=== PATIENT | male | born 1950 | race Caucasian/White ===

== ENCOUNTER 2017-10-31 09:13 | Day surgery (SDC) | payer MEDICARE ==
[2017-10-29 16:11] VITALS: BMI 51.7
[~2017-10-31 09:13] MED LIST: LACTATED RINGERS 1,000 ML IV SCH; LIDOCAINE 1% 20 ML VIAL (10MG/ML) FOR IV START INTRADERMA PRN
[2017-10-31 09:58] VITALS: TEMP 98.6
[2017-10-31 10:08] LABS: Glucose,Whole Blood 112 mg/dL (75-99)
[2017-10-31] MEDS ORDERED: PROPOFOL 10 MG/ML 20 ML VIAL IV ONE (10:36)
[2017-10-31] MEDS ORDERED: LIDOCAINE 1% INJ 10MG/ML (20 ML MDV) ONE (10:36)
--- NOTE | 2017-10-31 11:16 | P.PCN ---
Date of Procedure: 10/31/17 Procedure(s) Performed: Procedure: Total colonoscopy. Preoperative diagnosis: Screening for neoplasia. Postoperative diagnosis: Mild diverticulosis with no evidence of acute diverticulitis, strictures, polyps or cancer. Preparation: HalfLytely prep. Sedation: Was provided by anesthesia. Brief clinical history: The patient is a 67-year-old male who is scheduled for this evaluation for screening for neoplasia. He had a prior exam around 10 years ago. No history of polyps or family history of colon cancer he is aware of. At this time, he has no abdominal complaints, bleeding or anemia. Procedure: With the patient on his left lateral decubitus position and after informed consent and adequate sedation, the perianal area was inspected and it did not show any fissures or fistulas. There were no masses felt on digital rectal examination. The Olympus CFQ 160L video colonoscope was then inserted in the rectum in the usual fashion and advanced to the cecum. The mucosa appeared healthy. No polyps or tumors were seen. There was occasional diverticular orifices seen in the sigmoid and right side with no evidence of acute diverticulitis or strictures. I retroflexed endoscope in the rectum before the endoscope was withdrawn. The patient tolerated the procedure well. Plan: The patient was reassured. He will follow up with you as planned and I recommended repeat exam in 10 years.
[2017-10-31 11:28] VITALS: BP 127/71; PULSE 57; RESP 14
[2017-10-31 11:36] LABS: Glucose,Whole Blood 104 mg/dL (75-99)
== END 2017-10-31 12:01 | disposition home or self-care (01) ==
LOC: ORWHC2ENDO 09:13
DX: Z12.11 Encounter for screening for malignant neoplasm of colon (principal); K57.30 Diverticulosis of large intestine without perforation or abscess without bleeding; I25.10 Atherosclerotic heart disease of native coronary artery without angina pectoris; K21.9 Gastro-esophageal reflux disease without esophagitis; I10 Essential (primary) hypertension; E78.5 Hyperlipidemia, unspecified; G47.33 Obstructive sleep apnea (adult) (pediatric); E11.9 Type 2 diabetes mellitus without complications; Z86.73 Personal history of transient ischemic attack (TIA), and cerebral infarction without residual deficits; E66.9 Obesity, unspecified; Z95.1 Presence of aortocoronary bypass graft; Z79.82 Long term (current) use of aspirin; Z79.84 Long term (current) use of oral hypoglycemic drugs; Z79.899 Other long term (current) drug therapy
CPT/HCPCS: J2001; J2704; G0121; 45378

== ENCOUNTER 2017-11-06 19:11 | Emergency (ER) | payer MEDICARE ==
[2017-11-06 19:17] VITALS: RESP 18
[2017-11-06] MEDS ORDERED: HYDROcodone/APAP 10-325MG 1 EACH TAB PO ONE (20:02)
--- NOTE | 2017-11-06 20:25 | ED ---
Lower Extremity Injury HPI - General Chief Complaint: Extremity Injury, Lower Stated Complaint: Leg pain/swelling Time Seen by Provider: 11/06/17 19:27 Source: patient, RN notes reviewed, old records reviewed Mode of arrival: ambulatory Limitations: no limitations - History of Present Illness Initial Comments: This patient is 67-year-old male presents emergency Department chief complaint of right leg pain and swelling sudden onset of today. 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 No history of blood clots. He reports that he has pain in the posterior knee radiating up towards his groin. Patient states he is in a daily aspirin for a blood thinner no other blood thinners. He also has chronic leg swelling in his PCP recently increased his Lasix. Denies any chest pain or shortness of breath. - Related Data Home Medications Medication Instructions Recorded Confirmed Cholecalciferol [Vitamin D3] 1,000 unit PO DAILY 12/31/14 11/06/17 Multivitamins, Thera [Multivitamin 1 tab PO DAILY 12/31/14 11/06/17 (formulary)] Tamsulosin HCl [Flomax] 0.4 mg PO DAILY 12/31/14 11/06/17 Ferrous Sulfate [Feosol] 325 mg PO DAILY 01/03/15 11/06/17 FLUoxetine HCL [PROzac] 40 mg PO DAILY 01/11/15 11/06/17 Aspirin 325 mg PO DAILY 03/29/15 11/06/17 Furosemide [Lasix] 80 mg PO DAILY 10/29/17 11/06/17 Oxybutynin Chloride [Ditropan] 10 mg PO BID 10/29/17 11/06/17 amLODIPine [Norvasc] 10 mg PO DAILY 10/29/17 11/06/17 metFORMIN HCL [Glucophage] 1,000 mg PO DAILY 10/29/17 11/06/17 Previous Rx's Medication Instructions Recorded Atorvastatin [Lipitor] 20 mg PO HS #30 tab 01/18/15 Metoprolol Tartrate [Lopressor] 25 mg PO TID #90 tab 01/18/15 Allergies Allergy/AdvReac Type Severity Reaction Status Date / Time No Known Allergies Allergy Verified 11/06/17 19:27 Review of Systems ROS Statement: Those systems with pertinent positive or pertinent negative responses have been documented in the HPI. ROS Other: All systems not noted in ROS Statement are negative. Past Medical History Past Medical History: Coronary Artery Disease (CAD), CVA/TIA, Diabetes Mellitus , GERD/Reflux, Hypertension, Sleep Apnea/CPAP/BIPAP Additional Past Medical History / Comment(s): TIA (2009), C-PAP MACHINE, BLADDER LEAKAGE. History of Any Multi-Drug Resistant Organisms: None Reported Past Surgical History: Cholecystectomy, Coronary Bypass/CABG, Hernia Repair, Joint Replacement Additional Past Surgical History / Comment(s): RIGHT CAROTID, NIKOEL TOTAL KNEES ( 2008 & 2010), CABG (2014) Past Anesthesia/Blood Transfusion Reactions: No Reported Reaction Past Psychological History: Anxiety Smoking Status: Former smoker Past Alcohol Use History: None Reported Past Drug Use History: None Reported - Past Family History Brother(s) Family Medical History: Cancer Additional Family Medical History / Comment(s): ORAL CANCER General Exam - General Exam Comments Initial Comments: Patient is a morbidly obese 67-year-old male. Limitations: no limitations General appearance: alert, in no apparent distress Head exam: Present: atraumatic Eye exam: Present: normal appearance, PERRL, EOMI. Absent: scleral icterus, conjunctival injection, periorbital swelling ENT exam: Present: normal exam, mucous membranes moist Neck exam: Present: normal inspection. Absent: tenderness, meningismus, lymphadenopathy Respiratory exam: Present: normal lung sounds bilaterally. Absent: respiratory distress, wheezes, rales, rhonchi, stridor Cardiovascular Exam: Present: regular rate, normal rhythm, normal heart sounds. Absent: systolic murmur, diastolic murmur, rubs, gallop, clicks GI/Abdominal exam: Present: soft, normal bowel sounds. Absent: distended, tenderness, guarding, rebound, rigid Extremities exam: Present: normal inspection, full ROM, normal capillary refill , other (Patient has significant edema over the right lower extremity. Proximally 4+ pitting edema. The lower leg is warm and erythematous.). Absent : tenderness, pedal edema, joint swelling, calf tenderness Right Upper Leg exam: Absent: normal inspection (erythema and swelling) Knee exam: Present: normal inspection, full ROM Lower Leg exam: Present: normal inspection, full ROM Ankle exam: Present: full ROM, erythema. Absent: normal inspection Foot/Toe exam: Present: erythema. Absent: full ROM Neurovascular tendon exam: Present: no vascular compromise Gait: observed and normal Back exam: Present: normal inspection Neurological exam: Present: alert, oriented X3, CN II-XII intact Psychiatric exam: Present: normal affect, normal mood Skin exam: Present: warm, dry, intact, normal color. Absent: rash Course Vital Signs 11/06/17 19:13 Temperature 97.7 F Pulse Rate 64 Respiratory 18 Rate Blood Pressure 154/70 O2 Sat by Pulse 99 Oximetry Medical Decision Making - Medical Decision Making Patient is a 67-year-old with history of diabetes, hyperlipidemia, hypertension , and has history of coronary artery bypass graft presents today with acute onset of right lower extremity swelling. Patient does have extensive swelling over the right lower extremity. 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 Patient has evidence of a significant DVT extending from the external iliac vein to the popliteal vein. Discussed this with Dr. Montoya. He recommends discussing with the vascular surgeon Dr. Castellanos. We got a hold of Dr. Castellanos and he wants the patient to be transferred to [facility] due to the extensive DVT and concern for possible rupture of the clots transferring him to the vena cava. Patient will be given 5000 units of heparin at this time. And started on heparin drip. Patient will be transferred to [facility] for tPA administration. - Radiology Data Radiology results: report reviewed Ultrasound is positive for right leg DVT from the external iliac vein down to the popliteal vein. The DVT appears to be acute. Disposition Clinical Impression: Right leg DVT, Diabetes, Hyperlipemia Disposition: DC/TRNS INTERMEDIATE CARE FAC Condition: Stable Referrals: Orville Weldon MD [Primary Care Provider] - 1-2 days Time of Disposition: 21:44 - Out of Hospital Transfer - Req. Specs Out of Hospital Transfer - Requested Specifics: Other Emergency Center ([facility])
--- NOTE | 2017-11-06 20:56 | US ---
EXAMINATION TYPE: US venous doppler duplex LE RT DATE OF EXAM: 11/06/2017 8:29 PM COMPARISON: NONE CLINICAL HISTORY: Pain. Right leg edema and pain SIDE PERFORMED: Right TECHNIQUE: The lower extremity deep venous system is examined utilizing real time linear array sonog rene with graded compression, doppler sonography and color-flow sonography. VESSELS IMAGED: External Iliac Vein (EIV) Common Femoral Vein Deep Femoral Vein Greater Saphenous Vein * Femoral Vein Popliteal Vein Small Saphenous Vein * Proximal Calf Veins (* superficial vessels) Right Leg: Positive for DVT Positive DVT right leg from the External iliac vein down to the Popliteal vein. IMPRESSION: There is extensive acute deep venous thrombosis from the iliac vein to the popliteal vein of the right leg.
[2017-11-06] MEDS ORDERED: HEPARIN SODIUM,PORCINE 5,000 UNIT/ML 1 ML VIAL IV PRN (21:14)
[2017-11-06] MEDS ORDERED: HEPARIN SODIUM,PORCINE 10,000 UNIT/ML 1 ML VIAL IV ONE (21:14)
[2017-11-06] MEDS ORDERED: HEPARIN SOD,PORK IN 0.45% NACL 25,000 UNIT in 0.45% NACL 1 500ML.BAG IV SCH (21:15)
[2017-11-06] MEDS ORDERED: HEPARIN SODIUM,PORCINE 5,000 UNIT/ML 1 ML VIAL IV STA (21:31)
[2017-11-06 21:40] LABS: Basophils # (A) 0.1 k/uL (0-0.2); Basophils % (A) 1 %; Eosinophils # (A) 0.2 k/uL (0-0.7); Eosinophils % (A) 2 %; HCT 42.2 % (39.0-53.0); HGB 13.3 gm/dL (13.0-17.5); Lymphocytes # (A) 1.8 k/uL (1.0-4.8); Lymphocytes % (A) 20 %; MCH 27.9 pg (25.0-35.0); MCHC 31.6 g/dL (31.0-37.0); MCV 88.2 fL (80.0-100.0); Mean Platelet Volume 8.1; Monocytes # (A) 0.6 k/uL (0-1.0); Monocytes % (A) 7 %; Neutrophils # (A) 6.3 k/uL (1.3-7.7); Neutrophils % (A) 69 %; Platelet Count 181 k/uL (150-450); RBC 4.79 m/uL (4.30-5.90); RDW 14.4 % (11.5-15.5); WBC 9.1 k/uL (3.8-10.6)
[2017-11-06 22:04] LABS: Partial Thromboplastin Time 21.8 sec (22.0-30.0)
[2017-11-06 22:30] VITALS: BP 149/69; PULSE 59; TEMP 97.6
== END 2017-11-06 22:57 ==
LOC: EC 19:11
DX: I82.421 Acute embolism and thrombosis of right iliac vein (principal); I82.431 Acute embolism and thrombosis of right popliteal vein; E11.9 Type 2 diabetes mellitus without complications; E78.5 Hyperlipidemia, unspecified; I10 Essential (primary) hypertension; I25.10 Atherosclerotic heart disease of native coronary artery without angina pectoris; G47.30 Sleep apnea, unspecified; Z99.89 Dependence on other enabling machines and devices; F41.9 Anxiety disorder, unspecified; Z86.73 Personal history of transient ischemic attack (TIA), and cerebral infarction without residual deficits; Z87.891 Personal history of nicotine dependence; Z79.82 Long term (current) use of aspirin; Z79.84 Long term (current) use of oral hypoglycemic drugs; Z79.899 Other long term (current) drug therapy; Z53.8 Procedure and treatment not carried out for other reasons
CPT/HCPCS: 36415; 85025; 85610; 85730; 93971; 99285; 96365; 96376; J1644 ×2

== ENCOUNTER 2018-11-10 17:13 | Emergency (ER) | payer MEDICARE ==
[2018-11-10 17:20] VITALS: RESP 18; TEMP 97.8
[2018-11-10] MEDS ORDERED: IPRATROPIUM-ALBUTEROL 3 ML NEB INHALATION STA (17:23)
[2018-11-10] MEDS ORDERED: SODIUM CHLORIDE 0.9% 1,000 ML IV STA (17:23)
--- NOTE | 2018-11-10 17:40 | ED ---
SOB HPI - General Chief Complaint: Shortness of Breath Stated Complaint: SOB Time Seen by Provider: 11/10/18 17:22 Source: patient, RN notes reviewed, old records reviewed Mode of arrival: ambulatory Limitations: no limitations - History of Present Illness Initial Comments: This is a 68-year-old male the ER for evaluation. Presents today for evaluation regards to severe shortness of breath. Patient is significant heart history with obesity and history of PE. Patient no longer on anticoagulation. Patient also complaining of left lower Shorty pain and edema. Symptoms 3 days of shortness of breath with exertion, which she always does Have some sort of baseline, he also suffered from edema. No fever cough or congestion. MD Complaint: shortness of breath, pain with inspiration -: days(s) Radiation: back Severity: moderate Severity scale (1-10): 6 Quality: sharp, stabbing Consistency: constant Improves With: rest Worsens With: exertion, movement Known History Of: congestive heart failure, DVT, other (PE) Context: other (history of DVT) Associated Symptoms: chest pain, pain with inspiration Treatments Prior to Arrival: none - Related Data Home Medications Medication Instructions Recorded Confirmed Cholecalciferol [Vitamin D3] 1,000 unit PO DAILY 12/31/14 11/06/17 Multivitamins, Thera [Multivitamin 1 tab PO DAILY 12/31/14 11/06/17 (formulary)] Tamsulosin HCl [Flomax] 0.4 mg PO DAILY 12/31/14 11/06/17 Ferrous Sulfate [Feosol] 325 mg PO DAILY 01/03/15 11/06/17 FLUoxetine HCL [PROzac] 40 mg PO DAILY 01/11/15 11/06/17 Aspirin 325 mg PO DAILY 03/29/15 11/06/17 Furosemide [Lasix] 80 mg PO DAILY 10/29/17 11/06/17 Oxybutynin Chloride [Ditropan] 10 mg PO BID 10/29/17 11/06/17 amLODIPine [Norvasc] 10 mg PO DAILY 10/29/17 11/06/17 metFORMIN HCL [Glucophage] 1,000 mg PO DAILY 10/29/17 11/06/17 Previous Rx's Medication Instructions Recorded Atorvastatin [Lipitor] 20 mg PO HS #30 tab 01/18/15 Metoprolol Tartrate [Lopressor] 25 mg PO TID #90 tab 01/18/15 Allergies Allergy/AdvReac Type Severity Reaction Status Date / Time No Known Allergies Allergy Verified 11/10/18 18:25 Review of Systems ROS Statement: Those systems with pertinent positive or pertinent negative responses have been documented in the HPI. ROS Other: All systems not noted in ROS Statement are negative. Past Medical History Past Medical History: Coronary Artery Disease (CAD), CVA/TIA, Diabetes Mellitus, GERD/Reflux, Hypertension, Sleep Apnea/CPAP/BIPAP Additional Past Medical History / Comment(s): TIA (2008), C-PAP MACHINE, BLADDER LEAKAGE. 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), CABG (2014) Past Anesthesia/Blood Transfusion Reactions: No Reported Reaction Past Psychological History: Anxiety Smoking Status: Former smoker Past Alcohol Use History: Occasional Past Drug Use History: None Reported - Past Family History Brother(s) Family Medical History: Cancer Additional Family Medical History / Comment(s): ORAL CANCER General Exam Limitations: no limitations General appearance: alert, in distress, obese Head exam: Present: atraumatic, normocephalic, normal inspection Eye exam: Present: normal appearance, PERRL, EOMI. Absent: scleral icterus, conjunctival injection, periorbital swelling ENT exam: Present: normal exam, mucous membranes moist Neck exam: Present: normal inspection. Absent: tenderness, meningismus, lymphadenopathy Respiratory exam: Present: normal lung sounds bilaterally, respiratory distress, accessory muscle use, decreased breath sounds, prolonged expiratory. Absent: wheezes, rales, rhonchi, stridor Cardiovascular Exam: Present: regular rate, normal rhythm, normal heart sounds. Absent: systolic murmur, diastolic murmur, rubs, gallop, clicks GI/Abdominal exam: Present: soft, normal bowel sounds. Absent: distended, tenderness, guarding, rebound, rigid Extremities exam: Present: normal inspection, full ROM, normal capillary refill. Absent: tenderness, pedal edema, joint swelling, calf tenderness Back exam: Present: normal inspection Neurological exam: Present: alert, oriented X3, CN II-XII intact Psychiatric exam: Present: normal affect, normal mood Skin exam: Present: warm, dry, intact, normal color. Absent: rash Course Vital Signs 11/10/18 11/10/18 11/10/18 17:16 18:00 18:05 Temperature 97.8 F Pulse Rate 62 60 60 Respiratory 18 Rate Blood Pressure 192/93 O2 Sat by Pulse 92 L 94 L Oximetry 11/10/18 11/10/18 11/10/18 18:17 18:20 19:40 Temperature Pulse Rate 64 59 L 62 Respiratory Rate Blood Pressure 142/81 O2 Sat by Pulse 96 96 Oximetry - Reevaluation(s) Reevaluation #1: 11/10/18 20:36 Medical record is reviewed Reevaluation #2: 11/10/18 20:36 Patient is in no acute distress Reevaluation #3: 11/10/18 20:36 Patient started on high-dose heparin - Consultations Consultation #1: Spoke with attending Dr. Bobby Fraire was acceptable for transfer Medical Decision Making - Medical Decision Making 68 male the ER for evaluation shortness of breath especially shortness of breath with exertion 3 days and left lower extremity pain and edema that he noticed worsening today. Patient is positive for PE positive for left lower extremity DVT. Patient will transfer from [facility] for further evaluation and management - Lab Data Result diagrams: 11/10/18 18:05 11/10/18 18:05 Lab Results 11/10/18 11/10/18 11/10/18 Range/Units 18:05 18:05 18:05 WBC 8.8 (3.8-10.6) k/uL RBC 5.00 (4.30-5.90) m/uL Hgb 13.9 (13.0-17.5) gm/dL Hct 44.4 (39.0-53.0) % MCV 88.9 (80.0-100.0) fL MCH 27.8 (25.0-35.0) pg MCHC 31.2 (31.0-37.0) g/dL RDW 15.0 (11.5-15.5) % Plt Count 236 (150-450) k/uL Neutrophils % 68 % Lymphocytes % 20 % Monocytes % 7 % Eosinophils % 3 % Basophils % 1 % Neutrophils # 5.9 (1.3-7.7) k/uL Lymphocytes # 1.8 (1.0-4.8) k/uL Monocytes # 0.6 (0-1.0) k/uL Eosinophils # 0.3 (0-0.7) k/uL Basophils # 0.1 (0-0.2) k/uL Hypochromasia Slight PT 10.5 (9.0-12.0) sec INR 1.0 (<1.2) APTT 22.5 (22.0-30.0) sec D-Dimer 5.81 H (<0.60) mg/L FEU Sodium 141 (137-145) mmol/L Potassium 4.2 (3.5-5.1) mmol/L Chloride 107 (98-107) mmol/L Carbon Dioxide 26 (22-30) mmol/L Anion Gap 8 mmol/L BUN 21 H (9-20) mg/dL Creatinine 0.93 (0.66-1.25) mg/dL Est GFR (CKD-EPI)AfAm >90 (>60 ml/min/1.73 sqM) Est GFR (CKD-EPI)NonAf 85 (>60 ml/min/1.73 sqM) Glucose 110 H (74-99) mg/dL Calcium 9.5 (8.4-10.2) mg/dL Magnesium 1.9 (1.6-2.3) mg/dL Total Bilirubin 0.5 (0.2-1.3) mg/dL AST 22 (17-59) U/L ALT 33 (21-72) U/L Alkaline Phosphatase 71 (38-126) U/L Troponin I (0.000-0.034) ng/mL NT-Pro-B Natriuret Pep pg/mL Total Protein 7.5 (6.3-8.2) g/dL Albumin 4.1 (3.5-5.0) g/dL 11/10/18 11/10/18 Range/Units 18:05 18:05 WBC (3.8-10.6) k/uL RBC (4.30-5.90) m/uL Hgb (13.0-17.5) gm/dL Hct (39.0-53.0) % MCV (80.0-100.0) fL MCH (25.0-35.0) pg MCHC (31.0-37.0) g/dL RDW (11.5-15.5) % Plt Count (150-450) k/uL Neutrophils % % Lymphocytes % % Monocytes % % Eosinophils % % Basophils % % Neutrophils # (1.3-7.7) k/uL Lymphocytes # (1.0-4.8) k/uL Monocytes # (0-1.0) k/uL Eosinophils # (0-0.7) k/uL Basophils # (0-0.2) k/uL Hypochromasia PT (9.0-12.0) sec INR (<1.2) APTT (22.0-30.0) sec D-Dimer (<0.60) mg/L FEU Sodium (137-145) mmol/L Potassium (3.5-5.1) mmol/L Chloride (98-107) mmol/L Carbon Dioxide (22-30) mmol/L Anion Gap mmol/L BUN (9-20) mg/dL Creatinine (0.66-1.25) mg/dL Est GFR (CKD-EPI)AfAm (>60 ml/min/1.73 sqM) Est GFR (CKD-EPI)NonAf (>60 ml/min/1.73 sqM) Glucose (74-99) mg/dL Calcium (8.4-10.2) mg/dL Magnesium (1.6-2.3) mg/dL Total Bilirubin (0.2-1.3) mg/dL AST (17-59) U/L ALT (21-72) U/L Alkaline Phosphatase (38-126) U/L Troponin I 0.013 (0.000-0.034) ng/mL NT-Pro-B Natriuret Pep 2140 pg/mL Total Protein (6.3-8.2) g/dL Albumin (3.5-5.0) g/dL - EKG Data -: EKG Interpreted by Me (EKG shows sinus rhythm rate of 65, ND 20, QRS 80, QTC 443) - Radiology Data Radiology results: report reviewed (Ultrasound left lower extremity positive for DVT, CTA positive for PE), image reviewed Critical Care Time Critical Care Time: Yes Total Critical Care Time: 31 Disposition Clinical Impression: Acute pulmonary embolism Disposition: OTHER INSTITUTION NOT DEFINED Condition: Serious Is patient prescribed a controlled substance at d/c from ED?: No Referrals: Shiraz,Orville, MD [Primary Care Provider] - 1-2 days - Out of Hospital Transfer - Req. Specs Out of Hospital Transfer - Requested Specifics: Other Emergency Center ([facility])
--- NOTE | 2018-11-10 18:03 | XR ---
EXAMINATION TYPE: XR chest 2V DATE OF EXAM: 11/10/2018 COMPARISON: 03/29/2015 HISTORY: Short of breath TECHNIQUE: Frontal and lateral views of the chest are obtained. FINDINGS: There is no heart failure nor confluent pneumonic infiltrate. There are sternal wires. The re is some coarsening of the interstitial markings. There is no pleural effusion. IMPRESSION: There is clearing of small right pleural effusion compared to old exam. Mild pulmonary f ibrosis. No overt heart failure.
[2018-11-10 18:21] LABS: Basophils # (A) 0.1 k/uL (0-0.2); Basophils % (A) 1 %; Eosinophils # (A) 0.3 k/uL (0-0.7); Eosinophils % (A) 3 %; HCT 44.4 % (39.0-53.0); HGB 13.9 gm/dL (13.0-17.5); Hypochromasia Slight; Lymphocytes # (A) 1.8 k/uL (1.0-4.8); Lymphocytes % (A) 20 %; MCH 27.8 pg (25.0-35.0); MCHC 31.2 g/dL (31.0-37.0); MCV 88.9 fL (80.0-100.0); Mean Platelet Volume 8.4; Monocytes # (A) 0.6 k/uL (0-1.0); Monocytes % (A) 7 %; Neutrophils # (A) 5.9 k/uL (1.3-7.7); Neutrophils % (A) 68 %; Platelet Count 236 k/uL (150-450); WBC 8.8 k/uL (3.8-10.6)
[2018-11-10 18:34] LABS: ALT 33 U/L (21-72); AST 22 U/L (17-59); Albumin 4.1 g/dL (3.5-5.0); Alkaline Phosphatase 71 U/L (38-126); Anion Gap 8 mmol/L; Blood Urea Nitrogen 21 mg/dL (9-20); Calcium 9.5 mg/dL (8.4-10.2); Carbon Dioxide 26 mmol/L (22-30); Chloride 107 mmol/L (98-107); Glucose 110 mg/dL (74-99); Magnesium 1.9 mg/dL (1.6-2.3); Potassium 4.2 mmol/L (3.5-5.1); Sodium 141 mmol/L (137-145); Total Bilirubin 0.5 mg/dL (0.2-1.3); Total Protein 7.5 g/dL (6.3-8.2)
[2018-11-10 18:40] LABS: Partial Thromboplastin Time 22.5 sec (22.0-30.0); Prothrombin Time 10.5 sec (9.0-12.0)
[2018-11-10 18:42] LABS: D-Dimer 5.81 mg/L FEU (<0.60)
--- NOTE | 2018-11-10 19:48 | CT ---
EXAMINATION TYPE: CT angio chest DATE OF EXAM: 11/10/2018 7:28 PM COMPARISON: Biophysical profile. History abnormal nonstress test. HISTORY: Short of breath CT DLP: mGycm Automated exposure control for dose reduction was used. CONTRAST: CTA scan of the thorax is performed , patient injected with mL of , pulmonary embolism protocol. . The contrast was Isovue 100 mL. There are 3-D post processed images. FINDINGS: There is mild reticular density in the lingula left upper lobe. There is no pulmonary consolidation. There is no pleural effusion. Thoracic aorta shows some atheromatous change. There is no aneurysm or dissection. There are multiple large filling defects in the right pulmonary artery involving the right upper lobe and right lower lobe. There is small filling defect in a segmental branch of the left lower lobe pul monary artery. There is no mediastinal adenopathy. There are no hilar masses. The bony thorax is intact. There are sternal wires. There is some atrophy of the left kidney compared to the right. IMPRESSION: THERE IS SIGNIFICANT PULMONARY EMBOLI ON THE RIGHT SIDE WITH MOST OF THE SEGMENTAL BRANCHES OF THE RI GHT PULMONARY ARTERY OCCLUDED. THERE IS A SINGLE SEGMENTAL OCCLUSION OF THE LEFT LOWER LOBE PULMONARY ARTERY. THIS EXAM WAS DISCUSSED WITH DR. HENDERSON AT 7:45 PM. THE INTERVENTRICULAR SEPTUM IS FAIRLY NORMAL. I DO NOT SEE EVIDENCE FOR RIGHT HEART STRAIN. RIGHT AUGUSTUS TRICLE NORMAL SIZE.
[2018-11-10 19:49] VITALS: PULSE 62
[2018-11-10] MEDS ORDERED: HEPARIN SODIUM,PORCINE 5,000 UNIT/ML 1 ML VIAL IV PRN (20:28)
[2018-11-10] MEDS ORDERED: HEPARIN SODIUM,PORCINE 10,000 UNIT/ML 1 ML VIAL IV ONE (20:28)
[2018-11-10] MEDS ORDERED: HEPARIN SOD,PORK IN 0.45% NACL 25,000 UNIT in 0.45% NACL 1 250ML.BAG IV SCH (20:30)
--- NOTE | 2018-11-10 20:33 | US ---
EXAMINATION TYPE: US venous doppler duplex LE LT DATE OF EXAM: 11/10/2018 8:10 PM COMPARISON: NONE CLINICAL HISTORY: Pain. Left leg pain. SIDE PERFORMED: Left TECHNIQUE: The lower extremity deep venous system is examined utilizing real time linear array sonog rene with graded compression, doppler sonography and color-flow sonography. VESSELS IMAGED: External Iliac Vein (EIV) Common Femoral Vein Deep Femoral Vein Greater Saphenous Vein * Femoral Vein Popliteal Vein Small Saphenous Vein * Proximal Calf Veins (* superficial vessels) Left Leg: Positive for DVT. Positive DVT left Popliteal Vein. Limited visualization of Femoral Vein. IMPRESSION: There is evidence of acute deep venous thrombosis in the left popliteal vein.
[2018-11-10 23:44] VITALS: BP 170/89
== END 2018-11-10 20:43 | disposition short-term general hospital (02) ==
LOC: EC 17:13
DX: I26.99 Other pulmonary embolism without acute cor pulmonale (principal); I82.432 Acute embolism and thrombosis of left popliteal vein; I25.10 Atherosclerotic heart disease of native coronary artery without angina pectoris; E11.9 Type 2 diabetes mellitus without complications; I10 Essential (primary) hypertension; G47.30 Sleep apnea, unspecified; F41.9 Anxiety disorder, unspecified; E66.9 Obesity, unspecified; Z68.43 Body mass index [BMI] 50.0-59.9, adult; Z79.82 Long term (current) use of aspirin; Z79.84 Long term (current) use of oral hypoglycemic drugs; Z79.899 Other long term (current) drug therapy; Z95.1 Presence of aortocoronary bypass graft; Z96.653 Presence of artificial knee joint, bilateral; Z87.891 Personal history of nicotine dependence; Z86.73 Personal history of transient ischemic attack (TIA), and cerebral infarction without residual deficits
CPT/HCPCS: 36415; 94640; 93005; 85379; 83880; 80053; 83735; 84484; 85025; 85610; 85730; 71046; 93971; 71275; 99291; 96365; 96366 ×2; 96361 ×3; J1644 ×2; Q9967

== ENCOUNTER → 2019-10-07 | Outpatient (CLI) | payer MEDICARE ==
[2019-10-07 18:34] LABS: Chol/HDL Ratio 4.44; LDL Cholesterol,Calculated 88.4 mg/dL (0.0-131.0); VLDL Calculation 35.6 mg/dL (5.00-40.00)
== END | disposition home or self-care (01) ==
LOC: LABWHC1 11:53
PROVIDERS: ATTEND Internal Medicine Cardiovascular Disease
DX: E78.2 Mixed hyperlipidemia (principal)
CPT/HCPCS: 36415; 80061; 84450; 84460

== ENCOUNTER → 2020-07-14 | Outpatient (CLI) | payer MEDICARE ==
--- NOTE | 2020-07-14 15:26 | XR ---
EXAMINATION TYPE: XR chest 2V DATE OF EXAM: 07/14/2020 COMPARISON: 11/12/2018 INDICATION: Bronchitis TECHNIQUE: Frontal and lateral views of the chest are obtained. FINDINGS: The heart size is normal. The pulmonary vasculature is normal. There is a posterior right lower lobe infiltrate. Some left lower lobe infiltrate is not excluded. So me flattening the diaphragms lateral projection. Correlate for COPD.. IMPRESSION: 1. Right lower lobe infiltrate. Correlate for pneumonia. Consider atypical pneumonia. 2. Some mild left lower lobe infiltrate is not excluded. 3. COPD
== END | disposition home or self-care (01) ==
LOC: RADXRMAIN 12:21
PROVIDERS: ATTEND Pediatrics
DX: R91.8 Other nonspecific abnormal finding of lung field (principal); J44.9 Chronic obstructive pulmonary disease, unspecified
CPT/HCPCS: 71046

== ENCOUNTER → 2020-09-07 | Outpatient (CLI) | payer MEDICARE ==
--- NOTE | 2020-09-07 14:00 | CT ---
EXAMINATION TYPE: CT chest wo/w con DATE OF EXAM: 09/07/2020 COMPARISON: CTA chest November 10, 2018. Two-view chest x-ray July 14, 2020 HISTORY: COPD, SOB CT DLP: 1898.6 mGycm. Automated Exposure Control for Dose Reduction was Utilized. TECHNIQUE: CT scan of the thorax is performed following without and with IV Contrast, patient inject ed with 100 mL of Isovue 300. FINDINGS: LUNGS: New small right pleural effusion. New multifocal bilateral groundglass opacities bilaterally w ith areas of developing consolidation in the lower lungs. New 2.0 x 1.6 cm lateral right basilar nodule or nodular consolidation axial image 44. New spiculated mas s or masslike consolidation left lung base 4.6 x 2.0 cm axial image 51. Small posterior medial left-s ided diaphragmatic hernia redemonstrated. Exam suboptimal due to patient's body habitus. Poor contras t bolus noted. MEDIASTINUM: There are no greater than 1 cm hilar or mediastinal lymph nodes. No pericardial effusi on is seen. Markedly enlarged central pulmonary artery redemonstrated. CT findings consistent with underlying pulmonary artery hypertension. Mild cardiomegaly. Post-CABG changes with mediastinal clips and sternal wires. OTHER: Cholecystectomy clips are noted. Asymmetric cortical thinning and diminished size to left kidn ey. Moderate calcified plaque aorta extends into branch vessels. IMPRESSION: Suboptimal study due to body habitus. New Bilateral multifocal groundglass opacities, cor relate for acute infectious process, in the current environment covid-19 infection needs to be exclud ed. Basilar areas of nodule or mass or nodule/mass like consolidation needs CT follow-up to rule out underlying neoplasm. Ordering physician made aware of report findings by research food technologist shortly after exam was dictated.
== END | disposition home or self-care (01) ==
LOC: RADCTMAIN 12:20
PROVIDERS: ATTEND Pediatrics
DX: R91.8 Other nonspecific abnormal finding of lung field (principal); J44.9 Chronic obstructive pulmonary disease, unspecified; R06.02 Shortness of breath
CPT/HCPCS: 82565; 84520; 71270; 36415; Q9967

== ENCOUNTER 2021-07-02 15:10 | Emergency (ER) | payer MEDICARE ==
[2021-07-02 15:26] VITALS: RESP 18; TEMP 98.1
--- NOTE | 2021-07-02 15:37 | ED ---
General Adult HPI - General Chief complaint: Fall Stated complaint: FALL Time Seen by Provider: 07/02/21 15:19 Source: patient, EMS Mode of arrival: EMS Limitations: no limitations - History of Present Illness Initial comments: Patient [facility] the ED by ambulance [facility]. Patient states that he just finished flushing the toilet in the bathroom when he slipped on his socks and fell down striking his head. Patient denies LOC. Patient is reportedly on Eliquis anticoagulation therapy. Patient currently denies having any pain or complaints. Patient denies fever or chills, headache, focal numbness/weakness/neuro deficit, visual changes, neck/back/extremity pain, chest pain, dyspnea, cough or cold symptoms, palpitations, dizziness, syncope, abdominal pain, nausea/vomiting/diarrhea, bloody or melanotic stool, dysuria or urinary symptoms, or any other symptoms or complaints. - Related Data Home Medications Medication Instructions Recorded Confirmed Cholecalciferol [Vitamin D3 (25 2,000 unit PO DAILY@0900 12/31/14 07/02/21 Mcg = 1000 Iu)] Multivitamins, Thera [Multivitamin 1 tab PO DAILY@0900 12/31/14 07/02/21 (formulary)] Ferrous Sulfate [Feosol] 325 mg PO HS@209901/03/15 07/02/21 FLUoxetine HCL [PROzac] 40 mg PO HS@209901/11/15 07/02/21 Furosemide [Lasix] 40 mg PO BID@0600,1400 10/29/17 07/02/21 Oxybutynin Chloride [Ditropan] 5 mg PO BID@0900,209910/29/17 07/02/21 amLODIPine [Norvasc] 10 mg PO DAILY@0900 10/29/17 07/02/21 metFORMIN HCL [Glucophage] 1,000 mg PO BID@0600,1400 10/29/17 07/02/21 Apixaban [Eliquis] 5 mg PO BID@0900,209907/02/21 07/02/21 Aspirin EC [Ecotrin Low Dose] 81 mg PO DAILY@0900 07/02/21 07/02/21 Atorvastatin [Lipitor] 20 mg PO HS@209907/02/21 07/02/21 Ciprofloxacin HCl [Cipro] 500 mg PO Q12HR@0900,2099 07/02/21 07/02/21 Metoprolol Tartrate [Lopressor] 25 mg PO BID@0900,2100 07/02/21 07/02/21 Miconazole Nitrate [Lotrimin AF 1 applic TOPICAL Q12H 07/02/21 07/02/21 Powder] hydrALAZINE HCL [Apresoline] 25 mg PO TID@0600,1400,2200 07/02/21 07/02/21 Allergies Allergy/AdvReac Type Severity Reaction Status Date / Time No Known Allergies Allergy Verified 07/02/21 15:58 Review of Systems ROS Statement: Those systems with pertinent positive or pertinent negative responses have been documented in the HPI. ROS Other: All systems not noted in ROS Statement are negative. Past Medical History Past Medical History: Coronary Artery Disease (CAD), CVA/TIA, Diabetes Mellitus, GERD/Reflux, Hypertension, Sleep Apnea/CPAP/BIPAP Additional Past Medical History / Comment(s): TIA (2008), C-PAP MACHINE, BLADDER LEAKAGE. 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), CABG (2014) Past Anesthesia/Blood Transfusion Reactions: No Reported Reaction Past Psychological History: Anxiety Smoking Status: Never smoker Past Alcohol Use History: Occasional Past Drug Use History: None Reported - Past Family History Brother(s) Family Medical History: Cancer Additional Family Medical History / Comment(s): ORAL CANCER General Exam Limitations: no limitations General appearance: alert, in no apparent distress Head exam: Present: atraumatic, normocephalic Eye exam: Present: normal appearance, PERRL, EOMI ENT exam: Present: mucous membranes moist, TM's normal bilaterally Neck exam: Present: normal inspection, full ROM, other (Trachea is in midline). Absent: tenderness Respiratory exam: Present: normal lung sounds bilaterally. Absent: respiratory distress, wheezes, rales, rhonchi, stridor, chest wall tenderness Cardiovascular Exam: Present: regular rate, irregular rhythm, normal heart sounds, other (Normal radial pulses bilaterally) GI/Abdominal exam: Present: soft, other (Obese abdomen). Absent: tenderness, guarding Extremities exam: Present: full ROM, pedal edema, other (Pelvis is stable and nontender). Absent: tenderness, calf tenderness Back exam: Present: normal inspection. Absent: tenderness Neurological exam: Present: alert, oriented X3, CN II-XII intact. Absent: motor sensory deficit Psychiatric exam: Present: normal affect, normal mood Skin exam: Present: warm, dry, intact, normal color Course Vital Signs 07/02/21 15:21 Temperature 98.1 F Pulse Rate 85 Respiratory 18 Rate Blood Pressure 130/97 O2 Sat by Pulse 93 L Oximetry - Reevaluation(s) Reevaluation #1: 07/02/21 17:12 Patient continues to deny having any pain or symptoms. Patient remains alert and breathing comfortably. Patient and are aware the patient's test results, and patient feels comfortable going back to [facility] at this time. Patient was counseled about falls and head injuries, and he was clearly explained return and follow-up instructions. Patient was instructed to follow up closely with his primary care provider. Patient feels comfortable with this plan. EKG Findings - EKG Comments: EKG Findings:: Atrial fibrillation, ventricular rate of 72 bpm, normal QRS duration, normal QT interval, no ST or T-wave abnormality, normal axis Medical Decision Making - Medical Decision Making Patient reports having a mechanical fall, stating that he slipped on his socks and fell down. Patient's labs and imaging studies are fairly unremarkable. In particular, the patient's head CT is negative for any acute traumatic finding. I do not feel that the patient has an emergent medical condition at this time. Will discharge patient back to his [facility] at this time. - Lab Data Result diagrams: 07/02/21 16:09 07/02/21 16:09 Lab Results 07/02/21 07/02/21 07/02/21 Range/Units 16:09 16:09 16:09 WBC 8.5 (3.8-10.6) k/uL RBC 3.88 L (4.30-5.90) m/uL Hgb 11.1 L (13.0-17.5) gm/dL Hct 35.8 L (39.0-53.0) % MCV 92.3 (80.0-100.0) fL MCH 28.6 (25.0-35.0) pg MCHC 31.0 (31.0-37.0) g/dL RDW 17.8 H (11.5-15.5) % Plt Count 331 (150-450) k/uL MPV 8.2 Neutrophils % 75 % Lymphocytes % 12 % Monocytes % 7 % Eosinophils % 3 % Basophils % 1 % Neutrophils # 6.4 (1.3-7.7) k/uL Lymphocytes # 1.0 (1.0-4.8) k/uL Monocytes # 0.6 (0-1.0) k/uL Eosinophils # 0.2 (0-0.7) k/uL Basophils # 0.1 (0-0.2) k/uL Hypochromasia Moderate Anisocytosis Slight PT 13.0 H (9.0-12.0) sec INR 1.3 H (<1.2) APTT 28.7 (22.0-30.0) sec Sodium 142 (137-145) mmol/L Potassium 3.7 (3.5-5.1) mmol/L Chloride 108 H (98-107) mmol/L Carbon Dioxide 24 (22-30) mmol/L Anion Gap 10 mmol/L BUN 31 H (9-20) mg/dL Creatinine 1.22 (0.66-1.25) mg/dL Est GFR (CKD-EPI)AfAm 70 (>60 ml/min/1.73 sqM) Est GFR (CKD-EPI)NonAf 60 (>60 ml/min/1.73 sqM) Glucose 152 H (74-99) mg/dL Calcium 9.4 (8.4-10.2) mg/dL Total Bilirubin 0.9 (0.2-1.3) mg/dL AST 31 (17-59) U/L ALT 29 (4-49) U/L Alkaline Phosphatase 85 (38-126) U/L Troponin I (0.000-0.034) ng/mL Total Protein 7.9 (6.3-8.2) g/dL Albumin 3.6 (3.5-5.0) g/dL 07/02/21 Range/Units 16:09 WBC (3.8-10.6) k/uL RBC (4.30-5.90) m/uL Hgb (13.0-17.5) gm/dL Hct (39.0-53.0) % MCV (80.0-100.0) fL MCH (25.0-35.0) pg MCHC (31.0-37.0) g/dL RDW (11.5-15.5) % Plt Count (150-450) k/uL MPV Neutrophils % % Lymphocytes % % Monocytes % % Eosinophils % % Basophils % % Neutrophils # (1.3-7.7) k/uL Lymphocytes # (1.0-4.8) k/uL Monocytes # (0-1.0) k/uL Eosinophils # (0-0.7) k/uL Basophils # (0-0.2) k/uL Hypochromasia Anisocytosis PT (9.0-12.0) sec INR (<1.2) APTT (22.0-30.0) sec Sodium (137-145) mmol/L Potassium (3.5-5.1) mmol/L Chloride (98-107) mmol/L Carbon Dioxide (22-30) mmol/L Anion Gap mmol/L BUN (9-20) mg/dL Creatinine (0.66-1.25) mg/dL Est GFR (CKD-EPI)AfAm (>60 ml/min/1.73 sqM) Est GFR (CKD-EPI)NonAf (>60 ml/min/1.73 sqM) Glucose (74-99) mg/dL Calcium (8.4-10.2) mg/dL Total Bilirubin (0.2-1.3) mg/dL AST (17-59) U/L ALT (4-49) U/L Alkaline Phosphatase (38-126) U/L Troponin I <0.012 (0.000-0.034) ng/mL Total Protein (6.3-8.2) g/dL Albumin (3.5-5.0) g/dL - Radiology Data Radiology results: report reviewed (chest x-ray: There is some pleural reaction lateral right lung base which is a change compared to old exam. Cardiomegaly. Heart appears increased.) Noncontrast head CT: Cerebral atrophy and mild chronic small vessel ischemia. There is some progression of atrophy compared to old exam. Disposition Clinical Impression: Fall, Head injury Disposition: HOME SELF-CARE Condition: Stable Instructions (If sedation given, give patient instructions): Fall Prevention for Older Adults (ED), Head Injury (ED) Additional Instructions: Return to the ER immediately should you develop any significant pain, a fever, feeling dizzy or faint, shortness of breath, vomiting, or new or worsening symptoms. Follow up closely with your primary care provider. Is patient prescribed a controlled substance at d/c from ED?: No Referrals: Orville Weldon MD [Primary Care Provider] - 1-2 days Time of Disposition: 17:14
[2021-07-02 16:20] LABS: Anisocytosis Slight; Basophils # (A) 0.1 k/uL (0-0.2); Basophils % (A) 1 %; Eosinophils # (A) 0.2 k/uL (0-0.7); Eosinophils % (A) 3 %; HCT 35.8 % (39.0-53.0); HGB 11.1 gm/dL (13.0-17.5); Hypochromasia Moderate; Lymphocytes % (A) 12 %; MCH 28.6 pg (25.0-35.0); MCV 92.3 fL (80.0-100.0); Mean Platelet Volume 8.2; Monocytes # (A) 0.6 k/uL (0-1.0); Monocytes % (A) 7 %; Neutrophils # (A) 6.4 k/uL (1.3-7.7); Neutrophils % (A) 75 %; Platelet Count 331 k/uL (150-450); RBC 3.88 m/uL (4.30-5.90); RDW 17.8 % (11.5-15.5); WBC 8.5 k/uL (3.8-10.6)
[2021-07-02 16:29] LABS: INR 1.3 (<1.2); Partial Thromboplastin Time 28.7 sec (22.0-30.0)
--- NOTE | 2021-07-02 16:55 | XR ---
EXAMINATION TYPE: XR chest 1V portable DATE OF EXAM: 07/02/2021 COMPARISON: 07/14/2020 HISTORY: Short of breath TECHNIQUE: FINDINGS: Heart is enlarged. There is no heart failure. There are sternal wires. Costophrenic angles show slight blunting on the right side. Lungs are clear of consolidation. IMPRESSION: There is some pleural reaction lateral right lung base which is a change compared to old exam. Cardiomegaly. Heart appears increased.
[2021-07-02 16:57] LABS: Albumin 3.6 g/dL (3.5-5.0); Calcium 9.4 mg/dL (8.4-10.2); Potassium 3.7 mmol/L (3.5-5.1); Total Bilirubin 0.9 mg/dL (0.2-1.3); Total Protein 7.9 g/dL (6.3-8.2)
--- NOTE | 2021-07-02 17:04 | CT ---
EXAMINATION TYPE: CT brain wo con DATE OF EXAM: 07/02/2021 COMPARISON: 10/17/2010 HISTORY: Fall with posterior head injury. CT DLP: 1113.4 mGycm Automated exposure control for dose reduction was used. There is cerebral cortical atrophy. There is no mass effect nor midline shift. There is no sign of in tracranial hemorrhage. There is mild hypodensity in the periventricular white matter. Calvarium is in tact. Skull base is intact. IMPRESSION: Cerebral atrophy and mild chronic small vessel ischemia. There is some progression of atrophy compare d to old exam.
[2021-07-02 18:26] VITALS: BP 135/89; PULSE 89
== END 2021-07-02 18:26 | disposition home or self-care (01) ==
LOC: EC 15:10
DX: S09.90XA Unspecified injury of head, initial encounter (principal); I11.9 Hypertensive heart disease without heart failure; E11.9 Type 2 diabetes mellitus without complications; K21.9 Gastro-esophageal reflux disease without esophagitis; I25.10 Atherosclerotic heart disease of native coronary artery without angina pectoris; F41.9 Anxiety disorder, unspecified; Z79.01 Long term (current) use of anticoagulants; Z86.73 Personal history of transient ischemic attack (TIA), and cerebral infarction without residual deficits; Z90.49 Acquired absence of other specified parts of digestive tract; Z96.653 Presence of artificial knee joint, bilateral; Z79.84 Long term (current) use of oral hypoglycemic drugs; Z79.82 Long term (current) use of aspirin; Z95.1 Presence of aortocoronary bypass graft; Z79.899 Other long term (current) drug therapy; W01.10XA Fall on same level from slipping, tripping and stumbling with subsequent striking against unspecified object, initial encounter
CPT/HCPCS: 36415; 70450; 71045; 80053; 84484; 85025; 85610; 85730; 93005; 99285

== ENCOUNTER 2024-06-01 08:13 | Inpatient (IN) | payer MEDICARE, OTHER ==
[2024-06-01] MEDS ORDERED: VANCOMYCIN IV PER PHARMACY 1 EACH MISC MISCELLANE PRN (08:30)
[2024-06-01] MEDS: PIPERACILLIN-TAZOBACTAM 3.375 GM in SODIUM CHLORIDE 0.9% 100 ML IVPB SCH (08:48)
[2024-06-01] MEDS: SODIUM CHLORIDE 0.9% 500 ML 500 ML IV STA (08:48)
[2024-06-01] MEDS: methylPREDNISolone SOD SUCCI 125 MG/2 ML VIAL IV STA (08:48)
--- NOTE | 2024-06-01 08:48 | XR ---
EXAMINATION TYPE: XR chest 1V portable DATE OF EXAM: 06/01/2024 HISTORY: Shortness of breath. COMPARISON: 07/02/2021 TECHNIQUE: Single view of the chest is submitted. FINDINGS: Demonstrated are scattered senescent parenchymal change. Increasing scattered infiltrates and pulmonary venous congestion. Interval progression suggested pichardo elke the patient is rotated on the current study. Hilar and mediastinal structures are within normal limits. Degenerative changes are seen of the dorsal spine. IMPRESSION: 1. Increasing scattered infiltrates and pulmonary venous congestion. Interval progression suggested however the patient is rotated on the current study. [facility], , 06/01/2024 8:46 AM
[2024-06-01 08:49] LABS: Anisocytosis Slight; Basophils % (A) 0 %; Eosinophils # (A) 0.1 k/uL (0-0.7); Eosinophils % (A) 1 %; HCT 42.5 % (39.0-53.0); HGB 12.3 gm/dL (13.0-17.5); Hypochromasia Marked; Lymphocytes # (A) 0.4 k/uL (1.0-4.8); Lymphocytes % (A) 3 %; MCH 27.2 pg (25.0-35.0); MCV 93.7 fL (80.0-100.0); Macrocytosis Slight; Monocytes # (A) 0.6 k/uL (0-1.0); Monocytes % (A) 4 %; Neutrophils % (A) 92 %; Platelet Count 318 k/uL (150-450); RBC 4.54 m/uL (4.30-5.90); RDW 18.8 % (11.5-15.5); WBC 14.2 k/uL (3.8-10.6)
[2024-06-01 08:59] LABS: ALT 25 U/L (4-49); AST 36 U/L (17-59); African American GFR (CKD) 39 (>60 ml/min/1.73 sqM); Alkaline Phosphatase 59 U/L (38-126); Blood Urea Nitrogen 77 mg/dL (9-20); Calcium 9.2 mg/dL (8.4-10.2); Chloride 87 mmol/L (98-107); Glucose 232 mg/dL (74-99); Magnesium 1.9 mg/dL (1.6-2.3); Non-African American GFR(CKD) 34 (>60 ml/min/1.73 sqM); Potassium 3.5 mmol/L (3.5-5.1); Sodium 140 mmol/L (137-145); Total Protein 8.3 g/dL (6.3-8.2)
[2024-06-01] MEDS ORDERED: VANCOMYCIN 1,750 MG in SODIUM CHLORIDE 0.9% 500 ML 500 ML IVPB ONE (09:00)
[2024-06-01 09:02] LABS: INR 1.1 (<1.2); Partial Thromboplastin Time 24.2 sec (22.0-30.0); Prothrombin Time 11.5 sec (10.0-12.5)
[2024-06-01 09:05] LABS: Anion Gap 14 mmol/L
[2024-06-01 09:07] LABS: NT-Pro-B-Type Natriuretic Pept 3160 pg/mL
[2024-06-01 09:08] LABS: Carbon Dioxide 39 mmol/L (22-30)
[2024-06-01] MEDS: METOPROLOL SUCCINATE (ER) 25 MG TAB.ER.24H PO STA (09:31)
[2024-06-01] MEDS: ASPIRIN 81 MG PO STA (09:31)
[2024-06-01] MEDS ORDERED: ARTIFICIAL TEARS-HYPROMELLOSE DROPS 15 ML BTL BOTH EYES PRN (10:01)
[2024-06-01 10:04] LABS: ABG Base Excess 13.3 mmol/L; ABG Oxygen Saturation 93.9 % (94-97); ABG PH 7.34 (7.35-7.45); ABG PO2 75 mmHg (83-108); ABG TCO2 45 mmol/L (19-24)
[2024-06-01] MEDS: VANCOMYCIN 2,500 MG in SODIUM CHLORIDE 0.9% 500 ML 500 ML IVPB ONE (10:04)
[2024-06-01 10:06] LABS: ABG HCO3 42 mmol/L (21-25); ABG PCO2 78 mmHg (35-45); Allen Test Performed? yes
[2024-06-01] MEDS: SODIUM CHLORIDE 0.9% 1,000 ML IV STA (10:06)
[2024-06-01] MEDS: IPRATROPIUM-ALBUTEROL 3 ML NEB INHALATION STA (10:14)
[2024-06-01] MEDS ORDERED: NALOXONE 0.4 MG/ML 1 ML VIAL IV PRN (10:52)
[2024-06-01] MEDS ORDERED: ACETAMINOPHEN TAB 325 MG TAB PO PRN (10:52)
[2024-06-01 11:28] LABS: VBG PH 7.38 (7.31-7.41)
--- NOTE | 2024-06-01 11:29 | ED ---
General Adult HPI - General Chief complaint: Shortness of Breath Stated complaint: respiratory distrees/cardiac Time Seen by Provider: 06/01/24 08:20 Source: patient, EMS, RN notes reviewed, old records reviewed Mode of arrival: EMS Limitations: no limitations - History of Present Illness Initial comments: Patient is a 73-year-old male with past medical history remarkable for chronic hypoxic respiratory failure on 6 L nasal cannula at home baseline secondary to CHF, COPD. Patient also has a history of obesity, hypertension, atrial fibrill ation on blood thinners. Also has a history of diabetes. Presents emergency department for hypoxic respiratory failure. Patient states he has been having a productive cough for the last few days. Was worse today. Found to be hypoxic at his [facility], [facility]. This was despite being on a 6 L nasal cannula saturating the 70%. EMS was called. Denies fevers or sick contacts. Denies nausea or vomiting or diarrhea. Denies chest pain. Presents for further evaluation at this time. Patient placed on CPAP by EMS and transferred to our facility. - Related Data Home Medications Medication Instructions Recorded Confirmed Ferrous Sulfate [Feosol] 325 mg PO BID@0900,209901/03/15 06/01/24 Apixaban [Eliquis] 5 mg PO BID@00,209907/02/21 06/01/24 Aspirin EC [Ecotrin Low Dose] 81 mg PO DAILY@89907/02/21 06/01/24 Acetaminophen Tab [Tylenol Tab] 1,000 mg PO Q6HR PRN 06/01/24 06/01/24 Acetaminophen [Tylenol Arthritis] 650 mg PO Q12HR@899,209906/01/24 06/01/24 Albuterol Nebulized [Ventolin 2.5 mg INHALATION RT-Q6H PRN 06/01/24 06/01/24 Nebulized] Artificial Tears-Hypromellose 2 drops BOTH EYES Q4H PRN 06/01/24 06/01/24 [Artificial Tear Drops] Atorvastatin [Lipitor] 40 mg PO HS@209906/01/24 06/01/24 Budesonide/Formoterol Fumarate 2 puff INHALATION RT-BID@0900,209906/01/24 06/01/24 [Symbicort 160-4.5 Mcg Inhaler] Dapagliflozin Propanediol [Farxiga] 10 mg PO HS@209906/01/24 06/01/24 Esomeprazole Magnesium [NexIUM] 20 mg PO DAILY@59906/01/24 06/01/24 Furosemide [Lasix] 80 mg PO DAILY@59906/01/24 06/01/24 Hydrocortisone Cream 1 applic TOPICAL BID 06/01/24 06/01/24 [Hydrocortisone 1% Cream] Insulin Aspart [NovoLOG Flexpen] See Protocol SQ QID 06/01/24 06/01/24 Insulin Aspart [NovoLOG] 15 unit SQ TID@0800,1200,1700 06/01/24 06/01/24 Insulin Glargine,Hum.rec.anlog 21 units SQ HS@209906/01/24 06/01/24 [Lantus Solostar Pen] Ipratropium-Albuterol Nebulize 3 ml INHALATION RT-Q6H PRN 06/01/24 06/01/24 [Duoneb 0.5 mg-3 mg/3 ml Soln] Lactulose 20 gm PO Q12HR@0900,209906/01/24 06/01/24 Losartan [Cozaar] 12.5 mg PO DAILY@89906/01/24 06/01/24 Melatonin 5 mg PO HS@209906/01/24 06/01/24 Metoprolol Succinate (ER) [Toprol 25 mg PO DAILY@89906/01/24 06/01/24 Xl] Potassium Chloride [Klor-Con M20] 20 meq PO Q12HR@0900,209906/01/24 06/01/24 Pregabalin [Lyrica] 75 mg PO Q12HR@0900,209906/01/24 06/01/24 Psyllium Husk 100% [Metamucil 6 gm PO DAILY@89906/01/24 06/01/24 Packet] Sennosides/Docusate Sodium [Senna 2 tab PO DAILY@89906/01/24 06/01/24 Plus 8.6-50 mg Tablet] Tirzepatide [Mounjaro] 5 mg SQ TU@89906/01/24 06/01/24 allopurinoL [Allopurinol] 100 mg PO HS@209906/01/24 06/01/24 metOLazone 2.5 mg PO DAILY@0900 06/01/24 06/01/24 Allergies Allergy/AdvReac Type Severity Reaction Status Date / Time No Known Allergies Allergy Verified 06/01/24 08:58 Review of Systems ROS Statement: Those systems with pertinent positive or pertinent negative responses have been documented in the HPI. Review of Systems: CONST: Denies fever EYES: Denies blurry vision ENT: Denies nasal congestion C/V: Denies Chest pain RESP: Endorses shortness of breath GI: Denies abdominal pain : Denies dysuria SKIN: Denies rash. MSK: Denies joint pain. NEURO: Denies headache ROS Other: All systems not noted in ROS Statement are negative. Past Medical History Past Medical History: Coronary Artery Disease (CAD), CVA/TIA, Diabetes Mellitus, GERD/Reflux, Hypertension, Sleep Apnea/CPAP/BIPAP Additional Past Medical History / Comment(s): TIA (2008), C-PAP MACHINE, BLADDER LEAKAGE. 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 Obese. HEAD: Normal with no signs of head trauma. EYES: PERRLA, EOMI, conjunctiva normal, no discharge. ENT: Hearing grossly intact. Dry mucous membranes. RESPIRATORY: Coarse breath sounds bilaterally with rhonchi over the right lung field. Increased work of breathing. Hypoxic on CPAP with EMS down to 72%. C/V: Irregular rate and rhythm. S1 and S2 auscultated. No significant peripheral edema. Peripheral pulses 2+ intact throughout. ABD: Abd is soft, nontender, nondistended EXT: Normal range of motion, no obvious deformity SKIN: Cyanotic changes to the extremities. NEURO: Alert and oriented x 4. No focal deficits. Limitations: no limitations Course Vital Signs 06/01/24 06/01/24 06/01/24 08:15 08:21 08:23 Temperature 97.7 F Pulse Rate 126 H 146 H 120 H Respiratory 30 H 30 H 30 H Rate Blood Pressure 109/82 122/69 O2 Sat by Pulse 72 L 73 L 84 L Oximetry Fraction of Inspired Oxygen (FIO2) 06/01/24 06/01/24 06/01/24 08:26 08:30 08:35 Temperature Pulse Rate 124 H Respiratory 30 H 26 H Rate Blood Pressure 116/90 O2 Sat by Pulse 94 L Oximetry Fraction of 100 Inspired Oxygen (FIO2) 06/01/24 06/01/24 06/01/24 09:00 09:32 09:54 Temperature Pulse Rate 125 H 113 H 113 H Respiratory 27 H 26 H 26 H Rate Blood Pressure 109/78 107/52 O2 Sat by Pulse 93 L 95 95 Oximetry Fraction of Inspired Oxygen (FIO2) 06/01/24 06/01/24 06/01/24 10:12 10:14 10:23 Temperature Pulse Rate 117 H 111 H Respiratory 25 H 28 H Rate Blood Pressure 104/79 O2 Sat by Pulse 93 L Oximetry Fraction of 80 Inspired Oxygen (FIO2) 06/01/24 06/01/24 11:27 11:56 Temperature 97.8 F Pulse Rate 98 106 H Respiratory 26 H 22 Rate Blood Pressure 98/83 104/64 O2 Sat by Pulse 93 L 95 Oximetry Fraction of Inspired Oxygen (FIO2) Medical Decision Making - Medical Decision Making Was pt. sent in by a medical professional or institution ([facility], [employer], urgent care, hospital, or chcf...) When possible be specific @ -Sent from [facility] for evaluation for difficulty in breathing Did you speak to anyone other than the patient for history (EMS, parent, family, police, friend...)? What history was obtained from this source @ -EMS provided information regarding patient transport to our facility. Did you review nursing and triage notes (agree or disagree)? Why? @ -I reviewed and agree with nursing and triage notes Were old charts reviewed (outside hosp., previous admission, EMS record, old EKG, old radiological studies, urgent care reports/EKG's, chcf records)? Report findings @ -Old charts reviewed including prior EKG from June 2021. Patient currently in A-fib with RVR as compared to A-fib at that time. Differential Diagnosis (chest pain, altered mental status, abdominal pain women, abdominal pain men, vaginal bleeding, weakness, fever, dyspnea, syncope, headache, dizziness, GI bleed, back pain, seizure, CVA, palpatations, mental health, musculoskeletal)? @ -Differential Dyspnea: Coronary syndrome, arrhythmia, tamponade, asthma, COPD, pulmonary embolism, pneumonia, pneumothorax, pulmonary effusion, anaphylaxis, diabetic ketoacidosis, flailed chest, pulmonary contusion, diaphragmatic rupture, anemia, neuromuscul ar, this is not meant to be an all-inclusive list. EKG interpreted by me (3pts min.). @ -As above X-rays interpreted by me (1pt min.). @ -Chest x-ray reveals a right sided pneumonia in the setting of chronic vascular congestion CT interpreted by me (1pt min.). @ -None done U/S interpreted by me (1pt. min.). @ -None done What testing was considered but not performed or refused? (CT, X-rays, U/S, labs)? Why? @ -None What meds were considered but not given or refused? Why? @ -None Did you discuss the management of the patient with other professionals (professionals i.e. , PA, [employer], lab, RT, psych nurse, social service technician, olap developer, teacher, financial aid officer, case picker)? Give summary @ -Discussed with on-call manager coding and ICU attending, Dr. Sesay who accepted the patient to the ICU and was in agreement with plan. I spoke with the admitting provider, Dr. Cortés who covers for Dr. Mcnulty who accepted the admission. Was smoking cessation discussed for >3mins.? @ -No Was critical care preformed (if so, how long)? @ -Yes, 43 minutes. Were there social determinants of health that impacted care today? How? (Homelessness, low income, unemployed, alcoholism, drug addiction, transport ation, low edu. Level, literacy, decrease access to med. care, [facility], rehab)? @ -No Was there de-escalation of care discussed even if they declined (Discuss DNR or withdrawal of care, Hospice)? DNR status @ -No What co-morbidities impacted this encounter? (DM, HTN, Smoking, COPD, CAD, Cancer, CVA, ARF, Chemo, Hep., AIDS, mental health diagnosis, sleep apnea, morbid obesity)? @ -Chronic hypoxic respiratory failure Was patient admitted / discharged? Hospital course, mention meds given and route, prescriptions, significant lab abnormalities, going to OR and other pertinent info. @ -Based on the patient's presentation and physical exam, presents with acute on chronic hypoxic respiratory failure. He is in A-fib with RVR, with normal blood pressures, is afebrile, however is tachypneic with hypoxia on CPAP and to the 70 presents in the setting of a productive cough for multiple days. Patient immediately transitioned to BiPAP therapy upon arrival. Patient given IV steroids. Received an albuterol breathing treatment prior to arrival. Patient did meet sepsis criteria at this time, 0825. Broad-spectrum vancomycin and Zosyn ordered. Blood cultures ordered and sent. Patient will not receive 30 cc/kg fluid bolus as the patient does have a history of CHF and I do not want to volume overload the patient. Patient will receive a small 500 cc fluid bolus to start we will continue to monitor. Will be placed on a low amount of maintenance fluids. EKG showed no signs of acute ischemia but A-fib with RVR. Laboratory studies remarkable for a leukocytosis of 14.2. Patient has a mild BRUNO, elevated lactic acid of 2.9, as well as an elevated troponin of 0.302. BNP is elevated to 3100 appears chronic for the patient. Elevated troponin likely secondary to prolonged hypoxia secondary to pneumonia and hypoxic respiratory failure as well as possibly the A-fib with RVR. Patient did not take his morning medications. Patient was given a dose of his normal morning metoprolol. Patient also given a dose of 324 mg of aspirin at this time. On BiPAP, he is improved. Vital signs have improved. Blood pressure remains within acceptable limits. Patient has pulse ox between 93 and 95%. Mild tachypnea now in the low to mid 20s versus the high 20s. Tachycardia also improved down to 113 ranging typically between 100-115 bpm. Overall BiPAP seems to be helping the patient however due to the patient's past medical history as well as multiple comorbidities I do believe an ICU stay is warranted for the patient. I spoke with the ICU attending, Dr. Sesay who evaluated the patient at bedside and was in agreement the plan for admission as well as management. I spoke with the admitting provider, Dr. Cortés who accepted the admission. Elevated troponin is likely secondary to the underlying pneumonia and hypoxic respiratory failure. We will continue with his home medication of Eliquis and continue to trend. Patient was in agreement this plan. Patient will be continued on breathing treatments, IV steroids, IV antibiotics, with IV fluids as needed. Regular Lasix dosing reordered. Undiagnosed new problem with uncertain prognosis? @ -No Drug Therapy requiring intensive monitoring for toxicity (Heparin, Nitro, Insulin, Cardizem)? @ -No Were any procedures done? @ -No Diagnosis/symptom? @ -Acute on chronic hypoxic respiratory failure requiring BiPAP secondary to septis pneumonia, elevated troponin, BRUNO Acute, or Chronic, or Acute on Chronic? @ -Acute Uncomplicated (without systemic symptoms) or Complicated (systemic symptoms)? @ -Complicated Side effects of treatment? @ -No Exacerbation, Progression, or Severe Exacerbation? @ -No Poses a threat to life or bodily function? How? (Chest pain, [place], [place], pneumonia, PE, COPD, DKA, ARF, appy, cholecystitis, CVA, Diverticulitis, Homicidal, Suicidal, threat to staff... and all critical care pts) @ -Yes - Lab Data Result diagrams: 06/01/24 08:35 06/01/24 08:35 Lab Results 06/01/24 06/01/24 06/01/24 Range/Units 08:35 08:35 08:35 WBC 14.2 H (3.8-10.6) k/uL RBC 4.54 (4.30-5.90) m/uL Hgb 12.3 L (13.0-17.5) gm/dL Hct 42.5 (39.0-53.0) % MCV 93.7 (80.0-100.0) fL MCH 27.2 (25.0-35.0) pg MCHC 29.0 L (31.0-37.0) g/dL RDW 18.8 H (11.5-15.5) % Plt Count 318 (150-450) k/uL MPV 8.0 Neutrophils % 92 % Lymphocytes % 3 % Monocytes % 4 % Eosinophils % 1 % Basophils % 0 % Neutrophils # 13.0 H (1.3-7.7) k/uL Lymphocytes # 0.4 L (1.0-4.8) k/uL Monocytes # 0.6 (0-1.0) k/uL Eosinophils # 0.1 (0-0.7) k/uL Basophils # 0.0 (0-0.2) k/uL Hypochromasia Marked Anisocytosis Slight Macrocytosis Slight PT 11.5 (10.0-12.5) sec INR 1.1 (<1.2) APTT 24.2 (22.0-30.0) sec Sample Site ABG pH (7.35-7.45) ABG pCO2 (35-45) mmHg ABG pO2 (83-108) mmHg ABG HCO3 (21-25) mmol/L ABG Total CO2 (19-24) mmol/L ABG O2 Saturation (94-97) % ABG Base Excess mmol/L Jose Test Hemoglobin (13.0-17.5) gm/dL FiO2 % Sodium 140 (137-145) mmol/L Potassium 3.5 (3.5-5.1) mmol/L Chloride 87 L (98-107) mmol/L Carbon Dioxide 39 H (22-30) mmol/L Anion Gap 14 mmol/L BUN 77 H (9-20) mg/dL Creatinine 1.92 H (0.66-1.25) mg/dL Est GFR (CKD-EPI)AfAm 39 (>60 ml/min/1.73 sqM) Est GFR (CKD-EPI)NonAf 34 (>60 ml/min/1.73 sqM) Glucose 232 H (74-99) mg/dL Lactic Ac Sepsis Rflx Plasma Lactic Acid Rolf (0.7-2.0) mmol/L Calcium 9.2 (8.4-10.2) mg/dL Magnesium 1.9 (1.6-2.3) mg/dL Total Bilirubin 1.0 (0.2-1.3) mg/dL AST 36 (17-59) U/L ALT 25 (4-49) U/L Alkaline Phosphatase 59 (38-126) U/L Troponin I (0.000-0.034) ng/mL NT-Pro-B Natriuret Pep 3160 pg/mL Total Protein 8.3 H (6.3-8.2) g/dL Albumin 4.0 (3.5-5.0) g/dL Influenza Type A (PCR) (Not Detectd) Influenza Type B (PCR) (Not Detectd) RSV (PCR) (Not Detectd) SARS-CoV-2 (PCR) (Not Detectd) 06/01/24 06/01/24 06/01/24 Range/Units 08:35 08:35 09:31 WBC (3.8-10.6) k/uL RBC (4.30-5.90) m/uL Hgb (13.0-17.5) gm/dL Hct (39.0-53.0) % MCV (80.0-100.0) fL MCH (25.0-35.0) pg MCHC (31.0-37.0) g/dL RDW (11.5-15.5) % Plt Count (150-450) k/uL MPV Neutrophils % % Lymphocytes % % Monocytes % % Eosinophils % % Basophils % % Neutrophils # (1.3-7.7) k/uL Lymphocytes # (1.0-4.8) k/uL Monocytes # (0-1.0) k/uL Eosinophils # (0-0.7) k/uL Basophils # (0-0.2) k/uL Hypochromasia Anisocytosis Macrocytosis PT (10.0-12.5) sec INR (<1.2) APTT (22.0-30.0) sec Sample Site ABG pH (7.35-7.45) ABG pCO2 (35-45) mmHg ABG pO2 (83-108) mmHg ABG HCO3 (21-25) mmol/L ABG Total CO2 (19-24) mmol/L ABG O2 Saturation (94-97) % ABG Base Excess mmol/L Jose Test Hemoglobin (13.0-17.5) gm/dL FiO2 % Sodium (137-145) mmol/L Potassium (3.5-5.1) mmol/L Chloride (98-107) mmol/L Carbon Dioxide (22-30) mmol/L Anion Gap mmol/L BUN (9-20) mg/dL Creatinine (0.66-1.25) mg/dL Est GFR (CKD-EPI)AfAm (>60 ml/min/1.73 sqM) Est GFR (CKD-EPI)NonAf (>60 ml/min/1.73 sqM) Glucose (74-99) mg/dL Lactic Ac Sepsis Rflx Plasma Lactic Acid Rolf 2.9 H* (0.7-2.0) mmol/L Calcium (8.4-10.2) mg/dL Magnesium (1.6-2.3) mg/dL Total Bilirubin (0.2-1.3) mg/dL AST (17-59) U/L ALT (4-49) U/L Alkaline Phosphatase (38-126) U/L Troponin I 0.302 H* (0.000-0.034) ng/mL NT-Pro-B Natriuret Pep pg/mL Total Protein (6.3-8.2) g/dL Albumin (3.5-5.0) g/dL Influenza Type A (PCR) Not Detected (Not Detectd) Influenza Type B (PCR) Not Detected (Not Detectd) RSV (PCR) Not Detected (Not Detectd) SARS-CoV-2 (PCR) Not Detected (Not Detectd) 06/01/24 06/01/24 Range/Units 09:47 09:57 WBC (3.8-10.6) k/uL RBC (4.30-5.90) m/uL Hgb (13.0-17.5) gm/dL Hct (39.0-53.0) % MCV (80.0-100.0) fL MCH (25.0-35.0) pg MCHC (31.0-37.0) g/dL RDW (11.5-15.5) % Plt Count (150-450) k/uL MPV Neutrophils % % Lymphocytes % % Monocytes % % Eosinophils % % Basophils % % Neutrophils # (1.3-7.7) k/uL Lymphocytes # (1.0-4.8) k/uL Monocytes # (0-1.0) k/uL Eosinophils # (0-0.7) k/uL Basophils # (0-0.2) k/uL Hypochromasia Anisocytosis Macrocytosis PT (10.0-12.5) sec INR (<1.2) APTT (22.0-30.0) sec Sample Site l rad ABG pH 7.34 L (7.35-7.45) ABG pCO2 78 H* (35-45) mmHg ABG pO2 75 L (83-108) mmHg ABG HCO3 42 H* (21-25) mmol/L ABG Total CO2 45 H (19-24) mmol/L ABG O2 Saturation 93.9 L (94-97) % ABG Base Excess 13.3 mmol/L Jose Test yes Hemoglobin 12.3 L (13.0-17.5) gm/dL FiO2 100 % Sodium (137-145) mmol/L Potassium (3.5-5.1) mmol/L Chloride (98-107) mmol/L Carbon Dioxide (22-30) mmol/L Anion Gap mmol/L BUN (9-20) mg/dL Creatinine (0.66-1.25) mg/dL Est GFR (CKD-EPI)AfAm (>60 ml/min/1.73 sqM) Est GFR (CKD-EPI)NonAf (>60 ml/min/1.73 sqM) Glucose (74-99) mg/dL Lactic Ac Sepsis Rflx Y Plasma Lactic Acid Rolf (0.7-2.0) mmol/L Calcium (8.4-10.2) mg/dL Magnesium (1.6-2.3) mg/dL Total Bilirubin (0.2-1.3) mg/dL AST (17-59) U/L ALT (4-49) U/L Alkaline Phosphatase (38-126) U/L Troponin I (0.000-0.034) ng/mL NT-Pro-B Natriuret Pep pg/mL Total Protein (6.3-8.2) g/dL Albumin (3.5-5.0) g/dL Influenza Type A (PCR) (Not Detectd) Influenza Type B (PCR) (Not Detectd) RSV (PCR) (Not Detectd) SARS-CoV-2 (PCR) (Not Detectd) - EKG Data -: EKG Interpreted by Me EKG Comments: 12-lead Electrocardiogram Interpretation Note EKG was reviewed and interpreted by myself. 12-lead ECG performed at 0831 is interpreted by me as revealing A-fib with RVR at a rate of 126 beats per minute. Left axis deviation. QRS duration is 102 ms, QTc is 430 ms. PVCs present.. There were no ST or T wave abnormalities to suggest myocardial ischemia or injury. Nonspecific ST segment/T wave abnormalities. R wave progression across the precordium was satisfactory. By my interpretation this EKG is non- diagnostic for acute ischemia. Critical Care Time Critical Care Time: Yes Total Critical Care Time: 43 Disposition Clinical Impression: Hypoxic respiratory failure, Pneumonia, Elevated troponin, BiPAP (biphasic positive airway pressure) dependence, Sepsis, BRUNO (acute kidney injury) Disposition: ADMITTED IP TO THIS HOSP Condition: Serious Time of Disposition: 10:35
[2024-06-01 12:23] LABS: Glucose,Whole Blood 256 mg/dL (70-110)
--- NOTE | 2024-06-01 12:25 | P.CNPUL ---
History of Present Illness Consult date: 06/01/24 Requesting physician: Fanta Mcnulty Reason for consult: dyspnea, COPD, hypoxemia, abnormal CXR/CT Chief complaint: Respiratory failure. History of present illness: Pulmonary consultation dated June 01, 2024. 73-year-old obese male, who was seen by Dr. Purcell in the emergency department, on June 01. The patient apparently presented about 8:00 in the morning. He came in with respiratory distress, and shortness of breath. The patient was seen in the emergency department, trauma room #1. He was on BiPAP, with settings of 14/8, and 80%. He was getting saline at 75 cc an hour. He was also receiving IV vancomycin. The patient's blood gases showed a pO2 of 75, pCO2 of 78, and a pH of 7.34. The patient was able to verbalize just a bit, while wearing his BiPAP mask. The patient has a history of coronary disease, CVA, diabetes, GERD, hypertension, and sleep apnea. The patient also has a history of urinary leakage, bypass grafting, and hernia repair. The bypass surgery took place in 2014. Current labs include a white count 14.2, hemoglobin 12.3, hematocrit 42.5, and a normal platelet count. Coagulation studies are normal. The patient sodium is 140, potassium 3.5, chlorides 87, CO2 39, anion gap 14, BUN 77, and creatinine 1.92. The lactic acid was initially 2.9. N-t erminal proBNP is 3160. Troponin was 0.302. He tested negative for influenza, RSV, and coronavirus. The patient's subsequent venous blood gases showed a CO2 of 68, and a pH of 7.38. The patient's chest x-ray suggested pulmonary venous congestion versus pneumonia. Review of Systems REVIEW OF SYSTEMS: CONSTITUTIONAL: [Negative.] NEUROLOGIC: [ Negative.] HEENT: [ Negative.] CARDIAC: [Negative.] PULMONARY: Shortness of breath. GI: [Negative.] : [Negative.] RHEUMATOLOGIC: [ Negative.] IMMUNOLOGIC: [ Negative.] ENDOCRINE: [Negative. ] DERMATOLOGIC: [Negative.] Past Medical History Past Medical History: Coronary Artery Disease (CAD), CVA/TIA, Diabetes Mellitus, GERD/Reflux, Hypertension, Sleep Apnea/CPAP/BIPAP Additional Past Medical History / Comment(s): TIA (2008), C-PAP MACHINE, BLADDER LEAKAGE. 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), CABG (2014) Past Anesthesia/Blood Transfusion Reactions: No Reported Reaction Past Psychological History: Anxiety Smoking Status: Never smoker Past Alcohol Use History: Occasional Past Drug Use History: None Reported - Past Family History Brother(s) Family Medical History: Cancer Additional Family Medical History / Comment(s): ORAL CANCER Medications and Allergies Home Medications Medication Instructions Recorded Confirmed Type Ferrous Sulfate [Feosol] 325 mg PO BID@0900,209901/03/15 06/01/24 History Apixaban [Eliquis] 5 mg PO BID@0900,209907/02/21 06/01/24 History Aspirin EC [Ecotrin Low Dose] 81 mg PO DAILY@0900 07/02/21 06/01/24 History Acetaminophen Tab [Tylenol Tab] 1,000 mg PO Q6HR PRN 06/01/24 06/01/24 History Acetaminophen [Tylenol Arthritis] 650 mg PO Q12HR@0900,209906/01/24 06/01/24 History Albuterol Nebulized [Ventolin 2.5 mg INHALATION RT-Q6H PRN 06/01/24 06/01/24 History Nebulized] Artificial Tears-Hypromellose 2 drops BOTH EYES Q4H PRN 06/01/24 06/01/24 Hist ory [Artificial Tear Drops] Atorvastatin [Lipitor] 40 mg PO HS@209906/01/24 06/01/24 History Budesonide/Formoterol Fumarate 2 puff INHALATION RT-BID@899,209906/01/24 06/01/24 History [Symbicort 160-4.5 Mcg Inhaler] Dapagliflozin Propanediol [Farxiga] 10 mg PO HS@209906/01/24 06/01/24 History Esomeprazole Magnesium [NexIUM] 20 mg PO DAILY@0600 06/01/24 06/01/24 History Furosemide [Lasix] 80 mg PO DAILY@0600 06/01/24 06/01/24 History Hydrocortisone Cream 1 applic TOPICAL BID 06/01/24 06/01/24 History [Hydrocortisone 1% Cream] Insulin Aspart [NovoLOG Flexpen] See Protocol SQ QID 06/01/24 06/01/24 History Insulin Aspart [NovoLOG] 15 unit SQ TID@0800,1200,1700 06/01/24 06/01/24 History Insulin Glargine,Hum.rec.anlog 21 units SQ HS@209906/01/24 06/01/24 History [Lantus Solostar Pen] Ipratropium-Albuterol Nebulize 3 ml INHALATION RT-Q6H PRN 06/01/24 06/01/24 History [Duoneb 0.5 mg-3 mg/3 ml Soln] Lactulose 20 gm PO Q12HR@0900,209906/01/24 06/01/24 History Losartan [Cozaar] 12.5 mg PO DAILY@0900 06/01/24 06/01/24 History Melatonin 5 mg PO HS@209906/01/24 06/01/24 History Metoprolol Succinate (ER) [Toprol 25 mg PO DAILY@89906/01/24 06/01/24 History Xl] Potassium Chloride [Klor-Con M20] 20 meq PO Q12HR@0900,209906/01/24 06/01/24 History Pregabalin [Lyrica] 75 mg PO Q12HR@0900,209906/01/24 06/01/24 History Psyllium Husk 100% [Metamucil 6 gm PO DAILY@0900 06/01/24 06/01/24 History Packet] Sennosides/Docusate Sodium [Senna 2 tab PO DAILY@89906/01/24 06/01/24 History Plus 8.6-50 mg Tablet] Tirzepatide [Mounjaro] 5 mg SQ TU@89906/01/24 06/01/24 History allopurinoL [Allopurinol] 100 mg PO HS@209906/01/24 06/01/24 History metOLazone 2.5 mg PO DAILY@0900 06/01/24 06/01/24 History Allergies Allergy/AdvReac Type Severity Reaction Status Date / Time No Known Allergies Allergy Verified 06/01/24 08:58 Physical Exam Osteopathic Statement: *. No significant issues noted on an osteopathic structural exam other than those noted in the History and Physical/Consult. Vitals: Vital Signs Temp Pulse Resp BP Pulse Ox FiO2 06/01/24 11:56 97.8 F 106 H 22 104/64 95 06/01/24 11:27 98 26 H 98/83 93 L 06/01/24 10:23 111 H 28 H 104/79 93 L 06/01/24 10:14 117 H 25 H 06/01/24 10:12 80 06/01/24 09:54 113 H 26 H 107/52 95 06/01/24 09:32 113 H 26 H 109/78 95 06/01/24 09:00 125 H 27 H 93 L 06/01/24 08:35 124 H 26 H 116/90 94 L 06/01/24 08:30 30 H 06/01/24 08:26 100 06/01/24 08:23 120 H 30 H 84 L 06/01/24 08:21 146 H 30 H 122/69 73 L 06/01/24 08:15 97.7 F 126 H 30 H 109/82 72 L Intake and Output 05/31/24 06/01/24 06/01/24 22:59 06:59 14:59 Other: Weight 179.94 kg Morbidly obese male, and no acute distress, oriented 3. Currently, the patient is wearing a BiPAP mask. HEENT examination is grossly unremarkable. Mucous membranes are moist. No oral lesions. BiPAP mask in place. Neck supple. Full range of motion. No adenopathy thyromegaly or neck vein distention. Cardiovascular examination reveals an irregular rhythm and rate. S1-S2 normal. No S3 or S4. No discernible murmur noted. Heart sounds are distant. Heart rate 106 bpm. Lungs reveal bilateral coarse rhonchi and crackles. Breath sounds equal. Chest is noisy. Expiratory wheezes are also appreciated. Abdomen soft bowel sounds are heard. No masses or tenderness. Extremities are intact. No cyanosis clubbing or edema. Skin reveals chronic venous stasis changes, and chronic lower extremity cellulitis. Neurologic examination is brief but nonfocal. Results - Laboratory Findings CBC and BMP: 06/01/24 08:35 06/01/24 08:35 ABG ABG pH 7.34 (7.35-7.45) L 06/01/24 09:57 ABG pCO2 78 mmHg (35-45) H* 06/01/24 09:57 ABG pO2 75 mmHg (83-108) L 06/01/24 09:57 ABG O2 Saturation 93.9 % (94-97) L 06/01/24 09:57 PT/INR, D-dimer PT 11.5 sec (10.0-12.5) 06/01/24 08:35 INR 1.1 (<1.2) 06/01/24 08:35 Abnormal lab findings: Abnormal Labs 06/01/24 06/01/24 06/01/24 08:35 08:35 08:35 WBC 14.2 H Hgb 12.3 L MCHC 29.0 L RDW 18.8 H Neutrophils # 13.0 H Lymphocytes # 0.4 L ABG pH ABG pCO2 ABG pO2 ABG HCO3 ABG Total CO2 ABG O2 Saturation VBG pCO2 VBG HCO3 Hemoglobin Chloride 87 L Carbon Dioxide 39 H BUN 77 H Creatinine 1.92 H Glucose 232 H Plasma Lactic Acid Rolf 2.9 H* Troponin I Total Protein 8.3 H 06/01/24 06/01/24 06/01/24 08:35 09:57 11:15 WBC Hgb MCHC RDW Neutrophils # Lymphocytes # ABG pH 7.34 L ABG pCO2 78 H* ABG pO2 75 L ABG HCO3 42 H* ABG Total CO2 45 H ABG O2 Saturation 93.9 L VBG pCO2 68 H VBG HCO3 40 H Hemoglobin 12.3 L Chloride Carbon Dioxide BUN Creatinine Glucose Plasma Lactic Acid Rolf Troponin I 0.302 H* Total Protein - Diagnostic Findings Chest x-ray: image reviewed Assessment and Plan Assessment: Acute hypoxemic and hypercapnic respiratory failure, likely on the basis of fluid overload/CHF. Morbid obesity, with a history of obstructive sleep apnea syndrome. Atrial fibrillation with rapid ventricular response. Possible non-ST segment elevation myocardial infarction. History of CAD with previous bypass surgery, 2015. History of CVA. History of diabetes mellitus. History of gastroesophageal reflux disease. History of essential hypertension. History of anxiety. Lifelong non-smoker. Plan: Plan dated June 01, 2024. The patient is seen in the emergency department, trauma room #1. The patient is currently on BiPAP, with settings of 14/8 and 80%. Labs, x-rays, and medications are reviewed. Initial blood gases show pO2 75, pCO2 78, pH is 7.34. The patient's chest x-ray is consistent with fluid overload, although, pneumonia cannot be excluded at this time. The patient was seen in the emergency department, by Dr. Purcell. The patient is currently on a number of different medications, including Eliquis, Symbicort, updrafts with albuterol and ipratropium bromide, and Solu-Medrol. The patient was also placed on Zosyn, and vancomycin. If not already ordered, a procalcitonin level should be ordere d. Prognosis is guarded. Time with Patient: Greater than 30
[2024-06-01] MEDS: IPRATROPIUM-ALBUTEROL 3 ML NEB INHALATION SCH (12:27)
[2024-06-01 13:43] LABS: Appearance,Urine Clear (Clear); Bilirubin,Urine Negative (Negative); Blood,Urine Negative (Negative); Color,Urine Yellow; Glucose,Urine (UA) Trace (Negative); Ketones,Urine Negative (Negative); Leukocyte Esterase,Urine Negative (Negative); Nitrite,Urine Negative (Negative); Protein,Urine Negative (Negative); Specific Gravity,Urine 1.017 (1.001-1.035)
[2024-06-01 15:24] LABS: INR 1.1 (<1.2); Partial Thromboplastin Time 23.8 sec (22.0-30.0); Prothrombin Time 11.8 sec (10.0-12.5)
[2024-06-01 15:31] LABS: Anisocytosis Slight; Basophils # (A) 0.1 k/uL (0-0.2); Basophils % (A) 0 %; Eosinophils # (A) 0.1 k/uL (0-0.7); Eosinophils % (A) 0 %; HCT 40.1 % (39.0-53.0); HGB 11.7 gm/dL (13.0-17.5); Hypochromasia Marked; Lymphocytes # (A) 0.4 k/uL (1.0-4.8); Lymphocytes % (A) 2 %; MCH 27.6 pg (25.0-35.0); MCHC 29.2 g/dL (31.0-37.0); MCV 94.4 fL (80.0-100.0); Macrocytosis Slight; Mean Platelet Volume 7.8; Monocytes # (A) 0.9 k/uL (0-1.0); Monocytes % (A) 5 %; Neutrophils # (A) 18.7 k/uL (1.3-7.7); Neutrophils % (A) 93 %; Platelet Count 269 k/uL (150-450); RBC 4.24 m/uL (4.30-5.90); RDW 18.9 % (11.5-15.5); WBC 20.2 k/uL (3.8-10.6)
[2024-06-01] MEDS: HEPARIN SOD,PORK IN 0.45% NACL 25,000 UNIT in 0.45% NACL 1 250ML.BAG IV SCH (15:52)
--- NOTE | 2024-06-01 15:58 | P.CRDCN ---
History of Present Illness Consult date: 06/01/24 History of present illness: HISTORY OF PRESENTING ILLNESS 73-year-old obese male present to the hospital because of increased worsening shortness of breath and difficulty in breathing. On admission he was noticed to be hypercapnic and hypoxic. His chest x-ray showed signs of pulmonary congestion with diminished air entry in bilateral lung cardoza, more so on the right side. His NT-proBNP was elevated at 3000, creatinine was elevated at 1.9, troponin was elevated at 0.3. Basic viral panel was negative. Admission ECG showed A-fib RVR REVIEW OF SYSTEMS 14 point review of system is negative except what is mentioned above in HPI. PHYSICAL EXAMINATION Vital signs reviewed. Head: Normocephalic. Eyes: Sclerae nonicteric. Neck: Brisk carotid upstroke, difficult to assess JVD due to neck Lungs: Poor inspiratory effort, diminished breath sounds, mild crackles audible Heart: Irregularly irregular pulse, S1-S2, no S3, no murmur or rub. Abdomen: Soft nontender, positive bowel sounds. Extremities: 1-2+ pitting edema bilateral lower extremity Neuro: Alert, oritented, no focal deficits. Detailed neuro exam was not performed. ASSESSMENT Acute on chronic hypoxic and hypercapnic respiratory failure Mild HFpEF exacerbation BRUNO NSTEMI, type II Atrial fibrillation with RVR CAD status post CABG in 2014 History of CVA Type 2 diabetes Essential hypertension Morbid obesity PLAN Continue aspirin, Lipitor. Start IV heparin drip without bolus. Discontinue Eliquis Discontinue p.o. Lasix. Start Lasix 60 mg IV twice daily. Hold metolazone. Monitor electrolytes and renal function. Metoprolol succinate 25 mg daily Obtain updated echocardiogram Further recommendations to follow Tae Bean MD, FACC, RPVI Thank you for allowing [facility] to participate in this patient's care. Feel free to reach out in case of any followup questions. Past Medical History Past Medical History: Coronary Artery Disease (CAD), CVA/TIA, Diabetes Mellitus, GERD/Reflux, Hypertension, Sleep Apnea/CPAP/BIPAP Additional Past Medical History / Comment(s): TIA (2008), C-PAP MACHINE, BLADDER LEAKAGE. 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), CABG (2014) Past Anesthesia/Blood Transfusion Reactions: No Reported Reaction Past Psychological History: Anxiety Smoking Status: Never smoker Past Alcohol Use History: Occasional Past Drug Use History: None Reported - Past Family History Brother(s) Family Medical History: Cancer Additional Family Medical History / Comment(s): ORAL CANCER Medications and Allergies Home Medications Medication Instructions Recorded Confirmed Type Ferrous Sulfate [Feosol] 325 mg PO BID@0900,209901/03/15 06/01/24 History Apixaban [Eliquis] 5 mg PO BID@0900,209907/02/21 06/01/24 History Aspirin EC [Ecotrin Low Dose] 81 mg PO DAILY@0900 07/02/21 06/01/24 History Acetaminophen Tab [Tylenol Tab] 1,000 mg PO Q6HR PRN 06/01/24 06/01/24 History Acetaminophen [Tylenol Arthritis] 650 mg PO Q12HR@0900,209906/01/24 06/01/24 History Albuterol Nebulized [Ventolin 2.5 mg INHALATION RT-Q6H PRN 06/01/24 06/01/24 History Nebulized] Artificial Tears-Hypromellose 2 drops BOTH EYES Q4H PRN 06/01/24 06/01/24 Histo ry [Artificial Tear Drops] Atorvastatin [Lipitor] 40 mg PO HS@209906/01/24 06/01/24 History Budesonide/Formoterol Fumarate 2 puff INHALATION RT-BID@0900,209906/01/24 06/01/24 History [Symbicort 160-4.5 Mcg Inhaler] Dapagliflozin Propanediol [Farxiga] 10 mg PO HS@209906/01/24 06/01/24 History Esomeprazole Magnesium [NexIUM] 20 mg PO DAILY@0606/01/24 06/01/24 History Furosemide [Lasix] 80 mg PO DAILY@0606/01/24 06/01/24 History Hydrocortisone Cream 1 applic TOPICAL BID 06/01/24 06/01/24 History [Hydrocortisone 1% Cream] Insulin Aspart [NovoLOG Flexpen] See Protocol SQ QID 06/01/24 06/01/24 History Insulin Aspart [NovoLOG] 15 unit SQ TID@0800,1200,1700 06/01/24 06/01/24 History Insulin Glargine,Hum.rec.anlog 21 units SQ HS@209906/01/24 06/01/24 History [Lantus Solostar Pen] Ipratropium-Albuterol Nebulize 3 ml INHALATION RT-Q6H PRN 06/01/24 06/01/24 History [Duoneb 0.5 mg-3 mg/3 ml Soln] Lactulose 20 gm PO Q12HR@00,209906/01/24 06/01/24 History Losartan [Cozaar] 12.5 mg PO DAILY@89906/01/24 06/01/24 History Melatonin 5 mg PO HS@209906/01/24 06/01/24 History Metoprolol Succinate (ER) [Toprol 25 mg PO DAILY@89906/01/24 06/01/24 History Xl] Potassium Chloride [Klor-Con M20] 20 meq PO Q12HR@0900,209906/01/24 06/01/24 History Pregabalin [Lyrica] 75 mg PO Q12HR@0900,209906/01/24 06/01/24 History Psyllium Husk 100% [Metamucil 6 gm PO DAILY@89906/01/24 06/01/24 History Packet] Sennosides/Docusate Sodium [Senna 2 tab PO DAILY@89906/01/24 06/01/24 History Plus 8.6-50 mg Tablet] Tirzepatide [Mounjaro] 5 mg SQ TU@89906/01/24 06/01/24 History allopurinoL [Allopurinol] 100 mg PO HS@209906/01/24 06/01/24 History metOLazone 2.5 mg PO DAILY@0900 06/01/24 06/01/24 History Allergies Allergy/AdvReac Type Severity Reaction Status Date / Time No Known Allergies Allergy Verified 06/01/24 08:58 Physical Exam Vitals: Vital Signs Temp Pulse Resp BP Pulse Ox FiO2 06/01/24 15:00 98 23 114/39 98 06/01/24 14:30 99 23 106/33 92 L 06/01/24 14:00 84 23 94/41 96 06/01/24 13:45 82 23 119/82 92 L 06/01/24 13:30 102 H 19 109/73 91 L 06/01/24 13:15 95 21 98/76 95 06/01/24 13:00 95 14 104/49 95 06/01/24 12:45 90 19 106/53 94 L 60 06/01/24 12:31 91 20 60 06/01/24 12:30 98.6 F 91 19 90/66 98 80 06/01/24 12:27 99 16 80 06/01/24 12:19 17 06/01/24 12:08 104 H 24 104/78 94 L 06/01/24 11:56 97.8 F 106 H 22 104/64 95 06/01/24 11:27 98 26 H 98/83 93 L 06/01/24 10:23 111 H 28 H 104/79 93 L 06/01/24 10:14 117 H 25 H 06/01/24 10:12 80 06/01/24 09:54 113 H 26 H 107/52 95 06/01/24 09:32 113 H 26 H 109/78 95 06/01/24 09:00 125 H 27 H 93 L 06/01/24 08:35 124 H 26 H 116/90 94 L 06/01/24 08:30 30 H 06/01/24 08:26 100 06/01/24 08:23 120 H 30 H 84 L 06/01/24 08:21 146 H 30 H 122/69 73 L 06/01/24 08:15 97.7 F 126 H 30 H 109/82 72 L Intake and Output 06/01/24 06/01/24 06/01/24 06:59 14:59 22:59 Intake Total 650 50 Output Total 115 40 Balance 535 10 Intake: IV 650 50 Sodium Chloride 0.9% 1, 150 50 000 ml @ 50 mls/hr IV . Q20H STA Rx#:[id number] Vancomycin 2,500 mg In 500 Sodium Chloride 0.9% 500 ml 500 ml @ 167 mls/hr IVPB ONCE ONE Rx#: [id number] Output: Urine 115 40 Other: Voiding Method Indwelling Catheter # Bowel Movements 1 Weight 179.94 kg Results 06/01/24 14:42 06/01/24 08:35 Cardiac Enzymes 06/01/24 06/01/24 06/01/24 Range/Units 08:35 08:35 11:15 AST 36 (17-59) U/L Troponin I 0.302 H* 0.910 H* (0.000-0.034) ng/mL Coagulation 06/01/24 06/01/24 Range/Units 08:35 14:42 PT 11.5 11.8 (10.0-12.5) sec APTT 24.2 23.8 (22.0-30.0) sec CBC 06/01/24 06/01/24 Range/Units 08:35 14:42 WBC 14.2 H 20.2 H (3.8-10.6) k/uL RBC 4.54 4.24 L (4.30-5.90) m/uL Hgb 12.3 L 11.7 L (13.0-17.5) gm/dL Hct 42.5 40.1 (39.0-53.0) % Plt Count 318 269 (150-450) k/uL Comprehensive Metabolic Panel 06/01/24 Range/Units 08:35 Sodium 140 (137-145) mmol/L Potassium 3.5 (3.5-5.1) mmol/L Chloride 87 L (98-107) mmol/L Carbon Dioxide 39 H (22-30) mmol/L BUN 77 H (9-20) mg/dL Creatinine 1.92 H (0.66-1.25) mg/dL Glucose 232 H (74-99) mg/dL Calcium 9.2 (8.4-10.2) mg/dL AST 36 (17-59) U/L ALT 25 (4-49) U/L Alkaline Phosphatase 59 (38-126) U/L Total Protein 8.3 H (6.3-8.2) g/dL Albumin 4.0 (3.5-5.0) g/dL Current Medications Generic Name Dose Route Start Last Admin Trade Name Freq PRN Reason Stop Dose Admin Acetaminophen 650 mg 06/01/24 10:52 Acetaminophen Tab 325 Mg Tab PO Q4HR PRN Fever and/or Mild Pain Albuterol/Ipratropium 3 ml 06/01/24 12:00 06/01/24 12:27 Ipratropium-Albuterol 3 Ml Neb INHALATION 3 ml RT-Q4H ARTIS Administration Allopurinol 100 mg 06/01/24 21:00 Allopurinol 100 Mg Tab PO HS@2100 [facility] Artificial Tears 2 drops 06/01/24 10:01 Artificial Tears-Hypromellose Drops 15 Ml Btl BOTH EYES Q4H PRN dry irritated eyes Aspirin 81 mg 06/02/24 09:00 Aspirin 81 Mg PO DAILY@0900 [facility] Atorvastatin Calcium 40 mg 06/01/24 21:00 Atorvastatin 40 Mg Tab PO HS@2100 [facility] Budesonide/Formoterol Fumarate 2 puff 06/01/24 21:00 Symbicort 160-4.5 Mcg Inhaler INHALATION RT-BID@0900,2100 [facility] Ferrous Sulfate 325 mg 06/01/24 21:00 Ferrous Sulfate 325 Mg Tab PO BID@0900,2100 [facility] Furosemide 60 mg 06/01/24 16:30 Furosemide 10 Mg/Ml 10 Ml Vial IV Q12HR [facility] Heparin Sodium (Porcine) 0 unit 06/01/24 14:34 Heparin Sodium 1,000 Un/Ml (10ml Vl) IV PER PROTOCOL PRN Low PTT Protocol Piperacillin Sod/Tazobactam 100 mls @ 25 mls/hr 06/01/24 08:45 06/01/24 08:48 Sod 3.375 gm/ Sodium Chloride IVPB 25 mls/hr Q8HR ARTIS Administration Protocol Sodium Chloride 1,000 mls @ 50 mls/hr 06/01/24 10:01 06/01/24 10:06 Saline 0.9% IV 06/02/24 06:00 50 mls/hr .Q20H STA Administration Vancomycin HCl 2,500 mg/ 500 mls @ 167 mls/hr 06/02/24 06:00 Sodium Chloride IVPB Q24H [facility] Heparin Sodium/Sodium Chloride 250 mls @ 9.987 mls/hr 06/01/24 14:45 06/01/24 15:52 25,000 unit/ Sodium Chloride IV 5.55 units/kg/hr .Q24H ARTIS 9.987 mls/hr Administration Protocol 5.55 UNITS/KG/HR Insulin Detemir 21 unit 06/01/24 21:00 Insulin Detemir (Levemir) 100 Unit/Ml Syr SQ HS@2100 [facility] Lactulose 20 gm 06/01/24 21:00 Lactulose 20 Gm/30 Ml Cup PO Q12HR@0900,2100 [facility] Melatonin 5 mg 06/01/24 21:00 Melatonin 5 Mg Tablet PO HS@2100 [facility] Methylprednisolone Sodium Succinate 40 mg 06/01/24 16:00 Methylprednisolone Sod Succi 40 Mg/Ml 1 Ml Vial IV Q8HR [facility] Metoprolol Succinate 25 mg 06/02/24 09:00 Metoprolol Succinate (Er) 25 Mg Tab.Er.24h PO DAILY@0900 [facility] Naloxone HCl 0.2 mg 06/01/24 10:52 Naloxone 0.4 Mg/Ml 1 Ml Vial IV Q2M PRN Opioid Reversal Pantoprazole Sodium 40 mg 06/02/24 06:00 Pantoprazole 40 Mg Tablet PO DAILY@0600 [facility] Pregabalin 75 mg 06/01/24 21:00 Pregabalin 75 Mg Cap PO Q12HR@0900,2100 [facility] Intake and Output 06/01/24 06/01/24 06/01/24 06:59 14:59 22:59 Intake Total 650 50 Output Total 115 40 Balance 535 10 Intake: IV 650 50 Sodium Chloride 0.9% 1, 150 50 000 ml @ 50 mls/hr IV . Q20H STA Rx#:[id number] Vancomycin 2,500 mg In 500 Sodium Chloride 0.9% 500 ml 500 ml @ 167 mls/hr IVPB ONCE ONE Rx#: [id number] Output: Urine 115 40 Other: Voiding Method Indwelling Catheter # Bowel Movements 1 Weight 179.94 kg Patient Weight 06/02/24 06:59 Weight 179.94 kg 06/01/24 14:42 06/01/24 08:35
--- NOTE | 2024-06-01 16:09 | XR ---
EXAMINATION TYPE: XR chest 1V portable DATE OF EXAM: 06/01/2024 COMPARISON: 06/01/2024 HISTORY: Central line placement TECHNIQUE: Single frontal view of the chest is obtained. FINDINGS: There is been interval placement of a left-sided central venous catheter tip of which is in the SVC/R A junction . There is been prior open heart surgery. Overall there is been no interval change. IMPRESSION: 1. Left-sided PICC line tip in the SVC/RA junction. 2. No change in the large right lung consolidative infiltrate. [facility], , 06/01/2024 4:07 PM
[2024-06-01] MEDS: methylPREDNISolone SOD SUCCI 40 MG/ML 1 ML VIAL IV SCH (17:21)
[2024-06-01] MEDS: FUROSEMIDE 10 MG/ML 10 ML VIAL IV SCH (17:21)
--- NOTE | 2024-06-01 17:44 | CA ---
Transthoracic Echo Report Name: Kevin Real Age: 73 Gender: M : 1950 Exam Date: 06/01/2024 16:30 Exam Location: [facility] Ht (in): 68 Wt (lb): 396 Ordering Physician: Tae Bean MD ([email or web address]) Attending/Referring Phys: Heat Treat Technician Arlette Peace RDCS Procedure CPT: Indications: chf excaerbation Cardiac Hx: Technical Quality: Technically difficult study Contrast 1: Definity Total Dose (mL): 1 Contrast 2: Total Dose (mL): MEASUREMENTS (Male / Female) Normal Values 2D ECHO LV Diastolic Diameter PLAX 4.4 cm 4.2 - 5.9 / 3.9 - 5.3 cm LV Systolic Diameter PLAX 3.2 cm IVS Diastolic Thickness 1.5 cm 0.6 - 1.0 / 0.6 - 0.9 cm LVPW Diastolic Thickness 1.5 cm 0.6 - 1.0 / 0.6 - 0.9 cm LV Relative Wall Thickness 0.7 RV Internal Dim ED PLAX 4.2 cm LVOT Diameter 2.4 cm LA Systolic Diameter LX 5.2 cm 3.0 - 4.0 / 2.7 - 3.8 cm M-MODE Aortic Root Diameter MM 3.7 cm AV Cusp Separation MM 2.0 cm DOPPLER AV Peak Velocity 191.6 cm/s AV Peak Gradient 20.0 mmHg AV Mean Velocity 169.6 cm/s AV Mean Gradient 12.5 mmHg AV Velocity Time Integral 56.3 cm MV Area PHT 3.3 cm??? TR Peak Velocity 310.8 cm/s TR Peak Gradient 38.6 mmHg Right Ventricular Systolic Press 46.0 mmHg FINDINGS Left Ventricle Left ventricular ejection fraction is estimated at 45-50 %. Suboptimal study, no clear segmental wall motion abnormality was noted. Left ventricular cavity size normal. Moderate concentric left ventricular hypertrophy. Right Ventricle Severe right ventricular dilatation. Moderate pulmonary hypertension. Right Atrium Right atrium not well visualized. Left Atrium Severely increased left atrial diameter. Mitral Valve Mitral annular calcification. Trace mitral regurgitation. Aortic Valve Mild aortic stenosis with a peak gradient of 20 mmHg and a mean gradient of 13 mmHg. probable bicuspid aortic valve severe calcifications Tricuspid Valve Structurally normal tricuspid valve. Moderate tricuspid regurgitation. Pulmonic Valve Structurally normal pulmonic valve. Trace pulmonic regurgitation. Pericardium No pericardial or pleural effusion. Aorta Normal size aortic root and proximal ascending aorta. CONCLUSIONS Technically difficult study. Definity ECHO contrast used for improved visualization of the endocardial borders (inadequate visualization of two or more contiguous segments). Left ventricular systolic function borderline normal Severely calcified aortic valve, probably bicuspid with mild aortic stenosis Moderate tricuspid regurgitation and pulmonary hypertension Previewed by: Dr. Lori Rodriguez MD (Electronically Signed) Final Date: 01 June 2024 17:43
[2024-06-01] MEDS ORDERED: IPRATROPIUM-ALBUTEROL 3 ML NEB INHALATION PRN (17:56)
[2024-06-01] MEDS ORDERED: ALBUTEROL NEBULIZED 2.5 MG/3 ML INHALATION PRN (17:56)
[2024-06-01] MEDS ORDERED: ACETAMINOPHEN TAB 500 MG TAB PO PRN (17:56)
[2024-06-01 18:00] LABS: Glucose,Whole Blood 366 mg/dL (70-110)
[2024-06-01] MEDS: INSULIN ASPART (NovoLOG) 100 UNIT/ML VIAL SQ SCH (18:22)
[2024-06-01 19:59] LABS: Glucose,Whole Blood 435 mg/dL (70-110)
[2024-06-01] MEDS: SYMBICORT 160-4.5 MCG INHALER INHALATION SCH (20:01)
[2024-06-01] MEDS: ACETAMINOPHEN TAB 325 MG TAB PO SCH (20:23)
[2024-06-01] MEDS: FERROUS SULFATE 325 MG TAB PO SCH (20:23)
[2024-06-01] MEDS: POTASSIUM CHLORIDE ER 20 MEQ TAB.ER PO SCH (20:23)
[2024-06-01] MEDS: PREGABALIN 75 MG CAP PO SCH (20:23)
[2024-06-01] MEDS: allopurinoL 100 MG TAB PO SCH (20:23)
[2024-06-01] MEDS: ATORVASTATIN 40 MG TAB PO SCH (20:23)
[2024-06-01] MEDS: MELATONIN 5 MG TABLET PO SCH (20:23)
[2024-06-01] MEDS: INSULIN DETEMIR (LEVEMIR) 100 UNIT/ML SYR SQ SCH (20:24)
[2024-06-01] MEDS: LACTULOSE 20 GM/30 ML CUP PO SCH (20:24)
[2024-06-01] MEDS ORDERED: DAPAGLIFLOZIN PROPANEDIOL 10 MG TABLET PO SCH (21:00)
[2024-06-01] MEDS ORDERED: APIXABAN 5 MG TAB PO SCH (21:00)
--- NOTE | 2024-06-01 21:43 | PCN ---
PROCEDURE NOTE PROCEDURE: Left internal jugular triple-lumen catheter. PREOPERATIVE DIAGNOSIS: Administration of fluids and pressors. POSTOPERATIVE DIAGNOSIS: Administration of fluids and pressors. EXECUTIVE DIRECTOR OF MARKETING: Dr. Sesay. FIRST A AND P MECHANIC: Dr. Amrita Gray. There was informed consent and universal timeout. The patient's procedure took place in room 263. TRIPLE LUMEN CATHETER PLACEMENT: Indication: Hemodynamic monitoring/Intravenous access. A time-out was completed verifying correct patient, procedure, site, positioning, and implant(s) or special equipment if applicable. The patient was placed in a dependent position appropriate for triple lumen catheter placement based on the vein to be cannulated. The patient's left shoulder or left neck or left groin was prepped and draped in sterile fashion. 1% Lidocaine was used to anesthetize the surrounding skin area. A triple lumen 9F Cordis catheter was introduced into the left internal jugular vein via the posterior approach using Seldinger technique. The catheter was threaded smoothly over the guide wire and appropriate blood return was obtained. Each lumen of the catheter was evacuated of air and flushed with sterile saline. The catheter was then sutured in place to the skin and a sterile dressing applied. Perfusion to the extremity distal to the point of catheter insertion was checked and found to be adequate. There was good blood return from the catheter once it was placed. The catheter was then sutured in place. A sterile dressing was applied by the nurse. There was no immediate complication. A chest x-ray was ordered. The patient tolerated the procedure well without any complication. Sterile dressing was applied by the nurse. The tip of the catheter was seen at the junction of superior vena cava in the right atrium. MMODL / IJN: [id number] /
[2024-06-01 22:04] LABS: Glucose,Whole Blood 414 mg/dL (70-110)
[2024-06-01] MEDS: INSULIN ASPART (NovoLOG) 100 UNIT/ML VIAL SQ ONE (22:14)
[2024-06-01] MEDS: HEPARIN SODIUM 1,000 UN/ML (10ML VL) IV PRN (23:09)
[2024-06-01 23:36] LABS: Glucose,Whole Blood 383 mg/dL (70-110)
--- NOTE | 2024-06-02 00:18 | P.HPIM ---
History of Present Illness H&P Date: 06/01/24 HISTORY OF PRESENT ILLNESS: 73-year-old with active medical history of type 2 diabetes, previous history of CVA, coronary artery disease, hypertension, obstructive sleep apnea on CPAP BiPAP, postcoronary artery bypass graft in the past, chronic history of debility and pulmonary fibrosis following COVID-19 the patient has been residing at [facility] on the [place] since, also known to have history of mild heart failure, acute kidney injury with chronic kidney disease, previous history of A-fib with RVR, and history of morbid obesity. He presented to the emergency department as a transfer from [facility] because of worsening dyspnea and shortness of breath with severe hypoxia and hypercapnia despite oxygen and updraft treatment patient did not do well and up coming to the emergency department at [facility] Was seen and evaluated white blood cell was 20,200 with left shift, creatinine is up to 1.92 with bun 77 lactic acid is 3.0 troponin was 1.76 stool occult was positive respiratory culture was negative for COVID, influenza and RSV. Blood sugar was quite bit high at 383. EKG showed atrial fibrillation with rapid ventricular response with wide QRS partially bundle branch block with pulse rate 140 beats per minutes. Chest x-ray showed consolidation of the right lung consistent with pneumonia with worsening infiltrate and pulmonary venous congestion consistent with heart failure as well. Patient could not maintain on nasal cannula oxygen required BiPAP while he was in the emergency department was diagnosed with acute respiratory failure close to be on mechanical ventilation. Pulmonary were consulted also consult cardiology with elevated troponin echocardiogram was ordered and patient was admitted to the ICU. REVIEW OF SYSTEMS: CONSTITUTIONAL: Morbidly obese in acute respiratory distress. EYES: No icterus sclerae, no conjunctivitis. EARS, NOSE, MOUTH, THROAT, and FACE: No sore throat, lymphadenopathy, carotid bruits or deformity. RESPIRATORY: Positive shortness of breath cough and wheezes. CARDIOVASCULAR: Positive PND orthopnea palpitation. GASTROINTESTINAL: Slight abdominal discomfort with nausea positive diarrhea with black stool. Or constipation, No GI Bleed, no distention or masses. GENITOURINARY: Decreased urine output without hematuria. INTEGUMENT/BREAST: Negative for any muscular injury with mild osteoarthritis.. HEMATOLOGIC/LYMPHATIC: Negative for bleed or purpura. MUSCULOSKELTAL: Generalized arthralgia and myalgia. NEURLOGICAL: No LOC, Sz or syncope, blurred vision dizziness or abnormality.. Positive weakness on the right side. BEHAVIORAL/PSYCH: Negative. ENDOCRINE: Negative. PHYSICAL EXAMINATION: General Appearance: Morbidly obese in acute respiratory distress. Neck HEENT: Supple, no lymphadenopathy, no thyroid enlargement, no carotid bruits. Lungs: Decreased breath sound bilaterally especially the right side with positive fine rhonchi crackles and mild expiratory expiratory wheezes worse in the right base than the left side. Chest Wall: Decreased expansion with deep inspiration no tenderness and no deformity was found on exam, no costochondral pain or discomfort. Heart: Irregular rate and rhythm, S1, S2 positive systolic murmur in the apex radiating toward the right second costal space. Back: Symmetric, no curvature, ROM normal, no CVA tenderness. Abdomen: Soft, non-tender, bowel sounds active all four quadrants, no masses, no organomegaly. Extremities: Generalized discoloration specially the lower part of the leg with 2+ edema decreased pulse bilaterally. Pulses: 2+ and symmetric. Skin: Skin color, texture, tugor normal, no rashes or lesions. Neurologic: Alert oriented with slight confusion cranial nerves II through XII intact, worsening weakness in the right than the left side. ASSESSMENT AND PLAN: _Acute respiratory failure: Secondary to COPD exacerbation, aspiration, congestive heart failure with early pulmonary edema. Continue BiPAP, consult pulmonary and cardiology and patient still might require to go on mechanical ventilation. _Congestive heart failure and fluid overload with early pulmonary edema: Patient was initiated on furosemide IV will continue to watch for any increasing fluid overload at this point continue diuretics continue to watch his urine output. _Sepsis with aspiration pneumonia: Have elevated white blood cell, elevated lactic acid, hypoxia, confusion and altered mental status the patient was initiated on IV antibiotics with his current condition have to watch for how much fluid patient can receive. _Right-sided pneumonia most likely aspiration: Was started on Zosyn and vancomycin for now will consult infectious disease. _Morbid obesity with history of obstructive sleep apnea syndrome has been on CPAP on BiPAP. _Acute kidney injury with stage IIIb chronic kidney disease acute kidney injury became most likely secondary to acute tubular necrosis and prerenal with hypoperfusion, continue with gentle hydration watch kidney function carefully. _A-fib with RVR: Pulse rate is as high as 120 bpm. Resume metoprolol succinate 25 mg daily might need or benefit from Cardizem as well. Still on anticoagulation at this point. _Aortic stenosis with possible bicuspid aortic valve: Again seen cardiology might require intervention when more stable down the road. _Elevated troponin and possible non-ST ID, again seen cardiology echocardiogram continue to watch the trend of his troponin at this point. _Type 2 diabetes: Remain on Lantus 21 units at bedtime along with NovoLog 15 units AC meals plus sliding scales Accu-Chek with sliding scales coverage will be done continue to watch blood sugar carefully also Farxiga was added to medication. _Hypertension: Was on losartan 12.5 mg daily, metoprolol succinate 25 mg a day, was still on diuretics with metolazone, furosemide and might benefit from adding spironolactone. _Possible GI bleed with acute blood loss anemia: Continue proton pump inhibitor IV, continue to watch for any further without hemoglobin watch stool for any bloody stool at this point. _Atherosclerotic heart disease post CABG in the past with seeing cardiology and has been on medical management. _Hyperlipidemia: Remain on atorvastatin 40 mg a day. _Previous history of stroke: Still have slight residual. _GI prophylaxis: Continue pantoprazole. _DVT prophylaxis: Patient was started on heparin subcutaneous. CODE STATUS: Full code. Admit patient to the inpatient service for more than 2 night stay. Past Medical History Past Medical History: Atrial Fibrillation, Coronary Artery Disease (CAD), CVA/TIA, Diabetes Mellitus, GERD/Reflux, Hypertension, Sleep Apnea/CPAP/BIPAP Additional Past Medical History / Comment(s): TIA (2008), C-PAP MACHINE, BLADDER INCONTINENCE, 6L NASAL CANNULA 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), CABG (2014) Past Anesthesia/Blood Transfusion Reactions: No Reported Reaction Past Psychological History: Anxiety Smoking Status: Former smoker Past Alcohol Use History: Occasional Additional Past Alcohol Use History / Comment(s): QUIT SMOKING IN 2009, SMOKED 2 PPD APPROX 60 YEARS. Past Drug Use History: None Reported - Past Family History Brother(s) Family Medical History: Cancer Additional Family Medical History / Comment(s): ORAL CANCER Mother Family Medical History: Diabetes Mellitus Medications and Allergies Home Medications Medication Instructions Recorded Confirmed Type Ferrous Sulfate [Feosol] 325 mg PO BID@0900,2100 01/03/15 10/07/24 History Apixaban [Eliquis] 5 mg PO BID@899,209907/02/21 06/01/24 History Aspirin EC [Ecotrin Low Dose] 81 mg PO DAILY@0907/02/21 06/01/24 History Acetaminophen Tab [Tylenol Tab] 1,000 mg PO Q6HR PRN 06/01/24 06/01/24 History Acetaminophen [Tylenol Arthritis] 650 mg PO Q12HR@899,209906/01/24 06/01/24 History Albuterol Nebulized [Ventolin 2.5 mg INHALATION RT-Q6H PRN 06/01/24 06/01/24 History Nebulized] Artificial Tears-Hypromellose 2 drops BOTH EYES Q4H PRN 06/01/24 06/01/24 History [Artificial Tear Drops] Atorvastatin [Lipitor] 40 mg PO HS@209906/01/24 06/01/24 History Budesonide/Formoterol Fumarate 2 puff INHALATION RT-BID@899,209906/01/24 06/01/24 History [Symbicort 160-4.5 Mcg Inhaler] Dapagliflozin Propanediol [Farxiga] 10 mg PO HS@209906/01/24 06/01/24 History Esomeprazole Magnesium [NexIUM] 20 mg PO DAILY@0606/01/24 06/01/24 History Furosemide [Lasix] 80 mg PO DAILY@0600 06/01/24 06/01/24 History Hydrocortisone Cream 1 applic TOPICAL BID 06/01/24 06/01/24 History [Hydrocortisone 1% Cream] Insulin Aspart [NovoLOG Flexpen] See Protocol SQ QID 06/01/24 06/01/24 History Insulin Aspart [NovoLOG] 15 unit SQ TID@0800,1200,1700 06/01/24 06/01/24 History Insulin Glargine,Hum.rec.anlog 21 units SQ HS@209906/01/24 06/01/24 History [Lantus Solostar Pen] Ipratropium-Albuterol Nebulize 3 ml INHALATION RT-Q6H PRN 06/01/24 06/01/24 History [Duoneb 0.5 mg-3 mg/3 ml Soln] Lactulose 20 gm PO Q12HR@0900,209906/01/24 06/01/24 History Losartan [Cozaar] 12.5 mg PO DAILY@89906/01/24 06/01/24 History Melatonin 5 mg PO HS@209906/01/24 06/01/24 History Metoprolol Succinate (ER) [Toprol 25 mg PO DAILY@89906/01/24 06/01/24 History Xl] Potassium Chloride [Klor-Con M20] 20 meq PO Q12HR@0900,209906/01/24 06/01/24 History Pregabalin [Lyrica] 75 mg PO Q12HR@0900,209906/01/24 06/01/24 History Psyllium Husk 100% [Metamucil 6 gm PO DAILY@89906/01/24 06/01/24 History Packet] Sennosides/Docusate Sodium [Senna 2 tab PO DAILY@89906/01/24 06/01/24 History Plus 8.6-50 mg Tablet] Tirzepatide [Mounjaro] 5 mg SQ TU@89906/01/24 06/01/24 History allopurinoL [Allopurinol] 100 mg PO HS@209906/01/24 06/01/24 History metOLazone 2.5 mg PO DAILY@89906/01/24 06/01/24 History Allergies Allergy/AdvReac Type Severity Reaction Status Date / Time No Known Allergies Allergy Verified 06/01/24 08:58 Physical Exam Vitals: Vital Signs Temp Pulse Resp BP Pulse Ox FiO2 06/01/24 17:30 87 22 112/75 91 L 06/01/24 17:00 98 15 129/96 95 06/01/24 16:34 94 L 06/01/24 16:30 104 H 13 138/89 96 06/01/24 16:00 98.2 F 105 H 17 125/84 97 60 06/01/24 15:30 117 H 24 116/62 94 L 06/01/24 15:00 98 23 114/39 98 06/01/24 14:30 99 23 106/33 92 L 06/01/24 14:00 84 23 94/41 96 06/01/24 13:45 82 23 119/82 92 L 06/01/24 13:30 102 H 19 109/73 91 L 06/01/24 13:15 95 21 98/76 95 06/01/24 13:00 95 14 104/49 95 06/01/24 12:45 90 19 106/53 94 L 60 06/01/24 12:31 91 20 60 06/01/24 12:30 98.6 F 91 19 90/66 98 80 06/01/24 12:27 99 16 80 06/01/24 12:19 17 06/01/24 12:08 104 H 24 104/78 94 L 06/01/24 11:56 97.8 F 106 H 22 104/64 95 06/01/24 11:27 98 26 H 98/83 93 L 06/01/24 10:23 111 H 28 H 104/79 93 L 06/01/24 10:14 117 H 25 H 06/01/24 10:12 80 06/01/24 09:54 113 H 26 H 107/52 95 06/01/24 09:32 113 H 26 H 109/78 95 06/01/24 09:00 125 H 27 H 93 L 06/01/24 08:35 124 H 26 H 116/90 94 L 06/01/24 08:30 30 H 06/01/24 08:26 100 06/01/24 08:23 120 H 30 H 84 L 06/01/24 08:21 146 H 30 H 122/69 73 L 06/01/24 08:15 97.7 F 126 H 30 H 109/82 72 L Intake and Output 06/01/24 06/01/24 06/01/24 06:59 14:59 22:59 Intake Total 650 150 Output Total 115 90 Balance 535 60 Intake: IV 650 150 Sodium Chloride 0.9% 1, 150 150 000 ml @ 50 mls/hr IV . Q20H STA Rx#:[id number] Vancomycin 2,500 mg In 500 Sodium Chloride 0.9% 500 ml 500 ml @ 167 mls/hr IVPB ONCE ONE Rx#: [id number] Output: Urine 115 90 Other: Voiding Method Indwelling Catheter # Bowel Movements 1 Weight 179.94 kg 179.94 kg Results CBC & Chem 7: 06/01/24 14:42 06/01/24 08:35 Labs: Abnormal Lab Results - Last 24 Hours (Table) 06/01/24 06/01/24 06/01/24 Range/Units 08:35 08:35 08:35 WBC 14.2 H (3.8-10.6) k/uL RBC (4.30-5.90) m/uL Hgb 12.3 L (13.0-17.5) gm/dL MCHC 29.0 L (31.0-37.0) g/dL RDW 18.8 H (11.5-15.5) % Neutrophils # 13.0 H (1.3-7.7) k/uL Lymphocytes # 0.4 L (1.0-4.8) k/uL ABG pH (7.35-7.45) ABG pCO2 (35-45) mmHg ABG pO2 (83-108) mmHg ABG HCO3 (21-25) mmol/L ABG Total CO2 (19-24) mmol/L ABG O2 Saturation (94-97) % VBG pCO2 (37-51) mmHg VBG HCO3 (24-28) mmol/L Hemoglobin (13.0-17.5) gm/dL Chloride 87 L (98-107) mmol/L Carbon Dioxide 39 H (22-30) mmol/L BUN 77 H (9-20) mg/dL Creatinine 1.92 H (0.66-1.25) mg/dL Glucose 232 H (74-99) mg/dL POC Glucose (mg/dL) (70-110) mg/dL Plasma Lactic Acid Rolf 2.9 H* (0.7-2.0) mmol/L Troponin I (0.000-0.034) ng/mL Total Protein 8.3 H (6.3-8.2) g/dL Urine Glucose (UA) (Negative) 06/01/24 06/01/24 06/01/24 Range/Units 08:35 09:57 11:15 WBC (3.8-10.6) k/uL RBC (4.30-5.90) m/uL Hgb (13.0-17.5) gm/dL MCHC (31.0-37.0) g/dL RDW (11.5-15.5) % Neutrophils # (1.3-7.7) k/uL Lymphocytes # (1.0-4.8) k/uL ABG pH 7.34 L (7.35-7.45) ABG pCO2 78 H* (35-45) mmHg ABG pO2 75 L (83-108) mmHg ABG HCO3 42 H* (21-25) mmol/L ABG Total CO2 45 H (19-24) mmol/L ABG O2 Saturation 93.9 L (94-97) % VBG pCO2 68 H (37-51) mmHg VBG HCO3 40 H (24-28) mmol/L Hemoglobin 12.3 L (13.0-17.5) gm/dL Chloride (98-107) mmol/L Carbon Dioxide (22-30) mmol/L BUN (9-20) mg/dL Creatinine (0.66-1.25) mg/dL Glucose (74-99) mg/dL POC Glucose (mg/dL) (70-110) mg/dL Plasma Lactic Acid Rolf (0.7-2.0) mmol/L Troponin I 0.302 H* (0.000-0.034) ng/mL Total Protein (6.3-8.2) g/dL Urine Glucose (UA) (Negative) 06/01/24 06/01/24 06/01/24 Range/Units 11:15 12:21 13:05 WBC (3.8-10.6) k/uL RBC (4.30-5.90) m/uL Hgb (13.0-17.5) gm/dL MCHC (31.0-37.0) g/dL RDW (11.5-15.5) % Neutrophils # (1.3-7.7) k/uL Lymphocytes # (1.0-4.8) k/uL ABG pH (7.35-7.45) ABG pCO2 (35-45) mmHg ABG pO2 (83-108) mmHg ABG HCO3 (21-25) mmol/L ABG Total CO2 (19-24) mmol/L ABG O2 Saturation (94-97) % VBG pCO2 (37-51) mmHg VBG HCO3 (24-28) mmol/L Hemoglobin (13.0-17.5) gm/dL Chloride (98-107) mmol/L Carbon Dioxide (22-30) mmol/L BUN (9-20) mg/dL Creatinine (0.66-1.25) mg/dL Glucose (74-99) mg/dL POC Glucose (mg/dL) 256 H (70-110) mg/dL Plasma Lactic Acid Rolf 3.0 H* (0.7-2.0) mmol/L Troponin I 0.910 H* (0.000-0.034) ng/mL Total Protein (6.3-8.2) g/dL Urine Glucose (UA) (Negative) 06/01/24 06/01/24 06/01/24 Range/Units 13:28 14:42 14:42 WBC 20.2 H (3.8-10.6) k/uL RBC 4.24 L (4.30-5.90) m/uL Hgb 11.7 L (13.0-17.5) gm/dL MCHC 29.2 L (31.0-37.0) g/dL RDW 18.9 H (11.5-15.5) % Neutrophils # 18.7 H (1.3-7.7) k/uL Lymphocytes # 0.4 L (1.0-4.8) k/uL ABG pH (7.35-7.45) ABG pCO2 (35-45) mmHg ABG pO2 (83-108) mmHg ABG HCO3 (21-25) mmol/L ABG Total CO2 (19-24) mmol/L ABG O2 Saturation (94-97) % VBG pCO2 (37-51) mmHg VBG HCO3 (24-28) mmol/L Hemoglobin (13.0-17.5) gm/dL Chloride (98-107) mmol/L Carbon Dioxide (22-30) mmol/L BUN (9-20) mg/dL Creatinine (0.66-1.25) mg/dL Glucose (74-99) mg/dL POC Glucose (mg/dL) (70-110) mg/dL Plasma Lactic Acid Rolf (0.7-2.0) mmol/L Troponin I 1.760 H* (0.000-0.034) ng/mL Total Protein (6.3-8.2) g/dL Urine Glucose (UA) Trace H (Negative) 06/01/24 Range/Units 17:46 WBC (3.8-10.6) k/uL RBC (4.30-5.90) m/uL Hgb (13.0-17.5) gm/dL MCHC (31.0-37.0) g/dL RDW (11.5-15.5) % Neutrophils # (1.3-7.7) k/uL Lymphocytes # (1.0-4.8) k/uL ABG pH (7.35-7.45) ABG pCO2 (35-45) mmHg ABG pO2 (83-108) mmHg ABG HCO3 (21-25) mmol/L ABG Total CO2 (19-24) mmol/L ABG O2 Saturation (94-97) % VBG pCO2 (37-51) mmHg VBG HCO3 (24-28) mmol/L Hemoglobin (13.0-17.5) gm/dL Chloride (98-107) mmol/L Carbon Dioxide (22-30) mmol/L BUN (9-20) mg/dL Creatinine (0.66-1.25) mg/dL Glucose (74-99) mg/dL POC Glucose (mg/dL) 366 H (70-110) mg/dL Plasma Lactic Acid Rolf (0.7-2.0) mmol/L Troponin I (0.000-0.034) ng/mL Total Protein (6.3-8.2) g/dL Urine Glucose (UA) (Negative) Thrombosis Risk Factor Assmnt - Choose All That Apply Any of the Below Risk Factors Present?: Yes Each Factor Represents 1 point: Abnormal pulmonary function (COPD), Sepsis (< 1month) Other Risk Factors: Yes Each Risk Factor Represents 2 Points: Age 61-74 years, Central venous access Each Risk Factor Represents 3 Points: History of DVT/PE Other congenital or acquired thrombophilia - If yes, enter type in comment: No Thrombosis Risk Factor Assessment Total Risk Factor Score: 9 Thrombosis Risk Factor Assessment Level: High Risk
[2024-06-02 01:12] LABS: Glucose,Whole Blood 339 mg/dL (70-110)
[2024-06-02] MEDS: INSULIN ASPART (NovoLOG) 100 UNIT/ML VIAL SQ SCH ×2 (02:07→09:11)
[2024-06-02 03:52] LABS: Glucose,Whole Blood 278 mg/dL (70-110)
[2024-06-02] MEDS: VANCOMYCIN 2,500 MG in SODIUM CHLORIDE 0.9% 500 ML 500 ML IVPB SCH (05:12)
[2024-06-02] MEDS ORDERED: FUROSEMIDE 80 MG TAB PO SCH (06:00)
[2024-06-02 06:02] LABS: Anisocytosis Slight; Basophils % (A) 0 %; Eosinophils # (A) 0.1 k/uL (0-0.7); Eosinophils % (A) 1 %; HCT 36.8 % (39.0-53.0); HGB 10.8 gm/dL (13.0-17.5); Hypochromasia Marked; Lymphocytes # (A) 0.5 k/uL (1.0-4.8); Lymphocytes % (A) 3 %; MCH 27.7 pg (25.0-35.0); MCHC 29.3 g/dL (31.0-37.0); MCV 94.6 fL (80.0-100.0); Macrocytosis Slight; Monocytes # (A) 0.5 k/uL (0-1.0); Monocytes % (A) 3 %; Neutrophils # (A) 12.9 k/uL (1.3-7.7); Neutrophils % (A) 92 %; Platelet Count 249 k/uL (150-450); RBC 3.89 m/uL (4.30-5.90); RDW 18.7 % (11.5-15.5); WBC 14.1 k/uL (3.8-10.6)
[2024-06-02 06:11] LABS: INR 1.2 (<1.2); Partial Thromboplastin Time 41.7 sec (22.0-30.0); Prothrombin Time 12.4 sec (10.0-12.5)
[2024-06-02 06:34] LABS: Glucose,Whole Blood 244 mg/dL (70-110)
[2024-06-02 06:42] LABS: ALT 25 U/L (4-49); AST 43 U/L (17-59); African American GFR (CKD) 29 (>60 ml/min/1.73 sqM); Albumin 3.5 g/dL (3.5-5.0); Alkaline Phosphatase 39 U/L (38-126); Blood Urea Nitrogen 92 mg/dL (9-20); Chloride 92 mmol/L (98-107); Glucose 257 mg/dL (74-99); Non-African American GFR(CKD) 25 (>60 ml/min/1.73 sqM); Potassium 3.5 mmol/L (3.5-5.1); Sodium 140 mmol/L (137-145); Total Bilirubin 0.6 mg/dL (0.2-1.3); Total Protein 7.3 g/dL (6.3-8.2)
[2024-06-02] MEDS: PANTOPRAZOLE 40 MG TABLET PO SCH (06:42)
[2024-06-02 07:03] LABS: Anion Gap 12 mmol/L; Carbon Dioxide 36 mmol/L (22-30)
--- NOTE | 2024-06-02 08:44 | XR ---
EXAMINATION TYPE: XR chest 1V portable DATE OF EXAM: 06/02/2024 HISTORY: Shortness of breath. COMPARISON: None. TECHNIQUE: Single view of the chest is submitted. FINDINGS: Demonstrated are scattered senescent parenchymal change. Cardiomegaly with pulmonary venous congestion scattered infiltrates compatible with congestive failur e. Hilar and mediastinal structures are within normal limits. Degenerative changes are seen of the dorsal spine. IMPRESSION: 1. Cardiomegaly with pulmonary venous congestion scattered infiltrates compatible with congestive fa ilure. [facility], , 06/02/2024 8:42 AM
[2024-06-02] MEDS ORDERED: metOLazone 2.5 MG TAB PO SCH (09:00)
[2024-06-02] MEDS ORDERED: LOSARTAN 25 MG TAB PO SCH (09:00)
[2024-06-02 09:06] LABS: Glucose,Whole Blood 250 mg/dL (70-110)
[2024-06-02] MEDS: PSYLLIUM HUSK 100% 6 GM PACKET PO SCH (09:12)
[2024-06-02] MEDS: SENNOSIDES-DOCUSATE SODIUM 1 EACH TAB PO SCH (09:12)
[2024-06-02] MEDS: ASPIRIN 81 MG PO SCH (09:15)
[2024-06-02] MEDS: METOPROLOL SUCCINATE (ER) 25 MG TAB.ER.24H PO SCH (09:16)
[2024-06-02] MEDS: INSULIN DETEMIR (LEVEMIR) 100 UNIT/ML SYR SQ SCH ×2 (10:15→20:45)
--- NOTE | 2024-06-02 10:37 | P.PN ---
Subjective Progress Note Date: 06/02/24 HISTORY OF PRESENTING ILLNESS 73-year-old obese male present to the hospital because of increased worsening shortness of breath and difficulty in breathing. On admission he was noticed to be hypercapnic and hypoxic. His chest x-ray showed signs of pulmonary congestion with diminished air entry in bilateral lung cardoza, more so on the right side. His NT-proBNP was elevated at 3000, creatinine was elevated at 1.9, troponin was elevated at 0.3. Basic viral panel was negative. Admission ECG showed A-fib RVR June 02, 2024 Patient is seen and examined at bedside this a.m. He is resting comfortably in the bed, hemodynamically stable. Reports shortness of breath is better since yesterday. Denies any active chest pain chest pressure. PHYSICAL EXAMINATION Vital signs reviewed. Head: Normocephalic. Eyes: Sclerae nonicteric. Neck: Brisk carotid upstroke, difficult to assess JVD due to neck Lungs: Poor inspiratory effort, diminished breath sounds, mild crackles audible Heart: Irregularly irregular pulse, S1-S2, no S3, no murmur or rub. Abdomen: Soft nontender, positive bowel sounds. Extremities: 1-2+ pitting edema bilateral lower extremity Neuro: Alert, oritented, no focal deficits. Detailed neuro exam was not performed. ASSESSMENT Acute on chronic hypoxic and hypercapnic respiratory failure Mild HFpEF exacerbation BRUNO NSTEMI, type II Atrial fibrillation with RVR CAD status post CABG in 2014, PIÑA to LAD, SVG to circumflex and PDA History of CVA Type 2 diabetes Essential hypertension Morbid obesity Echocardiogram showed an EF of 40 to 45%, mild mitral regurgitation PLAN Continue aspirin, Lipitor. Continue IV heparin drip without bolus. Discontinue Eliquis Discontinue discontinue Lasix and hold metolazone. Patient got 60 mg IV Lasix twice daily yesterday and creatinine has worsened. Patient is also on Zosyn and vancomycin which can also cause ATN. For now we will down escalated diuretics to PO bumex 1 mg p.o. daily because patient is still hypervolemic. Consult nephrology Metoprolol succinate 25 mg daily Patient will need cardiac catheterization once kidney function is stabilized Objective - Vital Signs Vital signs: Vital Signs Temp 97.8 F 06/02/24 08:00 Pulse 74 06/02/24 09:00 Resp 19 06/02/24 09:00 BP 95/53 06/02/24 09:00 Pulse Ox 95 06/02/24 09:00 FiO2 50 06/02/24 04:00 Intake & Output 06/01/24 06/02/24 06/02/24 18:59 06:59 18:59 Intake Total 950 362.549 9175.421 Output Total 265 750 180 Balance 685 33.677 1054.421 Weight 179.94 kg 181 kg Intake: IV 950 600 680 0.9 at KVO 30 Piperacillin-Tazobactam 3 100 100 .375 gm In Sodium Chloride 0.9% 100 ml @ 25 mls/hr IVPB Q8HR [facility] Rx# :[id number] Sodium Chloride 0.9% 1, 350 600 50 000 ml @ 50 mls/hr IV . Q20H [facility] Rx#:[id number] Vancomycin 2,500 mg In 500 500 Sodium Chloride 0.9% 500 ml 500 ml @ 167 mls/hr IVPB ONCE ONE Rx#: [id number] Intake, IV Titration 183.677 54.421 Amount Heparin Sod,Pork in 0.45% 183.677 54.421 NaCl 25,000 unit In 0.45 % NaCl 1 250ml.bag @ 5.55 UNITS/KG/HR 9.987 mls/hr IV .Q24H [facility] Rx#: [id number] Oral 500 Output: Urine 265 750 180 Other: Voiding Method Indwelling Catheter Indwelling Catheter Indwelling Catheter # Bowel Movements 1 1 - Labs CBC & Chem 7: 06/02/24 05:39 06/02/24 05:39 Labs: Abnormal Lab Results - Last 24 Hours (Table) 06/01/24 06/01/24 06/01/24 Range/Units 09:57 11:15 11:15 WBC (3.8-10.6) k/uL RBC (4.30-5.90) m/uL Hgb (13.0-17.5) gm/dL Hct (39.0-53.0) % MCHC (31.0-37.0) g/dL RDW (11.5-15.5) % Neutrophils # (1.3-7.7) k/uL Lymphocytes # (1.0-4.8) k/uL INR (<1.2) APTT (22.0-30.0) sec ABG pH 7.34 L (7.35-7.45) ABG pCO2 78 H* (35-45) mmHg ABG pO2 75 L (83-108) mmHg ABG HCO3 42 H* (21-25) mmol/L ABG Total CO2 45 H (19-24) mmol/L ABG O2 Saturation 93.9 L (94-97) % VBG pCO2 68 H (37-51) mmHg VBG HCO3 40 H (24-28) mmol/L Hemoglobin 12.3 L (13.0-17.5) gm/dL Chloride (98-107) mmol/L Carbon Dioxide (22-30) mmol/L BUN (9-20) mg/dL Creatinine (0.66-1.25) mg/dL Glucose (74-99) mg/dL POC Glucose (mg/dL) (70-110) mg/dL Plasma Lactic Acid Rolf (0.7-2.0) mmol/L Calcium (8.4-10.2) mg/dL Troponin I 0.910 H* (0.000-0.034) ng/mL Procalcitonin (0.02-0.50) ng/mL Urine Glucose (UA) (Negative) 06/01/24 06/01/24 06/01/24 Range/Units 12:21 13:05 13:05 WBC (3.8-10.6) k/uL RBC (4.30-5.90) m/uL Hgb (13.0-17.5) gm/dL Hct (39.0-53.0) % MCHC (31.0-37.0) g/dL RDW (11.5-15.5) % Neutrophils # (1.3-7.7) k/uL Lymphocytes # (1.0-4.8) k/uL INR (<1.2) APTT (22.0-30.0) sec ABG pH (7.35-7.45) ABG pCO2 (35-45) mmHg ABG pO2 (83-108) mmHg ABG HCO3 (21-25) mmol/L ABG Total CO2 (19-24) mmol/L ABG O2 Saturation (94-97) % VBG pCO2 (37-51) mmHg VBG HCO3 (24-28) mmol/L Hemoglobin (13.0-17.5) gm/dL Chloride (98-107) mmol/L Carbon Dioxide (22-30) mmol/L BUN (9-20) mg/dL Creatinine (0.66-1.25) mg/dL Glucose (74-99) mg/dL POC Glucose (mg/dL) 256 H (70-110) mg/dL Plasma Lactic Acid Rolf 3.0 H* (0.7-2.0) mmol/L Calcium (8.4-10.2) mg/dL Troponin I (0.000-0.034) ng/mL Procalcitonin 0.66 H (0.02-0.50) ng/mL Urine Glucose (UA) (Negative) 06/01/24 06/01/24 06/01/24 Range/Units 13:28 14:42 14:42 WBC 20.2 H (3.8-10.6) k/uL RBC 4.24 L (4.30-5.90) m/uL Hgb 11.7 L (13.0-17.5) gm/dL Hct (39.0-53.0) % MCHC 29.2 L (31.0-37.0) g/dL RDW 18.9 H (11.5-15.5) % Neutrophils # 18.7 H (1.3-7.7) k/uL Lymphocytes # 0.4 L (1.0-4.8) k/uL INR (<1.2) APTT (22.0-30.0) sec ABG pH (7.35-7.45) ABG pCO2 (35-45) mmHg ABG pO2 (83-108) mmHg ABG HCO3 (21-25) mmol/L ABG Total CO2 (19-24) mmol/L ABG O2 Saturation (94-97) % VBG pCO2 (37-51) mmHg VBG HCO3 (24-28) mmol/L Hemoglobin (13.0-17.5) gm/dL Chloride (98-107) mmol/L Carbon Dioxide (22-30) mmol/L BUN (9-20) mg/dL Creatinine (0.66-1.25) mg/dL Glucose (74-99) mg/dL POC Glucose (mg/dL) (70-110) mg/dL Plasma Lactic Acid Rolf (0.7-2.0) mmol/L Calcium (8.4-10.2) mg/dL Troponin I 1.760 H* (0.000-0.034) ng/mL Procalcitonin (0.02-0.50) ng/mL Urine Glucose (UA) Trace H (Negative) 06/01/24 06/01/24 06/01/24 Range/Units 17:46 19:58 22:02 WBC (3.8-10.6) k/uL RBC (4.30-5.90) m/uL Hgb (13.0-17.5) gm/dL Hct (39.0-53.0) % MCHC (31.0-37.0) g/dL RDW (11.5-15.5) % Neutrophils # (1.3-7.7) k/uL Lymphocytes # (1.0-4.8) k/uL INR (<1.2) APTT (22.0-30.0) sec ABG pH (7.35-7.45) ABG pCO2 (35-45) mmHg ABG pO2 (83-108) mmHg ABG HCO3 (21-25) mmol/L ABG Total CO2 (19-24) mmol/L ABG O2 Saturation (94-97) % VBG pCO2 (37-51) mmHg VBG HCO3 (24-28) mmol/L Hemoglobin (13.0-17.5) gm/dL Chloride (98-107) mmol/L Carbon Dioxide (22-30) mmol/L BUN (9-20) mg/dL Creatinine (0.66-1.25) mg/dL Glucose (74-99) mg/dL POC Glucose (mg/dL) 366 H 435 H 414 H (70-110) mg/dL Plasma Lactic Acid Rolf (0.7-2.0) mmol/L Calcium (8.4-10.2) mg/dL Troponin I (0.000-0.034) ng/mL Procalcitonin (0.02-0.50) ng/mL Urine Glucose (UA) (Negative) 06/01/24 06/01/24 06/02/24 Range/Units 22:33 23:34 01:11 WBC (3.8-10.6) k/uL RBC (4.30-5.90) m/uL Hgb (13.0-17.5) gm/dL Hct (39.0-53.0) % MCHC (31.0-37.0) g/dL RDW (11.5-15.5) % Neutrophils # (1.3-7.7) k/uL Lymphocytes # (1.0-4.8) k/uL INR (<1.2) APTT 32.3 H (22.0-30.0) sec ABG pH (7.35-7.45) ABG pCO2 (35-45) mmHg ABG pO2 (83-108) mmHg ABG HCO3 (21-25) mmol/L ABG Total CO2 (19-24) mmol/L ABG O2 Saturation (94-97) % VBG pCO2 (37-51) mmHg VBG HCO3 (24-28) mmol/L Hemoglobin (13.0-17.5) gm/dL Chloride (98-107) mmol/L Carbon Dioxide (22-30) mmol/L BUN (9-20) mg/dL Creatinine (0.66-1.25) mg/dL Glucose (74-99) mg/dL POC Glucose (mg/dL) 383 H 339 H (70-110) mg/dL Plasma Lactic Acid Rolf (0.7-2.0) mmol/L Calcium (8.4-10.2) mg/dL Troponin I (0.000-0.034) ng/mL Procalcitonin (0.02-0.50) ng/mL Urine Glucose (UA) (Negative) 06/02/24 06/02/24 06/02/24 Range/Units 03:50 05:39 05:39 WBC 14.1 H (3.8-10.6) k/uL RBC 3.89 L (4.30-5.90) m/uL Hgb 10.8 L (13.0-17.5) gm/dL Hct 36.8 L (39.0-53.0) % MCHC 29.3 L (31.0-37.0) g/dL RDW 18.7 H (11.5-15.5) % Neutrophils # 12.9 H (1.3-7.7) k/uL Lymphocytes # 0.5 L (1.0-4.8) k/uL INR (<1.2) APTT (22.0-30.0) sec ABG pH (7.35-7.45) ABG pCO2 (35-45) mmHg ABG pO2 (83-108) mmHg ABG HCO3 (21-25) mmol/L ABG Total CO2 (19-24) mmol/L ABG O2 Saturation (94-97) % VBG pCO2 (37-51) mmHg VBG HCO3 (24-28) mmol/L Hemoglobin (13.0-17.5) gm/dL Chloride 92 L (98-107) mmol/L Carbon Dioxide 36 H (22-30) mmol/L BUN 92 H (9-20) mg/dL Creatinine 2.45 H (0.66-1.25) mg/dL Glucose 257 H (74-99) mg/dL POC Glucose (mg/dL) 278 H (70-110) mg/dL Plasma Lactic Acid Rolf (0.7-2.0) mmol/L Calcium 8.0 L (8.4-10.2) mg/dL Troponin I (0.000-0.034) ng/mL Procalcitonin (0.02-0.50) ng/mL Urine Glucose (UA) (Negative) 06/02/24 06/02/24 06/02/24 Range/Units 05:39 06:33 09:05 WBC (3.8-10.6) k/uL RBC (4.30-5.90) m/uL Hgb (13.0-17.5) gm/dL Hct (39.0-53.0) % MCHC (31.0-37.0) g/dL RDW (11.5-15.5) % Neutrophils # (1.3-7.7) k/uL Lymphocytes # (1.0-4.8) k/uL INR 1.2 H (<1.2) APTT 41.7 H (22.0-30.0) sec ABG pH (7.35-7.45) ABG pCO2 (35-45) mmHg ABG pO2 (83-108) mmHg ABG HCO3 (21-25) mmol/L ABG Total CO2 (19-24) mmol/L ABG O2 Saturation (94-97) % VBG pCO2 (37-51) mmHg VBG HCO3 (24-28) mmol/L Hemoglobin (13.0-17.5) gm/dL Chloride (98-107) mmol/L Carbon Dioxide (22-30) mmol/L BUN (9-20) mg/dL Creatinine (0.66-1.25) mg/dL Glucose (74-99) mg/dL POC Glucose (mg/dL) 244 H 250 H (70-110) mg/dL Plasma Lactic Acid Rolf (0.7-2.0) mmol/L Calcium (8.4-10.2) mg/dL Troponin I (0.000-0.034) ng/mL Procalcitonin (0.02-0.50) ng/mL Urine Glucose (UA) (Negative)
[2024-06-02 11:33] LABS: Glucose,Whole Blood 262 mg/dL (70-110)
[2024-06-02] MEDS: BUMETANIDE 1 MG TAB PO SCH (11:42)
--- NOTE | 2024-06-02 13:02 | P.PN ---
Subjective Progress Note Date: 06/02/24 Principal diagnosis: Respiratory failure. Pulmonary consultation dated June 01, 2024. 73-year-old obese male, who was seen by Dr. Purcell in the emergency department, on June 01. The patient apparently presented about 8:00 in the morning. He came in with respiratory distress, and shortness of breath. The patient was seen in the emergency department, trauma room #1. He was on BiPAP, with settings of 14/8, and 80%. He was getting saline at 75 cc an hour. He was also receiving IV vancomycin. The patient's blood gases showed a pO2 of 75, pCO2 of 78, and a pH of 7.34. The patient was able to verbalize just a bit, while wearing his BiPAP mask. The patient has a history of coronary disease, CVA, diabetes, GERD, hypertension, and sleep apnea. The patient also has a history of urinary leakage, bypass grafting, and hernia repair. The bypass surgery took place in 2014. Current labs include a white count 14.2, hemoglobin 12.3, hematocrit 42.5, and a normal platelet count. Coagulation studies are normal. The patient sodium is 140, potassium 3.5, chlorides 87, CO2 39, anion gap 14, BUN 77, and creatinine 1.92. The lactic acid was initially 2.9. N-terminal proBNP is 3160. Troponin was 0.302. He tested negative for influenza, RSV, and coronavirus. The patient's subsequent venous blood gases showed a CO2 of 68, and a pH of 7.38. The patient's chest x-ray suggested pulmonary venous congestion versus pneumonia. Progress note dated June 02, 2024. The patient is seen today in room 263. The patient is currently on 7 L high flow nasal cannula, and did use BiPAP last night, with settings of 14/8, and 50%. The patient's procalcitonin level was 0.66. He remains on Zosyn, and vancomycin. I did ask the nurse to make sure there was blood, sputum, and urine cultures. The patient currently is on IV heparin, via weight-based protocol. Clinically, the patient feels better. Current laboratory data includes a white count 14.1, hemoglobin 10.8, macro 36.8, and a platelet count 249,000. PT 12.4, INR 1.2. PTT is 41.7. Sodium 140, potassium 3.5, chlorides 92, CO2 36, BUN 92, and creatinine 2.45. Glucose is 262. Calcium is 8. Chest x-ray shows cardiomegaly, with pulmonary venous congestion, compatible with CHF. Pneumonia cannot be ruled out. Objective - Vital Signs Vital signs: Vital Signs Temp 98.2 F 06/02/24 12:00 Pulse 75 06/02/24 12:44 Resp 25 H 06/02/24 12:00 BP 98/62 06/02/24 12:00 Pulse Ox 92 L 06/02/24 12:00 FiO2 50 06/02/24 04:00 Intake & Output 06/01/24 06/02/24 06/02/24 18:59 06:59 18:59 Intake Total 950 520.484 9205.421 Output Total 265 750 440 Balance 685 33.677 824.421 Weight 179.94 kg 181 kg Intake: IV 950 600 710 0.9 at KVO 60 Piperacillin-Tazobactam 3 100 100 .375 gm In Sodium Chloride 0.9% 100 ml @ 25 mls/hr IVPB Q8HR [facility] Rx# :[id number] Sodium Chloride 0.9% 1, 350 600 50 000 ml @ 50 mls/hr IV . Q20H [facility] Rx#:[id number] Vancomycin 2,500 mg In 500 500 Sodium Chloride 0.9% 500 ml 500 ml @ 167 mls/hr IVPB ONCE ONE Rx#: [id number] Intake, IV Titration 183.677 54.421 Amount Heparin Sod,Pork in 0.45% 183.677 54.421 NaCl 25,000 unit In 0.45 % NaCl 1 250ml.bag @ 5.55 UNITS/KG/HR 9.987 mls/hr IV .Q24H [facility] Rx#: [id number] Oral 500 Output: Urine 265 750 440 Other: Voiding Method Indwelling Catheter Indwelling Catheter Indwelling Catheter # Bowel Movements 1 1 1 - Exam Morbidly obese male, and no acute distress, oriented 3. Currently, on nasal cannula at 7 L. HEENT examination is grossly unremarkable. Mucous membranes are moist. No oral lesions. BiPAP mask in place. Neck supple. Full range of motion. No adenopathy thyromegaly or neck vein distention. Cardiovascular examination reveals an irregular rhythm and rate. S1-S2 normal. No S3 or S4. No discernible murmur noted. Heart sounds are distant. Heart rate 75 bpm. Lungs reveal bilateral coarse rhonchi and crackles. Breath sounds equal. Chest is noisy. Expiratory wheezes are also appreciated. Abdomen soft bowel sounds are heard. No masses or tenderness. Extremities are intact. No cyanosis clubbing or edema. Skin reveals chronic venous stasis changes, and chronic lower extremity cellulitis. Neurologic examination is brief but nonfocal. - Labs CBC & Chem 7: 06/02/24 05:39 06/02/24 05:39 Labs: Abnormal Lab Results - Last 24 Hours (Table) 06/01/24 06/01/24 06/01/24 Range/Units 13:05 13:05 13:28 WBC (3.8-10.6) k/uL RBC (4.30-5.90) m/uL Hgb (13.0-17.5) gm/dL Hct (39.0-53.0) % MCHC (31.0-37.0) g/dL RDW (11.5-15.5) % Neutrophils # (1.3-7.7) k/uL Lymphocytes # (1.0-4.8) k/uL INR (<1.2) APTT (22.0-30.0) sec Chloride (98-107) mmol/L Carbon Dioxide (22-30) mmol/L BUN (9-20) mg/dL Creatinine (0.66-1.25) mg/dL Glucose (74-99) mg/dL POC Glucose (mg/dL) (70-110) mg/dL Plasma Lactic Acid Rolf 3.0 H* (0.7-2.0) mmol/L Calcium (8.4-10.2) mg/dL Troponin I (0.000-0.034) ng/mL Procalcitonin 0.66 H (0.02-0.50) ng/mL Urine Glucose (UA) Trace H (Negative) 06/01/24 06/01/24 06/01/24 Range/Units 14:42 14:42 17:46 WBC 20.2 H (3.8-10.6) k/uL RBC 4.24 L (4.30-5.90) m/uL Hgb 11.7 L (13.0-17.5) gm/dL Hct (39.0-53.0) % MCHC 29.2 L (31.0-37.0) g/dL RDW 18.9 H (11.5-15.5) % Neutrophils # 18.7 H (1.3-7.7) k/uL Lymphocytes # 0.4 L (1.0-4.8) k/uL INR (<1.2) APTT (22.0-30.0) sec Chloride (98-107) mmol/L Carbon Dioxide (22-30) mmol/L BUN (9-20) mg/dL Creatinine (0.66-1.25) mg/dL Glucose (74-99) mg/dL POC Glucose (mg/dL) 366 H (70-110) mg/dL Plasma Lactic Acid Rolf (0.7-2.0) mmol/L Calcium (8.4-10.2) mg/dL Troponin I 1.760 H* (0.000-0.034) ng/mL Procalcitonin (0.02-0.50) ng/mL Urine Glucose (UA) (Negative) 06/01/24 06/01/24 06/01/24 Range/Units 19:58 22:02 22:33 WBC (3.8-10.6) k/uL RBC (4.30-5.90) m/uL Hgb (13.0-17.5) gm/dL Hct (39.0-53.0) % MCHC (31.0-37.0) g/dL RDW (11.5-15.5) % Neutrophils # (1.3-7.7) k/uL Lymphocytes # (1.0-4.8) k/uL INR (<1.2) APTT 32.3 H (22.0-30.0) sec Chloride (98-107) mmol/L Carbon Dioxide (22-30) mmol/L BUN (9-20) mg/dL Creatinine (0.66-1.25) mg/dL Glucose (74-99) mg/dL POC Glucose (mg/dL) 435 H 414 H (70-110) mg/dL Plasma Lactic Acid Rolf (0.7-2.0) mmol/L Calcium (8.4-10.2) mg/dL Troponin I (0.000-0.034) ng/mL Procalcitonin (0.02-0.50) ng/mL Urine Glucose (UA) (Negative) 06/01/24 06/02/24 06/02/24 Range/Units 23:34 01:11 03:50 WBC (3.8-10.6) k/uL RBC (4.30-5.90) m/uL Hgb (13.0-17.5) gm/dL Hct (39.0-53.0) % MCHC (31.0-37.0) g/dL RDW (11.5-15.5) % Neutrophils # (1.3-7.7) k/uL Lymphocytes # (1.0-4.8) k/uL INR (<1.2) APTT (22.0-30.0) sec Chloride (98-107) mmol/L Carbon Dioxide (22-30) mmol/L BUN (9-20) mg/dL Creatinine (0.66-1.25) mg/dL Glucose (74-99) mg/dL POC Glucose (mg/dL) 383 H 339 H 278 H (70-110) mg/dL Plasma Lactic Acid Rolf (0.7-2.0) mmol/L Calcium (8.4-10.2) mg/dL Troponin I (0.000-0.034) ng/mL Procalcitonin (0.02-0.50) ng/mL Urine Glucose (UA) (Negative) 06/02/24 06/02/24 06/02/24 Range/Units 05:39 05:39 05:39 WBC 14.1 H (3.8-10.6) k/uL RBC 3.89 L (4.30-5.90) m/uL Hgb 10.8 L (13.0-17.5) gm/dL Hct 36.8 L (39.0-53.0) % MCHC 29.3 L (31.0-37.0) g/dL RDW 18.7 H (11.5-15.5) % Neutrophils # 12.9 H (1.3-7.7) k/uL Lymphocytes # 0.5 L (1.0-4.8) k/uL INR 1.2 H (<1.2) APTT 41.7 H (22.0-30.0) sec Chloride 92 L (98-107) mmol/L Carbon Dioxide 36 H (22-30) mmol/L BUN 92 H (9-20) mg/dL Creatinine 2.45 H (0.66-1.25) mg/dL Glucose 257 H (74-99) mg/dL POC Glucose (mg/dL) (70-110) mg/dL Plasma Lactic Acid Rolf (0.7-2.0) mmol/L Calcium 8.0 L (8.4-10.2) mg/dL Troponin I (0.000-0.034) ng/mL Procalcitonin (0.02-0.50) ng/mL Urine Glucose (UA) (Negative) 06/02/24 06/02/24 06/02/24 Range/Units 06:33 09:05 11:32 WBC (3.8-10.6) k/uL RBC (4.30-5.90) m/uL Hgb (13.0-17.5) gm/dL Hct (39.0-53.0) % MCHC (31.0-37.0) g/dL RDW (11.5-15.5) % Neutrophils # (1.3-7.7) k/uL Lymphocytes # (1.0-4.8) k/uL INR (<1.2) APTT (22.0-30.0) sec Chloride (98-107) mmol/L Carbon Dioxide (22-30) mmol/L BUN (9-20) mg/dL Creatinine (0.66-1.25) mg/dL Glucose (74-99) mg/dL POC Glucose (mg/dL) 244 H 250 H 262 H (70-110) mg/dL Plasma Lactic Acid Rolf (0.7-2.0) mmol/L Calcium (8.4-10.2) mg/dL Troponin I (0.000-0.034) ng/mL Procalcitonin (0.02-0.50) ng/mL Urine Glucose (UA) (Negative) Assessment and Plan Assessment: Acute hypoxemic and hypercapnic respiratory failure, likely on the basis of fluid overload/CHF. Possible underlying pneumonia. Morbid obesity, with a history of obstructive sleep apnea syndrome. Atrial fibrillation with rapid ventricular response. Possible non-ST segment elevation myocardial infarction. History of CAD with previous bypass surgery, 2015. History of CVA. History of diabetes mellitus. History of gastroesophageal reflux disease. History of essential hypertension. History of anxiety. Lifelong non-smoker. Plan: Plan dated June 01, 2024. The patient is seen in the emergency department, trauma room #1. The patient is currently on BiPAP, with settings of 14/8 and 80%. Labs, x-rays, and medications are reviewed. Initial blood gases show pO2 75, pCO2 78, pH is 7.34. The patient's chest x-ray is consistent with fluid overload, although, pneumonia cannot be excluded at this time. The patient was seen in the emergency department, by Dr. Purcell. The patient is currently on a number of different medications, including Eliquis, Symbicort, updrafts with albuterol and ipratropium bromide, and Solu-Medrol. The patient was also placed on Zosyn, and vancomycin. If not already ordered, a procalcitonin level should be ordered. Prognosis is guarded. Plan dated June 02, 2024. The patient is seen today in room 263. The patient appears to be doing a bit better. He did spend the night, on BiPAP, with settings of 14/8, 50%. He continues on IV heparin. He is getting nasal O2 at 7 L. His procalcitonin level was elevated at 0.66. The patient is on Zosyn and vancomycin. I have asked the nurses to make sure the patient is fully cultured. We will continue to follow make recommendations along the way. Labs, x-rays, and all medications are reviewed. Prognosis is certainly guarded. Time with Patient: Greater than 30
[2024-06-02 18:05] LABS: Glucose,Whole Blood 324 mg/dL (70-110)
[2024-06-02 20:23] LABS: Glucose,Whole Blood 284 mg/dL (70-110)
[2024-06-03 01:24] LABS: Glucose,Whole Blood 304 mg/dL (70-110)
--- NOTE | 2024-06-03 06:11 | P.PN ---
Subjective Progress Note Date: 06/02/24 HISTORY OF PRESENT ILLNESS: 73-year-old with active medical history of type 2 diabetes, previous history of CVA, coronary artery disease, hypertension, obstructive sleep apnea on CPAP BiPAP, postcoronary artery bypass graft in the past, chronic history of debility and pulmonary fibrosis following COVID-19 the patient has been residing at [facility] [place] the [place] since, also known to have history of mild heart failure, acute kidney injury with chronic kidney disease, previous history of A-fib with RVR, and history of morbid obesity. He presented to the emergency department as a transfer from [facility] because of worsening dyspnea and shortness of breath with severe hypoxia and hypercapnia despite oxygen and updraft treatment patient did not do well and up coming to the emergency department at [facility] Was seen and evaluated white blood cell was 20,200 with left shift, creatinine is up to 1.92 with bun 77 lactic acid is 3.0 troponin was 1.76 stool occult was positive respiratory culture was negative for COVID, influenza and RSV. Blood sugar was quite bit high at 383. EKG showed atrial fibrillation with rapid ventricular response with wide QRS partially bundle branch block with pulse rate 140 beats per minutes. Chest x-ray showed consolidation of the right lung consistent with pneumonia with worsening infiltrate and pulmonary venous congestion consistent with heart failure as well. Patient could not maintain on nasal cannula oxygen required BiPAP while he was in the emergency department was diagnosed with acute respiratory failure close to be on mechanical ventilation. Pulmonary were consulted also consult cardiology with elevated troponin echocardiogram was ordered and patient was admitted to the ICU. 06/02/2024: Through the night patient remain on BiPAP did not compromise much, blood sugar remained running in the high 300, his Levemir will be switched today to 20 units twice a day remain on NovoLog 15 units AC meals plus sliding scales. Patient had an episode of diarrhea no new finding from microbiology standpoint and chest x-ray still showing significant amount of right lower side pneumonia along with vascular congestion consistent with congestive heart failure which patient has been treated for both so far. REVIEW OF SYSTEMS: CONSTITUTIONAL: Morbidly obese in acute respiratory distress. EYES: No icterus sclerae, no conjunctivitis. EARS, NOSE, MOUTH, THROAT, and FACE: No sore throat, lymphadenopathy, carotid bruits or deformity. RESPIRATORY: Positive shortness of breath cough and wheezes. CARDIOVASCULAR: Positive PND orthopnea palpitation. GASTROINTESTINAL: Slight abdominal discomfort with nausea positive diarrhea with black stool. Or constipation, No GI Bleed, no distention or masses. GENITOURINARY: Decreased urine output without hematuria. INTEGUMENT/BREAST: Negative for any muscular injury with mild osteoarthritis.. HEMATOLOGIC/LYMPHATIC: Negative for bleed or purpura. MUSCULOSKELTAL: Generalized arthralgia and myalgia. NEURLOGICAL: No LOC, Sz or syncope, blurred vision dizziness or abnormality.. Positive weakness on the right side. BEHAVIORAL/PSYCH: Negative. ENDOCRINE: Negative. PHYSICAL EXAMINATION: General Appearance: Morbidly obese in acute respiratory distress. Neck HEENT: Supple, no lymphadenopathy, no thyroid enlargement, no carotid bruits. Lungs: Decreased breath sound bilaterally especially the right side with positive fine rhonchi crackles and mild expiratory expiratory wheezes worse in the right base than the left side. Chest Wall: Decreased expansion with deep inspiration no tenderness and no deformity was found on exam, no costochondral pain or discomfort. Heart: Irregular rate and rhythm, S1, S2 positive systolic murmur in the apex radiating toward the right second costal space. Back: Symmetric, no curvature, ROM normal, no CVA tenderness. Abdomen: Soft, non-tender, bowel sounds active all four quadrants, no masses, no organomegaly. Extremities: Generalized discoloration specially the lower part of the leg with 2+ edema decreased pulse bilaterally. Pulses: 2+ and symmetric. Skin: Skin color, texture, tugor normal, no rashes or lesions. Neurologic: Alert oriented with slight confusion cranial nerves II through XII intact, worsening weakness in the right than the left side. ASSESSMENT AND PLAN: _Acute respiratory failure: Secondary to COPD exacerbation, aspiration, congestive heart failure with early pulmonary edema. BiPAP was continued through the night with his BiPAP on higher flow oxygen this morning does not require any mechanical ventilation and is more stable. _Congestive heart failure and fluid overload with early pulmonary edema: Has done very well on IV furosemide urine output is improving is doing slightly bit better. _Sepsis with aspiration pneumonia: Have elevated white blood cell, elevated lactic acid, hypoxia, confusion and altered mental status the patient was initiated on IV antibiotics with his current condition have to watch for how much fluid patient can receive. _Right-sided pneumonia most likely aspiration: Repeat chest x-ray continues show significant infiltrate on the right side, patient was started on Zosyn and va ncomycin for now will consult infectious disease. Continue antibiotic till culture is final lower he might settle on coverage for gram-negative's and aspiration at some point. _Morbid obesity with history of obstructive sleep apnea syndrome has been on CPAP on BiPAP. _Acute kidney injury with stage IIIb chronic kidney disease acute kidney injury became most likely secondary to acute tubular necrosis and prerenal with hypoperfusion, continue with gentle hydration watch kidney function carefully. _A-fib with RVR: Pulse rate is as high as 120 bpm. Resume metoprolol succinate 25 mg daily might need or benefit from Cardizem as well. Still on anticoagulation at this point. _Aortic stenosis Echocardiogram done late yesterday showed ejection fraction of 45-50 percentile suboptimal study and showed mild aortic stenosis with peak gradient of 20 mmHg and what looks like probable bicuspid aortic valve with severe calcification. _Elevated troponin and possible non-ST CO, again seen cardiology echocardiogram continue to watch the trend of his troponin at this point. Still seeing cardiology no intervention required. _Type 2 diabetes: Blood sugar remained high and Lantus was switched to 20 units twice a day and NovoLog 15 units AC meals plus sliding scales will start Farxiga as early as today. Continue to watch his blood sugar at this point carefully every 2-4 hours. _Hypertension: Was on losartan 12.5 mg daily, metoprolol succinate 25 mg a day, was still on diuretics with metolazone, furosemide and might benefit from adding spironolactone. _Possible GI bleed with acute blood loss anemia: Continue proton pump inhibitor IV, continue to watch for any further without hemoglobin watch stool for any bloody stool at this point. _Atherosclerotic heart disease post CABG in the past with seeing cardiology and has been on medical management. _Hyperlipidemia: Remain on atorvastatin 40 mg a day. _Previous history of stroke: Still have slight residual. Discussion: Continue aggressive management for pneumonia, continue to treat patient for congestive heart failure as well. Objective - Vital Signs Vital signs: Vital Signs Temp 97.9 F 06/02/24 04:00 Pulse 77 06/02/24 05:00 Resp 18 06/02/24 05:00 BP 103/71 06/02/24 05:00 Pulse Ox 94 L 06/02/24 05:00 FiO2 50 06/02/24 04:00 Intake & Output 06/01/24 06/01/2424 06:59 18:59 06:59 Intake Total 950 622.905 Output Total 265 710 Balance 685 -87.095 Weight 179.94 kg 181 kg Intake: IV 950 550 Piperacillin-Tazobactam 3 100 .375 gm In Sodium Chloride 0.9% 100 ml @ 25 mls/hr IVPB Q8HR [facility] Rx# :[id number] Sodium Chloride 0.9% 1, 350 550 000 ml @ 50 mls/hr IV . Q20H [facility] Rx#:[id number] Vancomycin 2,500 mg In 500 Sodium Chloride 0.9% 500 ml 500 ml @ 167 mls/hr IVPB ONCE ONE Rx#: [id number] Intake, IV Titration 72.905 Amount Heparin Sod,Pork in 0.45% 72.905 NaCl 25,000 unit In 0.45 % NaCl 1 250ml.bag @ 5.55 UNITS/KG/HR 9.987 mls/hr IV .Q24H [facility] Rx#: [id number] Output: Urine 265 710 Other: Voiding Method Indwelling Catheter Indwelling Catheter # Bowel Movements 1 1 - Labs CBC & Chem 7: 06/02/24 05:39 06/02/24 05:39 Labs: Abnormal Lab Results - Last 24 Hours (Table) 06/01/24 06/01/24 06/01/24 Range/Units 08:35 08:35 08:35 WBC 14.2 H (3.8-10.6) k/uL RBC (4.30-5.90) m/uL Hgb 12.3 L (13.0-17.5) gm/dL MCHC 29.0 L (31.0-37.0) g/dL RDW 18.8 H (11.5-15.5) % Neutrophils # 13.0 H (1.3-7.7) k/uL Lymphocytes # 0.4 L (1.0-4.8) k/uL APTT (22.0-30.0) sec ABG pH (7.35-7.45) ABG pCO2 (35-45) mmHg ABG pO2 (83-108) mmHg ABG HCO3 (21-25) mmol/L ABG Total CO2 (19-24) mmol/L ABG O2 Saturation (94-97) % VBG pCO2 (37-51) mmHg VBG HCO3 (24-28) mmol/L Hemoglobin (13.0-17.5) gm/dL Chloride 87 L (98-107) mmol/L Carbon Dioxide 39 H (22-30) mmol/L BUN 77 H (9-20) mg/dL Creatinine 1.92 H (0.66-1.25) mg/dL Glucose 232 H (74-99) mg/dL POC Glucose (mg/dL) (70-110) mg/dL Plasma Lactic Acid Rolf 2.9 H* (0.7-2.0) mmol/L Troponin I (0.000-0.034) ng/mL Total Protein 8.3 H (6.3-8.2) g/dL Procalcitonin (0.02-0.50) ng/mL Urine Glucose (UA) (Negative) 06/01/24 06/01/24 06/01/24 Range/Units 08:35 09:57 11:15 WBC (3.8-10.6) k/uL RBC (4.30-5.90) m/uL Hgb (13.0-17.5) gm/dL MCHC (31.0-37.0) g/dL RDW (11.5-15.5) % Neutrophils # (1.3-7.7) k/uL Lymphocytes # (1.0-4.8) k/uL APTT (22.0-30.0) sec ABG pH 7.34 L (7.35-7.45) ABG pCO2 78 H* (35-45) mmHg ABG pO2 75 L (83-108) mmHg ABG HCO3 42 H* (21-25) mmol/L ABG Total CO2 45 H (19-24) mmol/L ABG O2 Saturation 93.9 L (94-97) % VBG pCO2 68 H (37-51) mmHg VBG HCO3 40 H (24-28) mmol/L Hemoglobin 12.3 L (13.0-17.5) gm/dL Chloride (98-107) mmol/L Carbon Dioxide (22-30) mmol/L BUN (9-20) mg/dL Creatinine (0.66-1.25) mg/dL Glucose (74-99) mg/dL POC Glucose (mg/dL) (70-110) mg/dL Plasma Lactic Acid Rolf (0.7-2.0) mmol/L Troponin I 0.302 H* (0.000-0.034) ng/mL Total Protein (6.3-8.2) g/dL Procalcitonin (0.02-0.50) ng/mL Urine Glucose (UA) (Negative) 06/01/24 06/01/24 06/01/24 Range/Units 11:15 12:21 13:05 WBC (3.8-10.6) k/uL RBC (4.30-5.90) m/uL Hgb (13.0-17.5) gm/dL MCHC (31.0-37.0) g/dL RDW (11.5-15.5) % Neutrophils # (1.3-7.7) k/uL Lymphocytes # (1.0-4.8) k/uL APTT (22.0-30.0) sec ABG pH (7.35-7.45) ABG pCO2 (35-45) mmHg ABG pO2 (83-108) mmHg ABG HCO3 (21-25) mmol/L ABG Total CO2 (19-24) mmol/L ABG O2 Saturation (94-97) % VBG pCO2 (37-51) mmHg VBG HCO3 (24-28) mmol/L Hemoglobin (13.0-17.5) gm/dL Chloride (98-107) mmol/L Carbon Dioxide (22-30) mmol/L BUN (9-20) mg/dL Creatinine (0.66-1.25) mg/dL Glucose (74-99) mg/dL POC Glucose (mg/dL) 256 H (70-110) mg/dL Plasma Lactic Acid Rolf 3.0 H* (0.7-2.0) mmol/L Troponin I 0.910 H* (0.000-0.034) ng/mL Total Protein (6.3-8.2) g/dL Procalcitonin (0.02-0.50) ng/mL Urine Glucose (UA) (Negative) 06/01/24 06/01/24 06/01/24 Range/Units 13:05 13:28 14:42 WBC (3.8-10.6) k/uL RBC (4.30-5.90) m/uL Hgb (13.0-17.5) gm/dL MCHC (31.0-37.0) g/dL RDW (11.5-15.5) % Neutrophils # (1.3-7.7) k/uL Lymphocytes # (1.0-4.8) k/uL APTT (22.0-30.0) sec ABG pH (7.35-7.45) ABG pCO2 (35-45) mmHg ABG pO2 (83-108) mmHg ABG HCO3 (21-25) mmol/L ABG Total CO2 (19-24) mmol/L ABG O2 Saturation (94-97) % VBG pCO2 (37-51) mmHg VBG HCO3 (24-28) mmol/L Hemoglobin (13.0-17.5) gm/dL Chloride (98-107) mmol/L Carbon Dioxide (22-30) mmol/L BUN (9-20) mg/dL Creatinine (0.66-1.25) mg/dL Glucose (74-99) mg/dL POC Glucose (mg/dL) (70-110) mg/dL Plasma Lactic Acid Rolf (0.7-2.0) mmol/L Troponin I 1.760 H* (0.000-0.034) ng/mL Total Protein (6.3-8.2) g/dL Procalcitonin 0.66 H (0.02-0.50) ng/mL Urine Glucose (UA) Trace H (Negative) 06/01/24 06/01/24 06/01/24 Range/Units 14:42 17:46 19:58 WBC 20.2 H (3.8-10.6) k/uL RBC 4.24 L (4.30-5.90) m/uL Hgb 11.7 L (13.0-17.5) gm/dL MCHC 29.2 L (31.0-37.0) g/dL RDW 18.9 H (11.5-15.5) % Neutrophils # 18.7 H (1.3-7.7) k/uL Lymphocytes # 0.4 L (1.0-4.8) k/uL APTT (22.0-30.0) sec ABG pH (7.35-7.45) ABG pCO2 (35-45) mmHg ABG pO2 (83-108) mmHg ABG HCO3 (21-25) mmol/L ABG Total CO2 (19-24) mmol/L ABG O2 Saturation (94-97) % VBG pCO2 (37-51) mmHg VBG HCO3 (24-28) mmol/L Hemoglobin (13.0-17.5) gm/dL Chloride (98-107) mmol/L Carbon Dioxide (22-30) mmol/L BUN (9-20) mg/dL Creatinine (0.66-1.25) mg/dL Glucose (74-99) mg/dL POC Glucose (mg/dL) 366 H 435 H (70-110) mg/dL Plasma Lactic Acid Rolf (0.7-2.0) mmol/L Troponin I (0.000-0.034) ng/mL Total Protein (6.3-8.2) g/dL Procalcitonin (0.02-0.50) ng/mL Urine Glucose (UA) (Negative) 06/01/24 06/01/24 06/01/24 Range/Units 22:02 22:33 23:34 WBC (3.8-10.6) k/uL RBC (4.30-5.90) m/uL Hgb (13.0-17.5) gm/dL MCHC (31.0-37.0) g/dL RDW (11.5-15.5) % Neutrophils # (1.3-7.7) k/uL Lymphocytes # (1.0-4.8) k/uL APTT 32.3 H (22.0-30.0) sec ABG pH (7.35-7.45) ABG pCO2 (35-45) mmHg ABG pO2 (83-108) mmHg ABG HCO3 (21-25) mmol/L ABG Total CO2 (19-24) mmol/L ABG O2 Saturation (94-97) % VBG pCO2 (37-51) mmHg VBG HCO3 (24-28) mmol/L Hemoglobin (13.0-17.5) gm/dL Chloride (98-107) mmol/L Carbon Dioxide (22-30) mmol/L BUN (9-20) mg/dL Creatinine (0.66-1.25) mg/dL Glucose (74-99) mg/dL POC Glucose (mg/dL) 414 H 383 H (70-110) mg/dL Plasma Lactic Acid Rolf (0.7-2.0) mmol/L Troponin I (0.000-0.034) ng/mL Total Protein (6.3-8.2) g/dL Procalcitonin (0.02-0.50) ng/mL Urine Glucose (UA) (Negative) 06/02/24 06/02/24 Range/Units 01:11 03:50 WBC (3.8-10.6) k/uL RBC (4.30-5.90) m/uL Hgb (13.0-17.5) gm/dL MCHC (31.0-37.0) g/dL RDW (11.5-15.5) % Neutrophils # (1.3-7.7) k/uL Lymphocytes # (1.0-4.8) k/uL APTT (22.0-30.0) sec ABG pH (7.35-7.45) ABG pCO2 (35-45) mmHg ABG pO2 (83-108) mmHg ABG HCO3 (21-25) mmol/L ABG Total CO2 (19-24) mmol/L ABG O2 Saturation (94-97) % VBG pCO2 (37-51) mmHg VBG HCO3 (24-28) mmol/L Hemoglobin (13.0-17.5) gm/dL Chloride (98-107) mmol/L Carbon Dioxide (22-30) mmol/L BUN (9-20) mg/dL Creatinine (0.66-1.25) mg/dL Glucose (74-99) mg/dL POC Glucose (mg/dL) 339 H 278 H (70-110) mg/dL Plasma Lactic Acid Rolf (0.7-2.0) mmol/L Troponin I (0.000-0.034) ng/mL Total Protein (6.3-8.2) g/dL Procalcitonin (0.02-0.50) ng/mL Urine Glucose (UA) (Negative)
[2024-06-03 06:15] LABS: Glucose,Whole Blood 338 mg/dL (70-110)
[2024-06-03 06:34] LABS: Anisocytosis Slight; Basophils % (A) 0 %; Eosinophils % (A) 0 %; HCT 33.6 % (39.0-53.0); HGB 10.2 gm/dL (13.0-17.5); Hypochromasia Marked; Lymphocytes # (A) 0.6 k/uL (1.0-4.8); Lymphocytes % (A) 5 %; MCH 28.1 pg (25.0-35.0); MCHC 30.2 g/dL (31.0-37.0); Mean Platelet Volume 8.8; Monocytes # (A) 0.6 k/uL (0-1.0); Monocytes % (A) 4 %; Neutrophils # (A) 12.3 k/uL (1.3-7.7); Neutrophils % (A) 91 %; Platelet Count 231 k/uL (150-450); RBC 3.61 m/uL (4.30-5.90); WBC 13.6 k/uL (3.8-10.6)
[2024-06-03 07:02] LABS: African American GFR (CKD) 28 (>60 ml/min/1.73 sqM); Anion Gap 7 mmol/L; Calcium 8.1 mg/dL (8.4-10.2); Carbon Dioxide 36 mmol/L (22-30); Chloride 92 mmol/L (98-107); Glucose 214 mg/dL (74-99); Non-African American GFR(CKD) 24 (>60 ml/min/1.73 sqM); Potassium 3.6 mmol/L (3.5-5.1); Sodium 135 mmol/L (137-145)
[2024-06-03 07:19] LABS: Blood Urea Nitrogen 102 mg/dL (9-20)
--- NOTE | 2024-06-03 08:28 | XR ---
EXAMINATION TYPE: XR chest 1V portable DATE OF EXAM: 06/03/2024 HISTORY: Shortness of breath. COMPARISON: 06/02/2024 TECHNIQUE: Single view of the chest is submitted. FINDINGS: Demonstrated are scattered senescent parenchymal change. Summary venous congestion with cardiomegaly and scattered mixed infiltrates felt to reflect congestiv e failure. Hilar and mediastinal structures are within normal limits. Degenerative changes are seen of the dorsal spine. IMPRESSION: 1. Summary venous congestion with cardiomegaly and scattered mixed infiltrates felt to reflect conge stive failure. [facility], , 06/03/2024 8:26 AM
[2024-06-03 08:52] LABS: Glucose,Whole Blood 281 mg/dL (70-110)
--- NOTE | 2024-06-03 09:56 | P.NPCON ---
History of Present Illness - Reason for Consult acute renal failure, chronic renal failure - History of Present Illness Reason for consultation: Acute kidney injury on chronic kidney disease History of present illness: Patient is a 73-year-old male seen in renal consultation for acute kidney injury on chronic kidney disease. Patient has chronic kidney disease stage IIIb with baseline creatinine 1.5-1.8 secondary to nephrosclerosis and cardiorenal syndrome. Patient came to the hospital due to worsening shortness of breath. Denies fever or chills. Patient was started on IV Lasix and was subsequently changed to oral Bumex due to worsening renal function. Last dose of Lasix was given June 02, 2024. Nonoliguric. Currently not on vasopressors. Patient has longstanding history of diabetes. Also has history of coronary disease and is status post CABG. Patient has systolic CHF ejection fraction of 45 to 50% with moderate tricuspid regurgitation and pulmonary hypertension. Currently denies chest pain or shortness of breath. Denies use of nonsteroidals. BUN is elevated and patient is also receiving IV steroids. Vital signs are stable. General: No acute distress. HEENT: Head exam is unremarkable. On nasal cannula. LUNGS: No audible rhonchi or wheezes. HEART: Rate and Rhythm are regular. ABDOMEN: Obese, nontender. EXTREMITITES: Trace edema. Past Medical History Past Medical History: Atrial Fibrillation, Coronary Artery Disease (CAD), CVA /TIA, Diabetes Mellitus, GERD/Reflux, Hypertension, Sleep Apnea/CPAP/BIPAP Additional Past Medical History / Comment(s): TIA (2008), C-PAP MACHINE, BLADDER INCONTINENCE, 6L NASAL CANNULA 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), CABG (2014) Past Anesthesia/Blood Transfusion Reactions: No Reported Reaction Past Psychological History: Anxiety Smoking Status: Former smoker Past Alcohol Use History: Occasional Additional Past Alcohol Use History / Comment(s): QUIT SMOKING IN 2009, SMOKED 2 PPD APPROX 60 YEARS. Past Drug Use History: None Reported - Past Family History Brother(s) Family Medical History: Cancer Additional Family Medical History / Comment(s): ORAL CANCER Mother Family Medical History: Diabetes Mellitus Medications and Allergies Home Medications Medication Instructions Recorded Confirmed Type Ferrous Sulfate [Feosol] 325 mg PO BID@0900,209901/03/15 06/01/24 History Apixaban [Eliquis] 5 mg PO BID@00,209907/02/21 06/01/24 History Aspirin EC [Ecotrin Low Dose] 81 mg PO DAILY@00 07/02/21 06/01/24 History Acetaminophen Tab [Tylenol Tab] 1,000 mg PO Q6HR PRN 06/01/24 06/01/24 History Acetaminophen [Tylenol Arthritis] 650 mg PO Q12HR@899,209906/01/24 06/01/24 History Albuterol Nebulized [Ventolin 2.5 mg INHALATION RT-Q6H PRN 06/01/24 06/01/24 History Nebulized] Artificial Tears-Hypromellose 2 drops BOTH EYES Q4H PRN 06/01/24 06/01/24 History [Artificial Tear Drops] Atorvastatin [Lipitor] 40 mg PO HS@209906/01/24 06/01/24 History Budesonide/Formoterol Fumarate 2 puff INHALATION RT-BID@899,209906/01/24 06/01/24 History [Symbicort 160-4.5 Mcg Inhaler] Dapagliflozin Propanediol [Farxiga] 10 mg PO HS@209906/01/24 06/01/24 History Esomeprazole Magnesium [NexIUM] 20 mg PO DAILY@0606/01/24 06/01/24 History Furosemide [Lasix] 80 mg PO DAILY@0606/01/24 06/01/24 History Hydrocortisone Cream 1 applic TOPICAL BID 06/01/24 06/01/24 History [Hydrocortisone 1% Cream] Insulin Aspart [NovoLOG Flexpen] See Protocol SQ QID 06/01/24 06/01/24 History Insulin Aspart [NovoLOG] 15 unit SQ TID@0800,1200,1700 06/01/24 06/01/24 History Insulin Glargine,Hum.rec.anlog 21 units SQ HS@209906/01/24 06/01/24 History [Lantus Solostar Pen] Ipratropium-Albuterol Nebulize 3 ml INHALATION RT-Q6H PRN 06/01/24 06/01/24 History [Duoneb 0.5 mg-3 mg/3 ml Soln] Lactulose 20 gm PO Q12HR@0900,209906/01/24 06/01/24 History Losartan [Cozaar] 12.5 mg PO DAILY@89906/01/24 06/01/24 History Melatonin 5 mg PO HS@209906/01/24 06/01/24 History Metoprolol Succinate (ER) [Toprol 25 mg PO DAILY@89906/01/24 06/01/24 History Xl] Potassium Chloride [Klor-Con M20] 20 meq PO Q12HR@0900,209906/01/24 06/01/24 History Pregabalin [Lyrica] 75 mg PO Q12HR@0900,209906/01/24 06/01/24 History Psyllium Husk 100% [Metamucil 6 gm PO DAILY@89906/01/24 06/01/24 History Packet] Sennosides/Docusate Sodium [Senna 2 tab PO DAILY@89906/01/24 06/01/24 History Plus 8.6-50 mg Tablet] Tirzepatide [Mounjaro] 5 mg SQ TU@89906/01/24 06/01/24 History allopurinoL [Allopurinol] 100 mg PO HS@209906/01/24 06/01/24 History metOLazone 2.5 mg PO DAILY@89906/01/24 06/01/24 History Allergies Allergy/AdvReac Type Severity Reaction Status Date / Time No Known Allergies Allergy Verified 06/01/24 08:58 Physical Exam Vitals: Vital Signs Temp Pulse Resp BP Pulse Ox FiO2 06/03/24 09:04 95 06/03/24 09:03 80 06/03/24 09:00 81 24 118/75 95 06/03/24 08:51 80 06/03/24 08:48 50 06/03/24 08:00 97.8 F 74 22 119/76 95 50 06/03/24 07:00 78 20 110/70 96 06/03/24 06:00 79 24 118/65 96 06/03/24 05:35 81 50 06/03/24 05:00 88 24 114/60 97 06/03/24 04:00 97.9 F 86 27 H 110/74 97 06/03/24 03:00 70 23 114/57 96 10/09/24 02:00 85 30 H 113/69 95 06/03/24 01:10 85 06/03/24 01:00 80 19 108/77 96 50 06/03/24 00:00 98.0 F 88 21 117/71 95 06/02/24 23:00 91 28 H 104/69 95 06/02/24 22:30 84 21 100/78 95 06/02/24 22:00 105 H 28 H 114/71 94 L 06/02/24 21:30 82 130/56 94 L 06/02/24 21:00 80 23 121/85 92 L 06/02/24 20:34 99 06/02/24 20:30 92 27 H 112/76 99 06/02/24 20:22 90 06/02/24 20:00 97.8 F 87 25 H 103/69 95 06/02/24 19:30 97.8 F 88 46 H 108/68 95 06/02/24 19:00 83 23 104/66 95 06/02/24 18:30 93 25 H 117/76 94 L 06/02/24 18:00 90 25 H 127/90 94 L 06/02/24 17:30 118 H 29 H 107/87 87 L 06/02/24 17:00 78 29 H 111/65 95 06/02/24 16:30 80 19 102/73 93 L 06/02/24 16:09 85 06/02/24 16:00 98.1 F 87 16 126/60 96 06/02/24 15:59 92 06/02/24 15:30 93 30 H 122/71 94 L 06/02/24 15:00 81 37 H 113/71 93 L 06/02/24 14:30 75 24 114/70 95 06/02/24 14:00 77 57 H 93 L 06/02/24 13:30 79 23 109/75 95 06/02/24 13:02 78 06/02/24 13:00 79 36 H 110/70 99 06/02/24 12:44 75 06/02/24 12:30 14 105/72 93 L 06/02/24 12:00 98.2 F 75 25 H 98/62 92 L 06/02/24 11:30 80 23 93 L 06/02/24 11:00 88 17 99/66 88 L 06/02/24 10:30 77 19 107/65 94 L 06/02/24 10:00 90 15 110/64 96 Intake and Output 06/02/24 06/03/24 06/03/24 22:59 06:59 14:59 Intake Total 856.792 80 130 Output Total 850 770 450 Balance 6.792 -690 -320 Intake: IV 210 80 130 0.9 at KVO 110 80 30 Piperacillin-Tazobactam 3 100 100 .375 gm In Sodium Chloride 0.9% 100 ml @ 25 mls/hr IVPB Q8HR [facility] Rx# :[id number] Intake, IV Titration 246.792 Amount Heparin Sod,Pork in 0.45% 246.792 NaCl 25,000 unit In 0.45 % NaCl 1 250ml.bag @ 5.55 UNITS/KG/HR 9.987 mls/hr IV .Q24H [facility] Rx#: [id number] Oral 400 Output: Urine 850 770 450 Other: Voiding Method Indwelling Catheter Indwelling Catheter Indwelling Catheter Weight 194.3 kg Results - Lab Results Most recent lab results ABG pH 7.34 (7.35-7.45) L 06/01/24 09:57 ABG pCO2 78 mmHg (35-45) H* 06/01/24 09:57 ABG pO2 75 mmHg (83-108) L 06/01/24 09:57 ABG HCO3 42 mmol/L (21-25) H* 06/01/24 09:57 ABG O2 Saturation 93.9 % (94-97) L 06/01/24 09:57 Calcium 8.1 mg/dL (8.4-10.2) L 06/03/24 05:45 Magnesium 1.9 mg/dL (1.6-2.3) 06/01/24 08:35 06/03/24 05:45 06/03/24 05:45 Assessment and Plan Plan: Assessment: 1. Acute kidney injury secondary to ATN. Creatinine 2.55 today. Elevated BUN partially from acute kidney injury and steroids. UA benign. 2. Chronic kidney disease stage IIIb with baseline creatinine 1.5-1.8 secondary to nephrosclerosis and cardiorenal syndrome. 3. Acute on chronic systolic CHF ejection fraction of 45 to 50% with moderate tricuspid regurgitation and pulmonary hypertension. 4. Volume overload. Improved with diuresis. 5. Coronary artery disease status post CABG. 6. Diabetes mellitus. 7. Acute hypoxic respiratory failure. Plan: Maintain oral Bumex. Check renal ultrasound. Avoid nephrotoxins. Continue to monitor renal function and urine output. Thank you for the consultation. I will continue to follow the patient with you during his hospital stay.
--- NOTE | 2024-06-03 10:35 | US ---
EXAMINATION TYPE: US kidneys/renal and bladder DATE OF EXAM: 06/03/2024 COMPARISON: NONE CLINICAL INDICATION: Male, 73 years old with history of bruno; BRUNO TECHNIQUE: Grayscale and color Doppler imaging of the bilateral kidneys and urinary bladder: FINDINGS: EXAM MEASUREMENTS: Right Kidney: 13.2 x 5.7 x 6.0 cm Left Kidney: cm Exam is extremely limited due to patient body habitus. Right Kidney: Enlarged- however measurement is limited. No gross evidence of hydronephrosis identifi ed involving the right kidney. Left Kidney: Obscured Bladder: Obscured Bilateral Jets seen: No IMPRESSION: Extremely limited examination due to patient's body habitus with nonvisualization of the left kidney and urinary bladder. Limited visualization of the right kidney with no gross evidence of hydronephros is. [facility], , 06/03/2024 10:33 AM
[2024-06-03] MEDS ORDERED: VANCOMYCIN IV PER PHARMACY 1 EACH MISC MISCELLANE PRN (10:43)
--- NOTE | 2024-06-03 11:27 | P.PN ---
Subjective Progress Note Date: 06/03/24 Principal diagnosis: Respiratory failure. Pulmonary consultation dated June 01, 2024. 73-year-old obese male, who was seen by Dr. Purcell in the emergency department, on June 01. The patient apparently presented about 8:00 in the morning. He came in with respiratory distress, and shortness of breath. The patient was seen in the emergency department, trauma room #1. He was on BiPAP, with settings of 14/8, and 80%. He was getting saline at 75 cc an hour. He was also receiving IV vancomycin. The patient's blood gases showed a pO2 of 75, pCO2 of 78, and a pH of 7.34. The patient was able to verbalize just a bit, while wearing his BiPAP mask. The patient has a history of coronary disease, CVA, diabetes, GERD, hypertension, and sleep apnea. The patient also has a history of urinary leakage, bypass grafting, and hernia repair. The bypass surgery took place in 2014. Current labs include a white count 14.2, hemoglobin 12.3, hematocrit 42.5, and a normal platelet count. Coagulation studies are normal. The patient sodium is 140, potassium 3.5, chlorides 87, CO2 39, anion gap 14, BUN 77, and creatinine 1.92. The lactic acid was initially 2.9. N-terminal proBNP is 3160. Troponin was 0.302. He tested negative for influenza, RSV, and coronavirus. The patient's subsequent venous blood gases showed a CO2 of 68, and a pH of 7.38. The patient's chest x-ray suggested pulmonary venous congestion versus pneumonia. Progress note dated June 02, 2024. The patient is seen today in room 263. The patient is currently on 7 L high flow nasal cannula, and did use BiPAP last night, with settings of 14/8, and 50%. The patient's procalcitonin level was 0.66. He remains on Zosyn, and vancomycin. I did ask the nurse to make sure there was blood, sputum, and urine cultures. The patient currently is on IV heparin, via weight-based protocol. Clinically, the patient feels better. Current laboratory data includes a white count 14.1, hemoglobin 10.8, macro 36.8, and a platelet count 249,000. PT 12.4, INR 1.2. PTT is 41.7. Sodium 140, potassium 3.5, chlorides 92, CO2 36, BUN 92, and creatinine 2.45. Glucose is 262. Calcium is 8. Chest x-ray shows cardiomegaly, with pulmonary venous congestion, compatible with CHF. Pneumonia cannot be ruled out. Progress note dated June 03, 2024. 73-year-old male seen in room 263. The patient is currently on 10 L high flow oxygen. At nighttime, he uses a BiPAP device, with settings of 14/8, 50%. He is getting saline at 20 cc an hour, and heparin via weight-based protocol. The patient is doing reasonably well, but may not be ready to leave the intensive care unit, given his tenuous respiratory status. White count of 13.6, hemoglobin 10.2, hematocrit 33.6, and platelet count is normal. Sodium 135, potassium 3.6, chlorides 92, CO2 36, BUN 102, creatinine 2.55. PTT is 65.7. Calcium is 8.1. Glucose is 281. Chest x-ray shows cardiomegaly, with diffuse venous congestion. Objective - Vital Signs Vital signs: Vital Signs Temp 97.8 F 06/03/24 08:00 Pulse 75 06/03/24 10:00 Resp 24 06/03/24 10:00 BP 124/78 06/03/24 10:00 Pulse Ox 94 L 06/03/24 10:00 FiO2 50 06/03/24 08:48 Intake & Output 06/02/24 06/03/24 06/03/24 18:59 06:59 18:59 Intake Total 2036.859 194.354 140 Output Total 1055 1280 575 Balance 981.859 -1085.646 -435 Weight 194.3 kg Intake: IV 910 120 140 0.9 at KVO 160 120 40 Piperacillin-Tazobactam 3 200 100 .375 gm In Sodium Chloride 0.9% 100 ml @ 25 mls/hr IVPB Q8HR [facility] Rx# :[id number] Sodium Chloride 0.9% 1, 50 000 ml @ 50 mls/hr IV . Q20H [facility] Rx#:[id number] Vancomycin 2,500 mg In 500 Sodium Chloride 0.9% 500 ml 500 ml @ 167 mls/hr IVPB ONCE ONE Rx#: [id number] Intake, IV Titration 226.859 74.354 Amount Heparin Sod,Pork in 0.45% 226.859 74.354 NaCl 25,000 unit In 0.45 % NaCl 1 250ml.bag @ 5.55 UNITS/KG/HR 9.987 mls/hr IV .Q24H [facility] Rx#: [id number] Oral 900 Output: Urine 1055 1280 575 Other: Voiding Method Indwelling Catheter Indwelling Catheter Indwelling Catheter # Bowel Movements 1 - Exam Morbidly obese male, and no acute distress, oriented 3. Currently, on nasal cannula at 10 L. HEENT examination is grossly unremarkable. Mucous membranes are moist. No oral lesions. Neck supple. Full range of motion. No adenopathy thyromegaly or neck vein distention. Cardiovascular examination reveals an irregular rhythm and rate. S1-S2 normal. No S3 or S4. No discernible murmur noted. Heart sounds are distant. Heart rate 75 bpm. Lungs reveal bilateral coarse rhonchi and crackles. Breath sounds equal. Chest is noisy. Expiratory wheezes are also appreciated. Abdomen soft bowel sounds are heard. No masses or tenderness. Extremities are intact. No cyanosis clubbing or edema. Skin reveals chronic venous stasis changes, and chronic lower extremity cellulitis. Neurologic examination is brief but nonfocal. - Labs CBC & Chem 7: 06/03/24 05:45 06/03/24 05:45 Labs: Abnormal Lab Results - Last 24 Hours (Table) 06/02/24 06/02/24 06/02/24 Range/Units 11:32 13:02 18:03 WBC (3.8-10.6) k/uL RBC (4.30-5.90) m/uL Hgb (13.0-17.5) gm/dL Hct (39.0-53.0) % MCHC (31.0-37.0) g/dL RDW (11.5-15.5) % Neutrophils # (1.3-7.7) k/uL Lymphocytes # (1.0-4.8) k/uL APTT 73.3 H (22.0-30.0) sec Sodium (137-145) mmol/L Chloride (98-107) mmol/L Carbon Dioxide (22-30) mmol/L BUN (9-20) mg/dL Creatinine (0.66-1.25) mg/dL Glucose (74-99) mg/dL POC Glucose (mg/dL) 262 H 324 H (70-110) mg/dL Calcium (8.4-10.2) mg/dL 06/02/24 06/03/24 06/03/24 Range/Units 20:22 01:23 05:45 WBC (3.8-10.6) k/uL RBC (4.30-5.90) m/uL Hgb (13.0-17.5) gm/dL Hct (39.0-53.0) % MCHC (31.0-37.0) g/dL RDW (11.5-15.5) % Neutrophils # (1.3-7.7) k/uL Lymphocytes # (1.0-4.8) k/uL APTT 65.7 H (22.0-30.0) sec Sodium (137-145) mmol/L Chloride (98-107) mmol/L Carbon Dioxide (22-30) mmol/L BUN (9-20) mg/dL Creatinine (0.66-1.25) mg/dL Glucose (74-99) mg/dL POC Glucose (mg/dL) 284 H 304 H (70-110) mg/dL Calcium (8.4-10.2) mg/dL 06/03/24 06/03/24 06/03/24 Range/Units 05:45 05:45 06:13 WBC 13.6 H (3.8-10.6) k/uL RBC 3.61 L (4.30-5.90) m/uL Hgb 10.2 L (13.0-17.5) gm/dL Hct 33.6 L (39.0-53.0) % MCHC 30.2 L (31.0-37.0) g/dL RDW 19.0 H (11.5-15.5) % Neutrophils # 12.3 H (1.3-7.7) k/uL Lymphocytes # 0.6 L (1.0-4.8) k/uL APTT (22.0-30.0) sec Sodium 135 L (137-145) mmol/L Chloride 92 L (98-107) mmol/L Carbon Dioxide 36 H (22-30) mmol/L BUN 102 H* (9-20) mg/dL Creatinine 2.55 H (0.66-1.25) mg/dL Glucose 214 H (74-99) mg/dL POC Glucose (mg/dL) 338 H (70-110) mg/dL Calcium 8.1 L (8.4-10.2) mg/dL 06/03/24 Range/Units 08:50 WBC (3.8-10.6) k/uL RBC (4.30-5.90) m/uL Hgb (13.0-17.5) gm/dL Hct (39.0-53.0) % MCHC (31.0-37.0) g/dL RDW (11.5-15.5) % Neutrophils # (1.3-7.7) k/uL Lymphocytes # (1.0-4.8) k/uL APTT (22.0-30.0) sec Sodium (137-145) mmol/L Chloride (98-107) mmol/L Carbon Dioxide (22-30) mmol/L BUN (9-20) mg/dL Creatinine (0.66-1.25) mg/dL Glucose (74-99) mg/dL POC Glucose (mg/dL) 281 H (70-110) mg/dL Calcium (8.4-10.2) mg/dL Microbiology - Last 24 Hours (Table) 06/01/24 08:36 Blood Culture - Preliminary Blood Assessment and Plan Assessment: Acute hypoxemic and hypercapnic respiratory failure, likely on the basis of fluid overload/CHF. Possible underlying pneumonia. Morbid obesity, with a history of obstructive sleep apnea syndrome. Atrial fibrillation with rapid ventricular response. Possible non-ST segment elevation myocardial infarction. History of CAD with previous bypass surgery, 2014. History of CVA. History of diabetes mellitus. History of gastroesophageal reflux disease. History of essential hypertension. History of anxiety. Lifelong non-smoker. Plan: Plan dated June 01, 2024. The patient is seen in the emergency department, trauma room #1. The patient is currently on BiPAP, with settings of 14/8 and 80%. Labs, x-rays, and medications are reviewed. Initial blood gases show pO2 75, pCO2 78, pH is 7.34. The patient's chest x-ray is consistent with fluid overload, although, pneumonia cannot be excluded at this time. The patient was seen in the emergency department, by Dr. Purcell. The patient is currently on a number of different medications, including Eliquis, Symbicort, updrafts with albuterol and ipratropium bromide, and Solu-Medrol. The patient was also placed on Zosyn, and vancomycin. If not already ordered, a procalcitonin level should be ordered. Prognosis is guarded. Plan dated June 02, 2024. The patient is seen today in room 263. The patient appears to be doing a bit better. He did spend the night, on BiPAP, with settings of 14/8, 50%. He continues on IV heparin. He is getting nasal O2 at 7 L. His procalcitonin level was elevated at 0.66. The patient is on Zosyn and vancomycin. I have asked the nurses to make sure the patient is fully cultured. We will continue to follow make recommendations along the way. Labs, x-rays, and all medications are reviewed. Prognosis is certainly guarded. Plan dated June 03, 2024. The patient is seen today in room 263. His oxygen requirements have gone up to 10 L high flow O2. In addition, the patient was on BiPAP through the night, with settings of 14/8, 50%. The patient continues on a heparin drip. Cardiology has not made a decision as to whether or not they plan on doing a catheterization on this gentleman. The patient is also getting saline at 20 cc an hour. Labs, x-rays, and medications are reviewed. The patient is overall prognosis remains guarded. We will continue to follow. Time with Patient: Less than 30
[2024-06-03 11:33] LABS: Glucose,Whole Blood 251 mg/dL (70-110)
[2024-06-03 16:27] LABS: Glucose,Whole Blood 375 mg/dL (70-110)
[2024-06-03 19:54] LABS: Glucose,Whole Blood 284 mg/dL (70-110)
[2024-06-04 01:53] LABS: Glucose,Whole Blood 242 mg/dL (70-110)
[2024-06-04 05:32] LABS: Glucose,Whole Blood 253 mg/dL (70-110)
[2024-06-04 06:08] LABS: Anisocytosis Slight; Basophils % (A) 0 %; Eosinophils # (A) 0.1 k/uL (0-0.7); Eosinophils % (A) 1 %; HCT 34.7 % (39.0-53.0); HGB 10.1 gm/dL (13.0-17.5); Hypochromasia Marked; Lymphocytes # (A) 0.6 k/uL (1.0-4.8); Lymphocytes % (A) 5 %; MCH 27.6 pg (25.0-35.0); MCHC 29.1 g/dL (31.0-37.0); MCV 94.7 fL (80.0-100.0); Macrocytosis Slight; Mean Platelet Volume 8.7; Monocytes # (A) 0.6 k/uL (0-1.0); Monocytes % (A) 5 %; Neutrophils # (A) 9.9 k/uL (1.3-7.7); Neutrophils % (A) 88 %; Platelet Count 235 k/uL (150-450); RBC 3.66 m/uL (4.30-5.90); RDW 18.8 % (11.5-15.5); WBC 11.3 k/uL (3.8-10.6)
[2024-06-04 07:40] LABS: African American GFR (CKD) 31 (>60 ml/min/1.73 sqM); Anion Gap 9 mmol/L; Calcium 7.7 mg/dL (8.4-10.2); Carbon Dioxide 37 mmol/L (22-30); Chloride 92 mmol/L (98-107); Glucose 249 mg/dL (74-99); Non-African American GFR(CKD) 27 (>60 ml/min/1.73 sqM); Potassium 3.7 mmol/L (3.5-5.1); Sodium 138 mmol/L (137-145)
[2024-06-04 07:47] LABS: Blood Urea Nitrogen 109 mg/dL (9-20)
--- NOTE | 2024-06-04 08:04 | XR ---
EXAMINATION TYPE: XR chest 1V portable DATE OF EXAM: 06/04/2024 HISTORY: Shortness of breath. COMPARISON: 06/03/2024 TECHNIQUE: Single view of the chest is submitted. FINDINGS: Demonstrated are scattered senescent parenchymal change. Pulmonary venous congestion with cardiomegaly and right basilar atelectasis. Hilar and mediastinal structures are within normal limits. Degenerative changes are seen of the dorsal spine. IMPRESSION: 1. Pulmonary venous congestion with cardiomegaly and right basilar atelectasis. [facility], , 06/04/2024 8:02 AM
--- NOTE | 2024-06-04 09:42 | P.PN ---
Subjective Patient is seen in follow-up for acute kidney injury on chronic kidney disease. Renal function fairly stable. Nonoliguric. Denies chest pain or shortness of breath. Oral intake is good. Vital signs are stable. General: No acute distress. HEENT: Head exam is unremarkable. On nasal cannula. LUNGS: Scattered rhonchi. HEART: Rate and Rhythm are regular. ABDOMEN: Obese. EXTREMITITES: 1+ edema. Objective - Vital Signs Vital signs: Vital Signs Temp 98.0 F 06/04/24 04:00 Pulse 88 06/04/24 09:18 Resp 16 06/04/24 07:00 BP 108/71 06/04/24 07:00 Pulse Ox 94 L 06/04/24 09:03 FiO2 50 06/04/24 04:11 Intake & Output 06/03/24 06/04/24 06/04/24 18:59 06:59 18:59 Intake Total 580 515.402 20 Output Total 2440 1415 125 Balance -1860 -899.598 -105 Weight 189 kg Intake: IV 330 280 20 0.9 at KVO 130 180 20 Piperacillin-Tazobactam 3 200 100 .375 gm In Sodium Chloride 0.9% 100 ml @ 25 mls/hr IVPB Q8HR [facility] Rx# :[id number] Intake, IV Titration 250 235.402 Amount Heparin Sod,Pork in 0.45% 250 235.402 NaCl 25,000 unit In 0.45 % NaCl 1 250ml.bag @ 5.55 UNITS/KG/HR 9.987 mls/hr IV .Q24H [facility] Rx#: [id number] Output: Urine 2440 1415 125 Other: Voiding Method Indwelling Catheter Indwelling Catheter - Labs CBC & Chem 7: 06/04/24 05:33 06/04/24 05:33 Labs: Abnormal Lab Results - Last 24 Hours (Table) 06/03/24 06/03/24 06/03/24 Range/Units 11:32 16:25 19:52 WBC (3.8-10.6) k/uL RBC (4.30-5.90) m/uL Hgb (13.0-17.5) gm/dL Hct (39.0-53.0) % MCHC (31.0-37.0) g/dL RDW (11.5-15.5) % Neutrophils # (1.3-7.7) k/uL Lymphocytes # (1.0-4.8) k/uL APTT (22.0-30.0) sec Chloride (98-107) mmol/L Carbon Dioxide (22-30) mmol/L BUN (9-20) mg/dL Creatinine (0.66-1.25) mg/dL Glucose (74-99) mg/dL POC Glucose (mg/dL) 251 H 375 H 284 H (70-110) mg/dL Calcium (8.4-10.2) mg/dL 06/04/24 06/04/24 06/04/24 Range/Units 01:51 05:30 05:33 WBC 11.3 H (3.8-10.6) k/uL RBC 3.66 L (4.30-5.90) m/uL Hgb 10.1 L (13.0-17.5) gm/dL Hct 34.7 L (39.0-53.0) % MCHC 29.1 L (31.0-37.0) g/dL RDW 18.8 H (11.5-15.5) % Neutrophils # 9.9 H (1.3-7.7) k/uL Lymphocytes # 0.6 L (1.0-4.8) k/uL APTT (22.0-30.0) sec Chloride (98-107) mmol/L Carbon Dioxide (22-30) mmol/L BUN (9-20) mg/dL Creatinine (0.66-1.25) mg/dL Glucose (74-99) mg/dL POC Glucose (mg/dL) 242 H 253 H (70-110) mg/dL Calcium (8.4-10.2) mg/dL 06/04/24 06/04/24 Range/Units 05:33 05:33 WBC (3.8-10.6) k/uL RBC (4.30-5.90) m/uL Hgb (13.0-17.5) gm/dL Hct (39.0-53.0) % MCHC (31.0-37.0) g/dL RDW (11.5-15.5) % Neutrophils # (1.3-7.7) k/uL Lymphocytes # (1.0-4.8) k/uL APTT 48.9 H (22.0-30.0) sec Chloride 92 L (98-107) mmol/L Carbon Dioxide 37 H (22-30) mmol/L BUN 109 H* (9-20) mg/dL Creatinine 2.35 H (0.66-1.25) mg/dL Glucose 249 H (74-99) mg/dL POC Glucose (mg/dL) (70-110) mg/dL Calcium 7.7 L (8.4-10.2) mg/dL Microbiology - Last 24 Hours (Table) 06/01/24 08:36 Blood Culture - Preliminary Blood Assessment and Plan Plan: Assessment: 1. Acute kidney injury secondary to ATN. Renal function stable. Creatinine 2.35 today. Elevated BUN partially from acute kidney injury and steroids. UA benign. No hydronephrosis noted on kidney ultrasound. Left kidney was not properly visualized. 2. Chronic kidney disease stage IIIb with baseline creatinine 1.5-1.8 secondary to nephrosclerosis and cardiorenal syndrome. 3. Acute on chronic systolic CHF ejection fraction of 45 to 50% with moderate tricuspid regurgitation and pulmonary hypertension. 4. Volume overload. Improved with diuresis. 5. Coronary artery disease status post CABG. 6. Diabetes mellitus. 7. Acute hypoxic respiratory failure. Plan: Maintain oral Bumex. Avoid nephrotoxins. Continue to monitor renal function and urine output. Wean FiO2. Monitor vancomycin levels. Dose to be adjusted for renal function.
[2024-06-04 11:51] LABS: Glucose,Whole Blood 362 mg/dL (70-110)
[2024-06-04 11:51] LABS: Glucose,Whole Blood 263 mg/dL (70-110)
[2024-06-04] MEDS: APIXABAN 5 MG TAB PO SCH (11:52)
[2024-06-04] MEDS: POTASSIUM CHLORIDE ER 20 MEQ TAB.ER PO STA (11:52)
--- NOTE | 2024-06-04 12:10 | P.PN ---
Subjective Progress Note Date: 06/04/24 HPI: [This gentleman has morbid obesity sleep apnea syndrome hypercapnia and hypoxic presentation with elevated BNP. Also has acute on chronic renal injury which has shown modest improvement. Rhythm is atrial for but controlled rate. I am recommending that we can switch him from heparin to Eliquis 5 mg twice daily. He has multiple comorbid conditions including type 2 diabetes CKD CAD with prior bypass surgery, hypertension hyperlipidemia acute on chronic renal injury. His rhythm is A-fib rate is controlled will switch him from heparin to Eliquis and his renal function has shown modest improvement but we will pursue conservative management at this time unless he shows any signs of angina. Prog nosis remains guarded.]. PHYSICIAL EXAM: [Patient is morbidly obese JVD is 1 cm. Cannot assess easily. S1-S2 heard distantly irregular short systolic murmur lungs reveal bilateral diminished air entry abdomen is distended lower extremity edema has improved Central nervous system grossly able to move all 4 extremities.]. IMPRESSION: 1. [CAD with previous bypass surgery]. 2. [Atrial for with now controlled ventricular rate]. 3. [Diabetes with chronic kidney disease acute on chronic kidney injury]. 4. [Heart failure with mildly decreased systolic function a combination of both systolic and diastolic heart failure.]. 5. [Hypercapnic hypoxic respiratory failure with improvement]. RECOMMENDATIONS: [We will switch him from IV heparin to Eliquis continue other medications including rate control. Prognosis remains poor we will continue conservative management]. Objective - Vital Signs Vital signs: Vital Signs Temp 99.4 F 06/04/24 08:00 Pulse 96 06/04/24 12:00 Resp 22 06/04/24 09:00 BP 126/78 06/04/24 09:00 Pulse Ox 92 L 06/04/24 12:03 FiO2 50 06/04/24 04:11 Intake & Output 06/03/24 06/04/24 06/04/24 18:59 06:59 18:59 Intake Total 580 515.402 348.258 Output Total 2440 1415 400 Balance -1860 -899.598 -51.742 Weight 189 kg Intake: IV 330 280 160 0.9 at KVO 130 180 60 Piperacillin-Tazobactam 3 200 100 100 .375 gm In Sodium Chloride 0.9% 100 ml @ 25 mls/hr IVPB Q8HR [facility] Rx# :[id number] Intake, IV Titration 250 235.402 188.258 Amount Heparin Sod,Pork in 0.45% 250 235.402 188.258 NaCl 25,000 unit In 0.45 % NaCl 1 250ml.bag @ 5.55 UNITS/KG/HR 9.987 mls/hr IV .Q24H [facility] Rx#: [id number] Output: Urine 2440 1415 400 Other: Voiding Method Indwelling Catheter Indwelling Catheter Indwelling Catheter - Labs CBC & Chem 7: 06/04/24 05:33 06/04/24 05:33 Labs: Abnormal Lab Results - Last 24 Hours (Table) 06/03/24 06/03/24 06/04/24 Range/Units 16:25 19:52 01:51 WBC (3.8-10.6) k/uL RBC (4.30-5.90) m/uL Hgb (13.0-17.5) gm/dL Hct (39.0-53.0) % MCHC (31.0-37.0) g/dL RDW (11.5-15.5) % Neutrophils # (1.3-7.7) k/uL Lymphocytes # (1.0-4.8) k/uL APTT (22.0-30.0) sec Chloride (98-107) mmol/L Carbon Dioxide (22-30) mmol/L BUN (9-20) mg/dL Creatinine (0.66-1.25) mg/dL Glucose (74-99) mg/dL POC Glucose (mg/dL) 375 H 284 H 242 H (70-110) mg/dL Calcium (8.4-10.2) mg/dL 06/04/24 06/04/24 06/04/24 Range/Units 05:30 05:33 05:33 WBC 11.3 H (3.8-10.6) k/uL RBC 3.66 L (4.30-5.90) m/uL Hgb 10.1 L (13.0-17.5) gm/dL Hct 34.7 L (39.0-53.0) % MCHC 29.1 L (31.0-37.0) g/dL RDW 18.8 H (11.5-15.5) % Neutrophils # 9.9 H (1.3-7.7) k/uL Lymphocytes # 0.6 L (1.0-4.8) k/uL APTT (22.0-30.0) sec Chloride 92 L (98-107) mmol/L Carbon Dioxide 37 H (22-30) mmol/L BUN 109 H* (9-20) mg/dL Creatinine 2.35 H (0.66-1.25) mg/dL Glucose 249 H (74-99) mg/dL POC Glucose (mg/dL) 253 H (70-110) mg/dL Calcium 7.7 L (8.4-10.2) mg/dL 06/04/24 06/04/24 06/04/24 Range/Units 05:33 06:58 11:50 WBC (3.8-10.6) k/uL RBC (4.30-5.90) m/uL Hgb (13.0-17.5) gm/dL Hct (39.0-53.0) % MCHC (31.0-37.0) g/dL RDW (11.5-15.5) % Neutrophils # (1.3-7.7) k/uL Lymphocytes # (1.0-4.8) k/uL APTT 48.9 H (22.0-30.0) sec Chloride (98-107) mmol/L Carbon Dioxide (22-30) mmol/L BUN (9-20) mg/dL Creatinine (0.66-1.25) mg/dL Glucose (74-99) mg/dL POC Glucose (mg/dL) 263 H 362 H (70-110) mg/dL Calcium (8.4-10.2) mg/dL Microbiology - Last 24 Hours (Table) 06/01/24 08:36 Blood Culture - Preliminary Blood
--- NOTE | 2024-06-04 12:25 | P.PN ---
Subjective Progress Note Date: 06/04/24 Principal diagnosis: Respiratory failure. Pulmonary consultation dated June 01, 2024. 73-year-old obese male, who was seen by Dr. Purcell in the emergency department, on June 01. The patient apparently presented about 8:00 in the morning. He came in with respiratory distress, and shortness of breath. The patient was seen in the emergency department, trauma room #1. He was on BiPAP, with settings of 14/8, and 80%. He was getting saline at 75 cc an hour. He was also receiving IV vancomycin. The patient's blood gases showed a pO2 of 75, pCO2 of 78, and a pH of 7.34. The patient was able to verbalize just a bit, while wearing his BiPAP mask. The patient has a history of coronary disease, CVA, diabetes, GERD, hypertension, and sleep apnea. The patient also has a history of urinary leakage, bypass grafting, and hernia repair. The bypass surgery took place in 2014. Current labs include a white count 14.2, hemoglobin 12.3, hematocrit 42.5, and a normal platelet count. Coagulation studies are normal. The patient sodium is 140, potassium 3.5, chlorides 87, CO2 39, anion gap 14, BUN 77, and creatinine 1.92. The lactic acid was initially 2.9. N-terminal proBNP is 3160. Troponin was 0.302. He tested negative for influenza, RSV, and coronavirus. The patient's subsequent venous blood gases showed a CO2 of 68, and a pH of 7.38. The patient's chest x-ray suggested pulmonary venous congestion versus pneumonia. Progress note dated June 02, 2024. The patient is seen today in room 263. The patient is currently on 7 L high flow nasal cannula, and did use BiPAP last night, with settings of 14/8, and 50%. The patient's procalcitonin level was 0.66. He remains on Zosyn, and vancomycin. I did ask the nurse to make sure there was blood, sputum, and urine cultures. The patient currently is on IV heparin, via weight-based protocol. Clinically, the patient feels better. Current laboratory data includes a white count 14.1, hemoglobin 10.8, macro 36.8, and a platelet count 249,000. PT 12.4, INR 1.2. PTT is 41.7. Sodium 140, potassium 3.5, chlorides 92, CO2 36, BUN 92, and creatinine 2.45. Glucose is 262. Calcium is 8. Chest x-ray shows cardiomegaly, with pulmonary venous congestion, compatible with CHF. Pneumonia cannot be ruled out. Progress note dated June 03, 2024. 73-year-old male seen in room 263. The patient is currently on 10 L high flow oxygen. At nighttime, he uses a BiPAP device, with settings of 14/8, 50%. He is getting saline at 20 cc an hour, and heparin via weight-based protocol. The patient is doing reasonably well, but may not be ready to leave the intensive care unit, given his tenuous respiratory status. White count of 13.6, hemoglobin 10.2, hematocrit 33.6, and platelet count is normal. Sodium 135, potassium 3.6, chlorides 92, CO2 36, BUN 102, creatinine 2.55. PTT is 65.7. Calcium is 8.1. Glucose is 281. Chest x-ray shows cardiomegaly, with diffuse venous congestion. Progress note dated June 04, 2024. 73-year-old male seen today in room 263. The patient appears to be relatively comfortable. He is on 10 L high flow oxygen. He is getting BiPAP, at 14/8 at 50%, that he uses throughout the night. He is on saline at KVO, and IV heparin via weight-based protocol. Current laboratory data includes a white count 11.3, hemoglobin 10.1, hematocrit 34.7, and a platelet count is normal. Sodium 138, potassium 3.7, chlorides 92, CO2 37, BUN 109, creatinine 2.35. His PTT is 48.9. Calcium is 7.7. Chest x-ray shows pulmonary venous congestion with cardiomegaly, which is improved. Objective - Vital Signs Vital signs: Vital Signs Temp 98.8 F 06/04/24 12:00 Pulse 92 06/04/24 12:09 Resp 22 06/04/24 12:00 BP 130/80 06/04/24 12:00 Pulse Ox 92 L 06/04/24 12:03 FiO2 50 06/04/24 04:11 Intake & Output 06/03/24 06/04/24 06/04/24 18:59 06:59 18:59 Intake Total 580 515.402 348.258 Output Total 2440 1415 400 Balance -1860 -899.598 -51.742 Weight 189 kg Intake: IV 330 280 160 0.9 at KVO 130 180 60 Piperacillin-Tazobactam 3 200 100 100 .375 gm In Sodium Chloride 0.9% 100 ml @ 25 mls/hr IVPB Q8HR [facility] Rx# :[id number] Intake, IV Titration 250 235.402 188.258 Amount Heparin Sod,Pork in 0.45% 250 235.402 188.258 NaCl 25,000 unit In 0.45 % NaCl 1 250ml.bag @ 5.55 UNITS/KG/HR 9.987 mls/hr IV .Q24H [facility] Rx#: [id number] Output: Urine 2440 1415 400 Other: Voiding Method Indwelling Catheter Indwelling Catheter Indwelling Catheter - Exam Morbidly obese male, and no acute distress, oriented 3. Currently, on nasal cannula at 10 L. HEENT examination is grossly unremarkable. Mucous membranes are moist. No oral lesions. Neck supple. Full range of motion. No adenopathy thyromegaly or neck vein distention. Cardiovascular examination reveals an irregular rhythm and rate. S1-S2 normal. No S3 or S4. No discernible murmur noted. Heart sounds are distant. Lungs reveal bilateral coarse rhonchi and crackles. Breath sounds equal. Chest is noisy. Expiratory wheezes are also appreciated. Abdomen soft bowel sounds are heard. No masses or tenderness. Extremities are intact. No cyanosis clubbing or edema. Skin reveals chronic venous stasis changes, and chronic lower extremity cellul itis. Neurologic examination is brief but nonfocal. - Labs CBC & Chem 7: 06/04/24 05:33 06/04/24 05:33 Labs: Abnormal Lab Results - Last 24 Hours (Table) 06/03/24 06/03/24 06/04/24 Range/Units 16:25 19:52 01:51 WBC (3.8-10.6) k/uL RBC (4.30-5.90) m/uL Hgb (13.0-17.5) gm/dL Hct (39.0-53.0) % MCHC (31.0-37.0) g/dL RDW (11.5-15.5) % Neutrophils # (1.3-7.7) k/uL Lymphocytes # (1.0-4.8) k/uL APTT (22.0-30.0) sec Chloride (98-107) mmol/L Carbon Dioxide (22-30) mmol/L BUN (9-20) mg/dL Creatinine (0.66-1.25) mg/dL Glucose (74-99) mg/dL POC Glucose (mg/dL) 375 H 284 H 242 H (70-110) mg/dL Calcium (8.4-10.2) mg/dL 06/04/24 06/04/24 06/04/24 Range/Units 05:30 05:33 05:33 WBC 11.3 H (3.8-10.6) k/uL RBC 3.66 L (4.30-5.90) m/uL Hgb 10.1 L (13.0-17.5) gm/dL Hct 34.7 L (39.0-53.0) % MCHC 29.1 L (31.0-37.0) g/dL RDW 18.8 H (11.5-15.5) % Neutrophils # 9.9 H (1.3-7.7) k/uL Lymphocytes # 0.6 L (1.0-4.8) k/uL APTT (22.0-30.0) sec Chloride 92 L (98-107) mmol/L Carbon Dioxide 37 H (22-30) mmol/L BUN 109 H* (9-20) mg/dL Creatinine 2.35 H (0.66-1.25) mg/dL Glucose 249 H (74-99) mg/dL POC Glucose (mg/dL) 253 H (70-110) mg/dL Calcium 7.7 L (8.4-10.2) mg/dL 06/04/24 06/04/24 06/04/24 Range/Units 05:33 06:58 11:50 WBC (3.8-10.6) k/uL RBC (4.30-5.90) m/uL Hgb (13.0-17.5) gm/dL Hct (39.0-53.0) % MCHC (31.0-37.0) g/dL RDW (11.5-15.5) % Neutrophils # (1.3-7.7) k/uL Lymphocytes # (1.0-4.8) k/uL APTT 48.9 H (22.0-30.0) sec Chloride (98-107) mmol/L Carbon Dioxide (22-30) mmol/L BUN (9-20) mg/dL Creatinine (0.66-1.25) mg/dL Glucose (74-99) mg/dL POC Glucose (mg/dL) 263 H 362 H (70-110) mg/dL Calcium (8.4-10.2) mg/dL Microbiology - Last 24 Hours (Table) 06/01/24 08:36 Blood Culture - Preliminary Blood Assessment and Plan Assessment: Acute hypoxemic and hypercapnic respiratory failure, likely on the basis of fluid overload/CHF. Possible underlying pneumonia. Morbid obesity, with a history of obstructive sleep apnea syndrome. Atrial fibrillation with rapid ventricular response. Possible non-ST segment elevation myocardial infarction. History of CAD with previous bypass surgery, 2014. History of CVA. History of diabetes mellitus. History of gastroesophageal reflux disease. History of essential hypertension. History of anxiety. Lifelong non-smoker. Plan: Plan dated June 01, 2024. The patient is seen in the emergency department, trauma room #1. The patient is currently on BiPAP, with settings of 14/8 and 80%. Labs, x-rays, and m edications are reviewed. Initial blood gases show pO2 75, pCO2 78, pH is 7.34. The patient's chest x-ray is consistent with fluid overload, although, pneumonia cannot be excluded at this time. The patient was seen in the emergency department, by Dr. Purcell. The patient is currently on a number of different medications, including Eliquis, Symbicort, updrafts with albuterol and ipratropium bromide, and Solu-Medrol. The patient was also placed on Zosyn, and vancomycin. If not already ordered, a procalcitonin level should be ordered. Prognosis is guarded. Plan dated June 02, 2024. The patient is seen today in room 263. The patient appears to be doing a bit better. He did spend the night, on BiPAP, with settings of 14/8, 50%. He continues on IV heparin. He is getting nasal O2 at 7 L. His procalcitonin level was elevated at 0.66. The patient is on Zosyn and vancomycin. I have asked the nurses to make sure the patient is fully cultured. We will continue to follow make recommendations along the way. Labs, x-rays, and all medications are reviewed. Prognosis is certainly guarded. Plan dated June 03, 2024. The patient is seen today in room 263. His oxygen requirements have gone up to 10 L high flow O2. In addition, the patient was on BiPAP through the night, wit h settings of 14/8, 50%. The patient continues on a heparin drip. Cardiology has not made a decision as to whether or not they plan on doing a catheterization on this gentleman. The patient is also getting saline at 20 cc an hour. Labs, x-rays, and medications are reviewed. The patient is overall prognosis remains guarded. We will continue to follow. Plan dated June 04, 2024. The patient is seen today in room 263. The patient continues on appropriate medications, and uses BiPAP at nighttime, with settings of 14/8, 50%. Currently he is on 10 L high flow oxygen. He is getting IV heparin, and saline at KVO. Labs, x-rays, and all medications are reviewed. The patient's overall prognosis remains guarded. We will continue to follow the patient, make recommendations along the way. Time with Patient: Greater than 30
--- NOTE | 2024-06-04 13:06 | P.PN ---
Subjective Progress Note Date: 06/03/24 HISTORY OF PRESENT ILLNESS: 73-year-old with active medical history of type 2 diabetes, previous history of CVA, coronary artery disease, hypertension, obstructive sleep apnea on CPAP BiPAP, postcoronary artery bypass graft in the past, chronic history of debility and pulmonary fibrosis following COVID-19 the patient has been residing at [facility] on the [place] since, also known to have history of mild heart failure, acute kidney injury with chronic kidney disease, previous history of A-fib with RVR, and history of morbid obesity. He presented to the emergency department as a transfer from [facility] because of worsening dyspnea and shortness of breath with severe hypoxia and hypercapnia despite oxygen and updraft treatment patient did not do well and up coming to the emergency department at [facility] Was seen and evaluated white blood cell was 20,200 with left shift, creatinine is up to 1.92 with bun 77 lactic acid is 3.0 troponin was 1.76 stool occult was positive respiratory culture was negative for COVID, influenza and RSV. Blood sugar was quite bit high at 383. EKG showed atrial fibrillation with rapid ventricular response with wide QRS partially bundle branch block with pulse rate 140 beats per minutes. Chest x-ray showed consolidation of the right lung consistent with pneumonia with worsening infiltrate and pulmonary venous congestion consistent with heart failure as well. Patient could not maintain on nasal cannula oxygen required BiPAP while he was in the emergency department was diagnosed with acute respiratory failure close to be on mechanical ventilation. Pulmonary were consulted also consult cardiology with elevated troponin echocardiogram was ordered and patient was admitted to the ICU. 06/02/2024: Through the night patient remain on BiPAP did not compromise much, blood sugar remained running in the high 300, his Levemir will be switched today to 20 units twice a day remain on NovoLog 15 units AC meals plus sliding scales. Patient had an episode of diarrhea no new finding from microbiology standpoint and chest x-ray still showing significant amount of right lower side pneumonia along with vascular congestion consistent with congestive heart failure which patient has been treated for both so far. 06/03/2024: Patient still require BiPAP for the night during the daytime he does slightly better with nasal cannula and still on 2 to 3 L of O2 to keep his pulse ox above 90 percentile. Kidney function slightly bit worse does not require dialysis yet GFR is running around 27 with bun of 92. Still no finding on microbiology no sputum culture was collected at this point and his right side pneumonia is quite bit worse at the time. Pulmonary dillon continue to treat hypoxic and hypercapnic respiratory failure with BiPAP continue to deal with the fluid overload and CHF at this point also continue to deal with the aggressiveness of treating right-sided pneumonia. REVIEW OF SYSTEMS: CONSTITUTIONAL: Morbidly obese in acute respiratory distress. EYES: No icterus sclerae, no conjunctivitis. EARS, NOSE, MOUTH, THROAT, and FACE: No sore throat, lymphadenopathy, carotid bruits or deformity. RESPIRATORY: Positive shortness of breath cough and wheezes. CARDIOVASCULAR: Positive PND orthopnea palpitation. GASTROINTESTINAL: Slight abdominal discomfort with nausea positive diarrhea with black stool. Or constipation, No GI Bleed, no distention or masses. GENITOURINARY: Decreased urine output without hematuria. INTEGUMENT/BREAST: Negative for any muscular injury with mild osteoarthritis.. HEMATOLOGIC/LYMPHATIC: Negative for bleed or purpura. MUSCULOSKELTAL: Generalized arthralgia and myalgia. NEURLOGICAL: No LOC, Sz or syncope, blurred vision dizziness or abnormality.. Positive weakness on the right side. BEHAVIORAL/PSYCH: Negative. ENDOCRINE: Negative. PHYSICAL EXAMINATION: General Appearance: Morbidly obese in acute respiratory distress. Neck HEENT: Supple, no lymphadenopathy, no thyroid enlargement, no carotid bruits. Lungs: Decreased breath sound bilaterally especially the right side with positive fine rhonchi crackles and mild expiratory expiratory wheezes worse in the right base than the left side. Chest Wall: Decreased expansion with deep inspiration no tenderness and no deformity was found on exam, no costochondral pain or discomfort. Heart: Irregular rate and rhythm, S1, S2 positive systolic murmur in the apex radiating toward the right second costal space. Back: Symmetric, no curvature, ROM normal, no CVA tenderness. Abdomen: Soft, non-tender, bowel sounds active all four quadrants, no masses, no organomegaly. Extremities: Generalized discoloration specially the lower part of the leg with 2+ edema decreased pulse bilaterally. Pulses: 2+ and symmetric. Skin: Skin color, texture, tugor normal, no rashes or lesions. Neurologic: Alert oriented with slight confusion cranial nerves II through XII intact, worsening weakness in the right than the left side. ASSESSMENT AND PLAN: _Acute respiratory failure: Secondary to COPD exacerbation, aspiration, congest megan heart failure with early pulmonary edema. BiPAP was continued through the night with his BiPAP on higher flow oxygen this morning does not require any mechanical ventilation and is more stable. _Congestive heart failure and fluid overload with early pulmonary edema: Still seeing cardiology still on IV diuretics with slight improvement. _Acute kidney injury with chronic kidney disease mostly into stage IV chronic kidney disease at this point still have quite hypoperfusion his BUN is up to 109 today with GFR still in the 20 does not require dialysis but see nephrology regular basis. _Sepsis with aspiration pneumonia: Have elevated white blood cell, elevated lactic acid, hypoxia, confusion and altered mental status the patient was initiated on IV antibiotics with his current condition have to watch for how much fluid patient can receive. _Right-sided pneumonia most likely aspiration: Repeat chest x-ray continues show significant infiltrate on the right side, patient was started on Zosyn and vancomycin for now will consult infectious disease. Continue antibiotic till culture is final lower he might settle on coverage for gram-negative's and aspiration at some point. _Morbid obesity with history of obstructive sleep apnea syndrome has been on CPAP on BiPAP. _A-fib with RVR: Pulse rate is as high as 120 bpm. Resume metoprolol succinate 25 mg daily might need or benefit from Cardizem as well. Still on anticoagulation at this point. Pulse rate remained well-controlled on current medication management continue anticoagulation. _Aortic stenosis Echocardiogram done late yesterday showed ejection fraction of 45-50 percentile suboptimal study and showed mild aortic stenosis with peak gradient of 20 mmHg and what looks like probable bicuspid aortic valve with severe calcification. _Elevated troponin and possible non-ST OR, again seen cardiology echocardiogram continue to watch the trend of his troponin at this point. Still seeing cardiology no intervention required. _Type 2 diabetes: Blood sugar remained high and Lantus was switched to 20 units twice a day and NovoLog 15 units AC meals plus sliding scales will start Farxiga as early as today. Continue to watch his blood sugar at this point carefully every 2-4 hours. _Hypertension: Was on losartan 12.5 mg daily, metoprolol succinate 25 mg a day, was still on diuretics with metolazone, furosemide and might benefit from adding spironolactone. _Possible GI bleed with acute blood loss anemia: Continue proton pump inhibitor IV, continue to watch for any further without hemoglobin watch stool for any bloody stool at this point. _Atherosclerotic heart disease post CABG in the past with seeing cardiology and has been on medical management. _Hyperlipidemia: Remain on atorvastatin 40 mg a day. _Previous history of stroke: Still have slight residual. Discussion: Continue BiPAP for the night, continue IV diuretics, continue aggressive management for right-sided pneumonia and continue to treat his respiratory failure at this point. Objective - Vital Signs Vital signs: Vital Signs Temp 97.9 F 06/03/24 04:00 Pulse 81 06/03/24 05:35 Resp 24 06/03/24 05:00 BP 114/60 06/03/24 05:00 Pulse Ox 97 06/03/24 05:00 FiO2 50 06/03/24 05:35 Intake & Output 06/02/24 06/02/24 06/03/24 06:59 18:59 06:59 Intake Total 403.678 9157.859 184.354 Output Total 750 1055 1155 Balance 33.677 981.859 -970.646 Weight 181 kg 194.3 kg Intake: IV 600 910 110 0.9 at KVO 160 110 Piperacillin-Tazobactam 3 200 .375 gm In Sodium Chloride 0.9% 100 ml @ 25 mls/hr IVPB Q8HR [facility] Rx# :[id number] Sodium Chloride 0.9% 1, 600 50 000 ml @ 50 mls/hr IV . Q20H [facility] Rx#:[id number] Vancomycin 2,500 mg In 500 Sodium Chloride 0.9% 500 ml 500 ml @ 167 mls/hr IVPB ONCE ONE Rx#: [id number] Intake, IV Titration 183.677 226.859 74.354 Amount Heparin Sod,Pork in 0.45% 183.677 226.859 74.354 NaCl 25,000 unit In 0.45 % NaCl 1 250ml.bag @ 5.55 UNITS/KG/HR 9.987 mls/hr IV .Q24H [facility] Rx#: [id number] Oral 900 Output: Urine 750 1055 1155 Other: Voiding Method Indwelling Catheter Indwelling Catheter Indwelling Catheter # Bowel Movements 1 1 - Labs CBC & Chem 7: 06/04/24 05:33 06/04/24 05:33 Labs: Abnormal Lab Results - Last 24 Hours (Table) 06/02/24 06/02/24 06/02/24 Range/Units 05:39 05:39 06:33 INR 1.2 H (<1.2) APTT 41.7 H (22.0-30.0) sec Chloride 92 L (98-107) mmol/L Carbon Dioxide 36 H (22-30) mmol/L BUN 92 H (9-20) mg/dL Creatinine 2.45 H (0.66-1.25) mg/dL Glucose 257 H (74-99) mg/dL POC Glucose (mg/dL) 244 H (70-110) mg/dL Calcium 8.0 L (8.4-10.2) mg/dL 06/02/24 06/02/24 06/02/24 Range/Units 09:05 11:32 13:02 INR (<1.2) APTT 73.3 H (22.0-30.0) sec Chloride (98-107) mmol/L Carbon Dioxide (22-30) mmol/L BUN (9-20) mg/dL Creatinine (0.66-1.25) mg/dL Glucose (74-99) mg/dL POC Glucose (mg/dL) 250 H 262 H (70-110) mg/dL Calcium (8.4-10.2) mg/dL 06/02/24 06/02/24 06/03/24 Range/Units 18:03 20:22 01:23 INR (<1.2) APTT (22.0-30.0) sec Chloride (98-107) mmol/L Carbon Dioxide (22-30) mmol/L BUN (9-20) mg/dL Creatinine (0.66-1.25) mg/dL Glucose (74-99) mg/dL POC Glucose (mg/dL) 324 H 284 H 304 H (70-110) mg/dL Calcium (8.4-10.2) mg/dL Microbiology - Last 24 Hours (Table) 06/01/24 08:36 Blood Culture - Preliminary Blood
--- NOTE | 2024-06-04 13:11 | P.PN ---
Subjective Progress Note Date: 06/04/24 HISTORY OF PRESENT ILLNESS: 73-year-old with active medical history of type 2 diabetes, previous history of CVA, coronary artery disease, hypertension, obstructive sleep apnea on CPAP BiPAP, postcoronary artery bypass graft in the past, chronic history of debility and pulmonary fibrosis following COVID-19 the patient has been residing at [facility] [place], also known to have history of mild heart failure, acute kidney injury with chronic kidney disease, previous history of A-fib with RVR, and history of morbid obesity. He presented to the emergency department as a transfer from [facility] because of worsening dyspnea and shortness of breath with severe hypoxia and hypercapnia despite oxygen and updraft treatment patient did not do well and up coming to the emergency department at [facility] Was seen and evaluated white blood cell was 20,200 with left shift, creatinine is up to 1.92 with bun 77 lactic acid is 3.0 troponin was 1.76 stool occult was positive respiratory culture was negative for COVID, influenza and RSV. Blood sugar was quite bit high at 383. EKG showed atrial fibrillation with rapid ventricular response with wide QRS partially bundle branch block with pulse rate 140 beats per minutes. Chest x-ray showed consolidation of the right lung consistent with pneumonia with worsening infiltrate and pulmonary venous congestion consistent with heart failure as well. Patient could not maintain on nasal cannula oxygen required BiPAP while he was in the emergency department was diagnosed with acute respiratory failure close to be on mechanical ventilation. Pulmonary were consulted also consult cardiology with elevated troponin echocardiogram was ordered and patient was admitted to the ICU. 06/02/2024: Through the night patient remain on BiPAP did not compromise much, blood sugar remained running in the high 300, his Levemir will be switched today to 20 units twice a day remain on NovoLog 15 units AC meals plus sliding scales. Patient had an episode of diarrhea no new finding from microbiology standpoint and chest x-ray still showing significant amount of right lower side pneumonia along with vascular congestion consistent with congestive heart failure which patient has been treated for both so far. 06/03/2024: Patient still require BiPAP for the night during the daytime he does slightly better with nasal cannula and still on 2 to 3 L of O2 to keep his pulse ox above 90 percentile. Kidney function slightly bit worse does not require dialysis yet GFR is running around 27 with bun of 92. Still no finding on microbiology no sputum culture was collected at this point and his right side pneumonia is quite bit worse at the time. Pulmonary dillon continue to treat hypoxic and hypercapnic respiratory failure with BiPAP continue to deal with the fluid overload and CHF at this point also continue to deal with the aggressiveness of treating right-sided pneumonia. 06/04/2024: Still in the ICU still using BiPAP for the night. Cardiology have continue patient on IV diuretics and switch him back to Eliquis from heparin drip, his A-fib with RVR has been slightly better at this point. No need for hemodialysis yet. Kidney function slightly bit worse and may be trending into the need for hemodialysis at some point. Continue BiPAP for nighttime and continue setting on 10 L O2 higher flow for daytime continue aggressive management for his right-sided pneumonia. REVIEW OF SYSTEMS: CONSTITUTIONAL: Morbidly obese in acute respiratory distress. EYES: No icterus sclerae, no conjunctivitis. EARS, NOSE, MOUTH, THROAT, and FACE: No sore throat, lymphadenopathy, carotid bruits or deformity. RESPIRATORY: Positive shortness of breath cough and wheezes. CARDIOVASCULAR: Positive PND orthopnea palpitation. GASTROINTESTINAL: Slight abdominal discomfort with nausea positive diarrhea with black stool. Or constipation, No GI Bleed, no distention or masses. GENITOURINARY: Decreased urine output without hematuria. INTEGUMENT/BREAST: Negative for any muscular injury with mild osteoarthritis.. HEMATOLOGIC/LYMPHATIC: Negative for bleed or purpura. MUSCULOSKELTAL: Generalized arthralgia and myalgia. NEURLOGICAL: No LOC, Sz or syncope, blurred vision dizziness or abnormality.. Positive weakness on the right side. BEHAVIORAL/PSYCH: Negative. ENDOCRINE: Negative. PHYSICAL EXAMINATION: General Appearance: Morbidly obese in acute respiratory distress. Neck HEENT: Supple, no lymphadenopathy, no thyroid enlargement, no carotid bru its. Lungs: Decreased breath sound bilaterally especially the right side with positive fine rhonchi crackles and mild expiratory expiratory wheezes worse in the right base than the left side. Chest Wall: Decreased expansion with deep inspiration no tenderness and no deformity was found on exam, no costochondral pain or discomfort. Heart: Irregular rate and rhythm, S1, S2 positive systolic murmur in the apex radiating toward the right second costal space. Back: Symmetric, no curvature, ROM normal, no CVA tenderness. Abdomen: Soft, non-tender, bowel sounds active all four quadrants, no masses, no organomegaly. Extremities: Generalized discoloration specially the lower part of the leg with 2+ edema decreased pulse bilaterally. Pulses: 2+ and symmetric. Skin: Skin color, texture, tugor normal, no rashes or lesions. Neurologic: Alert oriented with slight confusion cranial nerves II through XII intact, worsening weakness in the right than the left side. ASSESSMENT AND PLAN: _Acute respiratory failure: Secondary to COPD exacerbation, aspiration, congestive heart failure with early pulmonary edema. BiPAP was continued through the night with his BiPAP on higher flow oxygen this morning does not require any mechanical ventilation and is more stable. _Congestive heart failure and fluid overload with early pulmonary edema: Still seeing cardiology still on IV diuretics with slight improvement. _Acute kidney injury with chronic kidney disease mostly into stage IV chronic kidney disease at this point still have quite hypoperfusion his BUN is up to 109 today with GFR still in the 20 does not require dialysis but see nephrology regular basis. _Sepsis with aspiration pneumonia: Have elevated white blood cell, elevated lactic acid, hypoxia, confusion and altered mental status the patient was initiated on IV antibiotics with his current condition have to watch for how much fluid patient can receive. _Right-sided pneumonia most likely aspiration: Repeat chest x-ray continues show significant infiltrate on the right side, patient was started on Zosyn and vancomycin for now will consult infectious disease. Continue antibiotic till culture is final lower he might settle on coverage for gram-negative's and aspiration at some point. _Morbid obesity with history of obstructive sleep apnea syndrome has been on CPAP on BiPAP. _A-fib with RVR: Pulse rate has improved significantly remain on metoprolol succinate 25 mg a day and anticoagulation dillon was started on Eliquis and off heparin drip. No Cardizem needed at this point. _Aortic stenosis Echocardiogram done late yesterday showed ejection fraction of 45-50 percentile suboptimal study and showed mild aortic stenosis with peak gradient of 20 mmHg and what looks like probable bicuspid aortic valve with severe calcification. No need for any surgical intervention. _Elevated troponin and possible non-ST MS, again seen cardiology echocardiogram continue to watch the trend of his troponin at this point. Cardiology do not see the need for any intervention. _Type 2 diabetes: Blood sugar still quite bit high and will titrate Lantus up to 30 units twice a day and maybe NovoLog up to 15 units AC meals start Farxiga as soon as he is doing better. _Hypertension: Was on losartan 12.5 mg daily, metoprolol succinate 25 mg a day, was still on diuretics with metolazone, furosemide and might benefit from adding spironolactone. _Possible GI bleed with acute blood loss anemia: Continue proton pump inhibitor IV, continue to watch for any further without hemoglobin watch stool for any bloody stool at this point. _Atherosclerotic heart disease post CABG in the past with seeing cardiology and has been on medical management. _Hyperlipidemia: Remain on atorvastatin 40 mg a day. _Previous history of stroke: Still have slight residual. Discussion: Patient still critically sick at this point we will continue to treat his pneumonia aggressive and not at this point continue to treat his fluid overload patient requirement for O2 still between BiPAP and 10 L which is more than expected continue to reduce extra fluid retention hopefully will improve his chance much better otherwise patient will be between BiPAP for the night mostly. Objective - Vital Signs Vital signs: Vital Signs Temp 98.0 F 06/04/24 04:00 Pulse 99 06/04/24 07:00 Resp 16 06/04/24 07:00 BP 108/71 06/04/24 07:00 Pulse Ox 96 06/04/24 07:00 FiO2 50 06/04/24 04:11 Intake & Output 06/03/24 06/04/24 06/04/24 18:59 06:59 18:59 Intake Total 580 515.402 20 Output Total 2440 1415 125 Balance -1860 -899.598 -105 Weight 189 kg Intake: IV 330 280 20 0.9 at KVO 130 180 20 Piperacillin-Tazobactam 3 200 100 .375 gm In Sodium Chloride 0.9% 100 ml @ 25 mls/hr IVPB Q8HR [facility] Rx# :[id number] Intake, IV Titration 250 235.402 Amount Heparin Sod,Pork in 0.45% 250 235.402 NaCl 25,000 unit In 0.45 % NaCl 1 250ml.bag @ 5.55 UNITS/KG/HR 9.987 mls/hr IV .Q24H [facility] Rx#: [id number] Output: Urine 2440 1415 125 Other: Voiding Method Indwelling Catheter Indwelling Catheter - Labs CBC & Chem 7: 06/04/24 05:33 06/04/24 05:33 Labs: Abnormal Lab Results - Last 24 Hours (Table) 06/03/24 06/03/24 06/03/24 Range/Units 08:50 11:32 16:25 WBC (3.8-10.6) k/uL RBC (4.30-5.90) m/uL Hgb (13.0-17.5) gm/dL Hct (39.0-53.0) % MCHC (31.0-37.0) g/dL RDW (11.5-15.5) % Neutrophils # (1.3-7.7) k/uL Lymphocytes # (1.0-4.8) k/uL APTT (22.0-30.0) sec Chloride (98-107) mmol/L Carbon Dioxide (22-30) mmol/L BUN (9-20) mg/dL Creatinine (0.66-1.25) mg/dL Glucose (74-99) mg/dL POC Glucose (mg/dL) 281 H 251 H 375 H (70-110) mg/dL Calcium (8.4-10.2) mg/dL 06/03/24 06/04/24 06/04/24 Range/Units 19:52 01:51 05:30 WBC (3.8-10.6) k/uL RBC (4.30-5.90) m/uL Hgb (13.0-17.5) gm/dL Hct (39.0-53.0) % MCHC (31.0-37.0) g/dL RDW (11.5-15.5) % Neutrophils # (1.3-7.7) k/uL Lymphocytes # (1.0-4.8) k/uL APTT (22.0-30.0) sec Chloride (98-107) mmol/L Carbon Dioxide (22-30) mmol/L BUN (9-20) mg/dL Creatinine (0.66-1.25) mg/dL Glucose (74-99) mg/dL POC Glucose (mg/dL) 284 H 242 H 253 H (70-110) mg/dL Calcium (8.4-10.2) mg/dL 06/04/24 06/04/24 06/04/24 Range/Units 05:33 05:33 05:33 WBC 11.3 H (3.8-10.6) k/uL RBC 3.66 L (4.30-5.90) m/uL Hgb 10.1 L (13.0-17.5) gm/dL Hct 34.7 L (39.0-53.0) % MCHC 29.1 L (31.0-37.0) g/dL RDW 18.8 H (11.5-15.5) % Neutrophils # 9.9 H (1.3-7.7) k/uL Lymphocytes # 0.6 L (1.0-4.8) k/uL APTT 48.9 H (22.0-30.0) sec Chloride 92 L (98-107) mmol/L Carbon Dioxide 37 H (22-30) mmol/L BUN 109 H* (9-20) mg/dL Creatinine 2.35 H (0.66-1.25) mg/dL Glucose 249 H (74-99) mg/dL POC Glucose (mg/dL) (70-110) mg/dL Calcium 7.7 L (8.4-10.2) mg/dL Microbiology - Last 24 Hours (Table) 06/01/24 08:36 Blood Culture - Preliminary Blood
[2024-06-04 16:35] LABS: Glucose,Whole Blood 292 mg/dL (70-110)
[2024-06-04] MEDS: INSULIN ASPART (NovoLOG) 100 UNIT/ML VIAL SQ SCH (16:40)
[2024-06-04 20:09] LABS: Glucose,Whole Blood 276 mg/dL (70-110)
[2024-06-04] MEDS: INSULIN DETEMIR (LEVEMIR) 100 UNIT/ML SYR SQ SCH (20:11)
[2024-06-05 01:46] LABS: Glucose,Whole Blood 356 mg/dL (70-110)
[2024-06-05 06:17] LABS: Anisocytosis Slight; Basophils % (A) 0 %; Eosinophils % (A) 0 %; HCT 34.2 % (39.0-53.0); HGB 10.1 gm/dL (13.0-17.5); Hypochromasia Marked; Lymphocytes # (A) 0.6 k/uL (1.0-4.8); Lymphocytes % (A) 5 %; MCH 27.5 pg (25.0-35.0); MCHC 29.7 g/dL (31.0-37.0); MCV 92.7 fL (80.0-100.0); Mean Platelet Volume 9.1; Monocytes # (A) 0.7 k/uL (0-1.0); Monocytes % (A) 6 %; Neutrophils # (A) 10.2 k/uL (1.3-7.7); Neutrophils % (A) 87 %; Platelet Count 226 k/uL (150-450); RBC 3.68 m/uL (4.30-5.90); RDW 18.9 % (11.5-15.5); WBC 11.7 k/uL (3.8-10.6)
[2024-06-05 06:25] LABS: Glucose,Whole Blood 251 mg/dL (70-110)
[2024-06-05 06:28] LABS: African American GFR (CKD) 29 (>60 ml/min/1.73 sqM); Anion Gap 6 mmol/L; Carbon Dioxide 37 mmol/L (22-30); Chloride 94 mmol/L (98-107); Glucose 244 mg/dL (74-99); Non-African American GFR(CKD) 25 (>60 ml/min/1.73 sqM); Potassium 4.1 mmol/L (3.5-5.1); Sodium 137 mmol/L (137-145)
[2024-06-05 06:33] LABS: Vancomycin,Random 20.4 ug/mL
[2024-06-05 06:40] LABS: Blood Urea Nitrogen 104 mg/dL (9-20)
--- NOTE | 2024-06-05 08:55 | P.PN ---
Subjective Progress Note Date: 06/05/24 HPI: This gentleman has morbid obesity sleep apnea hypercapnic hypoxic respiratory failure. He is currently in atrial fibrillation controlled rate. Creatinine has gone up slightly. His ejection fraction is in the 45% range. A- fib rate is well-controlled. He has history of CAD prior bypass surgery diab etes with chronic kidney disease and heart failure systolic with a combination of both actually diastolic and systolic. I am recommending that we continue current conservative management. No decision to proceed with cardiac cath until patient's clinical condition changes. Discussed with him.. PHYSICIAL EXAM: Vitals are stable JVD 1 cm cannot be assessed easily S1-S2 heard distantly irregular short systolic murmur lungs reveal diminished air bilateral air entry abdomen is distended lower extremity edema has improved Central nervous system grossly moves all 4 extremities. IMPRESSION: 1. Atrial fibrillation controlled ventricular rate. 2. CAD with prior bypass surgery. 3. Type 2 diabetes with chronic kidney disease. 4. Hypercapnic hypoxic respiratory failure with improvement. 5.. RECOMMENDATIONS: Continue current medical regimen no aggressive intervention will manage him conservatively. Will continue to see him as needed.. Objective - Vital Signs Vital signs: Vital Signs Temp 97.9 F 06/05/24 08:00 Pulse 90 06/05/24 08:37 Resp 18 06/05/24 08:25 BP 122/104 06/05/24 08:00 Pulse Ox 95 06/05/24 08:25 FiO2 50 06/05/24 08:25 Intake & Output 06/04/24 06/05/24 06/05/24 18:59 06:59 18:59 Intake Total 1128.258 260 40 Output Total 1824 Balance -696.742 -1770 -385 Weight 199.2 kg Intake: IV 440 260 40 0.9 at KVO 240 160 40 Piperacillin-Tazobactam 3 200 100 .375 gm In Sodium Chloride 0.9% 100 ml @ 25 mls/hr IVPB Q8HR [facility] Rx# :[id number] Intake, IV Titration 188.258 Amount Heparin Sod,Pork in 0.45% 188.258 NaCl 25,000 unit In 0.45 % NaCl 1 250ml.bag @ 5.55 UNITS/KG/HR 9.987 mls/hr IV .Q24H [facility] Rx#: [id number] Oral 500 Output: Urine 1824 Other: Voiding Method Indwelling Catheter Indwelling Catheter Indwelling Catheter # Bowel Movements 1 - Labs CBC & Chem 7: 06/05/24 05:42 06/05/24 05:42 Labs: Abnormal Lab Results - Last 24 Hours (Table) 06/04/24 06/04/24 06/04/24 Range/Units 06:58 11:50 16:33 WBC (3.8-10.6) k/uL RBC (4.30-5.90) m/uL Hgb (13.0-17.5) gm/dL Hct (39.0-53.0) % MCHC (31.0-37.0) g/dL RDW (11.5-15.5) % Neutrophils # (1.3-7.7) k/uL Lymphocytes # (1.0-4.8) k/uL Chloride (98-107) mmol/L Carbon Dioxide (22-30) mmol/L BUN (9-20) mg/dL Creatinine (0.66-1.25) mg/dL Glucose (74-99) mg/dL POC Glucose (mg/dL) 263 H 362 H 292 H (70-110) mg/dL Calcium (8.4-10.2) mg/dL 06/04/24 06/05/24 06/05/24 Range/Units 20:07 01:44 05:42 WBC (3.8-10.6) k/uL RBC (4.30-5.90) m/uL Hgb (13.0-17.5) gm/dL Hct (39.0-53.0) % MCHC (31.0-37.0) g/dL RDW (11.5-15.5) % Neutrophils # (1.3-7.7) k/uL Lymphocytes # (1.0-4.8) k/uL Chloride 94 L (98-107) mmol/L Carbon Dioxide 37 H (22-30) mmol/L BUN 104 H* (9-20) mg/dL Creatinine 2.51 H (0.66-1.25) mg/dL Glucose 244 H (74-99) mg/dL POC Glucose (mg/dL) 276 H 356 H (70-110) mg/dL Calcium 8.0 L (8.4-10.2) mg/dL 06/05/24 06/05/24 Range/Units 05:42 06:24 WBC 11.7 H (3.8-10.6) k/uL RBC 3.68 L (4.30-5.90) m/uL Hgb 10.1 L (13.0-17.5) gm/dL Hct 34.2 L (39.0-53.0) % MCHC 29.7 L (31.0-37.0) g/dL RDW 18.9 H (11.5-15.5) % Neutrophils # 10.2 H (1.3-7.7) k/uL Lymphocytes # 0.6 L (1.0-4.8) k/uL Chloride (98-107) mmol/L Carbon Dioxide (22-30) mmol/L BUN (9-20) mg/dL Creatinine (0.66-1.25) mg/dL Glucose (74-99) mg/dL POC Glucose (mg/dL) 251 H (70-110) mg/dL Calcium (8.4-10.2) mg/dL Microbiology - Last 24 Hours (Table) 06/01/24 08:36 Blood Culture - Preliminary Blood
--- NOTE | 2024-06-05 09:48 | P.PN ---
Subjective Patient is seen in follow-up for acute kidney injury on chronic kidney disease. Renal function fairly stable. Nonoliguric. Denies chest pain or shortness of breath. Oral intake is good. Vital signs are stable. General: No acute distress. HEENT: Head exam is unremarkable. On nasal cannula. LUNGS: Scattered rhonchi. HEART: Rate and Rhythm are regular. ABDOMEN: Obese. EXTREMITITES: 1+ edema. Objective - Vital Signs Vital signs: Vital Signs Temp 97.9 F 06/05/24 08:00 Pulse 90 06/05/24 08:37 Resp 18 06/05/24 08:25 BP 122/104 06/05/24 08:00 Pulse Ox 95 06/05/24 08:25 FiO2 50 06/05/24 08:25 Intake & Output 06/04/24 06/05/24 06/05/24 18:59 06:59 18:59 Intake Total 1128.258 260 40 Output Total 1824 2029 425 Balance -696.742 -1770 -385 Weight 199.2 kg Intake: IV 440 260 40 0.9 at KVO 240 160 40 Piperacillin-Tazobactam 3 200 100 .375 gm In Sodium Chloride 0.9% 100 ml @ 25 mls/hr IVPB Q8HR [facility] Rx# :[id number] Intake, IV Titration 188.258 Amount Heparin Sod,Pork in 0.45% 188.258 NaCl 25,000 unit In 0.45 % NaCl 1 250ml.bag @ 5.55 UNITS/KG/HR 9.987 mls/hr IV .Q24H [facility] Rx#: [id number] Oral 500 Output: Urine 1824 2029 425 Other: Voiding Method Indwelling Catheter Indwelling Catheter Indwelling Catheter # Bowel Movements 1 - Labs CBC & Chem 7: 06/05/24 05:42 06/05/24 05:42 Labs: Abnormal Lab Results - Last 24 Hours (Table) 06/04/24 06/04/24 06/04/24 Range/Units 06:58 11:50 16:33 WBC (3.8-10.6) k/uL RBC (4.30-5.90) m/uL Hgb (13.0-17.5) gm/dL Hct (39.0-53.0) % MCHC (31.0-37.0) g/dL RDW (11.5-15.5) % Neutrophils # (1.3-7.7) k/uL Lymphocytes # (1.0-4.8) k/uL Chloride (98-107) mmol/L Carbon Dioxide (22-30) mmol/L BUN (9-20) mg/dL Creatinine (0.66-1.25) mg/dL Glucose (74-99) mg/dL POC Glucose (mg/dL) 263 H 362 H 292 H (70-110) mg/dL Calcium (8.4-10.2) mg/dL 06/04/24 06/05/24 06/05/24 Range/Units 20:07 01:44 05:42 WBC (3.8-10.6) k/uL RBC (4.30-5.90) m/uL Hgb (13.0-17.5) gm/dL Hct (39.0-53.0) % MCHC (31.0-37.0) g/dL RDW (11.5-15.5) % Neutrophils # (1.3-7.7) k/uL Lymphocytes # (1.0-4.8) k/uL Chloride 94 L (98-107) mmol/L Carbon Dioxide 37 H (22-30) mmol/L BUN 104 H* (9-20) mg/dL Creatinine 2.51 H (0.66-1.25) mg/dL Glucose 244 H (74-99) mg/dL POC Glucose (mg/dL) 276 H 356 H (70-110) mg/dL Calcium 8.0 L (8.4-10.2) mg/dL 06/05/24 06/05/24 Range/Units 05:42 06:24 WBC 11.7 H (3.8-10.6) k/uL RBC 3.68 L (4.30-5.90) m/uL Hgb 10.1 L (13.0-17.5) gm/dL Hct 34.2 L (39.0-53.0) % MCHC 29.7 L (31.0-37.0) g/dL RDW 18.9 H (11.5-15.5) % Neutrophils # 10.2 H (1.3-7.7) k/uL Lymphocytes # 0.6 L (1.0-4.8) k/uL Chloride (98-107) mmol/L Carbon Dioxide (22-30) mmol/L BUN (9-20) mg/dL Creatinine (0.66-1.25) mg/dL Glucose (74-99) mg/dL POC Glucose (mg/dL) 251 H (70-110) mg/dL Calcium (8.4-10.2) mg/dL Microbiology - Last 24 Hours (Table) 06/01/24 08:36 Blood Culture - Preliminary Blood Assessment and Plan Plan: Assessment: 1. Acute kidney injury secondary to ATN. Renal function stable. Creatinine 2 .5 today. Elevated BUN partially from acute kidney injury and steroids. UA benign. No hydronephrosis noted on kidney ultrasound. Left kidney was not properly visualized. 2. Chronic kidney disease stage IIIb with baseline creatinine 1.5-1.8 secondary to nephrosclerosis and cardiorenal syndrome. 3. Acute on chronic systolic CHF ejection fraction of 45 to 50% with moderate tricuspid regurgitation and pulmonary hypertension. 4. Volume overload. Improved with diuresis. 5. Coronary artery disease status post CABG. 6. Diabetes mellitus. 7. Acute hypoxic respiratory failure. Currently on 6 L nasal cannula. Plan: Maintain oral Bumex. Avoid nephrotoxins. Continue to monitor renal function and urine output. Wean FiO2. Monitor vancomycin levels. Dose to be adjusted for renal function.
--- NOTE | 2024-06-05 10:52 | P.PN ---
Subjective Progress Note Date: 06/05/24 Principal diagnosis: Respiratory failure. Pulmonary consultation dated June 01, 2024. 73-year-old obese male, who was seen by Dr. Purcell in the emergency department, on June 01. The patient apparently presented about 8:00 in the morning. He came in with respiratory distress, and shortness of breath. The patient was seen in the emergency department, trauma room #1. He was on BiPAP, with settings of 14/8, and 80%. He was getting saline at 75 cc an hour. He was also receiving IV vancomycin. The patient's blood gases showed a pO2 of 75, pCO2 of 78, and a pH of 7.34. The patient was able to verbalize just a bit, while wearing his BiPAP mask. The patient has a history of coronary disease, CVA, diabetes, GERD, hypertension, and sleep apnea. The patient also has a history of urinary leakage, bypass grafting, and hernia repair. The bypass surgery took place in 2014. Current labs include a white count 14.2, hemoglobin 12.3, hematocrit 42.5, and a normal platelet count. Coagulation studies are normal. The patient sodium is 140, potassium 3.5, chlorides 87, CO2 39, anion gap 14, BUN 77, and creatinine 1.92. The lactic acid was initially 2.9. N-terminal proBNP is 3160. Troponin was 0.302. He tested negative for influenza, RSV, and coronavirus. The patient's subsequent venous blood gases showed a CO2 of 68, and a pH of 7.38. The patient's chest x-ray suggested pulmonary venous congestion versus pneumonia. Progress note dated June 02, 2024. The patient is seen today in room 263. The patient is currently on 7 L high flow nasal cannula, and did use BiPAP last night, with settings of 14/8, and 50%. The patient's procalcitonin level was 0.66. He remains on Zosyn, and vancomycin. I did ask the nurse to make sure there was blood, sputum, and urine cultures. The patient currently is on IV heparin, via weight-based protocol. Clinically, the patient feels better. Current laboratory data includes a white count 14.1, hemoglobin 10.8, macro 36.8, and a platelet count 249,000. PT 12.4, INR 1.2. PTT is 41.7. Sodium 140, potassium 3.5, chlorides 92, CO2 36, BUN 92, and creatinine 2.45. Glucose is 262. Calcium is 8. Chest x-ray shows cardiomegaly, with pulmonary venous congestion, compatible with CHF. Pneumonia cannot be ruled out. Progress note dated June 03, 2024. 73-year-old male seen in room 263. The patient is currently on 10 L high flow oxygen. At nighttime, he uses a BiPAP device, with settings of 14/8, 50%. He is getting saline at 20 cc an hour, and heparin via weight-based protocol. The patient is doing reasonably well, but may not be ready to leave the intensive care unit, given his tenuous respiratory status. White count of 13.6, hemoglobin 10.2, hematocrit 33.6, and platelet count is normal. Sodium 135, potassium 3.6, chlorides 92, CO2 36, BUN 102, creatinine 2.55. PTT is 65.7. Calcium is 8.1. Glucose is 281. Chest x-ray shows cardiomegaly, with diffuse venous congestion. Progress note dated June 04, 2024. 73-year-old male seen today in room 263. The patient appears to be relatively comfortable. He is on 10 L high flow oxygen. He is getting BiPAP, at 14/8 at 50%, that he uses throughout the night. He is on saline at KVO, and IV heparin via weight-based protocol. Current laboratory data includes a white count 11.3, hemoglobin 10.1, hematocrit 34.7, and a platelet count is normal. Sodium 138, potassium 3.7, chlorides 92, CO2 37, BUN 109, creatinine 2.35. His PTT is 48.9. Calcium is 7.7. Chest x-ray shows pulmonary venous congestion with cardiomegaly, which is improved. Progress note dated June 05, 2024. 73-year-old male seen again in room 263. He is resting comfortably in bed. He continues on high flow nasal O2 at 8 L. He is getting saline at 20 cc an hour. According to the nurses, he had an uneventful night. His breathing is improved according to him. White count 11.7, hemoglobin 10.1, hematocrit 34.2, and platelet count was normal. Sodium 137, potassium 4.1, chloride 94, CO2 37, BUN 104, and creatinine 2.51. Glucose is 251. Calcium is 8. Objective - Vital Signs Vital signs: Vital Signs Temp 97.9 F 06/05/24 08:00 Pulse 90 06/05/24 08:37 Resp 18 06/05/24 08:25 BP 122/104 06/05/24 08:00 Pulse Ox 95 06/05/24 08:25 FiO2 50 06/05/24 08:25 Intake & Output 06/04/24 06/05/24 06/05/24 18:59 06:59 18:59 Intake Total 1128.258 260 180 Output Total 1825 2030 775 Balance -696.742 -1770 -595 Weight 199.2 kg Intake: IV 440 260 180 0.9 at KVO 240 160 80 Piperacillin-Tazobactam 3 200 100 100 .375 gm In Sodium Chloride 0.9% 100 ml @ 25 mls/hr IVPB Q8HR [facility] Rx# :[id number] Intake, IV Titration 188.258 Amount Heparin Sod,Pork in 0.45% 188.258 NaCl 25,000 unit In 0.45 % NaCl 1 250ml.bag @ 5.55 UNITS/KG/HR 9.987 mls/hr IV .Q24H [facility] Rx#: [id number] Oral 500 Output: Urine 182 2030 775 Other: Voiding Method Indwelling Catheter Indwelling Catheter Indwelling Catheter # Bowel Movements 1 - Exam Morbidly obese male, and no acute distress, oriented 3. Currently, on nasal cannula at 8 L. HEENT examination is grossly unremarkable. Mucous membranes are moist. No oral lesions. Neck supple. Full range of motion. No adenopathy thyromegaly or neck vein distention. Cardiovascular examination reveals an irregular rhythm and rate. S1-S2 normal. No S3 or S4. No discernible murmur noted. Heart sounds are distant. Lungs reveal bilateral coarse rhonchi and crackles. Breath sounds equal. Chest is noisy. Expiratory wheezes are also appreciated. Abdomen soft bowel sounds are heard. No masses or tenderness. Extremities are intact. No cyanosis clubbing or edema. Skin reveals chronic venous stasis changes, and chronic lower extremity cellulitis. Neurologic examination is brief but nonfocal. - Labs CBC & Chem 7: 06/05/24 05:42 06/05/24 05:42 Labs: Abnormal Lab Results - Last 24 Hours (Table) 06/04/24 06/04/24 06/04/24 Range/Units 06:58 11:50 16:33 WBC (3.8-10.6) k/uL RBC (4.30-5.90) m/uL Hgb (13.0-17.5) gm/dL Hct (39.0-53.0) % MCHC (31.0-37.0) g/dL RDW (11.5-15.5) % Neutrophils # (1.3-7.7) k/uL Lymphocytes # (1.0-4.8) k/uL Chloride (98-107) mmol/L Carbon Dioxide (22-30) mmol/L BUN (9-20) mg/dL Creatinine (0.66-1.25) mg/dL Glucose (74-99) mg/dL POC Glucose (mg/dL) 263 H 362 H 292 H (70-110) mg/dL Calcium (8.4-10.2) mg/dL 06/04/24 06/05/24 06/05/24 Range/Units 20:07 01:44 05:42 WBC (3.8-10.6) k/uL RBC (4.30-5.90) m/uL Hgb (13.0-17.5) gm/dL Hct (39.0-53.0) % MCHC (31.0-37.0) g/dL RDW (11.5-15.5) % Neutrophils # (1.3-7.7) k/uL Lymphocytes # (1.0-4.8) k/uL Chloride 94 L (98-107) mmol/L Carbon Dioxide 37 H (22-30) mmol/L BUN 104 H* (9-20) mg/dL Creatinine 2.51 H (0.66-1.25) mg/dL Glucose 244 H (74-99) mg/dL POC Glucose (mg/dL) 276 H 356 H (70-110) mg/dL Calcium 8.0 L (8.4-10.2) mg/dL 06/05/24 06/05/24 Range/Units 05:42 06:24 WBC 11.7 H (3.8-10.6) k/uL RBC 3.68 L (4.30-5.90) m/uL Hgb 10.1 L (13.0-17.5) gm/dL Hct 34.2 L (39.0-53.0) % MCHC 29.7 L (31.0-37.0) g/dL RDW 18.9 H (11.5-15.5) % Neutrophils # 10.2 H (1.3-7.7) k/uL Lymphocytes # 0.6 L (1.0-4.8) k/uL Chloride (98-107) mmol/L Carbon Dioxide (22-30) mmol/L BUN (9-20) mg/dL Creatinine (0.66-1.25) mg/dL Glucose (74-99) mg/dL POC Glucose (mg/dL) 251 H (70-110) mg/dL Calcium (8.4-10.2) mg/dL Microbiology - Last 24 Hours (Table) 06/01/24 08:36 Blood Culture - Preliminary Blood Assessment and Plan Assessment: Acute hypoxemic and hypercapnic respiratory failure, likely on the basis of fluid overload/CHF. Possible underlying pneumonia. Morbid obesity, with a history of obstructive sleep apnea syndrome. Atrial fibrillation with rapid ventricular response. Possible non-ST segment elevation myocardial infarction. History of CAD with previous bypass surgery, 2015. History of CVA. History of diabetes mellitus. History of gastroesophageal reflux disease. History of essential hypertension. History of anxiety. Lifelong non-smoker. Plan: Plan dated June 01, 2024. The patient is seen in the emergency department, trauma room #1. The patient is currently on BiPAP, with settings of 14/8 and 80%. Labs, x-rays, and medications are reviewed. Initial blood gases show pO2 75, pCO2 78, pH is 7.34. The patient's chest x-ray is consistent with fluid overload, although, pneumonia cannot be excluded at this time. The patient was seen in the emergency department, by Dr. Purcell. The patient is currently on a number of different medications, including Eliquis, Symbicort, updrafts with albuterol and ipratropium bromide, and Solu-Medrol. The patient was also placed on Zosyn, and vancomycin. If not already ordered, a procalcitonin level should be ordered. Prognosis is guarded. Plan dated June 02, 2024. The patient is seen today in room 263. The patient appears to be doing a bit better. He did spend the night, on BiPAP, with settings of 14/8, 50%. He continues on IV heparin. He is getting nasal O2 at 7 L. His procalcitonin level was elevated at 0.66. The patient is on Zosyn and vancomycin. I have asked the nurses to make sure the patient is fully cultured. We will continue to follow make recommendations along the way. Labs, x-rays, and all medications are reviewed. Prognosis is certainly guarded. Plan dated June 03, 2024. The patient is seen today in room 263. His oxygen requirements have gone up to 10 L high flow O2. In addition, the patient was on BiPAP through the night, with settings of 14/8, 50%. The patient continues on a heparin drip. Cardiology has not made a decision as to whether or not they plan on doing a catheterization on this gentleman. The patient is also getting saline at 20 cc an hour. Labs, x-rays, and medications are reviewed. The patient is overall prognosis remains guarded. We will continue to follow. Plan dated June 04, 2024. The patient is seen today in room 263. The patient continues on appropriate medications, and uses BiPAP at nighttime, with settings of 14/8, 50%. Currently he is on 10 L high flow oxygen. He is getting IV heparin, and saline at KVO. Labs, x-rays, and all medications are reviewed. The patient's overall prognosis remains guarded. We will continue to follow the patient, make recommendations along the way. Plan dated June 05, 2024. The patient is seen today in room 263. He has been titrated down to a liter high flow oxygen. He is getting saline at 20 cc an hour. Labs, x-rays, and all medications are reviewed. The patient appears to be doing much better. He states that he is feeling better. We will continue to follow and make recommendations along the way. Prognosis is certainly guarded. Time with Patient: Less than 30
[2024-06-05 12:00] LABS: Glucose,Whole Blood 238 mg/dL (70-110)
[2024-06-05] MEDS: VANCOMYCIN 2,500 MG in SODIUM CHLORIDE 0.9% 500 ML 500 ML IVPB ONE (12:51)
[2024-06-05 16:53] LABS: Glucose,Whole Blood 274 mg/dL (70-110)
[2024-06-05 20:08] LABS: Glucose,Whole Blood 329 mg/dL (70-110)
--- NOTE | 2024-06-05 21:20 | P.PN ---
Subjective Progress Note Date: 06/05/24 HISTORY OF PRESENT ILLNESS: 73-year-old with active medical history of type 2 diabetes, previous history of CVA, coronary artery disease, hypertension, obstructive sleep apnea on CPAP BiPAP, postcoronary artery bypass graft in the past, chronic history of debility and pulmonary fibrosis following COVID-19 the patient has been residing at [facility] on the [place] since, also known to have history of mild heart failure, acute kidney injury with chronic kidney disease, previous history of A-fib with RVR, and history of morbid obesity. He presented to the emergency department as a transfer from [facility] because of worsening dyspnea and shortness of breath with severe hypoxia and hypercapnia despite oxygen and updraft treatment patient did not do well and up coming to the emergency department at [facility] Was seen and evaluated white blood cell was 20,200 with left shift, creatinine is up to 1.92 with bun 77 lactic acid is 3.0 troponin was 1.76 stool occult was positive respiratory culture was negative for COVID, influenza and RSV. Blood sugar was quite bit high at 383. EKG showed atrial fibrillation with rapid ventricular response with wide QRS partially bundle branch block with pulse rate 140 beats per minutes. Chest x-ray showed consolidation of the right lung consistent with pneumonia with worsening infiltrate and pulmonary venous congestion consistent with heart failure as well. Patient could not maintain on nasal cannula oxygen required BiPAP while he was in the emergency department was diagnosed with acute respiratory failure close to be on mechanical ventilation. Pulmonary were consulted also consult cardiology with elevated troponin echocardiogram was ordered and patient was admitted to the ICU. 06/02/2024: Through the night patient remain on BiPAP did not compromise much, blood sugar remained running in the high 300, his Levemir will be switched today to 20 units twice a day remain on NovoLog 15 units AC meals plus sliding scales. Patient had an episode of diarrhea no new finding from microbiology standpoint and chest x-ray still showing significant amount of right lower side pneumonia along with vascular congestion consistent with congestive heart failure which patient has been treated for both so far. 06/03/2024: Patient still require BiPAP for the night during the daytime he does slightly better with nasal cannula and still on 2 to 3 L of O2 to keep his pulse ox above 90 percentile. Kidney function slightly bit worse does not require dialysis yet GFR is running around 27 with bun of 92. Still no finding on microbiology no sputum culture was collected at this point and his right side pneumonia is quite bit worse at the time. Pulmonary dillon continue to treat hypoxic and hypercapnic respiratory failure with BiPAP continue to deal with the fluid overload and CHF at this point also continue to deal with the aggressiveness of treating right-sided pneumonia. 06/04/2024: Still in the ICU still using BiPAP for the night. Cardiology have continue patient on IV diuretics and switch him back to Eliquis from heparin drip, his A-fib with RVR has been slightly better at this point. No need for hemodialysis yet. Kidney function slightly bit worse and may be trending into the need for hemodialysis at some point. Continue BiPAP for nighttime and continue setting on 10 L O2 higher flow for daytime continue aggressive management for his right-sided pneumonia. 06/05/2024: Patient is transferable out of the ICU today he has done well he is still on 8 L of O2 try to keep his pulse ox above 90 percentile and require BiPAP through the night but normally he does BiPAP every night part of his routine with his severe obstructive sleep apnea, his lab value with much worsening bun at 105 creatinine 2.51 with GFR slightly bit down hemoglobin remained at 10.1 does not require any transfusion. Finding with ejection fraction of 45-60 percentile on his echo with acute on chronic systolic heart failure with moderate tricuspid regurgitation and pulmonary hypertension. If patient oxygen dropped below 5 L hopefully will be able to transfer out of the ICU which again working in the detail today, the rest of his lab today including his blood sugar still mildly elevated and that she was 300 and his insulin will be switched to 35 units of Lantus twice a day and probably 25 unit of NovoLog AC meals plus sliding scales which will help his symptoms some. Not quite sure how well with his sugar manage in [place] but having to be on steroid is not helping until his methylprednisolone switched to oral prednisone and the dose is below 20 mg might find the blood sugar to be a bit high. Chest x-ray last done on 06/04 and findings still consistent with quite infiltrate in the right base with vascular congestion. REVIEW OF SYSTEMS: CONSTITUTIONAL: Morbidly obese in acute respiratory distress. EYES: No icterus sclerae, no conjunctivitis. EARS, NOSE, MOUTH, THROAT, and FACE: No sore throat, lymphadenopathy, carotid bruits or deformity. RESPIRATORY: Positive shortness of breath cough and wheezes. CARDIOVASCULAR: Positive PND orthopnea palpitation. GASTROINTESTINAL: Slight abdominal discomfort with nausea positive diarrhea with black stool. Or constipation, No GI Bleed, no distention or masses. GENITOURINARY: Decreased urine output without hematuria. INTEGUMENT/BREAST: Negative for any muscular injury with mild osteoarthritis.. HEMATOLOGIC/LYMPHATIC: Negative for bleed or purpura. MUSCULOSKELTAL: Generalized arthralgia and myalgia. NEURLOGICAL: No LOC, Sz or syncope, blurred vision dizziness or abnormality.. Positive weakness on the right side. BEHAVIORAL/PSYCH: Negative. ENDOCRINE: Negative. PHYSICAL EXAMINATION: General Appearance: Morbidly obese in acute respiratory distress. Neck HEENT: Supple, no lymphadenopathy, no thyroid enlargement, no carotid bruits. Lungs: Decreased breath sound bilaterally especially the right side with positive fine rhonchi crackles and mild expiratory expiratory wheezes worse in the right base than the left side. Chest Wall: Decreased expansion with deep inspiration no tenderness and no deformity was found on exam, no costochondral pain or discomfort. Heart: Irregular rate and rhythm, S1, S2 positive systolic murmur in the apex radiating toward the right second costal space. Back: Symmetric, no curvature, ROM normal, no CVA tenderness. Abdomen: Soft, non-tender, bowel sounds active all four quadrants, no masses, no organomegaly. Extremities: Generalized discoloration specially the lower part of the leg with 2+ edema decreased pulse bilaterally. Pulses: 2+ and symmetric. Skin: Skin color, texture, tugor normal, no rashes or lesions. Neurologic: Alert oriented with slight confusion cranial nerves II through XII intact, worsening weakness in the right than the left side. ASSESSMENT AND PLAN: _Acute respiratory failure: Secondary to COPD exacerbation, aspiration, congestive heart failure with early pulmonary edema. His BiPAP is only through the night has been using between 6 and 8 L of O2 nasal cannula daytime. _Congestive heart failure and fluid overload with early pulmonary edema: Still seen cardiology echocardiogram showed ejection fraction of 45 percentile with pulmonary hypertension and tricuspid regurgitation. _Acute kidney injury with chronic kidney disease mostly into stage IV chronic kidney disease at this point still have quite hypoperfusion his BUN is up to 109 today with GFR still in the 20 does not require dialysis but see nephrology regular basis. _Sepsis with aspiration pneumonia: Have elevated white blood cell, elevated lactic acid, hypoxia, confusion and altered mental status the patient was ini tiated on IV antibiotics with his current condition have to watch for how much fluid patient can receive. _Right-sided pneumonia most likely aspiration: Has been treated aggressively for gram-negative coverage: Culture still negative so far. _A-fib with RVR: Pulse rate has improved significantly remain on metoprolol succinate 25 mg a day and anticoagulation dillon was started on Eliquis and off he minh drip. No Cardizem needed at this point. _Aortic stenosis Echocardiogram done late yesterday showed ejection fraction of 45-50 percentile suboptimal study and showed mild aortic stenosis with peak gradient of 20 mmHg and what looks like probable bicuspid aortic valve with severe calcification. No need for any surgical intervention. _Elevated troponin and possible non-ST NE, again seen cardiology echocardiogram continue to watch the trend of his troponin at this point. Cardiology do not see the need for any intervention. _Type 2 diabetes: Will titrate insulin with Lantus up to 35 unit twice a day and NovoLog up to 25 units twice a day start Farxiga as well blood sugar still high but hopefully with the change will be better as well as tomorrow will drop his Solu-Medrol to prednisone 30 mg a day which might be more helpful. _Hypertension: Was on losartan 12.5 mg daily, metoprolol succinate 25 mg a day, was still on diuretics with metolazone, furosemide and might benefit from adding spironolactone. _Possible GI bleed with acute blood loss anemia: Continue proton pump inhibitor IV, continue to watch for any further without hemoglobin watch stool for any bloody stool at this point. _Atherosclerotic heart disease post CABG in the past with seeing cardiology and has been on medical management. _Hyperlipidemia: Remain on atorvastatin 40 mg a day. _Previous history of stroke: Still have slight residual. _Morbid obesity with history of obstructive sleep apnea syndrome has been on CPAP on BiPAP. Discussion: Patient is transfer out of the ICU has been doing slightly better and treating the infection aggressive enough hopefully to get patient stable to be transferred to [facility] probably early this week. Objective - Vital Signs Vital signs: Vital Signs Temp 97.9 F 06/05/24 08:00 Pulse 90 06/05/24 11:30 Resp 20 06/05/24 11:30 BP 122/104 06/05/24 08:00 Pulse Ox 95 10/11/24 08:25 FiO2 50 06/05/24 08:25 Intake & Output 06/04/24 06/05/24 06/05/24 18:59 06:59 18:59 Intake Total 1128.258 260 180 Output Total 1824 2029 77 Balance -696.742 -1770 -595 Weight 199.2 kg Intake: IV 440 260 180 0.9 at KVO 240 160 80 Piperacillin-Tazobactam 3 200 100 100 .375 gm In Sodium Chloride 0.9% 100 ml @ 25 mls/hr IVPB Q8HR [facility] Rx# :[id number] Intake, IV Titration 188.258 Amount Heparin Sod,Pork in 0.45% 188.258 NaCl 25,000 unit In 0.45 % NaCl 1 250ml.bag @ 5.55 UNITS/KG/HR 9.987 mls/hr IV .Q24H [facility] Rx#: [id number] Oral 500 Output: Urine 1824 2029 77 Other: Voiding Method Indwelling Catheter Indwelling Catheter Indwelling Catheter # Bowel Movements 1 - Labs CBC & Chem 7: 06/05/24 05:42 06/05/24 05:42 Labs: Abnormal Lab Results - Last 24 Hours (Table) 06/04/24 06/04/24 06/04/24 Range/Units 06:58 11:50 16:33 WBC (3.8-10.6) k/uL RBC (4.30-5.90) m/uL Hgb (13.0-17.5) gm/dL Hct (39.0-53.0) % MCHC (31.0-37.0) g/dL RDW (11.5-15.5) % Neutrophils # (1.3-7.7) k/uL Lymphocytes # (1.0-4.8) k/uL Chloride (98-107) mmol/L Carbon Dioxide (22-30) mmol/L BUN (9-20) mg/dL Creatinine (0.66-1.25) mg/dL Glucose (74-99) mg/dL POC Glucose (mg/dL) 263 H 362 H 292 H (70-110) mg/dL Calcium (8.4-10.2) mg/dL 06/04/24 06/05/24 06/05/24 Range/Units 20:07 01:44 05:42 WBC (3.8-10.6) k/uL RBC (4.30-5.90) m/uL Hgb (13.0-17.5) gm/dL Hct (39.0-53.0) % MCHC (31.0-37.0) g/dL RDW (11.5-15.5) % Neutrophils # (1.3-7.7) k/uL Lymphocytes # (1.0-4.8) k/uL Chloride 94 L (98-107) mmol/L Carbon Dioxide 37 H (22-30) mmol/L BUN 104 H* (9-20) mg/dL Creatinine 2.51 H (0.66-1.25) mg/dL Glucose 244 H (74-99) mg/dL POC Glucose (mg/dL) 276 H 356 H (70-110) mg/dL Calcium 8.0 L (8.4-10.2) mg/dL 06/05/24 06/05/24 Range/Units 05:42 06:24 WBC 11.7 H (3.8-10.6) k/uL RBC 3.68 L (4.30-5.90) m/uL Hgb 10.1 L (13.0-17.5) gm/dL Hct 34.2 L (39.0-53.0) % MCHC 29.7 L (31.0-37.0) g/dL RDW 18.9 H (11.5-15.5) % Neutrophils # 10.2 H (1.3-7.7) k/uL Lymphocytes # 0.6 L (1.0-4.8) k/uL Chloride (98-107) mmol/L Carbon Dioxide (22-30) mmol/L BUN (9-20) mg/dL Creatinine (0.66-1.25) mg/dL Glucose (74-99) mg/dL POC Glucose (mg/dL) 251 H (70-110) mg/dL Calcium (8.4-10.2) mg/dL Microbiology - Last 24 Hours (Table) 06/01/24 08:36 Blood Culture - Preliminary Blood
[2024-06-05] MEDS: INSULIN DETEMIR (LEVEMIR) 100 UNIT/ML SYR SQ SCH (22:46)
[2024-06-06 03:18] LABS: Glucose,Whole Blood 347 mg/dL (70-110)
[2024-06-06 06:23] LABS: Glucose,Whole Blood 326 mg/dL (70-110)
[2024-06-06 07:55] LABS: African American GFR (CKD) 39 (>60 ml/min/1.73 sqM); Anion Gap 7 mmol/L; Calcium 8.5 mg/dL (8.4-10.2); Carbon Dioxide 40 mmol/L (22-30); Chloride 97 mmol/L (98-107); Glucose 325 mg/dL (74-99); Magnesium 2.5 mg/dL (1.6-2.3); Non-African American GFR(CKD) 34 (>60 ml/min/1.73 sqM); Potassium 4.7 mmol/L (3.5-5.1); Sodium 144 mmol/L (137-145)
[2024-06-06 08:11] LABS: Blood Urea Nitrogen 123 mg/dL (9-20)
[2024-06-06] MEDS: INSULIN ASPART (NovoLOG) 100 UNIT/ML VIAL SQ SCH ×2 (08:47→17:24)
--- NOTE | 2024-06-06 11:52 | P.PN ---
Subjective Progress Note Date: 06/06/24 Principal diagnosis: Respiratory failure. Pulmonary consultation dated June 01, 2024. 73-year-old obese male, who was seen by Dr. Purcell in the emergency department, on June 01. The patient apparently presented about 8:00 in the morning. He came in with respiratory distress, and shortness of breath. The patient was seen in the emergency department, trauma room #1. He was on BiPAP, with settings of 14/8, and 80%. He was getting saline at 75 cc an hour. He was also receiving IV vancomycin. The patient's blood gases showed a pO2 of 75, pCO2 of 78, and a pH of 7.34. The patient was able to verbalize just a bit, while wearing his BiPAP mask. The patient has a history of coronary disease, CVA, diabetes, GERD, hypertension, and sleep apnea. The patient also has a history of urinary leakage, bypass grafting, and hernia repair. The bypass surgery took place in 2014. Current labs include a white count 14.2, hemoglobin 12.3, hematocrit 42.5, and a normal platelet count. Coagulation studies are normal. The patient sodium is 140, potassium 3.5, chlorides 87, CO2 39, anion gap 14, BUN 77, and creatinine 1.92. The lactic acid was initially 2.9. N-terminal proBNP is 3160. Troponin was 0.302. He tested negative for influenza, RSV, and coronavirus. The patient's subsequent venous blood gases showed a CO2 of 68, and a pH of 7.38. The patient's chest x-ray suggested pulmonary venous congestion versus pneumonia. Progress note dated June 02, 2024. The patient is seen today in room 263. The patient is currently on 7 L high flow nasal cannula, and did use BiPAP last night, with settings of 14/8, and 50%. The patient's procalcitonin level was 0.66. He remains on Zosyn, and vancomycin. I did ask the nurse to make sure there was blood, sputum, and urine cultures. The patient currently is on IV heparin, via weight-based protocol. Clinically, the patient feels better. Current laboratory data includes a white count 14.1, hemoglobin 10.8, macro 36.8, and a platelet count 249,000. PT 12.4, INR 1.2. PTT is 41.7. Sodium 140, potassium 3.5, chlorides 92, CO2 36, BUN 92, and creatinine 2.45. Glucose is 262. Calcium is 8. Chest x-ray shows cardiomegaly, with pulmonary venous congestion, compatible with CHF. Pneumonia cannot be ruled out. Progress note dated June 03, 2024. 73-year-old male seen in room 263. The patient is currently on 10 L high flow oxygen. At nighttime, he uses a BiPAP device, with settings of 14/8, 50%. He is getting saline at 20 cc an hour, and heparin via weight-based protocol. The patient is doing reasonably well, but may not be ready to leave the intensive care unit, given his tenuous respiratory status. White count of 13.6, hemoglobin 10.2, hematocrit 33.6, and platelet count is normal. Sodium 135, potassium 3.6, chlorides 92, CO2 36, BUN 102, creatinine 2.55. PTT is 65.7. Calcium is 8.1. Glucose is 281. Chest x-ray shows cardiomegaly, with diffuse venous congestion. Progress note dated June 04, 2024. 73-year-old male seen today in room 263. The patient appears to be relatively comfortable. He is on 10 L high flow oxygen. He is getting BiPAP, at 14/8 at 50%, that he uses throughout the night. He is on saline at KVO, and IV heparin via weight-based protocol. Current laboratory data includes a white count 11.3, hemoglobin 10.1, hematocrit 34.7, and a platelet count is normal. Sodium 138, potassium 3.7, chlorides 92, CO2 37, BUN 109, creatinine 2.35. His PTT is 48.9. Calcium is 7.7. Chest x-ray shows pulmonary venous congestion with cardiomegaly, which is improved. Progress note dated June 05, 2024. 73-year-old male seen again in room 263. He is resting comfortably in bed. He continues on high flow nasal O2 at 8 L. He is getting saline at 20 cc an hour. According to the nurses, he had an uneventful night. His breathing is improved according to him. White count 11.7, hemoglobin 10.1, hematocrit 34.2, and platelet count was normal. Sodium 137, potassium 4.1, chloride 94, CO2 37, BUN 104, and creatinine 2.51. Glucose is 251. Calcium is 8. Progress note dated June 06, 2024. 73-year-old male seen today in room 376. He was moved out of the intensive care unit yesterday. The patient is doing reasonably well. He is on O2 at 6 L. No IV fluids. He does use a BiPAP, and nighttime, 14/8, and 50%. Clinically, the patient states he is feeling much better. Current labs include a sodium 144, potassium 4.7, chloride 97, CO2 40, BUN 123, and creatinine 1.95. Magnesium is 2.5. Objective - Vital Signs Vital signs: Vital Signs Temp 97.7 F 06/06/24 08:00 Pulse 79 06/06/24 11:28 Resp 18 06/06/24 08:00 BP 171/92 06/06/24 08:00 Pulse Ox 96 06/06/24 08:01 FiO2 50 06/06/24 03:53 Intake & Output 06/05/24 06/06/24 06/06/24 18:59 06:59 18:59 Intake Total 430 Output Total 3575 2500 Balance -3145 -2500 Intake: IV 180 0.9 at KVO 80 Piperacillin-Tazobactam 3 100 .375 gm In Sodium Chloride 0.9% 100 ml @ 25 mls/hr IVPB Q8HR [facility] Rx# :[id number] Oral 250 Output: Urine 3575 2500 Other: Voiding Method Indwelling Catheter Indwelling Catheter Indwelling Catheter - Exam Morbidly obese male, and no acute distress, oriented 3. Currently, on nasal cannula at 6 L. HEENT examination is grossly unremarkable. Mucous membranes are moist. No oral lesions. Neck supple. Full range of motion. No adenopathy thyromegaly or neck vein distention. Cardiovascular examination reveals an irregular rhythm and rate. S1-S2 normal. No S3 or S4. No discernible murmur noted. Heart sounds are distant. Lungs reveal bilateral coarse rhonchi and crackles. Breath sounds equal. Chest is noisy. Expiratory wheezes are also appreciated. Abdomen soft bowel sounds are heard. No masses or tenderness. Extremities are intact. No cyanosis clubbing or edema. Skin reveals chronic venous stasis changes, and chronic lower extremity cellulitis. Neurologic examination is brief but nonfocal. - Labs CBC & Chem 7: 06/05/24 05:42 06/06/24 06:54 Labs: Abnormal Lab Results - Last 24 Hours (Table) 06/05/24 06/05/24 06/05/24 Range/Units 11:58 16:49 19:48 Chloride (98-107) mmol/L Carbon Dioxide (22-30) mmol/L BUN (9-20) mg/dL Creatinine (0.66-1.25) mg/dL Glucose (74-99) mg/dL POC Glucose (mg/dL) 238 H 274 H 329 H (70-110) mg/dL Magnesium (1.6-2.3) mg/dL 06/06/24 06/06/24 06/06/24 Range/Units 03:16 06:03 06:54 Chloride 97 L (98-107) mmol/L Carbon Dioxide 40 H (22-30) mmol/L BUN 123 H* (9-20) mg/dL Creatinine 1.95 H (0.66-1.25) mg/dL Glucose 325 H (74-99) mg/dL POC Glucose (mg/dL) 347 H 326 H (70-110) mg/dL Magnesium 2.5 H (1.6-2.3) mg/dL Assessment and Plan Assessment: Acute hypoxemic and hypercapnic respiratory failure, likely on the basis of f luid overload/CHF. Possible underlying pneumonia. Morbid obesity, with a history of obstructive sleep apnea syndrome. Atrial fibrillation with rapid ventricular response. Possible non-ST segment elevation myocardial infarction. History of CAD with previous bypass surgery, 2014. History of CVA. History of diabetes mellitus. History of gastroesophageal reflux disease. History of essential hypertension. History of anxiety. Lifelong non-smoker. Plan: Plan dated June 01, 2024. The patient is seen in the emergency department, trauma room #1. The patient is currently on BiPAP, with settings of 14/8 and 80%. Labs, x-rays, and medications are reviewed. Initial blood gases show pO2 75, pCO2 78, pH is 7.34. The patient's chest x-ray is consistent with fluid overload, although, pneumonia cannot be excluded at this time. The patient was seen in the emergency department, by Dr. Purcell. The patient is currently on a number of different medications, including Eliquis, Symbicort, updrafts with albuterol and ipratropium bromide, and Solu-Medrol. The patient was also placed on Zosyn, and vancomycin. If not already ordered, a procalcitonin level should be ordered. Prognosis is guarded. Plan dated June 02, 2024. The patient is seen today in room 263. The patient appears to be doing a bit better. He did spend the night, on BiPAP, with settings of 14/8, 50%. He continues on IV heparin. He is getting nasal O2 at 7 L. His procalcitonin level was elevated at 0.66. The patient is on Zosyn and vancomycin. I have asked the nurses to make sure the patient is fully cultured. We will continue to follow make recommendations along the way. Labs, x-rays, and all medications are reviewed. Prognosis is certainly guarded. Plan dated June 03, 2024. The patient is seen today in room 263. His oxygen requirements have gone up to 10 L high flow O2. In addition, the patient was on BiPAP through the night, with settings of 14/8, 50%. The patient continues on a heparin drip. Cardiology has not made a decision as to whether or not they plan on doing a catheterization on this gentleman. The patient is also getting saline at 20 cc an hour. Labs, x-rays, and medications are reviewed. The patient is overall prognosis remains guarded. We will continue to follow. Plan dated June 04, 2024. The patient is seen today in room 263. The patient continues on appropriate medications, and uses BiPAP at nighttime, with settings of 14/8, 50%. Currently he is on 10 L high flow oxygen. He is getting IV heparin, and saline at KVO. Labs, x-rays, and all medications are reviewed. The patient's overall prognosis remains guarded. We will continue to follow the patient, make recommendations along the way. Plan dated June 05, 2024. The patient is seen today in room 263. He has been titrated down to a liter high flow oxygen. He is getting saline at 20 cc an hour. Labs, x-rays, and all medications are reviewed. The patient appears to be doing much better. He states that he is feeling better. We will continue to follow and make recom mendations along the way. Prognosis is certainly guarded. Plan dated June 06, 2024. The patient is now seen on the general medical floor, room 376. Yesterday, he was in the intensive care unit. His O2 has been titrated down to 6 L. It was 8 L yesterday. He does use BiPAP at nighttime, with settings of 14/8 and 50%. He is not receiving any IV fluids. Clinically, the patient states that he is feeling better, and is hoping to be discharged soon. Labs, x-rays, and all medications are reviewed. We will continue to follow make recommendations along the way. The patient's overall prognosis remains guarded. Time with Patient: Less than 30
[2024-06-06 12:05] LABS: Glucose,Whole Blood 340 mg/dL (70-110)
--- NOTE | 2024-06-06 12:20 | XR ---
EXAMINATION TYPE: XR chest 1V portable DATE OF EXAM: 06/06/2024 COMPARISON: 06/04/2024 HISTORY: Shortness of breath TECHNIQUE: Single frontal view of the chest is obtained. FINDINGS: Prior CABG surgery. There is cardiomegaly with pulmonary vascular congestion essentially unchanged compared to previous. There is a focal partial air space opacity in the right lung base possibly pneumonia or pulmonary celestine ma. There is no pneumothorax. IMPRESSION: Acute cardiopulmonary disease as described above with mild interval worsening in the gerri earance of the right lung base. [facility], , 06/06/2024 12:18 PM
--- NOTE | 2024-06-06 12:46 | P.PN ---
Subjective Progress Note Date: 06/06/24 Patient is seen in follow-up for acute kidney injury on chronic kidney disease. Renal function fairly stable. Nonoliguric. Denies chest pain or shortness of breath. Oral intake is good. Vital signs are stable. General: No acute distress. HEENT: Head exam is unremarkable. On nasal cannula. LUNGS: Scattered rhonchi. HEART: Rate and Rhythm are regular. ABDOMEN: Obese. EXTREMITITES: 1+ edema. Objective - Vital Signs Vital signs: Vital Signs Temp 97.7 F 06/06/24 08:00 Pulse 85 06/06/24 08:10 Resp 18 06/06/24 08:00 BP 171/92 06/06/24 08:00 Pulse Ox 96 06/06/24 08:01 FiO2 50 06/06/24 03:53 Intake & Output 06/05/24 06/06/24 06/06/24 18:59 06:59 18:59 Intake Total 430 Output Total 3575 2500 Balance -3145 -2500 Intake: IV 180 0.9 at KVO 80 Piperacillin-Tazobactam 3 100 .375 gm In Sodium Chloride 0.9% 100 ml @ 25 mls/hr IVPB Q8HR [facility] Rx# :[id number] Oral 250 Output: Urine 3575 2500 Other: Voiding Method Indwelling Catheter Indwelling Catheter Indwelling Catheter - Labs CBC & Chem 7: 06/05/24 05:42 06/06/24 06:54 Labs: Abnormal Lab Results - Last 24 Hours (Table) 06/05/24 06/05/24 06/05/24 Range/Units 11:58 16:49 19:48 Chloride (98-107) mmol/L Carbon Dioxide (22-30) mmol/L BUN (9-20) mg/dL Creatinine (0.66-1.25) mg/dL Glucose (74-99) mg/dL POC Glucose (mg/dL) 238 H 274 H 329 H (70-110) mg/dL Magnesium (1.6-2.3) mg/dL 06/06/24 06/06/24 06/06/24 Range/Units 03:16 06:03 06:54 Chloride 97 L (98-107) mmol/L Carbon Dioxide 40 H (22-30) mmol/L BUN 123 H* (9-20) mg/dL Creatinine 1.95 H (0.66-1.25) mg/dL Glucose 325 H (74-99) mg/dL POC Glucose (mg/dL) 347 H 326 H (70-110) mg/dL Magnesium 2.5 H (1.6-2.3) mg/dL Assessment and Plan Assessment: 1. Acute kidney injury secondary to ATN. Renal function stable. Creatinine 1.9 today. Elevated BUN partially from acute kidney injury and steroids. UA benign. No hydronephrosis noted on kidney ultrasound. Left kidney was not properly visualized. 2. Chronic kidney disease stage IIIb with baseline creatinine 1.5-1.8 secondary to nephrosclerosis and cardiorenal syndrome. 3. Acute on chronic systolic CHF ejection fraction of 45 to 50% with moderate tricuspid regurgitation and pulmonary hypertension. 4. Volume overload. Improved with diuresis. 5. Coronary artery disease status post CABG. 6. Diabetes mellitus. 7. Acute hypoxic respiratory failure. Currently on 6 L nasal cannula. Plan: Maintain oral Bumex. Avoid nephrotoxins. Continue to monitor renal function and urine output. Wean FiO2. Monitor vancomycin levels. Dose to be adjusted for renal function. Urine output high 6L, monitor and decrease diuretics if remains high over weekend.
[2024-06-06] MEDS: METOPROLOL SUCCINATE (ER) 25 MG TAB.ER.24H PO SCH (14:07)
--- NOTE | 2024-06-06 16:52 | P.PN ---
Subjective Progress Note Date: 06/06/24 HISTORY OF PRESENT ILLNESS: 73-year-old with active medical history of type 2 diabetes, previous history of CVA, coronary artery disease, hypertension, obstructive sleep apnea on CPAP BiPAP, postcoronary artery bypass graft in the past, chronic history of debility and pulmonary fibrosis following COVID-19 the patient has been residing at [facility] [place], also known to have history of mild heart failure, acute kidney injury with chronic kidney disease, previous history of A-fib with RVR, and history of morbid obesity. He presented to the emergency department as a transfer from [facility] because of worsening dyspnea and shortness of breath with severe hypoxia and hypercapnia despite oxygen and updraft treatment patient did not do well and up coming to the emergency department at [facility] Was seen and evaluated white blood cell was 20,200 with left shift, creatinine is up to 1.92 with bun 77 lactic acid is 3.0 troponin was 1.76 stool occult was positive respiratory culture was negative for COVID, influenza and RSV. Blood sugar was quite bit high at 383. EKG showed atrial fibrillation with rapid ventricular response with wide QRS partially bundle branch block with pulse rate 140 beats per minutes. Chest x-ray showed consolidation of the right lung consistent with pneumonia with worsening infiltrate and pulmonary venous congestion consistent with heart failure as well. Patient could not maintain on nasal cannula oxygen required BiPAP while he was in the emergency department was diagnosed with acute respiratory failure close to be on mechanical ventilation. Pulmonary were consulted also consult cardiology with elevated troponin echocardiogram was ordered and patient was admitted to the ICU. 06/02/2024: Through the night patient remain on BiPAP did not compromise much, blood sugar remained running in the high 300, his Levemir will be switched today to 20 units twice a day remain on NovoLog 15 units AC meals plus sliding scales. Patient had an episode of diarrhea no new finding from microbiology standpoint and chest x-ray still showing significant amount of right lower side pneumonia along with vascular congestion consistent with congestive heart failure which patient has been treated for both so far. 06/03/2024: Patient still require BiPAP for the night during the daytime he does slightly better with nasal cannula and still on 2 to 3 L of O2 to keep his pulse ox above 90 percentile. Kidney function slightly bit worse does not require dialysis yet GFR is running around 27 with bun of 92. Still no finding on microbiology no sputum culture was collected at this point and his right side pneumonia is quite bit worse at the time. Pulmonary dillon continue to treat hypoxic and hypercapnic respiratory failure with BiPAP continue to deal with the fluid overload and CHF at this point also continue to deal with the aggressiveness of treating right-sided pneumonia. 06/04/2024: Still in the ICU still using BiPAP for the night. Cardiology have continue patient on IV diuretics and switch him back to Eliquis from heparin drip, his A-fib with RVR has been slightly better at this point. No need for hemodialysis yet. Kidney function slightly bit worse and may be trending into the need for hemodialysis at some point. Continue BiPAP for nighttime and continue setting on 10 L O2 higher flow for daytime continue aggressive management for his right-sided pneumonia. 06/05/2024: Patient is transferable out of the ICU today he has done well he is still on 8 L of O2 try to keep his pulse ox above 90 percentile and require BiPAP through the night but normally he does BiPAP every night part of his routine with his severe obstructive sleep apnea, his lab value with much worsening bun at 105 creatinine 2.51 with GFR slightly bit down hemoglobin remained at 10.1 does not require any transfusion. Finding with ejection fraction of 45-60 percentile on his echo with acute on chronic systolic heart failure with moderate tricuspid regurgitation and pulmonary hypertension. If patient oxygen dropped below 5 L hopefully will be able to transfer out of the ICU which again working in the detail today, the rest of his lab today including his blood sugar still mildly elevated and that she was 300 and his insulin will be switched to 35 units of Lantus twice a day and probably 25 unit of NovoLog AC meals plus sliding scales which will help his symptoms some. Not quite sure how well with his sugar manage in [place] but having to be on steroid is not helping until his methylprednisolone switched to oral prednisone and the dose is below 20 mg might find the blood sugar to be a bit high. Chest x-ray last done on 06/04 and findings still consistent with quite infiltrate in the right base with vascular congestion. 06/06/2024: Patient was transferred out of the ICU yesterday, he is remain on 6 L O2 and doing BiPAP at night with pressure of 14/8 at 50 percentile O2, he is doing slightly better, blood sugar remained quite bit high despite adjustment of his insulin last few days its about time probably to wean patient off Solu- Medrol he is down to 40 mg IV Q8 which should be by tomorrow every 12 and and prepare hopefully for oral for early this week. Despite adjustment of his insulin almost every day blood sugar still high as of today his Levemir will be increased to 40 units twice a day and NovoLog up to 28 units 3 times a day plus sliding scales. Still on aggressive management for aspiration pneumonia gram-negative pneumonia being on vancomycin and Zosyn. His blood cultures still negative so far. Patient blood pressure slightly bit higher again compared to last few days even he is on home meds will add probably hydralazine 25 mg every 8 hours for systolic above 150. Kidney function has been worsening compared to before his 1 up to 123 with creatinine 1.95 still no sign of GI bleed nephrology on adjusting his medication no need for dialysis so far. REVIEW OF SYSTEMS: CONSTITUTIONAL: Morbidly obese in acute respiratory distress. EYES: No icterus sclerae, no conjunctivitis. EARS, NOSE, MOUTH, THROAT, and FACE: No sore throat, lymphadenopathy, carotid bruits or deformity. RESPIRATORY: Positive shortness of breath cough and wheezes. CARDIOVASCULAR: Positive PND orthopnea palpitation. GASTROINTESTINAL: Slight abdominal discomfort with nausea positive diarrhea with black stool. Or constipation, No GI Bleed, no distention or masses. GENITOURINARY: Decreased urine output without hematuria. INTEGUMENT/BREAST: Negative for any muscular injury with mild osteoarthritis.. HEMATOLOGIC/LYMPHATIC: Negative for bleed or purpura. MUSCULOSKELTAL: Generalized arthralgia and myalgia. NEURLOGICAL: No LOC, Sz or syncope, blurred vision dizziness or abnormality.. Positive weakness on the right side. BEHAVIORAL/PSYCH: Negative. ENDOCRINE: Negative. PHYSICAL EXAMINATION: General Appearance: Morbidly obese in acute respiratory distress. Neck HEENT: Supple, no lymphadenopathy, no thyroid enlargement, no carotid bruits. Lungs: Decreased breath sound bilaterally especially the right side with positive fine rhonchi crackles and mild expiratory expiratory wheezes worse in the right base than the left side. Chest Wall: Decreased expansion with deep inspiration no tenderness and no deformity was found on exam, no costochondral pain or discomfort. Heart: Irregular rate and rhythm, S1, S2 positive systolic murmur in the apex radiating toward the right second costal space. Back: Symmetric, no curvature, ROM normal, no CVA tenderness. Abdomen: Soft, non-tender, bowel sounds active all four quadrants, no masses, no organomegaly. Extremities: Generalized discoloration specially the lower part of the leg with 2+ edema decreased pulse bilaterally. Pulses: 2+ and symmetric. Skin: Skin color, texture, tugor normal, no rashes or lesions. Neurologic: Alert oriented with slight confusion cranial nerves II through XII intact, worsening weakness in the right than the left side. ASSESSMENT AND PLAN: _Acute respiratory failure: Mostly secondary to right-sided pneumonia along with COPD and heart failure with fluid overload, he is to continue 6 L of O2 daytime and BiPAP all night. Chest x-ray to be repeated again tomorrow. _Congestive heart failure and fluid overload with early pulmonary edema: Still seen cardiology echocardiogram showed ejection fraction of 45 percentile with pulmonary hypertension and tricuspid regurgitation. Continue Bumex [address] of furosemide, eventually patient would benefit from adding spironolactone but sadly his kidney function is much worsening on diuretics and holding off on any further aggressive management for it. _Acute kidney injury with chronic kidney disease mostly into stage IV chronic kidney disease at this point still have quite hypoperfusion his BUN is up to 123 today with GFR still in 34 does not require dialysis but see nephrology regular basis. _Sepsis with aspiration pneumonia: Have elevated white blood cell, elevated lactic acid, hypoxia, confusion and altered mental status the patient was initiated on IV antibiotics with his current condition have to watch for how much fluid patient can receive. _Right-sided pneumonia most likely aspiration: Has been treated aggressively for gram-negative coverage: Culture still negative so far. _A-fib with RVR: Pulse rate has improved significantly remain on metoprolol succinate 25 mg a day and anticoagulation dillon was started on Eliquis and off heparin drip. No Cardizem needed at this point. _Aortic stenosis Echocardiogram done late yesterday showed ejection fraction of 45-50 percentile suboptimal study and showed mild aortic stenosis with peak gradient of 20 mmHg and what looks like probable bicuspid aortic valve with severe calcification. No need for any surgical intervention. _Elevated troponin and possible non-ST SD, again seen cardiology echocardiogram continue to watch the trend of his troponin at this point. Cardiology do not see the need for any intervention. _Type 2 diabetes: Will titrate insulin with Lantus up to 35 unit twice a day and NovoLog up to 25 units twice a day start Farxiga as well blood sugar still high but hopefully with the change will be better as well as tomorrow will drop his Solu-Medrol to prednisone 30 mg a day which might be more helpful. _Hypertension: Was on losartan 12.5 mg daily, metoprolol succinate 25 mg a day, was still on diuretics with metolazone, furosemide and might benefit from adding spironolactone. _Possible GI bleed with acute blood loss anemia: Continue proton pump inhibitor IV, continue to watch for any further without hemoglobin watch stool for any blo lizett stool at this point. _Atherosclerotic heart disease post CABG in the past with seeing cardiology and has been on medical management. _Hyperlipidemia: Remain on atorvastatin 40 mg a day. _Previous history of stroke: Still have slight residual. Cannot ambulate and walk patient is bedridden. _Morbid obesity with history of obstructive sleep apnea syndrome has been on CPAP on BiPAP. Discussion: Doing better not ready to leave the hospital yet eventually will be going back to long-term custodial in the meanwhile still continue to adjust his medication for blood sugar, continue IV antibiotic for aspiration pneumonia and continue to treat his heart failure watch his kidney function carefully to make sure he is not requiring dialysis. Objective - Vital Signs Vital signs: Vital Signs Temp 98.5 F 06/06/24 03:20 Pulse 85 06/06/24 08:10 Resp 24 06/06/24 03:53 BP 160/111 06/06/24 03:20 Pulse Ox 96 06/06/24 08:01 FiO2 50 06/06/24 03:53 Intake & Output 06/05/24 06/06/24 06/06/24 18:59 06:59 18:59 Intake Total 430 Output Total 3575 2500 Balance -3145 -2500 Intake: IV 180 0.9 at KVO 80 Piperacillin-Tazobactam 3 100 .375 gm In Sodium Chloride 0.9% 100 ml @ 25 mls/hr IVPB Q8HR [facility] Rx# :[id number] Oral 250 Output: Urine 3575 2500 Other: Voiding Method Indwelling Catheter Indwelling Catheter - Labs CBC & Chem 7: 06/05/24 05:42 06/06/24 06:54 Labs: Abnormal Lab Results - Last 24 Hours (Table) 06/05/24 06/05/24 06/05/24 Range/Units 11:58 16:49 19:48 Chloride (98-107) mmol/L Carbon Dioxide (22-30) mmol/L BUN (9-20) mg/dL Creatinine (0.66-1.25) mg/dL Glucose (74-99) mg/dL POC Glucose (mg/dL) 238 H 274 H 329 H (70-110) mg/dL Magnesium (1.6-2.3) mg/dL 06/06/24 06/06/24 06/06/24 Range/Units 03:16 06:03 06:54 Chloride 97 L (98-107) mmol/L Carbon Dioxide 40 H (22-30) mmol/L BUN 123 H* (9-20) mg/dL Creatinine 1.95 H (0.66-1.25) mg/dL Glucose 325 H (74-99) mg/dL POC Glucose (mg/dL) 347 H 326 H (70-110) mg/dL Magnesium 2.5 H (1.6-2.3) mg/dL
[2024-06-06 17:02] LABS: Glucose,Whole Blood 302 mg/dL (70-110)
[2024-06-06] MEDS: hydrALAZINE HCL 25 MG TAB PO PRN (17:48)
[2024-06-06 20:05] LABS: Glucose,Whole Blood 347 mg/dL (70-110)
[2024-06-06] MEDS: INSULIN DETEMIR (LEVEMIR) 100 UNIT/ML SYR SQ SCH (20:28)
[2024-06-07 01:58] LABS: Glucose,Whole Blood 254 mg/dL (70-110)
[2024-06-07 06:23] LABS: Glucose,Whole Blood 262 mg/dL (70-110)
[2024-06-07 07:22] LABS: Anisocytosis Slight; HCT 32.8 % (39.0-53.0); HGB 9.6 gm/dL (13.0-17.5); Hypochromasia Marked; MCH 27.8 pg (25.0-35.0); MCHC 29.3 g/dL (31.0-37.0); Macrocytosis Slight; Mean Platelet Volume 8.6; Platelet Count 289 k/uL (150-450); RBC 3.45 m/uL (4.30-5.90); RDW 19.5 % (11.5-15.5); WBC 17.9 k/uL (3.8-10.6)
[2024-06-07 07:35] LABS: ALT 27 U/L (4-49); AST 27 U/L (17-59); African American GFR (CKD) 40 (>60 ml/min/1.73 sqM); Albumin 3.8 g/dL (3.5-5.0); Alkaline Phosphatase 37 U/L (38-126); Calcium 8.9 mg/dL (8.4-10.2); Chloride 101 mmol/L (98-107); Glucose 251 mg/dL (74-99); Non-African American GFR(CKD) 34 (>60 ml/min/1.73 sqM); Potassium 5.3 mmol/L (3.5-5.1); Sodium 145 mmol/L (137-145); Total Bilirubin 0.7 mg/dL (0.2-1.3); Total Protein 7.2 g/dL (6.3-8.2)
[2024-06-07 07:40] LABS: Vancomycin,Random 16.7 ug/mL
[2024-06-07 07:41] LABS: Anion Gap 10 mmol/L; Carbon Dioxide 34 mmol/L (22-30)
[2024-06-07 07:54] LABS: Blood Urea Nitrogen 129 mg/dL (9-20)
[2024-06-07] MEDS: VANCOMYCIN 2,500 MG in SODIUM CHLORIDE 0.9% 500 ML 500 ML IVPB SCH (11:14)
--- NOTE | 2024-06-07 11:26 | P.PN ---
Subjective Progress Note Date: 06/07/24 Pulmonary consultation dated June 01, 2024. 73-year-old obese male, who was seen by Dr. Purcell in the emergency department, on June 01. The patient apparently presented about 8:00 in the morning. He came in with respiratory distress, and shortness of breath. The patient was seen in the emergency department, trauma room #1. He was on BiPAP, with settings of 14/8, and 80%. He was getting saline at 75 cc an hour. He was also receiving IV vancomycin. The patient's blood gases showed a pO2 of 75, pCO2 of 78, and a pH of 7.34. The patient was able to verbalize just a bit, while wearing his BiPAP mask. The patient has a history of coronary disease, CVA, diabetes, GERD, hypertension, and sleep apnea. The patient also has a history of urinary leakage, bypass grafting, and hernia repair. The bypass surgery took place in 2014. Current labs include a white count 14.2, hemoglobin 12.3, hematocrit 42.5, and a normal platelet count. Coagulation studies are normal. The patient sodium is 140, potassium 3.5, chlorides 87, CO2 39, anion gap 14, BUN 77, and creatinine 1.92. The lactic acid was initially 2.9. N- terminal proBNP is 3160. Troponin was 0.302. He tested negative for influenza, RSV, and coronavirus. The patient's subsequent venous blood gases showed a CO2 of 68, and a pH of 7.38. The patient's chest x-ray suggested pulmonary venous congestion versus pneumonia. Progress note dated June 02, 2024. The patient is seen today in room 263. The patient is currently on 7 L high flow nasal cannula, and did use BiPAP last night, with settings of 14/8, and 50%. The patient's procalcitonin level was 0.66. He remains on Zosyn, and vancomycin. I did ask the nurse to make sure there was blood, sputum, and urine cultures. The patient currently is on IV heparin, via weight-based protocol. Clinically, the patient feels better. Current laboratory data includes a white count 14.1, hemoglobin 10.8, macro 36.8, and a platelet count 249,000. PT 12.4, INR 1.2. PTT is 41.7. Sodium 140, potassium 3.5, chlorides 92, CO2 36, BUN 92, and creatinine 2.45. Glucose is 262. Calcium is 8. Chest x-ray shows cardiomegaly, with pulmonary venous congestion, compatible with CHF. Pneumonia cannot be ruled out. Progress note dated June 03, 2024. 73-year-old male seen in room 263. The patient is currently on 10 L high flow oxygen. At nighttime, he uses a BiPAP device, with settings of 14/8, 50%. He is getting saline at 20 cc an hour, and heparin via weight-based protocol. The patient is doing reasonably well, but may not be ready to leave the intensive care unit, given his tenuous respiratory status. White count of 13.6, hemoglobin 10.2, hematocrit 33.6, and platelet count is normal. Sodium 135, potassium 3.6, chlorides 92, CO2 36, BUN 102, creatinine 2.55. PTT is 65.7. Calcium is 8.1. Glucose is 281. Chest x-ray shows cardiomegaly, with diffuse venous congestion. Progress note dated June 04, 2024. 73-year-old male seen today in room 263. The patient appears to be relatively comfortable. He is on 10 L high flow oxygen. He is getting BiPAP, at 14/8 at 50%, that he uses throughout the night. He is on saline at KVO, and IV heparin via weight-based protocol. Current laboratory data includes a white count 11.3, hemoglobin 10.1, hematocrit 34.7, and a platelet count is normal. Sodium 138, potassium 3.7, chlorides 92, CO2 37, BUN 109, creatinine 2.35. His PTT is 48.9. Calcium is 7.7. Chest x-ray shows pulmonary venous congestion with cardiomegaly, which is improved. Progress note dated June 05, 2024. 73-year-old male seen again in room 263. He is resting comfortably in bed. He continues on high flow nasal O2 at 8 L. He is getting saline at 20 cc an hour. According to the nurses, he had an uneventful night. His breathing is improved according to him. White count 11.7, hemoglobin 10.1, hematocrit 34.2, and platelet count was normal. Sodium 137, potassium 4.1, chloride 94, CO2 37, BUN 104, and creatinine 2.51. Glucose is 251. Calcium is 8. Progress note dated June 06, 2024. 73-year-old male seen today in room 376. He was moved out of the intensive care unit yesterday. The patient is doing reasonably well. He is on O2 at 6 L. No IV fluids. He does use a BiPAP, and nighttime, 14/8, and 50%. Clinically, the patient states he is feeling much better. Current labs include a sodium 144, potassium 4.7, chloride 97, CO2 40, BUN 123, and creatinine 1.95. Magnesium is 2.5. The patient is seen today June 07, 2024 in follow-up on the selective care unit. He is currently sitting up in bed. Awake and alert in no acute distress. He is maintaining O2 saturations in the 90s on 8 L high flow nasal cannula. He is utilizing BiPAP at night 14/8 and 50% FiO2. White count 17.9. Hemoglobin 9.6. Platelets 289. Sodium 145. Potassium 5.3. Bicarb 34. BUN 129. Creatinine 1.90. Glucose 251. Chest x-ray continues to show cardial megaly with pulmonary vascular congestion. Possible right lung base infiltrate/pneumonia. Blood cultures revealed no growth. He remains on vancomycin and Zosyn. Continued on bronchodilators. Anticoagulated with Eliquis. Objective - Vital Signs Vital signs: Vital Signs Temp 97.9 F 06/07/24 08:00 Pulse 90 06/07/24 09:49 Resp 20 06/07/24 08:00 BP 135/80 06/07/24 09:30 Pulse Ox 90 L 06/07/24 09:33 FiO2 50 06/07/24 04:00 Intake & Output 06/06/24 06/07/24 06/07/24 18:59 06:59 18:59 Intake Total 762 Output Total 3500 2450 700 Balance -3787 -8690 -700 Intake: Oral 762 Output: Urine 3500 2450 700 Other: Voiding Method Indwelling Catheter Indwelling Catheter Indwelling Catheter # Bowel Movements 1 - Exam GENERAL EXAM: Alert, morbidly obese 73-year-old male, on 8 L high flow nasal cannula, in no apparent distress. HEAD: Normocephalic. EYES: Normal reaction of pupils, equal size. NOSE: Clear with pink turbinates. THROAT: No erythema or exudates. NECK: No masses, no JVD. CHEST: No chest wall deformity. LUNGS: Equal air entry with few scattered rhonchi, wheeze. CVS: S1 and S2 normal with no audible murmur, regular rhythm. ABDOMEN: No hepatosplenomegaly, normal bowel sounds, no guarding or rigidity. SPINE: No scoliosis or deformity SKIN: No rashes CENTRAL NERVOUS SYSTEM: No focal deficits, tone is normal in all 4 extremities. EXTREMITIES: There is 1+ peripheral edema. No clubbing, no cyanosis. Peripheral pulses are intact. - Labs CBC & Chem 7: 06/07/24 06:37 06/07/24 06:37 Labs: Abnormal Lab Results - Last 24 Hours (Table) 06/06/24 06/06/24 06/06/24 Range/Units 11:41 17:01 20:03 WBC (3.8-10.6) k/uL RBC (4.30-5.90) m/uL Hgb (13.0-17.5) gm/dL Hct (39.0-53.0) % MCHC (31.0-37.0) g/dL RDW (11.5-15.5) % Potassium (3.5-5.1) mmol/L Carbon Dioxide (22-30) mmol/L BUN (9-20) mg/dL Creatinine (0.66-1.25) mg/dL Glucose (74-99) mg/dL POC Glucose (mg/dL) 340 H 302 H 347 H (70-110) mg/dL Alkaline Phosphatase (38-126) U/L 06/07/24 06/07/24 06/07/24 Range/Units 01:56 06:17 06:37 WBC (3.8-10.6) k/uL RBC (4.30-5.90) m/uL Hgb (13.0-17.5) gm/dL Hct (39.0-53.0) % MCHC (31.0-37.0) g/dL RDW (11.5-15.5) % Potassium 5.3 H (3.5-5.1) mmol/L Carbon Dioxide 34 H (22-30) mmol/L BUN 129 H* (9-20) mg/dL Creatinine 1.90 H (0.66-1.25) mg/dL Glucose 251 H (74-99) mg/dL POC Glucose (mg/dL) 254 H 262 H (70-110) mg/dL Alkaline Phosphatase 37 L (38-126) U/L 06/07/24 Range/Units 06:37 WBC 17.9 H (3.8-10.6) k/uL RBC 3.45 L (4.30-5.90) m/uL Hgb 9.6 L (13.0-17.5) gm/dL Hct 32.8 L (39.0-53.0) % MCHC 29.3 L (31.0-37.0) g/dL RDW 19.5 H (11.5-15.5) % Potassium (3.5-5.1) mmol/L Carbon Dioxide (22-30) mmol/L BUN (9-20) mg/dL Creatinine (0.66-1.25) mg/dL Glucose (74-99) mg/dL POC Glucose (mg/dL) (70-110) mg/dL Alkaline Phosphatase (38-126) U/L Microbiology - Last 24 Hours (Table) 06/01/24 08:36 Blood Culture - Final Blood Assessment and Plan Assessment: Acute hypoxemic and hypercapnic respiratory failure, likely on the basis of fluid overload/CHF Possible underlying pneumonia. Initial procalcitonin 0.66. Treated with vancomycin and Zosyn Acute kidney injury Morbid obesity, with a history of obstructive sleep apnea syndrome Atrial fibrillation with rapid ventricular response. Anticoagulated with Eliquis Possible non-ST segment elevation myocardial infarction History of CAD with previous bypass surgery, 2014 History of CVA History of diabetes mellitus History of gastroesophageal reflux disease History of essential hypertension History of anxiety Lifelong non-smoker Plan: The patient was seen and evaluated Chest x-ray, labs and medications reviewed Completed vancomycin and Zosyn Repeat a procalcitonin Continue bronchodilators, steroids Anticoagulated with Eliquis Continued on Bumex We will continue to follow I have personally seen and examined the patient, performed the documentation and the assessment and plan as written. Number of minutes spent on the visit: 10. Dictation was produced using [employer] software. Please excuse any grammatical, word or spelling errors.
--- NOTE | 2024-06-07 11:27 | P.PN ---
Subjective Progress Note Date: 06/07/24 Patient is seen in follow-up for acute kidney injury on chronic kidney disease. Renal function fairly stable. Nonoliguric. Denies chest pain or shortness of breath. Oral intake is good. Vital signs are stable. General: No acute distress. HEENT: Head exam is unremarkable. On nasal cannula. LUNGS: Scattered rhonchi. HEART: Rate and Rhythm are regular. ABDOMEN: Obese. EXTREMITITES: 1+ edema. Objective - Vital Signs Vital signs: Vital Signs Temp 97.9 F 06/07/24 08:00 Pulse 90 06/07/24 09:49 Resp 20 06/07/24 08:00 BP 111/71 06/07/24 08:00 Pulse Ox 90 L 06/07/24 09:33 FiO2 50 06/07/24 04:00 Intake & Output 06/06/24 06/07/24 06/07/24 18:59 06:59 18:59 Intake Total 762 Output Total 3500 2450 Balance -2738 -2450 Intake: Oral 762 Output: Urine 3500 2450 Other: Voiding Method Indwelling Catheter Indwelling Catheter - Labs CBC & Chem 7: 06/07/24 06:37 06/07/24 06:37 Labs: Abnormal Lab Results - Last 24 Hours (Table) 06/06/24 06/06/24 06/06/24 Range/Units 11:41 17:01 20:03 WBC (3.8-10.6) k/uL RBC (4.30-5.90) m/uL Hgb (13.0-17.5) gm/dL Hct (39.0-53.0) % MCHC (31.0-37.0) g/dL RDW (11.5-15.5) % Potassium (3.5-5.1) mmol/L Carbon Dioxide (22-30) mmol/L BUN (9-20) mg/dL Creatinine (0.66-1.25) mg/dL Glucose (74-99) mg/dL POC Glucose (mg/dL) 340 H 302 H 347 H (70-110) mg/dL Alkaline Phosphatase (38-126) U/L 06/07/24 06/07/24 06/07/24 Range/Units 01:56 06:17 06:37 WBC (3.8-10.6) k/uL RBC (4.30-5.90) m/uL Hgb (13.0-17.5) gm/dL Hct (39.0-53.0) % MCHC (31.0-37.0) g/dL RDW (11.5-15.5) % Potassium 5.3 H (3.5-5.1) mmol/L Carbon Dioxide 34 H (22-30) mmol/L BUN 129 H* (9-20) mg/dL Creatinine 1.90 H (0.66-1.25) mg/dL Glucose 251 H (74-99) mg/dL POC Glucose (mg/dL) 254 H 262 H (70-110) mg/dL Alkaline Phosphatase 37 L (38-126) U/L 06/07/24 Range/Units 06:37 WBC 17.9 H (3.8-10.6) k/uL RBC 3.45 L (4.30-5.90) m/uL Hgb 9.6 L (13.0-17.5) gm/dL Hct 32.8 L (39.0-53.0) % MCHC 29.3 L (31.0-37.0) g/dL RDW 19.5 H (11.5-15.5) % Potassium (3.5-5.1) mmol/L Carbon Dioxide (22-30) mmol/L BUN (9-20) mg/dL Creatinine (0.66-1.25) mg/dL Glucose (74-99) mg/dL POC Glucose (mg/dL) (70-110) mg/dL Alkaline Phosphatase (38-126) U/L Microbiology - Last 24 Hours (Table) 06/01/24 08:36 Blood Culture - Final Blood Assessment and Plan Assessment: 1. Acute kidney injury secondary to ATN. Renal function stable. Creatinine 1.9 today. Elevated BUN partially from acute kidney injury and steroids. UA benign. No hydronephrosis noted on kidney ultrasound. Left kidney was not properly visualized. 2. Chronic kidney disease stage IIIb with baseline creatinine 1.5-1.8 secondary to nephrosclerosis and cardiorenal syndrome. 3. Acute on chronic systolic CHF ejection fraction of 45 to 50% with moderate tricuspid regurgitation and pulmonary hypertension. 4. Volume overload. Improved with diuresis. 5. Coronary artery disease status post CABG. 6. Diabetes mellitus. 7. Acute hypoxic respiratory failure. Currently on 6 L nasal cannula. Plan: Hold Bumex due to very high urine output. Avoid nephrotoxins. Continue to monitor renal function and urine output. Wean FiO2. Monitor vancomycin levels. Dose to be adjusted for renal function.
[2024-06-07 12:01] LABS: Glucose,Whole Blood 268 mg/dL (70-110)
[2024-06-07 17:31] LABS: Glucose,Whole Blood 200 mg/dL (70-110)
[2024-06-07 18:37] LABS: Glucose,Whole Blood 229 mg/dL (70-110)
--- NOTE | 2024-06-07 22:03 | P.PN ---
Subjective Progress Note Date: 06/07/24 HISTORY OF PRESENT ILLNESS: 73-year-old with active medical history of type 2 diabetes, previous history of CVA, coronary artery disease, hypertension, obstructive sleep apnea on CPAP BiPAP, postcoronary artery bypass graft in the past, chronic history of debility and pulmonary fibrosis following COVID-19 the patient has been residing at [facility] the [place] since, also known to have history of mild heart failure, acute kidney injury with chronic kidney disease, previous history of A-fib with RVR, and history of morbid obesity. He presented to the emergency department as a transfer from [facility] because of worsening dyspnea and shortness of breath with severe hypoxia and hypercapnia despite oxygen and updraft treatment patient did not do well and up coming to the emergency department at [facility] Was seen and evaluated white blood cell was 20,200 with left shift, creatinine is up to 1.92 with bun 77 lactic acid is 3.0 troponin was 1.76 stool occult was positive respiratory culture was negative for COVID, influenza and RSV. Blood sugar was quite bit high at 383. EKG showed atrial fibrillation with rapid ventricular response with wide QRS partially bundle branch block with pulse rate 140 beats per minutes. Chest x-ray showed consolidation of the right lung consistent with pneumonia with worsening infiltrate and pulmonary venous congestion consistent with heart failure as well. Patient could not maintain on nasal cannula oxygen required BiPAP while he was in the emergency department was diagnosed with acute respiratory failure close to be on mechanical ventilation. Pulmonary were consulted also consult cardiology with elevated troponin echocardiogram was ordered and patient was admitted to the ICU. 06/02/2024: Through the night patient remain on BiPAP did not compromise much, blood sugar remained running in the high 300, his Levemir will be switched today to 20 units twice a day remain on NovoLog 15 units AC meals plus sliding scales. Patient had an episode of diarrhea no new finding from microbiology standpoint and chest x-ray still showing significant amount of right lower side pneumonia along with vascular congestion consistent with congestive heart failure which patient has been treated for both so far. 06/03/2024: Patient still require BiPAP for the night during the daytime he does slightly better with nasal cannula and still on 2 to 3 L of O2 to keep his pulse ox above 90 percentile. Kidney function slightly bit worse does not require dialysis yet GFR is running around 27 with bun of 92. Still no finding on microbiology no sputum culture was collected at this point and his right side pneumonia is quite bit worse at the time. Pulmonary dillon continue to treat hypoxic and hypercapnic respiratory failure with BiPAP continue to deal with the fluid overload and CHF at this point also continue to deal with the aggressiveness of treating right-sided pneumonia. 06/04/2024: Still in the ICU still using BiPAP for the night. Cardiology have continue patient on IV diuretics and switch him back to Eliquis from heparin drip, his A-fib with RVR has been slightly better at this point. No need for hemodialysis yet. Kidney function slightly bit worse and may be trending into the need for hemodialysis at some point. Continue BiPAP for nighttime and continue setting on 10 L O2 higher flow for daytime continue aggressive management for his right-sided pneumonia. 06/05/2024: Patient is transferable out of the ICU today he has done well he is still on 8 L of O2 try to keep his pulse ox above 90 percentile and require BiPAP through the night but normally he does BiPAP every night part of his routine with his severe obstructive sleep apnea, his lab value with much worsening bun at 105 creatinine 2.51 with GFR slightly bit down hemoglobin remained at 10.1 does not require any transfusion. Finding with ejection fraction of 45-60 percentile on his echo with acute on chronic systolic heart failure with moderate tricuspid regurgitation and pulmonary hypertension. If patient oxygen dropped below 5 L hopefully will be able to transfer out of the ICU which again working in the detail today, the rest of his lab today including his blood sugar still mildly elevated and that she was 300 and his insulin will be switched to 35 units of Lantus twice a day and probably 25 unit of NovoLog AC meals plus sliding scales which will help his symptoms some. Not quite sure how well with his sugar manage in [place] but having to be on steroid is not helping until his methylprednisolone switched to oral prednisone and the dose is below 20 mg might find the blood sugar to be a bit high. Chest x-ray last done on 06/04 and findings still consistent with quite infiltrate in the right base with vascular congestion. 06/06/2024: Patient was transferred out of the ICU yesterday, he is remain on 6 L O2 and doing BiPAP at night with pressure of 14/8 at 50 percentile O2, he is doing slightly better, blood sugar remained quite bit high despite adjustment of his insulin last few days its about time probably to wean patient off Solu- Medrol he is down to 40 mg IV Q8 which should be by tomorrow every 12 and and prepare hopefully for oral for early this week. Despite adjustment of his insulin almost every day blood sugar still high as of today his Levemir will be increased to 40 units twice a day and NovoLog up to 28 units 3 times a day plus sliding scales. Still on aggressive management for aspiration pneumonia gram-negative pneumonia being on vancomycin and Zosyn. His blood cultures still negative so far. Patient blood pressure slightly bit higher again compared to last few days even he is on home meds will add probably hydralazine 25 mg every 8 hours for systolic above 150. Kidney function has been worsening compared to before his 1 up to 123 with creatinine 1.95 still no sign of GI bleed nephrology on adjusting his medication no need for dialysis so far. 06/07/2024: He is resting in bed pulse ox has improved slightly since yesterday, slightly but worsening kidney function specially BUN is up to 129 creatinine 0.90 still seen nephrology does not look like patient is a require any hemodialysis at this point. Between the BiPAP for the night and a 6 to 8 L O2 daytime seems to manage well. The other dilemma that patient on higher oxygen than 5 L nasal cannula and not quite sure if they are able to manage keeping patient on BiPAP for the whole time. Otherwise laboratory value with the sodium in normal with GFR down to 34, blood sugar has responded much better down to 229 and as of tomorrow patient is steroid will be cut down more is on methylprednisolone 40 mg every 8 hours will be changed to every 12 hours and as soon as he is discharged will be on 40 mg down to 30 mg down to 20 mg and then 10 mg as a tapering dose 3 days apart. REVIEW OF SYSTEMS: CONSTITUTIONAL: Morbidly obese in acute respiratory distress. EYES: No icterus sclerae, no conjunctivitis. EARS, NOSE, MOUTH, THROAT, and FACE: No sore throat, lymphadenopathy, carotid bruits or deformity. RESPIRATORY: Positive shortness of breath cough and wheezes. CARDIOVASCULAR: Positive PND orthopnea palpitation. GASTROINTESTINAL: Slight abdominal discomfort with nausea positive diarrhea with black stool. Or constipation, No GI Bleed, no distention or masses. GENITOURINARY: Decreased urine output without hematuria. INTEGUMENT/BREAST: Negative for any muscular injury with mild osteoarthritis.. HEMATOLOGIC/LYMPHATIC: Negative for bleed or purpura. MUSCULOSKELTAL: Generalized arthralgia and myalgia. NEURLOGICAL: No LOC, Sz or syncope, blurred vision dizziness or abnormality.. Positive weakness on the right side. BEHAVIORAL/PSYCH: Negative. ENDOCRINE: Negative. PHYSICAL EXAMINATION: General Appearance: Morbidly obese in acute respiratory distress. Neck HEENT: Supple, no lymphadenopathy, no thyroid enlargement, no carotid bruit s. Lungs: Decreased breath sound bilaterally especially the right side with positive fine rhonchi crackles and mild expiratory expiratory wheezes worse in the right base than the left side. Chest Wall: Decreased expansion with deep inspiration no tenderness and no deformity was found on exam, no costochondral pain or discomfort. Heart: Irregular rate and rhythm, S1, S2 positive systolic murmur in the apex radiating toward the right second costal space. Back: Symmetric, no curvature, ROM normal, no CVA tenderness. Abdomen: Soft, non-tender, bowel sounds active all four quadrants, no masses, no organomegaly. Extremities: Generalized discoloration specially the lower part of the leg with 2+ edema decreased pulse bilaterally. Pulses: 2+ and symmetric. Skin: Skin color, texture, tugor normal, no rashes or lesions. Neurologic: Alert oriented with slight confusion cranial nerves II through XII intact, worsening weakness in the right than the left side. ASSESSMENT AND PLAN: _Acute respiratory failure: Mostly secondary to right-sided pneumonia along with COPD and heart failure with fluid overload, he is to continue 8 L of O2 daytime and BiPAP all night. Chest x-ray showing infiltrate in the right side slightly but better. _Congestive heart failure and fluid overload with early pulmonary edema: Still seen cardiology echocardiogram showed ejection fraction of 45 percentile with pulmonary hypertension and tricuspid regurgitation. Continue Bumex [address] n place of furosemide, eventually patient would benefit from adding spironolactone but sadly his kidney function is much worsening on diuretics and holding off on any further aggressive management for it. _Acute kidney injury with chronic kidney disease mostly into stage IV chronic kidney disease at this point still have quite hypoperfusion his bun and creatinine are quite good high does not require any hemodialysis the patient remained in advanced stage IV chronic kidney disease. _Sepsis with aspiration pneumonia: Have elevated white blood cell, elevated lactic acid, hypoxia, confusion and altered mental status the patient was initiated on IV antibiotics with his current condition have to watch for how much fluid patient can receive. _Right-sided pneumonia most likely aspiration: Has been treated aggressively for gram-negative coverage: Culture still negative so far. _A-fib with RVR: Pulse rate has improved significantly remain on metoprolol succinate 25 mg a day and anticoagulation dillon was started on Eliquis and off heparin drip. No Cardizem needed at this point. _Aortic stenosis Echocardiogram done late yesterday showed ejection fraction of 45-50 percentile suboptimal study and showed mild aortic stenosis with peak gradient of 20 mmHg and what looks like probable bicuspid aortic valve with severe calcification. No need for any surgical intervention. _Elevated troponin and possible non-ST IA, again seen cardiology echocardiogram continue to watch the trend of his troponin at this point. Cardiology do not see the need for any intervention. _Type 2 diabetes: Will titrate insulin with Lantus up to 35 unit twice a day and NovoLog up to 25 units twice a day start Farxiga as well blood sugar still high but hopefully with the change will be better as well as tomorrow will drop his Solu-Medrol to prednisone 30 mg a day which might be more helpful. _Hypertension: Was on losartan 12.5 mg daily, metoprolol succinate 25 mg a day, was still on diuretics with metolazone, furosemide and might benefit from adding spironolactone. _Possible GI bleed with acute blood loss anemia: Continue proton pump inhibitor IV, continue to watch for any further without hemoglobin watch stool for any bloody stool at this point. _Atherosclerotic heart disease post CABG in the past with seeing cardiology and has been on medical management. _Hyperlipidemia: Remain on atorvastatin 40 mg a day. _Previous history of stroke: Still have slight residual. Cannot ambulate and walk patient is bedridden. _Morbid obesity with history of obstructive sleep apnea syndrome has been on CPAP on BiPAP. Discussion: Patient is on BiPAP all night with his on 8 L of O2 during the daytime to be able to go to subacute rehab he need to be on less than 5 L which again not quite sure whether another day or 2 will help. As to the goal were looking for. He is remain full code is still seeing cardiology and pulmonary. Chest x-ray has improved compared to before. Objective - Vital Signs Vital signs: Vital Signs Temp 97.9 F 06/07/24 08:00 Pulse 90 06/07/24 09:49 Resp 20 06/07/24 08:00 BP 111/71 06/07/24 08:00 Pulse Ox 90 L 06/07/24 09:33 FiO2 50 06/07/24 04:00 Intake & Output 06/06/24 06/07/24 06/07/24 18:59 06:59 18:59 Intake Total 762 Output Total 3500 2450 700 Balance -0188 -2450 -700 Intake: Oral 762 Output: Urine 3500 2450 700 Other: Voiding Method Indwelling Catheter Indwelling Catheter - Labs CBC & Chem 7: 06/07/24 06:37 06/07/24 06:37 Labs: Abnormal Lab Results - Last 24 Hours (Table) 06/06/24 06/06/24 06/06/24 Range/Units 11:41 17:01 20:03 WBC (3.8-10.6) k/uL RBC (4.30-5.90) m/uL Hgb (13.0-17.5) gm/dL Hct (39.0-53.0) % MCHC (31.0-37.0) g/dL RDW (11.5-15.5) % Potassium (3.5-5.1) mmol/L Carbon Dioxide (22-30) mmol/L BUN (9-20) mg/dL Creatinine (0.66-1.25) mg/dL Glucose (74-99) mg/dL POC Glucose (mg/dL) 340 H 302 H 347 H (70-110) mg/dL Alkaline Phosphatase (38-126) U/L 06/07/24 06/07/24 06/07/24 Range/Units 01:56 06:17 06:37 WBC (3.8-10.6) k/uL RBC (4.30-5.90) m/uL Hgb (13.0-17.5) gm/dL Hct (39.0-53.0) % MCHC (31.0-37.0) g/dL RDW (11.5-15.5) % Potassium 5.3 H (3.5-5.1) mmol/L Carbon Dioxide 34 H (22-30) mmol/L BUN 129 H* (9-20) mg/dL Creatinine 1.90 H (0.66-1.25) mg/dL Glucose 251 H (74-99) mg/dL POC Glucose (mg/dL) 254 H 262 H (70-110) mg/dL Alkaline Phosphatase 37 L (38-126) U/L 06/07/24 Range/Units 06:37 WBC 17.9 H (3.8-10.6) k/uL RBC 3.45 L (4.30-5.90) m/uL Hgb 9.6 L (13.0-17.5) gm/dL Hct 32.8 L (39.0-53.0) % MCHC 29.3 L (31.0-37.0) g/dL RDW 19.5 H (11.5-15.5) % Potassium (3.5-5.1) mmol/L Carbon Dioxide (22-30) mmol/L BUN (9-20) mg/dL Creatinine (0.66-1.25) mg/dL Glucose (74-99) mg/dL POC Glucose (mg/dL) (70-110) mg/dL Alkaline Phosphatase (38-126) U/L Microbiology - Last 24 Hours (Table) 06/01/24 08:36 Blood Culture - Final Blood
[2024-06-07 22:07] LABS: Glucose,Whole Blood 539 mg/dL (70-110)
[2024-06-08 00:33] LABS: Glucose,Whole Blood 140 mg/dL (70-110)
[2024-06-08 03:54] LABS: Glucose,Whole Blood 122 mg/dL (70-110)
[2024-06-08 06:00] LABS: Glucose,Whole Blood 128 mg/dL (70-110)
[2024-06-08 06:36] LABS: African American GFR (CKD) 33 (>60 ml/min/1.73 sqM); Non-African American GFR(CKD) 29 (>60 ml/min/1.73 sqM)
[2024-06-08] MEDS: POTASSIUM CHLORIDE ER 20 MEQ TAB.ER PO SCH (08:10)
[2024-06-08] MEDS: methylPREDNISolone SOD SUCCI 40 MG/ML 1 ML VIAL IV SCH (09:11)
[2024-06-08 11:30] LABS: Glucose,Whole Blood 302 mg/dL (70-110)
--- NOTE | 2024-06-08 14:03 | P.PN ---
Subjective patient is seen for follow-up for acute kidney injury and chronic kidney disease. No significant complaints today. Serum creatinine staying at about 1.9-2.2 mg/dL. Diuretics on hold. Patient has an indwelling Nelson catheter. 3.9 L of urine documented for 24 hours. Objective - Vital Signs Vital signs: Vital Signs Temp 97.6 F 06/08/24 08:00 Pulse 84 06/08/24 12:43 Resp 22 06/08/24 08:00 BP 150/75 06/08/24 08:00 Pulse Ox 93 L 06/08/24 09:10 FiO2 50 06/08/24 04:51 Intake & Output 06/07/24 06/08/24 06/08/24 18:59 06:59 18:59 Intake Total 120 480 Output Total 1700 2200 500 Balance -1699 -2079 -20 Weight 192.1 kg Intake: Oral 120 480 Output: Urine 1700 2200 500 Other: Voiding Method Indwelling Catheter Indwelling Catheter Indwelling Catheter # Bowel Movements 1 1 - Exam patient is awake, comfortable, no acute distress. Examination of the heart S1 and S2 Examination of the lungs bilateral breath sounds are heard Abdomen is soft nontender Examination of lower extremities shows1+ edema - Labs CBC & Chem 7: 06/07/24 06:37 06/08/24 05:50 Labs: Abnormal Lab Results - Last 24 Hours (Table) 06/07/24 06/07/24 06/07/24 Range/Units 17:29 18:35 22:05 Creatinine (0.66-1.25) mg/dL POC Glucose (mg/dL) 200 H 229 H 539 H* (70-110) mg/dL 06/08/24 06/08/24 06/08/24 Range/Units 00:32 03:53 05:50 Creatinine 2.20 H (0.66-1.25) mg/dL POC Glucose (mg/dL) 140 H 122 H (70-110) mg/dL 06/08/24 06/08/24 Range/Units 05:58 11:28 Creatinine (0.66-1.25) mg/dL POC Glucose (mg/dL) 128 H 302 H (70-110) mg/dL Assessment and Plan Assessment: 1. Acute kidney injury secondary to ATN. Renal function stable. Creatinine 2.2 today. Elevated BUN partially from acute kidney injury and steroids. UA b enign. No hydronephrosis noted on kidney ultrasound. Left kidney was not properly visualized. 2. Chronic kidney disease stage IIIb with baseline creatinine 1.5-1.8 secondary to nephrosclerosis and cardiorenal syndrome. 3. Acute on chronic systolic CHF ejection fraction of 45 to 50% with moderate tricuspid regurgitation and pulmonary hypertension. 4. Volume overload. Improved with diuresis. 5. Coronary artery disease status post CABG. 6. Diabetes mellitus. 7. Acute hypoxic respiratory failure. Currently on 6 L nasal cannula. Plan: continue to hold diuretics. Volume status has improved. Repeat labs in a.m.
--- NOTE | 2024-06-08 15:20 | P.PN ---
Subjective Progress Note Date: 06/08/24 73-year-old with active medical history of type 2 diabetes, previous history of CVA, coronary artery disease, hypertension, obstructive sleep apnea on CPAP BiPAP, postcoronary artery bypass graft in the past, chronic history of debility and pulmonary fibrosis following COVID-19 the patient has been residing at [facility] on the [place] since, also known to have history of mild heart failure, acute kidney injury with chronic kidney disease, previous history of A-fib with RVR, and history of morbid obesity. He presented to the emergency department as a transfer from [facility] because of worsening dyspnea and shortness of breath with severe hypoxia and hypercapnia despite oxygen and updraft treatment patient did not do well and up coming to the emergency department at [facility] Was seen and evaluated white blood cell was 20,200 with left shift, creatinine is up to 1.92 with bun 77 lactic acid is 3.0 troponin was 1.76 stool occult was positive respiratory culture was negative for COVID, influenza and RSV. Blood sugar was quite bit high at 383. EKG showed atrial fibrillation with rapid ventricular response with wide QRS partially bundle branch block with pulse rate 140 beats per minutes. Chest x-ray showed consolidation of the right lung consistent with pneumonia with worsening infiltrate and pulmonary venous congestion consistent with heart failure as well. Patient could not maintain on nasal cannula oxygen required BiPAP while he was in the emergency department was diagnosed with acute respiratory failure close to be on mechanical ventilation. Pulmonary were consulted also consult cardiology with elevated troponin echocardiogram was ordered and patient was admitted to the ICU. 06/02/2024: Through the night patient remain on BiPAP did not compromise much, blood sugar remained running in the high 300, his Levemir will be switched today to 20 units twice a day remain on NovoLog 15 units AC meals plus sliding scales. Patient had an episode of diarrhea no new finding from microbiology standpoint and chest x-ray still showing significant amount of right lower side pneumonia along with vascular congestion consistent with congestive heart failure which patient has been treated for both so far. 06/03/2024: Patient still require BiPAP for the night during the daytime he does slightly better with nasal cannula and still on 2 to 3 L of O2 to keep his pulse ox above 90 percentile. Kidney function slightly bit worse does not require dialysis yet GFR is running around 27 with bun of 92. Still no finding on microbiology no sputum culture was collected at this point and his right side pneumonia is quite bit worse at the time. Pulmonary dillon continue to treat hypoxic and hypercapnic respiratory failure with BiPAP continue to deal with the fluid overload and CHF at this point also continue to deal with the aggressiveness of treating right-sided pneumonia. 06/04/2024: Still in the ICU still using BiPAP for the night. Cardiology have continue patient on IV diuretics and switch him back to Eliquis from heparin drip, his A-fib with RVR has been slightly better at this point. No need for hemodialysis yet. Kidney function slightly bit worse and may be trending into the need for hemodialysis at some point. Continue BiPAP for nighttime and continue setting on 10 L O2 higher flow for daytime continue aggressive management for his right-sided pneumonia. 06/05/2024: Patient is transferable out of the ICU today he has done well he is still on 8 L of O2 try to keep his pulse ox above 90 percentile and require BiPAP through the night but normally he does BiPAP every night part of his routine with his severe obstructive sleep apnea, his lab value with much worsening bun at 105 creatinine 2.51 with GFR slightly bit down hemoglobin remained at 10.1 does not require any transfusion. Finding with ejection fraction of 45-60 percentile on his echo with acute on chronic systolic heart failure with moderate tricuspid regurgitation and pulmonary hypertension. If patient oxygen dropped below 5 L hopefully will be able to transfer out of the ICU which again working in the detail today, the rest of his lab today including his blood sugar still mildly elevated and that she was 300 and his insulin will be switched to 35 units of Lantus twice a day and probably 25 unit of NovoLog AC meals plus sliding scales which will help his symptoms some. Not quite sure how well with his sugar manage in [place] but having to be on steroid is not helping until his methylprednisolone switched to oral prednisone and the dose is below 20 mg might find the blood sugar to be a bit high. Chest x-ray last done on 06/04 and findings still consistent with quite infiltrate in the right base with vascular congestion. 06/06/2024: Patient was transferred out of the ICU yesterday, he is remain on 6 L O2 and doing BiPAP at night with pressure of 14/8 at 50 percentile O2, he is doing slightly better, blood sugar remained quite bit high despite adjustment of his insulin last few days its about time probably to wean patient off Solu- Medrol he is down to 40 mg IV Q8 which should be by tomorrow every 12 and and prepare hopefully for oral for early this week. Despite adjustment of his insulin almost every day blood sugar still high as of today his Levemir will be increased to 40 units twice a day and NovoLog up to 28 units 3 times a day plus sliding scales. Still on aggressive management for aspiration pneumonia gram-negative pneumonia being on vancomycin and Zosyn. His blood cultures still negative so far. Patient blood pressure slightly bit higher again compared to last few days even he is on home meds will add probably hydralazine 25 mg every 8 hours for systolic above 150. Kidney function has been worsening compared to before his 1 up to 123 with creatinine 1.95 still no sign of GI bleed nephrology on adjusting his medication no need for dialysis so far. 06/07/2024: He is resting in bed pulse ox has improved slightly since yesterday, slightly but worsening kidney function specially BUN is up to 129 creatinine 0.90 still seen nephrology does not look like patient is a require any hemod ialysis at this point. Between the BiPAP for the night and a 6 to 8 L O2 daytime seems to manage well. The other dilemma that patient on higher oxygen than 5 L nasal cannula and not quite sure if they are able to manage keeping patient on BiPAP for the whole time. Otherwise laboratory value with the sodium in normal with GFR down to 34, blood sugar has responded much better down to 229 and as of tomorrow patient is steroid will be cut down more is on methylprednisolone 40 mg every 8 hours will be changed to every 12 hours and as soon as he is discharged will be on 40 mg down to 30 mg down to 20 mg and then 10 mg as a tapering dose 3 days apart. 06/08/2024, the patient is being seen for a follow-up. The patient is calm and comfortable, obese with a BMI of 64.4, resting comfortably bed. Denies having any significant respite difficulties. He is a [facility] resident. He was hospitalized for an acute on top of chronic hypoxic and hypercapnic respiratory failure attributed to fluid overload and CHF. He was also covered with antibiotics including a combination of Zosyn and vancomycin regarding his suspected pneumonia. He also sustained acute kidney injury. Note that his renal function has somewhat improved and the creatinine was down to 1.9 and this morning is up to 2.2. Most recent hemoglobin is at 9.6 with a white cell count of 17.9. The blood cultures been negative. The chest x-ray that was done on 06/06/2024 showed suboptimal findings due to his body habitus and there is some infiltration of the right lung base. The patient is currently on 8 L of oxygen by nasal cannula. IV fluids are KVO. He remains on broad-spectrum antibiotics. He remains on IV Solu-Medrol 40 mg every 12 hours. Diuretics are currently on hold. He remains on anticoagulation with Eliquis 5 mg p.o. twice a day. Remains on bronchodilators. Objective - Vital Signs Vital signs: Vital Signs Temp 97.6 F 06/08/24 08:00 Pulse 78 06/08/24 09:18 Resp 22 06/08/24 08:00 BP 150/75 06/08/24 08:00 Pulse Ox 93 L 06/08/24 09:10 FiO2 50 06/08/24 04:51 Intake & Output 06/07/24 06/08/24 06/08/24 18:59 06:59 18:59 Intake Total 120 480 Output Total 1700 2200 500 Balance -1700 -2080 -20 Weight 192.1 kg Intake: Oral 120 480 Output: Urine 1700 2200 500 Other: Voiding Method Indwelling Catheter Indwelling Catheter Indwelling Catheter # Bowel Movements 1 1 - Exam GENERAL EXAM: Alert, morbidly obese 73-year-old male, on 8 L high flow nasal cannula, in no apparent distress. HEAD: Normocephalic. EYES: Normal reaction of pupils, equal size. NOSE: Clear with pink turbinates. THROAT: No erythema or exudates. NECK: No masses, no JVD. CHEST: No chest wall deformity. LUNGS: Equal air entry with few scattered rhonchi, wheeze. CVS: S1 and S2 normal with no audible murmur, regular rhythm. ABDOMEN: No hepatosplenomegaly, normal bowel sounds, no guarding or rigidity. SPINE: No scoliosis or deformity SKIN: No rashes CENTRAL NERVOUS SYSTEM: No focal deficits, tone is normal in all 4 extremities. EXTREMITIES: There is 1+ peripheral edema. No clubbing, no cyanosis. Peripheral pulses are intact. - Labs CBC & Chem 7: 06/07/24 06:37 06/08/24 05:50 Labs: Abnormal Lab Results - Last 24 Hours (Table) 06/07/24 06/07/24 06/07/24 Range/Units 17:29 18:35 22:05 Creatinine (0.66-1.25) mg/dL POC Glucose (mg/dL) 200 H 229 H 539 H* (70-110) mg/dL 06/08/24 06/08/24 06/08/24 Range/Units 00:32 03:53 05:50 Creatinine 2.20 H (0.66-1.25) mg/dL POC Glucose (mg/dL) 140 H 122 H (70-110) mg/dL 06/08/24 06/08/24 Range/Units 05:58 11:28 Creatinine (0.66-1.25) mg/dL POC Glucose (mg/dL) 128 H 302 H (70-110) mg/dL Assessment and Plan Plan: Acute hypoxemic and hypercapnic respiratory failure, likely on the basis of fluid overload/CHF, remains on 8 L of O2 nasal cannula,, comfortable, no signs of any CO2 narcosis at this point in time Suspected pneumonia. Initial procalcitonin 0.66. Completed course of Zosyn and vancomycin Acute kidney injury, improving and the creatinine is currently at 2.2 Morbid obesity, with a history of obstructive sleep apnea syndrome Atrial fibrillation with rapid ventricular response. Anticoagulated with Eliquis non-ST segment elevation myocardial infarction History of CAD with previous bypass surgery, 2014 History of CVA History of diabetes mellitus History of gastroesophageal reflux disease History of essential hypertension History of anxiety Lifelong non-smoker Plan: Wean down the FiO2 as tolerated, currently on 8 L and the patient is typically on 5 L of O2 nasal cannula Completed vancomycin and Zosyn Repeat a procalcitonin and the follow-up level is down to 0.2 Continue bronchodilators IV Solu-Medrol Anticoagulated with Eliquis Monitor the renal function and the patient's diuretics are currently on hold Monitor renal function We will continue to follow
[2024-06-08 17:10] LABS: Glucose,Whole Blood 233 mg/dL (70-110)
[2024-06-08 20:32] LABS: Glucose,Whole Blood 178 mg/dL (70-110)
--- NOTE | 2024-06-08 21:22 | P.PN ---
Subjective Progress Note Date: 06/08/24 HISTORY OF PRESENT ILLNESS: 73-year-old with active medical history of type 2 diabetes, previous history of CVA, coronary artery disease, hypertension, obstructive sleep apnea on CPAP BiPAP, postcoronary artery bypass graft in the past, chronic history of debility and pulmonary fibrosis following COVID-19 the patient has been residing at [facility] on the [place] since, also known to have history of mild heart failure, acute kidney injury with chronic kidney disease, previous history of A-fib with RVR, and history of morbid obesity. He presented to the emergency department as a transfer from [facility] because of worsening dyspnea and shortness of breath with severe hypoxia and hypercapnia despite oxygen and updraft treatment patient did not do well and up coming to the emergency department at [facility] Was seen and evaluated white blood cell was 20,200 with left shift, creatinine is up to 1.92 with bun 77 lactic acid is 3.0 troponin was 1.76 stool occult was positive respiratory culture was negative for COVID, influenza and RSV. Blood sugar was quite bit high at 383. EKG showed atrial fibrillation with rapid ventricular response with wide QRS partially bundle branch block with pulse rate 140 beats per minutes. Chest x-ray showed consolidation of the right lung consistent with pneumonia with worsening infiltrate and pulmonary venous congestion consistent with heart failure as well. Patient could not maintain on nasal cannula oxygen required BiPAP while he was in the emergency department was diagnosed with acute respiratory failure close to be on mechanical ventilation. Pulmonary were consulted also consult cardiology with elevated troponin echocardiogram was ordered and patient was admitted to the ICU. 06/02/2024: Through the night patient remain on BiPAP did not compromise much, blood sugar remained running in the high 300, his Levemir will be switched today to 20 units twice a day remain on NovoLog 15 units AC meals plus sliding scales. Patient had an episode of diarrhea no new finding from microbiology standpoint and chest x-ray still showing significant amount of right lower side pneumonia along with vascular congestion consistent with congestive heart failure which patient has been treated for both so far. 06/03/2024: Patient still require BiPAP for the night during the daytime he does slightly better with nasal cannula and still on 2 to 3 L of O2 to keep his pulse ox above 90 percentile. Kidney function slightly bit worse does not require dialysis yet GFR is running around 27 with bun of 92. Still no finding on microbiology no sputum culture was collected at this point and his right side pneumonia is quite bit worse at the time. Pulmonary dillon continue to treat hypoxic and hypercapnic respiratory failure with BiPAP continue to deal with the fluid overload and CHF at this point also continue to deal with the aggressiveness of treating right-sided pneumonia. 06/04/2024: Still in the ICU still using BiPAP for the night. Cardiology have continue patient on IV diuretics and switch him back to Eliquis from heparin drip, his A-fib with RVR has been slightly better at this point. No need for hemodialysis yet. Kidney function slightly bit worse and may be trending into the need for hemodialysis at some point. Continue BiPAP for nighttime and continue setting on 10 L O2 higher flow for daytime continue aggressive management for his right-sided pneumonia. 06/05/2024: Patient is transferable out of the ICU today he has done well he is still on 8 L of O2 try to keep his pulse ox above 90 percentile and require BiPAP through the night but normally he does BiPAP every night part of his routine with his severe obstructive sleep apnea, his lab value with much worsening bun at 105 creatinine 2.51 with GFR slightly bit down hemoglobin remained at 10.1 does not require any transfusion. Finding with ejection fraction of 45-60 percentile on his echo with acute on chronic systolic heart failure with moderate tricuspid regurgitation and pulmonary hypertension. If patient oxygen dropped below 5 L hopefully will be able to transfer out of the ICU which again working in the detail today, the rest of his lab today including his blood sugar still mildly elevated and that she was 300 and his insulin will be switched to 35 units of Lantus twice a day and probably 25 unit of NovoLog AC meals plus sliding scales which will help his symptoms some. Not quite sure how well with his sugar manage in [place] but having to be on steroid is not helping until his methylprednisolone switched to oral prednisone and the dose is below 20 mg might find the blood sugar to be a bit high. Chest x-ray last done on 06/04 and findings still consistent with quite infiltrate in the right base with vascular congestion. 06/06/2024: Patient was transferred out of the ICU yesterday, he is remain on 6 L O2 and doing BiPAP at night with pressure of 14/8 at 50 percentile O2, he is doing slightly better, blood sugar remained quite bit high despite adjustment of his insulin last few days its about time probably to wean patient off Solu- Medrol he is down to 40 mg IV Q8 which should be by tomorrow every 12 and and prepare hopefully for oral for early this week. Despite adjustment of his insulin almost every day blood sugar still high as of today his Levemir will be increased to 40 units twice a day and NovoLog up to 28 units 3 times a day plus sliding scales. Still on aggressive management for aspiration pneumonia gram-negative pneumonia being on vancomycin and Zosyn. His blood cultures still negative so far. Patient blood pressure slightly bit higher again compared to last few days even he is on home meds will add probably hydralazine 25 mg every 8 hours for systolic above 150. Kidney function has been worsening compared to before his 1 up to 123 with creatinine 1.95 still no sign of GI bleed nephrology on adjusting his medication no need for dialysis so far. 06/07/2024: He is resting in bed pulse ox has improved slightly since yesterday, slightly but worsening kidney function specially BUN is up to 129 creatinine 0.90 still seen nephrology does not look like patient is a require any hemodialysis at this point. Between the BiPAP for the night and a 6 to 8 L O2 daytime seems to manage well. The other dilemma that patient on higher oxygen than 5 L nasal cannula and not quite sure if they are able to manage keeping patient on BiPAP for the whole time. Otherwise laboratory value with the sodium in normal with GFR down to 34, blood sugar has responded much better down to 229 and as of tomorrow patient is steroid will be cut down more is on methylprednisolone 40 mg every 8 hours will be changed to every 12 hours and as soon as he is discharged will be on 40 mg down to 30 mg down to 20 mg and then 10 mg as a tapering dose 3 days apart. 06/08/2024: Patient remained on BiPAP for the night but still on higher flow O2 up to 8 L daytime which based on being on it would not be able to go to any short-term rehab till his oxygen is below 5 L. Remain on antibiotic between Zosyn and vancomycin for right-sided pneumonia which seem to control his symptoms better I hope getting patient at least 1 more day might benefit hypoxia significantly and allow him to go back to senior living thanks. Other complication related to his current condition but vitals have been stable with pulse ox 92 percentile in 5 L. Blood pressure is well-controlled. Last chest x-ray from the 12th. REVIEW OF SYSTEMS: CONSTITUTIONAL: Morbidly obese in acute respiratory distress. EYES: No icterus sclerae, no conjunctivitis. EARS, NOSE, MOUTH, THROAT, and FACE: No sore throat, lymphadenopathy, carotid bruits or deformity. RESPIRATORY: Positive shortness of breath cough and wheezes. CARDIOVASCULAR: Positive PND orthopnea palpitation. GASTROINTESTINAL: Slight abdominal discomfort with nausea positive diarrhea with black stool. Or constipation, No GI Bleed, no distention or masses. GENITOURINARY: Decreased urine output without hematuria. INTEGUMENT/BREAST: Negative for any muscular injury with mild osteoarthritis.. HEMATOLOGIC/LYMPHATIC: Negative for bleed or purpura. MUSCULOSKELTAL: Generalized arthralgia and myalgia. NEURLOGICAL: No LOC, Sz or syncope, blurred vision dizziness or abnormality.. Positive weakness on the right side. BEHAVIORAL/PSYCH: Negative. ENDOCRINE: Negative. PHYSICAL EXAMINATION: General Appearance: Morbidly obese in acute respiratory distress. Neck HEENT: Supple, no lymphadenopathy, no thyroid enlargement, no carotid bruits. Lungs: Decreased breath sound bilaterally especially the right side with positive fine rhonchi crackles and mild expiratory expiratory wheezes worse in the right base than the left side. Chest Wall: Decreased expansion with deep inspiration no tenderness and no deformity was found on exam, no costochondral pain or discomfort. Heart: Irregular rate and rhythm, S1, S2 positive systolic murmur in the apex radiating toward the right second costal space. Back: Symmetric, no curvature, ROM normal, no CVA tenderness. Abdomen: Soft, non-tender, bowel sounds active all four quadrants, no masses, no organomegaly. Extremities: Generalized discoloration specially the lower part of the leg with 2+ edema decreased pulse bilaterally. Pulses: 2+ and symmetric. Skin: Skin color, texture, tugor normal, no rashes or lesions. Neurologic: Alert oriented with slight confusion cranial nerves II through XII intact, worsening weakness in the right than the left side. ASSESSMENT AND PLAN: _Acute respiratory failure: Mostly secondary to right-sided pneumonia along with COPD and heart failure with fluid overload, he is to continue 8 L of O2 daytime and BiPAP all night. Chest x-ray showing infiltrate in the right side slightly but better. With oxygen still at 80 per patient cannot go to short-term rehab at this point. _Congestive heart failure and fluid overload with early pulmonary edema: Still seen cardiology echocardiogram showed ejection fraction of 45 percentile with pulmonary hypertension and tricuspid regurgitation. Continue Bumex [address] of furosemide, eventually patient would benefit from adding spironolactone but sadly his kidney function is much worsening on diuretics and holding off on any further aggressive management for it. _Acute kidney injury with chronic kidney disease mostly into stage IV chronic kidney disease at this point still have quite hypoperfusion his bun and creatinine are quite good high does not require any hemodialysis the patient remained in advanced stage IV chronic kidney disease. _Sepsis with aspiration pneumonia: Have elevated white blood cell, elevated lactic acid, hypoxia, confusion and altered mental status the patient was initiated on IV antibiotics with his current condition have to watch for how much fluid patient can receive. _Right-sided pneumonia most likely aspiration: Has been treated aggressively for gram-negative coverage: Culture still negative so far. _A-fib with RVR: Pulse rate has improved significantly remain on metoprolol succinate 25 mg a day and anticoagulation dillon was started on Eliquis and off heparin drip. No Cardizem needed at this point. _Aortic stenosis Echocardiogram done late yesterday showed ejection fraction of 45-50 percentile suboptimal study and showed mild aortic stenosis with peak gradient of 20 mmHg and what looks like probable bicuspid aortic valve with severe calcification. No need for any surgical intervention. _Elevated troponin and possible non-ST NE, again seen cardiology echocardiogram continue to watch the trend of his troponin at this point. Cardiology do not see the need for any intervention. _Type 2 diabetes: Will titrate insulin with Lantus up to 35 unit twice a day and NovoLog up to 25 units twice a day start Farxiga as well blood sugar still high but hopefully with the change will be better as well as tomorrow will drop his Solu-Medrol to prednisone 30 mg a day which might be more helpful. _Hypertension: Was on losartan 12.5 mg daily, metoprolol succinate 25 mg a day, was still on diuretics with metolazone, furosemide and might benefit from adding spironolactone. _Possible GI bleed with acute blood loss anemia: Continue proton pump inhibitor IV, continue to watch for any further without hemoglobin watch stool for any bloody stool at this point. _Atherosclerotic heart disease post CABG in the past with seeing cardiology and has been on medical management. _Hyperlipidemia: Remain on atorvastatin 40 mg a day. _Previous history of stroke: Still have slight residual. Cannot ambulate and walk patient is bedridden. _Morbid obesity with history of obstructive sleep apnea syndrome has been on CPAP on BiPAP. Discussion: Continue BiPAP for 1 night and 8442 for the day, still seen infectious disease. This is medication also still seen pulmonary the patient alternative plan obviously to improve and be able to go to SH[facility]TERM [facility] AT [facility] AND FROM THERE into [facility] in the next day or 2. Objective - Vital Signs Vital signs: Vital Signs Temp 97.8 F 06/08/24 00:00 Pulse 84 06/08/24 04:51 Resp 23 06/08/24 02:00 BP 147/87 06/08/24 00:00 Pulse Ox 98 06/08/24 00:00 FiO2 50 06/08/24 04:51 Intake & Output 06/07/24 06/07/24 06/08/24 06:59 18:59 06:59 Intake Total 120 Output Total 2450 1700 2200 Balance -2450 -1700 -2080 Weight 192.1 kg Intake: Oral 120 Output: Urine 2450 1700 2200 Other: Voiding Method Indwelling Catheter Indwelling Catheter Indwelling Catheter # Bowel Movements 1 1 - Labs CBC & Chem 7: 06/07/24 06:37 06/08/24 05:50 Labs: Abnormal Lab Results - Last 24 Hours (Table) 06/07/24 06/07/24 06/07/24 Range/Units 06:17 06:37 06:37 WBC 17.9 H (3.8-10.6) k/uL RBC 3.45 L (4.30-5.90) m/uL Hgb 9.6 L (13.0-17.5) gm/dL Hct 32.8 L (39.0-53.0) % MCHC 29.3 L (31.0-37.0) g/dL RDW 19.5 H (11.5-15.5) % Potassium 5.3 H (3.5-5.1) mmol/L Carbon Dioxide 34 H (22-30) mmol/L BUN 129 H* (9-20) mg/dL Creatinine 1.90 H (0.66-1.25) mg/dL Glucose 251 H (74-99) mg/dL POC Glucose (mg/dL) 262 H (70-110) mg/dL Alkaline Phosphatase 37 L (38-126) U/L 06/07/24 06/07/24 06/07/24 Range/Units 11:59 17:29 18:35 WBC (3.8-10.6) k/uL RBC (4.30-5.90) m/uL Hgb (13.0-17.5) gm/dL Hct (39.0-53.0) % MCHC (31.0-37.0) g/dL RDW (11.5-15.5) % Potassium (3.5-5.1) mmol/L Carbon Dioxide (22-30) mmol/L BUN (9-20) mg/dL Creatinine (0.66-1.25) mg/dL Glucose (74-99) mg/dL POC Glucose (mg/dL) 268 H 200 H 229 H (70-110) mg/dL Alkaline Phosphatase (38-126) U/L 06/07/24 06/08/24 06/08/24 Range/Units 22:05 00:32 03:53 WBC (3.8-10.6) k/uL RBC (4.30-5.90) m/uL Hgb (13.0-17.5) gm/dL Hct (39.0-53.0) % MCHC (31.0-37.0) g/dL RDW (11.5-15.5) % Potassium (3.5-5.1) mmol/L Carbon Dioxide (22-30) mmol/L BUN (9-20) mg/dL Creatinine (0.66-1.25) mg/dL Glucose (74-99) mg/dL POC Glucose (mg/dL) 539 H* 140 H 122 H (70-110) mg/dL Alkaline Phosphatase (38-126) U/L
[2024-06-09 02:03] LABS: Glucose,Whole Blood 110 mg/dL (70-110)
[2024-06-09 05:54] LABS: Glucose,Whole Blood 136 mg/dL (70-110)
[2024-06-09 06:48] VITALS: BMI 64.3
[2024-06-09 08:46] LABS: Anisocytosis Moderate; HCT 30.9 % (39.0-53.0); HGB 8.7 gm/dL (13.0-17.5); Hypochromasia Marked; MCH 27.6 pg (25.0-35.0); MCV 98.5 fL (80.0-100.0); Macrocytosis Moderate; Mean Platelet Volume 8.7; Platelet Count 259 k/uL (150-450); RBC 3.13 m/uL (4.30-5.90); RDW 20.8 % (11.5-15.5); WBC 17.2 k/uL (3.8-10.6)
[2024-06-09 08:58] LABS: ALT 35 U/L (4-49); AST 34 U/L (17-59); African American GFR (CKD) 47 (>60 ml/min/1.73 sqM); Albumin 3.2 g/dL (3.5-5.0); Alkaline Phosphatase 33 U/L (38-126); Anion Gap 5 mmol/L; Calcium 9.1 mg/dL (8.4-10.2); Carbon Dioxide 38 mmol/L (22-30); Chloride 104 mmol/L (98-107); Glucose 101 mg/dL (74-99); Non-African American GFR(CKD) 41 (>60 ml/min/1.73 sqM); Potassium 4.5 mmol/L (3.5-5.1); Sodium 147 mmol/L (137-145); Total Bilirubin 0.6 mg/dL (0.2-1.3)
[2024-06-09 09:07] LABS: Blood Urea Nitrogen 120 mg/dL (9-20)
[2024-06-09 11:39] LABS: Glucose,Whole Blood 127 mg/dL (70-110)
[2024-06-09] MEDS: DEXTROSE 5% IN WATER 1,000 ML IV SCH (13:09)
--- NOTE | 2024-06-09 14:56 | P.PN ---
Subjective Progress Note Date: 06/09/24 73-year-old with active medical history of type 2 diabetes, previous history of CVA, coronary artery disease, hypertension, obstructive sleep apnea on CPAP BiPAP, postcoronary artery bypass graft in the past, chronic history of debility and pulmonary fibrosis following COVID-19 the patient has been residing at [facility] on the [place] since, also known to have history of mild heart failure, acute kidney injury with chronic kidney disease, previous history of A-fib with RVR, and history of morbid obesity. He presented to the emergency department as a transfer from [facility] because of worsening dyspnea and shortness of breath with severe hypoxia and hypercapnia despite oxygen and updraft treatment patient did not do well and up coming to the emergency department at [facility] Was seen and evaluated white blood cell was 20,200 with left shift, creatinine is up to 1.92 with bun 77 lactic acid is 3.0 troponin was 1.76 stool occult was positive respiratory culture was negative for COVID, influenza and RSV. Blood sugar was quite bit high at 383. EKG showed atrial fibrillation with rapid ventricular response with wide QRS partially bundle branch block with pulse rate 140 beats per minutes. Chest x-ray showed consolidation of the right lung consistent with pneumonia with worsening infiltrate and pulmonary venous congestion consistent with heart failure as well. Patient could not maintain on nasal cannula oxygen required BiPAP while he was in the emergency department was diagnosed with acute respiratory failure close to be on mechanical ventilation. Pulmonary were consulted also consult cardiology with elevated troponin echocardiogram was ordered and patient was admitted to the ICU. 06/02/2024: Through the night patient remain on BiPAP did not compromise much, blood sugar remained running in the high 300, his Levemir will be switched today to 20 units twice a day remain on NovoLog 15 units AC meals plus sliding scales. Patient had an episode of diarrhea no new finding from microbiology standpoint and chest x-ray still showing significant amount of right lower side pneumonia along with vascular congestion consistent with congestive heart failure which patient has been treated for both so far. 06/03/2024: Patient still require BiPAP for the night during the daytime he does slightly better with nasal cannula and still on 2 to 3 L of O2 to keep his pulse ox above 90 percentile. Kidney function slightly bit worse does not require dialysis yet GFR is running around 27 with bun of 92. Still no finding on microbiology no sputum culture was collected at this point and his right side pneumonia is quite bit worse at the time. Pulmonary dillon continue to treat hypoxic and hypercapnic respiratory failure with BiPAP continue to deal with the fluid overload and CHF at this point also continue to deal with the aggressiveness of treating right-sided pneumonia. 06/04/2024: Still in the ICU still using BiPAP for the night. Cardiology have continue patient on IV diuretics and switch him back to Eliquis from heparin drip, his A-fib with RVR has been slightly better at this point. No need for hemodialysis yet. Kidney function slightly bit worse and may be trending into the need for hemodialysis at some point. Continue BiPAP for nighttime and continue setting on 10 L O2 higher flow for daytime continue aggressive management for his right-sided pneumonia. 06/05/2024: Patient is transferable out of the ICU today he has done well he is still on 8 L of O2 try to keep his pulse ox above 90 percentile and require BiPAP through the night but normally he does BiPAP every night part of his routine with his severe obstructive sleep apnea, his lab value with much worsening bun at 105 creatinine 2.51 with GFR slightly bit down hemoglobin remained at 10.1 does not require any transfusion. Finding with ejection fraction of 45-60 percentile on his echo with acute on chronic systolic heart failure with moderate tricuspid regurgitation and pulmonary hypertension. If patient oxygen dropped below 5 L hopefully will be able to transfer out of the ICU which again working in the detail today, the rest of his lab today including his blood sugar still mildly elevated and that she was 300 and his insulin will be switched to 35 units of Lantus twice a day and probably 25 unit of NovoLog AC meals plus sliding scales which will help his symptoms some. Not quite sure how well with his sugar manage in [place] but having to be on steroid is not helping until his methylprednisolone switched to oral prednisone and the dose is below 20 mg might find the blood sugar to be a bit high. Chest x-ray last done on 06/04 and findings still consistent with quite infiltrate in the right base with vascular congestion. 06/06/2024: Patient was transferred out of the ICU yesterday, he is remain on 6 L O2 and doing BiPAP at night with pressure of 14/8 at 50 percentile O2, he is doing slightly better, blood sugar remained quite bit high despite adjustment of his insulin last few days its about time probably to wean patient off Solu- Medrol he is down to 40 mg IV Q8 which should be by tomorrow every 12 and and prepare hopefully for oral for early this week. Despite adjustment of his insulin almost every day blood sugar still high as of today his Levemir will be increased to 40 units twice a day and NovoLog up to 28 units 3 times a day plus sliding scales. Still on aggressive management for aspiration pneumonia gram-negative pneumonia being on vancomycin and Zosyn. His blood cultures still negative so far. Patient blood pressure slightly bit higher again compared to last few days even he is on home meds will add probably hydralazine 25 mg every 8 hours for systolic above 150. Kidney function has been worsening compared to before his 1 up to 123 with creatinine 1.95 still no sign of GI bleed nephrology on adjusting his medication no need for dialysis so far. 06/07/2024: He is resting in bed pulse ox has improved slightly since yesterday, slightly but worsening kidney function specially BUN is up to 129 creatinine 0.90 still seen nephrology does not look like patient is a require any hemod ialysis at this point. Between the BiPAP for the night and a 6 to 8 L O2 daytime seems to manage well. The other dilemma that patient on higher oxygen than 5 L nasal cannula and not quite sure if they are able to manage keeping patient on BiPAP for the whole time. Otherwise laboratory value with the sodium in normal with GFR down to 34, blood sugar has responded much better down to 229 and as of tomorrow patient is steroid will be cut down more is on methylprednisolone 40 mg every 8 hours will be changed to every 12 hours and as soon as he is discharged will be on 40 mg down to 30 mg down to 20 mg and then 10 mg as a tapering dose 3 days apart. 06/08/2024, the patient is being seen for a follow-up. The patient is calm and comfortable, obese with a BMI of 64.4, resting comfortably bed. Denies having any significant respite difficulties. He is a retirement resident. He was hospitalized for an acute on top of chronic hypoxic and hypercapnic respiratory failure attributed to fluid overload and CHF. He was also covered with antibiotics including a combination of Zosyn and vancomycin regarding his suspected pneumonia. He also sustained acute kidney injury. Note that his renal function has somewhat improved and the creatinine was down to 1.9 and this morning is up to 2.2. Most recent hemoglobin is at 9.6 with a white cell count of 17.9. The blood cultures been negative. The chest x-ray that was done on 06/06/2024 showed suboptimal findings due to his body habitus and there is some infiltration of the right lung base. The patient is currently on 8 L of oxygen by nasal cannula. IV fluids are KVO. He remains on broad-spectrum antibiotics. He remains on IV Solu-Medrol 40 mg every 12 hours. Diuretics are currently on hold. He remains on anticoagulation with Eliquis 5 mg p.o. twice a day. Remains on bronchodilators. On 06/09/2024, the patient is being seen for a follow-up. The patient is morbidly obese and he is utilizing a BiPAP during sleep. While awake, the patient has been transitioned to 5 L of oxygen by nasal cannula. Less bronchosp astic and wheezy compared to yesterday the patient has been kept on Solu-Medrol 40 mg every 12 hours in addition to DuoNeb nebulizer treatments [id number]. Remains on anticoagulation with Eliquis. Remains on metoprolol 50 mg p.o. twice a day and Levemir insulin 40 units daily in the sliding scale coverage. The BUN is 120 with a creatinine of 1.6 and the patient is not receiving any diuretics. There is improved renal function compared to yesterday. Sodium levels at 147. Serum bicarb is at 38. The patient's white cell count is 17.2 with a hemoglobin of 8.7. Awake and alert and communicating and there is no signs of any CO2 narcosis at this point in time. Objective - Vital Signs Vital signs: Vital Signs Temp 98.4 F 06/09/24 10:40 Pulse 86 06/09/24 10:40 Resp 20 06/09/24 10:40 BP 118/75 06/09/24 10:40 Pulse Ox 99 06/09/24 10:40 FiO2 50 06/09/24 05:03 Intake & Output 06/08/24 06/09/24 06/09/24 18:59 06:59 18:59 Intake Total 980 0 240 Output Total 500 1800 Balance 480 -1800 240 Weight 192 kg Intake: IV 20 0.9 at KVO 20 Oral 960 0 240 Output: Urine 500 1800 Other: Voiding Method Indwelling Catheter Indwelling Catheter Indwelling Catheter # Bowel Movements 1 - Exam GENERAL EXAM: Alert, morbidly obese 73-year-old male, on 5 L high flow nasal cannula, in no apparent distress. HEAD: Normocephalic. EYES: Normal reaction of pupils, equal size. NOSE: Clear with pink turbinates. THROAT: No erythema or exudates. NECK: No masses, no JVD. CHEST: No chest wall deformity. LUNGS: Equal air entry with few scattered rhonchi, wheeze. CVS: S1 and S2 normal with no audible murmur, regular rhythm. ABDOMEN: No hepatosplenomegaly, normal bowel sounds, no guarding or rigidity. SPINE: No scoliosis or deformity SKIN: No rashes CENTRAL NERVOUS SYSTEM: No focal deficits, tone is normal in all 4 extremities. EXTREMITIES: There is 1+ peripheral edema. No clubbing, no cyanosis. Peripheral pulses are intact. - Labs CBC & Chem 7: 06/09/24 08:26 06/09/24 08:26 Labs: Abnormal Lab Results - Last 24 Hours (Table) 06/08/24 06/08/24 06/09/24 Range/Units 17:03 20:27 05:52 WBC (3.8-10.6) k/uL RBC (4.30-5.90) m/uL Hgb (13.0-17.5) gm/dL Hct (39.0-53.0) % MCHC (31.0-37.0) g/dL RDW (11.5-15.5) % Sodium (137-145) mmol/L Carbon Dioxide (22-30) mmol/L BUN (9-20) mg/dL Creatinine (0.66-1.25) mg/dL Glucose (74-99) mg/dL POC Glucose (mg/dL) 233 H 178 H 136 H (70-110) mg/dL Alkaline Phosphatase (38-126) U/L Total Protein (6.3-8.2) g/dL Albumin (3.5-5.0) g/dL 06/09/24 06/09/24 Range/Units 08:26 08:26 WBC 17.2 H (3.8-10.6) k/uL RBC 3.13 L (4.30-5.90) m/uL Hgb 8.7 L (13.0-17.5) gm/dL Hct 30.9 L (39.0-53.0) % MCHC 28.0 L (31.0-37.0) g/dL RDW 20.8 H (11.5-15.5) % Sodium 147 H (137-145) mmol/L Carbon Dioxide 38 H (22-30) mmol/L BUN 120 H* (9-20) mg/dL Creatinine 1.66 H (0.66-1.25) mg/dL Glucose 101 H (74-99) mg/dL POC Glucose (mg/dL) (70-110) mg/dL Alkaline Phosphatase 33 L (38-126) U/L Total Protein 6.0 L (6.3-8.2) g/dL Albumin 3.2 L (3.5-5.0) g/dL Assessment and Plan Plan: Acute hypoxemic and hypercapnic respiratory failure, likely on the basis of fluid overload/CHF, remains on 5 L of O2 nasal cannula,, comfortable, no signs of any CO2 narcosis at this point in time, and the patient utilizing a BiPAP during sleep. Suspected pneumonia. Initial procalcitonin 0.66. Completed course of Zosyn and vancomycin Acute kidney injury, improving Hyperchloremic hypernatremia, creatinine is improving Morbid obesity, with a history of obstructive sleep apnea syndrome Atrial fibrillation with rapid ventricular response. Anticoagulated with Eliquis non-ST segment elevation myocardial infarction History of CAD with previous bypass surgery, 2014 History of CVA History of diabetes mellitus History of gastroesophageal reflux disease History of essential hypertension History of anxiety Lifelong non-smoker Plan: Wean down the FiO2 as tolerated, currently on 5 L and the patient is typically on 5 L of O2 nasal cannula Utilized BiPAP during sleep Completed vancomycin and Zosyn Repeat a procalcitonin and the follow-up level is down to 0.2 Continue bronchodilators IV Solu-Medrol for another 24 hours Anticoagulated with Eliquis Monitor the renal function and the patient's diuretics are currently on hold Start D5 water at rate of 50 cc an hour' monitor electrolytes Monitor renal function We will continue to follow
[2024-06-09 16:36] LABS: Glucose,Whole Blood 170 mg/dL (70-110)
--- NOTE | 2024-06-09 17:09 | P.PN ---
Subjective patient is seen for follow-up for acute kidney injury and chronic kidney disease. No significant complaints today. Serum creatinine staying at about 1.9-2.2 mg/dL. Diuretics on hold. Patient has an indwelling Nelson catheter. 2.3 L of urine documented for 24 hours. Serum creatinine decreased to 1.6 today and BUN is decreased to 120 Objective - Vital Signs Vital signs: Vital Signs Temp 98.4 F 06/09/24 10:40 Pulse 84 06/09/24 16:15 Resp 20 06/09/24 14:00 BP 123/73 06/09/24 16:00 Pulse Ox 90 L 06/09/24 16:00 FiO2 50 06/09/24 05:03 Intake & Output 06/08/24 06/09/24 06/09/24 18:59 06:59 18:59 Intake Total 980 0 1560 Output Total 500 1800 1000 Balance 480 -1800 560 Weight 192 kg Intake: IV 20 0.9 at KVO 20 Oral 960 0 1560 Output: Urine 500 1800 1000 Other: Voiding Method Indwelling Catheter Indwelling Catheter Indwelling Catheter # Bowel Movements 1 - Exam patient is awake, comfortable, no acute distress. Examination of the heart S1 and S2 Examination of the lungs bilateral breath sounds are heard Abdomen is soft nontender Examination of lower extremities shows1+ edema - Labs CBC & Chem 7: 06/09/24 08:26 06/09/24 08:26 Labs: Abnormal Lab Results - Last 24 Hours (Table) 06/08/24 06/08/24 06/09/24 Range/Units 17:03 20:27 05:52 WBC (3.8-10.6) k/uL RBC (4.30-5.90) m/uL Hgb (13.0-17.5) gm/dL Hct (39.0-53.0) % MCHC (31.0-37.0) g/dL RDW (11.5-15.5) % Sodium (137-145) mmol/L Carbon Dioxide (22-30) mmol/L BUN (9-20) mg/dL Creatinine (0.66-1.25) mg/dL Glucose (74-99) mg/dL POC Glucose (mg/dL) 233 H 178 H 136 H (70-110) mg/dL Alkaline Phosphatase (38-126) U/L Total Protein (6.3-8.2) g/dL Albumin (3.5-5.0) g/dL 06/09/24 06/09/24 06/09/24 Range/Units 08:26 08:26 11:36 WBC 17.2 H (3.8-10.6) k/uL RBC 3.13 L (4.30-5.90) m/uL Hgb 8.7 L (13.0-17.5) gm/dL Hct 30.9 L (39.0-53.0) % MCHC 28.0 L (31.0-37.0) g/dL RDW 20.8 H (11.5-15.5) % Sodium 147 H (137-145) mmol/L Carbon Dioxide 38 H (22-30) mmol/L BUN 120 H* (9-20) mg/dL Creatinine 1.66 H (0.66-1.25) mg/dL Glucose 101 H (74-99) mg/dL POC Glucose (mg/dL) 127 H (70-110) mg/dL Alkaline Phosphatase 33 L (38-126) U/L Total Protein 6.0 L (6.3-8.2) g/dL Albumin 3.2 L (3.5-5.0) g/dL 06/09/24 Range/Units 16:34 WBC (3.8-10.6) k/uL RBC (4.30-5.90) m/uL Hgb (13.0-17.5) gm/dL Hct (39.0-53.0) % MCHC (31.0-37.0) g/dL RDW (11.5-15.5) % Sodium (137-145) mmol/L Carbon Dioxide (22-30) mmol/L BUN (9-20) mg/dL Creatinine (0.66-1.25) mg/dL Glucose (74-99) mg/dL POC Glucose (mg/dL) 170 H (70-110) mg/dL Alkaline Phosphatase (38-126) U/L Total Protein (6.3-8.2) g/dL Albumin (3.5-5.0) g/dL Assessment and Plan Assessment: 1. Acute kidney injury secondary to ATN. Renal function has improved. Serum creatinine 1.6 today. Steroids contributing to disproportionately elevated BUN. UA benign. No hydronephrosis noted on kidney ultrasound. Left kidney was not properly visualized. 2. Chronic kidney disease stage IIIb with baseline creatinine 1.5-1.8 secondary to nephrosclerosis and cardiorenal syndrome. 3. Acute on chronic systolic CHF ejection fraction of 45 to 50% with moderate tricuspid regurgitation and pulmonary hypertension. 4. Volume overload. Improved with diuresis. 5. Coronary artery disease status post CABG. 6. Diabetes mellitus. 7. Acute hypoxic respiratory failure. Currently on 5 L nasal cannula. 8. Mild hypernatremia, started on D5W Plan: continue to hold diuretics. Continue D5W Volume status has improved. Repeat labs in a.m.
[2024-06-09 19:47] LABS: Glucose,Whole Blood 193 mg/dL (70-110)
[2024-06-10 02:12] LABS: Glucose,Whole Blood 169 mg/dL (70-110)
[2024-06-10 05:22] LABS: Glucose,Whole Blood 215 mg/dL (70-110)
--- NOTE | 2024-06-10 06:01 | P.PN ---
Subjective Progress Note Date: 06/09/24 HISTORY OF PRESENT ILLNESS: 73-year-old with active medical history of type 2 diabetes, previous history of CVA, coronary artery disease, hypertension, obstructive sleep apnea on CPAP BiPAP, postcoronary artery bypass graft in the past, chronic history of debility and pulmonary fibrosis following COVID-19 the patient has been residing at [facility] on the [place] since, also known to have history of mild heart failure, acute kidney injury with chronic kidney disease, previous history of A-fib with RVR, and history of morbid obesity. He presented to the emergency department as a transfer from [facility] because of worsening dyspnea and shortness of breath with severe hypoxia and hypercapnia despite oxygen and updraft treatment patient did not do well and up coming to the emergency department at [facility] Was seen and evaluated white blood cell was 20,200 with left shift, creatinine is up to 1.92 with bun 77 lactic acid is 3.0 troponin was 1.76 stool occult was positive respiratory culture was negative for COVID, influenza and RSV. Blood sugar was quite bit high at 383. EKG showed atrial fibrillation with rapid ventricular response with wide QRS partially bundle branch block with pulse rate 140 beats per minutes. Chest x-ray showed consolidation of the right lung consistent with pneumonia with worsening infiltrate and pulmonary venous congestion consistent with heart failure as well. Patient could not maintain on nasal cannula oxygen required BiPAP while he was in the emergency department was diagnosed with acute respiratory failure close to be on mechanical ventilation. Pulmonary were consulted also consult cardiology with elevated troponin echocardiogram was ordered and patient was admitted to the ICU. 06/02/2024: Through the night patient remain on BiPAP did not compromise much, blood sugar remained running in the high 300, his Levemir will be switched today to 20 units twice a day remain on NovoLog 15 units AC meals plus sliding scales. Patient had an episode of diarrhea no new finding from microbiology standpoint and chest x-ray still showing significant amount of right lower side pneumonia along with vascular congestion consistent with congestive heart failure which patient has been treated for both so far. 06/03/2024: Patient still require BiPAP for the night during the daytime he does slightly better with nasal cannula and still on 2 to 3 L of O2 to keep his pulse ox above 90 percentile. Kidney function slightly bit worse does not require dialysis yet GFR is running around 27 with bun of 92. Still no finding on microbiology no sputum culture was collected at this point and his right side pneumonia is quite bit worse at the time. Pulmonary dillon continue to treat hypoxic and hypercapnic respiratory failure with BiPAP continue to deal with the fluid overload and CHF at this point also continue to deal with the aggressiveness of treating right-sided pneumonia. 06/04/2024: Still in the ICU still using BiPAP for the night. Cardiology have continue patient on IV diuretics and switch him back to Eliquis from heparin drip, his A-fib with RVR has been slightly better at this point. No need for hemodialysis yet. Kidney function slightly bit worse and may be trending into the need for hemodialysis at some point. Continue BiPAP for nighttime and continue setting on 10 L O2 higher flow for daytime continue aggressive management for his right-sided pneumonia. 06/05/2024: Patient is transferable out of the ICU today he has done well he is still on 8 L of O2 try to keep his pulse ox above 90 percentile and require BiPAP through the night but normally he does BiPAP every night part of his routine with his severe obstructive sleep apnea, his lab value with much worsening bun at 105 creatinine 2.51 with GFR slightly bit down hemoglobin remained at 10.1 does not require any transfusion. Finding with ejection fraction of 45-60 percentile on his echo with acute on chronic systolic heart failure with moderate tricuspid regurgitation and pulmonary hypertension. If patient oxygen dropped below 5 L hopefully will be able to transfer out of the ICU which again working in the detail today, the rest of his lab today including his blood sugar still mildly elevated and that she was 300 and his insulin will be switched to 35 units of Lantus twice a day and probably 25 unit of NovoLog AC meals plus sliding scales which will help his symptoms some. Not quite sure how well with his sugar manage in [place] but having to be on steroid is not helping until his methylprednisolone switched to oral prednisone and the dose is below 20 mg might find the blood sugar to be a bit high. Chest x-ray last done on 06/04 and findings still consistent with quite infiltrate in the right base with vascular congestion. 06/06/2024: Patient was transferred out of the ICU yesterday, he is remain on 6 L O2 and doing BiPAP at night with pressure of 14/8 at 50 percentile O2, he is doing slightly better, blood sugar remained quite bit high despite adjustment of his insulin last few days its about time probably to wean patient off Solu- Medrol he is down to 40 mg IV Q8 which should be by tomorrow every 12 and and prepare hopefully for oral for early this week. Despite adjustment of his insulin almost every day blood sugar still high as of today his Levemir will be increased to 40 units twice a day and NovoLog up to 28 units 3 times a day plus sliding scales. Still on aggressive management for aspiration pneumonia gram-negative pneumonia being on vancomycin and Zosyn. His blood cultures still negative so far. Patient blood pressure slightly bit higher again compared to last few days even he is on home meds will add probably hydralazine 25 mg every 8 hours for systolic above 150. Kidney function has been worsening compared to before his 1 up to 123 with creatinine 1.95 still no sign of GI bleed nephrology on adjusting his medication no need for dialysis so far. 06/07/2024: He is resting in bed pulse ox has improved slightly since yesterday, slightly but worsening kidney function specially BUN is up to 129 creatinine 0.90 still seen nephrology does not look like patient is a require any hemodialysis at this point. Between the BiPAP for the night and a 6 to 8 L O2 daytime seems to manage well. The other dilemma that patient on higher oxygen than 5 L nasal cannula and not quite sure if they are able to manage keeping patient on BiPAP for the whole time. Otherwise laboratory value with the sodium in normal with GFR down to 34, blood sugar has responded much better down to 229 and as of tomorrow patient is steroid will be cut down more is on methylprednisolone 40 mg every 8 hours will be changed to every 12 hours and as soon as he is discharged will be on 40 mg down to 30 mg down to 20 mg and then 10 mg as a tapering dose 3 days apart. 06/08/2024: Patient remained on BiPAP for the night but still on higher flow O2 up to 8 L daytime which based on being on it would not be able to go to any short-term rehab till his oxygen is below 5 L. Remain on antibiotic between Zosyn and vancomycin for right-sided pneumonia which seem to control his symptoms better I hope getting patient at least 1 more day might benefit hypoxia significantly and allow him to go back to senior living thanks. Other complication related to his current condition but vitals have been stable with pulse ox 92 percentile in 5 L. Blood pressure is well-controlled. Last chest x-ray from the 12th. 06/09/2024: Patient is patient is off BiPAP for the night he was placed on 6 to 8 L O2, brought it down to 5 hoping that pulse ox will be maintained above 90 percentile patient does plan probably still for possibility of discharge back to [facility] soon. Fortunately creatinine is plateaued at 1.66 with point still quite bit high at 120 patient still seen nephrology. Pulmonary dillon no plan for any other management remain on aggressive antibiotic and probably patient will be maintained on decent coverage of antibiotics management at least for 1 week after discharge to maintain better management of his large area of aspiration. REVIEW OF SYSTEMS: CONSTITUTIONAL: Morbidly obese in acute respiratory distress. EYES: No icterus sclerae, no conjunctivitis. EARS, NOSE, MOUTH, THROAT, and FACE: No sore throat, lymphadenopathy, carotid bruits or deformity. RESPIRATORY: Positive shortness of breath cough and wheezes. CARDIOVASCULAR: Positive PND orthopnea palpitation. GASTROINTESTINAL: Slight abdominal discomfort with nausea positive diarrhea with black stool. Or constipation, No GI Bleed, no distention or masses. GENITOURINARY: Decreased urine output without hematuria. INTEGUMENT/BREAST: Negative for any muscular injury with mild osteoarthritis.. HEMATOLOGIC/LYMPHATIC: Negative for bleed or purpura. MUSCULOSKELTAL: Generalized arthralgia and myalgia. NEURLOGICAL: No LOC, Sz or syncope, blurred vision dizziness or abnormality.. Positive weakness on the right side. BEHAVIORAL/PSYCH: Negative. ENDOCRINE: Negative. PHYSICAL EXAMINATION: General Appearance: Morbidly obese in acute respiratory distress. Neck HEENT: Supple, no lymphadenopathy, no thyroid enlargement, no carotid bruits. Lungs: Decreased breath sound bilaterally especially the right side with positive fine rhonchi crackles and mild expiratory expiratory wheezes worse in the right base than the left side. Chest Wall: Decreased expansion with deep inspiration no tenderness and no deformity was found on exam, no costochondral pain or discomfort. Heart: Irregular rate and rhythm, S1, S2 positive systolic murmur in the apex radiating toward the right second costal space. Back: Symmetric, no curvature, ROM normal, no CVA tenderness. Abdomen: Soft, non-tender, bowel sounds active all four quadrants, no masses, no organomegaly. Extremities: Generalized discoloration specially the lower part of the leg with 2+ edema decreased pulse bilaterally. Pulses: 2+ and symmetric. Skin: Skin color, texture, tugor normal, no rashes or lesions. Neurologic: Alert oriented with slight confusion cranial nerves II through XII intact, worsening weakness in the right than the left side. ASSESSMENT AND PLAN: _Acute respiratory failure: Mostly secondary to right-sided pneumonia along with COPD and heart failure with fluid overload, he is to continue 8 L of O2 daytime and BiPAP all night. Chest x-ray showing infiltrate in the right side slightly but better. With oxygen still at 80 per patient cannot go to short-term rehab a t this point. Try to keep patient for daytime and her 5 L of nasal cannula for the time being which was started today if pulse ox is holding well by tomorrow patient probably can be discharged back to [facility]. _Congestive heart failure and fluid overload with early pulmonary edema: Still seen cardiology echocardiogram showed ejection fraction of 45 percentile with pulmonary hypertension and tricuspid regurgitation. Continue Bumex [address] of furosemide, eventually patient would benefit from adding spironolactone but sadly his kidney function is much worsening on diuretics and holding off on any further aggressive management for it. _Acute kidney injury with chronic kidney disease mostly into stage IV chronic kidney disease at this point still have quite hypoperfusion his bun and creatinine are quite good high does not require any hemodialysis the patient remained in advanced stage IV chronic kidney disease. BUN/creatinine are down little bit more acute kidney has improved some. _Sepsis with aspiration pneumonia: Have elevated white blood cell, elevated lactic acid, hypoxia, confusion and altered mental status the patient was initiated on IV antibiotics with his current condition have to watch for how much fluid patient can receive. _Right-sided pneumonia most likely aspiration: Has been treated aggressively for gram-negative coverage: Culture still negative so far. Remain on aggressive antibiotics since admission which by calculation seem like timeframe has been more than 10 days infectious disease had stopped antibiotics. _A-fib with RVR: Pulse rate has improved significantly remain on metoprolol succinate 25 mg a day and anticoagulation dillon was started on Eliquis and off heparin drip. No Cardizem needed at this point. _Aortic stenosis Echocardiogram done late yesterday showed ejection fraction of 45-50 percentile suboptimal study and showed mild aortic stenosis with peak gradient of 20 mmHg and what looks like probable bicuspid aortic valve with severe calcification. No need for any surgical intervention. _Elevated troponin and possible non-ST AL, again seen cardiology echocardiogram continue to watch the trend of his troponin at this point. Cardiology do not see the need for any intervention. _Type 2 diabetes: Will titrate insulin with Lantus up to 35 unit twice a day and NovoLog up to 25 units twice a day start Farxiga as well blood sugar still high but hopefully with the change will be better as well as tomorrow will drop his Solu-Medrol to prednisone 30 mg a day which might be more helpful. _Hypertension: Was on losartan 12.5 mg daily, metoprolol succinate 25 mg a day, was still on diuretics with metolazone, furosemide and might benefit from adding spironolactone. _Possible GI bleed with acute blood loss anemia: Continue proton pump inhibitor IV, continue to watch for any further without hemoglobin watch stool for any bloody stool at this point. _Atherosclerotic heart disease post CABG in the past with seeing cardiology and has been on medical management. _Hyperlipidemia: Remain on atorvastatin 40 mg a day. _Previous history of stroke: Still have slight residual. Cannot ambulate and walk patient is bedridden. _Morbid obesity with history of obstructive sleep apnea syndrome has been on CPAP on BiPAP. Discussion: Done and pulse ox slightly bit patient on oxygen only slightly per nasal cannula at the time which she is able to maintain stability on 8 within next 24 hours should be able to go the patient go back to [facility] and whether patient requiring antibiotic: Still seen infectious disease will address it again with infectious disease at this point. Objective - Vital Signs Vital signs: Vital Signs Temp 97.9 F 06/09/24 04:00 Pulse 84 06/09/24 05:27 Resp 16 06/09/24 04:00 BP 109/63 06/09/24 04:00 Pulse Ox 100 06/09/24 04:00 FiO2 50 06/09/24 05:03 Intake & Output 06/08/24 06/08/24 06/09/24 06:59 18:59 06:59 Intake Total 120 980 0 Output Total 2200 500 1800 Balance -208 480 -1800 Weight 192.1 kg 192 kg Intake: IV 20 0.9 at KVO 20 Oral 120 960 0 Output: Urine 2200 500 1800 Other: Voiding Method Indwelling Catheter Indwelling Catheter Indwelling Catheter # Bowel Movements 1 1 - Labs CBC & Chem 7: 06/09/24 08:26 06/09/24 08:26 Labs: Abnormal Lab Results - Last 24 Hours (Table) 06/08/24 06/08/24 06/08/24 Range/Units 05:50 05:58 11:28 Creatinine 2.20 H (0.66-1.25) mg/dL POC Glucose (mg/dL) 128 H 302 H (70-110) mg/dL 06/08/24 06/08/24 Range/Units 17:03 20:27 Creatinine (0.66-1.25) mg/dL POC Glucose (mg/dL) 233 H 178 H (70-110) mg/dL
[2024-06-10 07:57] VITALS: RESP 20
--- NOTE | 2024-06-10 08:22 | P.DS ---
Providers Date of admission: 06/01/24 10:52 Attending physician: Tomasz Cortés Consults: 06/01/24 10:28 Consult Physician Urgent Consulting Provider: Louie Sesay Consult Reason/Comments: sepsis, hypoxic resp failure on bipap, elevated troponin, pneumonia Do you want consulting provider notified?: Yes 06/01/24 10:52 Consult Physician Routine Consulting Provider: [facility] Consult Reason/Comments: elevated troponin, afib Do you want consulting provider notified?: Yes 06/02/24 10:36 Consult Physician Routine Consulting Provider: Teresa Flores Consult Reason/Comments: BRUNO/ATN Do you want consulting provider notified?: Yes Primary care physician: [facility] Course: HISTORY OF PRESENT ILLNESS: 73-year-old with active medical history of type 2 diabetes, previous history of CVA, coronary artery disease, hypertension, obstructive sleep apnea on CPAP BiPAP, postcoronary artery bypass graft in the past, chronic history of debility and pulmonary fibrosis following COVID-19 the patient has been residing at [facility] on the [place] since, also known to have history of mild heart failure, acute kidney injury with chronic kidney disease, previous history of A-fib with RVR, and history of morbid obesity. He presented to the emergency department as a transfer from [facility] because of worsening dyspnea and shortness of breath with severe hypoxia and hypercapnia despite oxygen and updraft treatment patient did not do well and up coming to the emergency department at [facility] Was seen and evaluated white blood cell was 20,200 with left shift, creatinine is up to 1.92 with bun 77 lactic acid is 3.0 troponin was 1.76 stool occult was positive respiratory culture was negative for COVID, influenza and RSV. Blood sugar was quite bit high at 383. EKG showed atrial fibrillation with rapid ventricular response with wide QRS partially bundle branch block with pulse rate 140 beats per minutes. Chest x-ray showed consolidation of the right lung consistent with pneumonia with worsening infiltrate and pulmonary venous congestion consistent with heart failure as well. Patient could not maintain on nasal cannula oxygen required BiPAP while he was in the emergency department was diagnosed with acute respiratory failure close to be on mechanical ventilation. Pulmonary were consulted also consult cardiology with elevated troponin echocardiogram was ordered and patient was admitted to the ICU. 06/02/2024: Through the night patient remain on BiPAP did not compromise much, blood sugar remained running in the high 300, his Levemir will be switched today to 20 units twice a day remain on NovoLog 15 units AC meals plus sliding scales. Patient had an episode of diarrhea no new finding from microbiology standpoint and chest x-ray still showing significant amount of right lower side pneumonia along with vascular congestion consistent with congestive heart failure which patient has been treated for both so far. 06/03/2024: Patient still require BiPAP for the night during the daytime he does slightly better with nasal cannula and still on 2 to 3 L of O2 to keep his pulse ox above 90 percentile. Kidney function slightly bit worse does not require dialysis yet GFR is running around 27 with bun of 92. Still no finding on microbiology no sputum culture was collected at this point and his right side pneumonia is quite bit worse at the time. Pulmonary dillon continue to treat hypoxic and hypercapnic respiratory failure with BiPAP continue to deal with the fluid overload and CHF at this po int also continue to deal with the aggressiveness of treating right-sided pneumonia. 06/04/2024: Still in the ICU still using BiPAP for the night. Cardiology have continue patient on IV diuretics and switch him back to Eliquis from heparin drip, his A-fib with RVR has been slightly better at this point. No need for hemodialysis yet. Kidney function slightly bit worse and may be trending into t he need for hemodialysis at some point. Continue BiPAP for nighttime and continue setting on 10 L O2 higher flow for daytime continue aggressive management for his right-sided pneumonia. 06/05/2024: Patient is transferable out of the ICU today he has done well he is still on 8 L of O2 try to keep his pulse ox above 90 percentile and require BiPAP through the night but normally he does BiPAP every night part of his routine with his severe obstructive sleep apnea, his lab value with much worsening bun at 105 creatinine 2.51 with GFR slightly bit down hemoglobin remained at 10.1 does not require any transfusion. Finding with ejection fraction of 45-60 percentile on his echo with acute on chronic systolic heart failure with moderate tricuspid regurgitation and pulmonary hypertension. If patient oxygen dropped below 5 L hopefully will be able to transfer out of the ICU which again working in the detail today, the rest of his lab today including his blood sugar still mildly elevated and that she was 300 and his insulin will be switched to 35 units of Lantus twice a day and probably 25 unit of NovoLog AC meals plus sliding scales which will help his symptoms some. Not quite sure how well with his sugar manage in [place] but having to be on steroid is not helping until his methylprednisolone switched to oral prednisone and the dose is below 20 mg might find the blood sugar to be a bit high. Chest x-ray last done on 06/04 and findings still consistent with quite infiltrate in the right base with vascular congestion. 06/06/2024: Patient was transferred out of the ICU yesterday, he is remain on 6 L O2 and doing BiPAP at night with pressure of 14/8 at 50 percentile O2, he is doing slightly better, blood sugar remained quite bit high despite adjustment of his insulin last few days its about time probably to wean patient off Solu- Medrol he is down to 40 mg IV Q8 which should be by tomorrow every 12 and and prepare hopefully for oral for early this week. Despite adjustment of his insulin almost every day blood sugar still high as of today his Levemir will be increased to 40 units twice a day and NovoLog up to 28 units 3 times a day plus sliding scales. Still on aggressive management for aspiration pneumonia gram-negative pneumonia being on vancomycin and Zosyn. His blood cultures still negative so far. Patient blood pressure slightly bit higher again compared to last few days even he is on home meds will add probably hydralazine 25 mg every 8 hours for systolic above 150. Kidney function has been worsening compared to before his 1 up to 123 with creatinine 1.95 still no sign of GI bleed nephrology on adjusting his medication no need for dialysis so far. 06/07/2024: He is resting in bed pulse ox has improved slightly since yesterday, slightly but worsening kidney function specially BUN is up to 129 creatinine 0.90 still seen nephrology does not look like patient is a require any hemodialysis at this point. Between the BiPAP for the night and a 6 to 8 L O2 daytime seems to manage well. The other dilemma that patient on higher oxygen than 5 L nasal cannula and not quite sure if they are able to manage keeping patient on BiPAP for the whole time. Otherwise laboratory value with the sodium in normal with GFR down to 34, blood sugar has responded much better down to 229 and as of tomorrow patient is steroid will be cut down more is on methylprednisolone 40 mg every 8 hours will be changed to every 12 hours and as soon as he is discharged will be on 40 mg down to 30 mg down to 20 mg and then 10 mg as a tapering dose 3 days apart. 06/08/2024: Patient remained on BiPAP for the night but still on higher flow O2 up to 8 L daytime which based on being on it would not be able to go to any short-term rehab till his oxygen is below 5 L. Remain on antibiotic between Zosyn and vancomycin for right-sided pneumonia which seem to control his symptoms better I hope getting patient at least 1 more day might benefit hypoxia significantly and allow him to go back to [facility] thanks. Other complication related to his current condition but vitals have been stable with pulse ox 92 percentile in 5 L. Blood pressure is well-controlled. Last chest x-ray from the . 06/09/2024: Patient is patient is off BiPAP for the night he was placed on 6 to 8 L O2, brought it down to 5 hoping that pulse ox will be maintained above 90 percentile patient does plan probably still for possibility of discharge back to [facility] soon. Fortunately creatinine is plateaued at 1.66 with point still quite bit high at 120 patient still seen nephrology. Pulmonary dillon no plan for any other management remain on aggressive antibiotic and probably patient will be maintained on decent coverage of antibiotics management at least for 1 week after discharge to maintain better management of his large area of aspiration. 06/10/2024: Patient is doing very well still on BiPAP for the night but is down to 5 L of O2 for daytime with close to his baseline. He is not on any antibiotic anymore at this point and infection is holding well without any problem. No further complication with his current infection and respiratory failure and patient is doing very well. He is back to his baseline functioning dillon still bedrest have always been needed probably in bed does not move much. Patient resides currently in the long-term and [facility] will be transferred back to [facility] today hopefully. REVIEW OF SYSTEMS: CONSTITUTIONAL: Morbidly obese in acute respiratory distress. EYES: No icterus sclerae, no conjunctivitis. EARS, NOSE, MOUTH, THROAT, and FACE: No sore throat, lymphadenopathy, carotid bruits or deformity. RESPIRATORY: Positive shortness of breath cough and wheezes. CARDIOVASCULAR: Positive PND orthopnea palpitation. GASTROINTESTINAL: Slight abdominal discomfort with nausea positive diarrhea with black stool. Or constipation, No GI Bleed, no distention or masses. GENITOURINARY: Decreased urine output without hematuria. INTEGUMENT/BREAST: Negative for any muscular injury with mild osteoarthritis.. HEMATOLOGIC/LYMPHATIC: Negative for bleed or purpura. MUSCULOSKELTAL: Generalized arthralgia and myalgia. NEURLOGICAL: No LOC, Sz or syncope, blurred vision dizziness or abnormality.. Positive weakness on the right side. BEHAVIORAL/PSYCH: Negative. ENDOCRINE: Negative. PHYSICAL EXAMINATION: General Appearance: Morbidly obese in acute respiratory distress. Neck HEENT: Supple, no lymphadenopathy, no thyroid enlargement, no carotid bruits. Lungs: Decreased breath sound bilaterally especially the right side with positive fine rhonchi crackles and mild expiratory expiratory wheezes worse in the right base than the left side. Chest Wall: Decreased expansion with deep inspiration no tenderness and no deformity was found on exam, no costochondral pain or discomfort. Heart: Irregular rate and rhythm, S1, S2 positive systolic murmur in the apex radiating toward the right second costal space. Back: Symmetric, no curvature, ROM normal, no CVA tenderness. Abdomen: Soft, non-tender, bowel sounds active all four quadrants, no masses, no organomegaly. Extremities: Generalized discoloration specially the lower part of the leg with 2+ edema decreased pulse bilaterally. Pulses: 2+ and symmetric. Skin: Skin color, texture, tugor normal, no rashes or lesions. Neurologic: Alert oriented with slight confusion cranial nerves II through XII intact, worsening weakness in the right than the left side. ASSESSMENT AND PLAN: _Acute respiratory failure: Mostly secondary to right-sided pneumonia along with COPD and heart failure with fluid overload, he is to continue 8 L of O2 daytime and BiPAP all night. Chest x-ray showing infiltrate in the right side slightly but better. With oxygen still at 80 per patient cannot go to short-term rehab at this point. Try to keep patient for daytime and her 5 L of nasal cannula for the time being which was started today if pulse ox is holding well by tomorrow patient probably can be discharged back to [facility]. _Congestive heart failure and fluid overload with early pulmonary edema: Still seen cardiology echocardiogram showed ejection fraction of 45 percentile with pulmonary hypertension and tricuspid regurgitation. Continue Bumex [address] of furosemide, eventually patient would benefit from adding spironol actone but sadly his kidney function is much worsening on diuretics and holding off on any further aggressive management for it. _Acute kidney injury with chronic kidney disease mostly into stage IV chronic kidney disease at this point still have quite hypoperfusion his bun and creatinine are quite good high does not require any hemodialysis the patient remained in advanced stage IV chronic kidney disease. BUN/creatinine are down little bit more acute kidney has improved some. _Sepsis with aspiration pneumonia: Have elevated white blood cell, elevated lactic acid, hypoxia, confusion and altered mental status the patient was initiated on IV antibiotics with his current condition have to watch for how much fluid patient can receive. _Right-sided pneumonia most likely aspiration: Has been treated aggressively for gram-negative coverage: Culture still negative so far. Remain on aggressive antibiotics since admission which by calculation seem like timeframe has been more than 10 days infectious disease had stopped antibiotics. _A-fib with RVR: Pulse rate has improved significantly remain on metoprolol succinate 25 mg a day and anticoagulation dillon was started on Eliquis and off he minh drip. No Cardizem needed at this point. _Aortic stenosis Echocardiogram done late yesterday showed ejection fraction of 45-50 percentile suboptimal study and showed mild aortic stenosis with peak gradient of 20 mmHg and what looks like probable bicuspid aortic valve with severe calcification. No need for any surgical intervention. _Elevated troponin and possible non-ST SC, again seen cardiology echocardiogram continue to watch the trend of his troponin at this point. Cardiology do not see the need for any intervention. _Type 2 diabetes: Will titrate insulin with Lantus up to 35 unit twice a day and NovoLog up to 25 units twice a day start Farxiga as well blood sugar still high but hopefully with the change will be better as well as tomorrow will drop his Solu-Medrol to prednisone 30 mg a day which might be more helpful. _Hypertension: Was on losartan 12.5 mg daily, metoprolol succinate 25 mg a day, was still on diuretics with metolazone, furosemide and might benefit from adding spironolactone. _Possible GI bleed with acute blood loss anemia: Continue proton pump inhibitor IV, continue to watch for any further without hemoglobin watch stool for any bloody stool at this point. _Atherosclerotic heart disease post CABG in the past with seeing cardiology and has been on medical management. _Hyperlipidemia: Remain on atorvastatin 40 mg a day. _Previous history of stroke: Still have slight residual. Cannot ambulate and walk patient is bedridden. _Morbid obesity with history of obstructive sleep apnea syndrome has been on CPAP on BiPAP. Discussion: Pulse oximetry is holding well above 92 percentile and 5 L patient is doing well close to his baseline, infection is treated and has done extremely well so far no further respiratory failure and no further infection with any more antibiotics management. Hospital course: He was hospitalized as a transfer from [facility] to the emergency department at [facility] for severe respiratory failure consistent with cough, hypoxia, shortness of breath found to have elevated blood cell with left shifted creatinine at 1.92 with BUN 77 lactic acid 3.0 troponin 1.76 with stool occult was positive. Respiratory culture was done patient was diagnosed initially with probably aspiration pneumonia but try to exclude any other viral process. Consolidation in his right lung is very impressive at the time. Patient was required to be on BiPAP the whole time initially pulmonary were consulted in his care so does infectious disease. All respiratory culture came back negative his lactic acid settle down shortly after antibiotic for gram- negative infection including having him initially on vancomycin and Zosyn was done. Troponin continues to be mildly elevated patient was seen cardiology and decided this is flat does not reflect any type of myocardial infarction but may be type II non-ST SC as related to mostly hypoperfusion from being sick from his hypoxia and hypercapnia. Patient was in ICU for the first 3 days required to be on BiPAP most of the time then start weaning him off the BiPAP for daytime and kept him only on it at nighttime but he continued to require between 8 and 10 L of oxygen all along till 09 June when we finally brought his O2 to 5 L and he was holding well on his own. Echocardiogram was done by cardiology on the and showed ejection fraction of 45 percentile with patient had a chronic systolic heart failure with moderate tricuspid regurgitation and pulmonary hypertension. Continue supportive care his oxygen is better but blood sugar was quite bit high had to increase his demand on insulin initially short and long-acting to give his blood sugar under 150. Up till 09 June patient finally done very well today June 10 patient is stable he is off antibiotics completely does not require to be on Zosyn and vancomycin anymore, the consolidation on his chest x-ray improved but continue show slight scar tissue but significantly better compared to before. He is hemodynamically stable oxygenation is much better and will be stable to be transferred back to [facility] on the leg. His GFR is close to his baseline blood sugar has been much better so far the patient be transferred today. Time spent on patient discharge was over 45 minutes. Patient Condition at Discharge: Serious Plan - Discharge Summary Discharge Rx Participant: No New Discharge Prescriptions: New hydrALAZINE HCL [Apresoline] 25 mg PO QID PRN #60 tab PRN Reason: Blood Pressure - High predniSONE 0 mg PO DIRECTED #30 tab Continue Ferrous Sulfate [Feosol] 325 mg PO BID@0900,2100 Aspirin EC [Ecotrin Low Dose] 81 mg PO DAILY@0900 Acetaminophen Tab [Tylenol] 1,000 mg PO Q6HR PRN PRN Reason: Fever And/ Or Pain Hydrocortisone Cream [Hydrocortisone 1% Cream] 1 applic TOPICAL BID Artificial Tears-Hypromellose [Artificial Tear Drops] 2 drops BOTH EYES Q4H PRN PRN Reason: dry irritated eyes Metoprolol Succinate (ER) [Toprol XL] 25 mg PO DAILY@0900 Insulin Aspart [NovoLOG Flexpen] See Protocol SQ QID Ipratropium-Albuterol Nebulize [Duoneb 0.5 mg-3 mg/3 ml Soln] 3 ml INHALATION RT-Q6H PRN PRN Reason: Shortness Of Breath Potassium Chloride [Klor-Con M20] 20 meq PO Q12HR@0900,2100 Acetaminophen [Tylenol Arthritis] 650 mg PO Q12HR@0900,2100 metOLazone 2.5 mg PO DAILY@0900 Losartan [Cozaar] 12.5 mg PO DAILY@0900 Insulin Glargine,Hum.rec.anlog [Lantus Solostar Pen] 21 units SQ HS@2100 Dapagliflozin Propanediol [Farxiga] 10 mg PO HS@2100 Apixaban [Eliquis] 5 mg PO BID@0900,2100 Albuterol Nebulized [Ventolin Nebulized] 2.5 mg INHALATION RT-Q6H PRN PRN Reason: Wheezing Insulin Aspart [NovoLOG] 15 unit SQ TID@0800,1200,1700 Budesonide/Formoterol Fumarate [Symbicort 160-4.5 Mcg Inhaler] 2 puff INHALATION RT-BID@0900,2100 Pregabalin [Lyrica] 75 mg PO Q12HR@0900,2100 Lactulose 20 gm PO Q12HR@0900,2100 Sennosides/Docusate Sodium [Senna Plus 8.6-50 mg Tablet] 2 tab PO DAILY@09 Tirzepatide [Mounjaro] 5 mg SQ TU@09 Psyllium Husk 100% [Metamucil Packet] 6 gm PO DAILY@0900 Melatonin 5 mg PO HS@2099 Furosemide [Lasix] 80 mg PO DAILY@06 Esomeprazole Magnesium [NexIUM] 20 mg PO DAILY@06 allopurinoL 100 mg PO HS@2099 Atorvastatin [Lipitor] 40 mg PO HS@2099 Discharge Medication List Ferrous Sulfate [Feosol] 325 mg PO BID@899,209901/03/15 [History] Apixaban [Eliquis] 5 mg PO BID@899,209907/02/21 [History] Aspirin EC [Ecotrin Low Dose] 81 mg PO DAILY@89907/02/21 [History] Acetaminophen Tab [Tylenol] 1,000 mg PO Q6HR PRN 06/01/24 [History] Acetaminophen [Tylenol Arthritis] 650 mg PO Q12HR@899,209906/01/24 [History] Albuterol Nebulized [Ventolin Nebulized] 2.5 mg INHALATION RT-Q6H PRN 06/01/24 [History] Artificial Tears-Hypromellose [Artificial Tear Drops] 2 drops BOTH EYES Q4H PRN 06/01/24 [History] Atorvastatin [Lipitor] 40 mg PO HS@209906/01/24 [History] Budesonide/Formoterol Fumarate [Symbicort 160-4.5 Mcg Inhaler] 2 puff INHALATION RT-BID@899,209906/01/24 [History] Dapagliflozin Propanediol [Farxiga] 10 mg PO HS@209906/01/24 [History] Esomeprazole Magnesium [NexIUM] 20 mg PO DAILY@59906/01/24 [History] Furosemide [Lasix] 80 mg PO DAILY@59906/01/24 [History] Hydrocortisone Cream [Hydrocortisone 1% Cream] 1 applic TOPICAL BID 06/01/24 [History] Insulin Aspart [NovoLOG Flexpen] See Protocol SQ QID 06/01/24 [History] Insulin Aspart [NovoLOG] 15 unit SQ TID@0800,1200,1700 06/01/24 [History] Insulin Glargine,Hum.rec.anlog [Lantus Solostar Pen] 21 units SQ HS@209906/01/24 [History] Ipratropium-Albuterol Nebulize [Duoneb 0.5 mg-3 mg/3 ml Soln] 3 ml INHALATION RT-Q6H PRN 06/01/24 [History] Lactulose 20 gm PO Q12HR@0900,209906/01/24 [History] Losartan [Cozaar] 12.5 mg PO DAILY@89906/01/24 [History] Melatonin 5 mg PO HS@209906/01/24 [History] Metoprolol Succinate (ER) [Toprol XL] 25 mg PO DAILY@89906/01/24 [History] Potassium Chloride [Klor-Con M20] 20 meq PO Q12HR@0900,209906/01/24 [History] Pregabalin [Lyrica] 75 mg PO Q12HR@0900,209906/01/24 [History] Psyllium Husk 100% [Metamucil Packet] 6 gm PO DAILY@0900 06/01/24 [History] Sennosides/Docusate Sodium [Senna Plus 8.6-50 mg Tablet] 2 tab PO DAILY@0900 06/01/24 [History] Tirzepatide [Mounjaro] 5 mg SQ TU@89906/01/24 [History] allopurinoL 100 mg PO HS@209906/01/24 [History] metOLazone 2.5 mg PO DAILY@00 06/01/24 [History] hydrALAZINE HCL [Apresoline] 25 mg PO QID PRN #60 tab 06/10/24 [Rx] predniSONE 0 mg PO DIRECTED #30 tab 06/10/24 [Rx] Follow up Appointment(s)/Referral(s): Fanta Mcnulty MD [Primary Care Provider] - 1 Week Discharge Disposition: TRANSFER TO SNF/F
[2024-06-10 09:20] LABS: Glucose,Whole Blood 262 mg/dL (70-110)
[2024-06-10 10:42] VITALS: BP 108/59; PULSE 78; TEMP 98
[2024-06-10 10:52] LABS: African American GFR (CKD) 61 (>60 ml/min/1.73 sqM); Anion Gap 5 mmol/L; Blood Urea Nitrogen 96 mg/dL (9-20); Calcium 8.9 mg/dL (8.4-10.2); Carbon Dioxide 32 mmol/L (22-30); Chloride 104 mmol/L (98-107); Glucose 251 mg/dL (74-99); Non-African American GFR(CKD) 53 (>60 ml/min/1.73 sqM); Potassium 5.5 mmol/L (3.5-5.1); Sodium 141 mmol/L (137-145)
[2024-06-10 11:13] LABS: Glucose,Whole Blood 250 mg/dL (70-110)
[2024-06-10] MEDS ORDERED: predniSONE 20 MG TAB PO SCH (12:30)
--- NOTE | 2024-06-10 18:09 | P.PN ---
Subjective Progress Note Date: 06/10/24 73-year-old with active medical history of type 2 diabetes, previous history of CVA, coronary artery disease, hypertension, obstructive sleep apnea on CPAP BiPAP, postcoronary artery bypass graft in the past, chronic history of debility and pulmonary fibrosis following COVID-19 the patient has been residing at [facility] on the [place] since, also known to have history of mild heart failure, acute kidney injury with chronic kidney disease, previous history of A-fib with RVR, and history of morbid obesity. He presented to the emergency department as a transfer from [facility] because of worsening dyspnea and shortness of breath with severe hypoxia and hypercapnia despite oxygen and updraft treatment patient did not do well and up coming to the emergency department at [facility] Was seen and evaluated white blood cell was 20,200 with left shift, creatinine is up to 1.92 with bun 77 lactic acid is 3.0 troponin was 1.76 stool occult was positive respiratory culture was negative for COVID, influenza and RSV. Blood sugar was quite bit high at 383. EKG showed atrial fibrillation with rapid ventricular response with wide QRS partially bundle branch block with pulse rate 140 beats per minutes. Chest x-ray showed consolidation of the right lung consistent with pneumonia with worsening infiltrate and pulmonary venous congestion consistent with heart failure as well. Patient could not maintain on nasal cannula oxygen required BiPAP while he was in the emergency department was diagnosed with acute respiratory failure close to be on mechanical ventilation. Pulmonary were consulted also consult cardiology with elevated troponin echocardiogram was ordered and patient was admitted to the ICU. 06/02/2024: Through the night patient remain on BiPAP did not compromise much, blood sugar remained running in the high 300, his Levemir will be switched today to 20 units twice a day remain on NovoLog 15 units AC meals plus sliding scales. Patient had an episode of diarrhea no new finding from microbiology standpoint and chest x-ray still showing significant amount of right lower side pneumonia along with vascular congestion consistent with congestive heart failure which patient has been treated for both so far. 06/03/2024: Patient still require BiPAP for the night during the daytime he does slightly better with nasal cannula and still on 2 to 3 L of O2 to keep his pulse ox above 90 percentile. Kidney function slightly bit worse does not require dialysis yet GFR is running around 27 with bun of 92. Still no finding on microbiology no sputum culture was collected at this point and his right side pneumonia is quite bit worse at the time. Pulmonary dillon continue to treat hypoxic and hypercapnic respiratory failure with BiPAP continue to deal with the fluid overload and CHF at this point also continue to deal with the aggressiveness of treating right-sided pneumonia. 06/04/2024: Still in the ICU still using BiPAP for the night. Cardiology have continue patient on IV diuretics and switch him back to Eliquis from heparin drip, his A-fib with RVR has been slightly better at this point. No need for hemodialysis yet. Kidney function slightly bit worse and may be trending into the need for hemodialysis at some point. Continue BiPAP for nighttime and continue setting on 10 L O2 higher flow for daytime continue aggressive management for his right-sided pneumonia. 06/05/2024: Patient is transferable out of the ICU today he has done well he is still on 8 L of O2 try to keep his pulse ox above 90 percentile and require BiPAP through the night but normally he does BiPAP every night part of his routine with his severe obstructive sleep apnea, his lab value with much worsening bun at 105 creatinine 2.51 with GFR slightly bit down hemoglobin remained at 10.1 does not require any transfusion. Finding with ejection fraction of 45-60 percentile on his echo with acute on chronic systolic heart failure with moderate tricuspid regurgitation and pulmonary hypertension. If patient oxygen dropped below 5 L hopefully will be able to transfer out of the ICU which again working in the detail today, the rest of his lab today including his blood sugar still mildly elevated and that she was 300 and his insulin will be switched to 35 units of Lantus twice a day and probably 25 unit of NovoLog AC meals plus sliding scales which will help his symptoms some. Not quite sure how well with his sugar manage in [facility] but having to be on steroid is not helping until his methylprednisolone switched to oral prednisone and the dose is below 20 mg might find the blood sugar to be a bit high. Chest x-ray last done on 06/04 and findings still consistent with quite infiltrate in the right base with vascular congestion. 06/06/2024: Patient was transferred out of the ICU yesterday, he is remain on 6 L O2 and doing BiPAP at night with pressure of 14/8 at 50 percentile O2, he is doing slightly better, blood sugar remained quite bit high despite adjustment of his insulin last few days its about time probably to wean patient off Solu- Medrol he is down to 40 mg IV Q8 which should be by tomorrow every 12 and and prepare hopefully for oral for early this week. Despite adjustment of his insulin almost every day blood sugar still high as of today his Levemir will be increased to 40 units twice a day and NovoLog up to 28 units 3 times a day plus sliding scales. Still on aggressive management for aspiration pneumonia gram-negative pneumonia being on vancomycin and Zosyn. His blood cultures still negative so far. Patient blood pressure slightly bit higher again compared to last few days even he is on home meds will add probably hydralazine 25 mg every 8 hours for systolic above 150. Kidney function has been worsening compared to before his 1 up to 123 with creatinine 1.95 still no sign of GI bleed nephrology on adjusting his medication no need for dialysis so far. 06/07/2024: He is resting in bed pulse ox has improved slightly since yesterday, slightly but worsening kidney function specially BUN is up to 129 creatinine 0.90 still seen nephrology does not look like patient is a require any hemod ialysis at this point. Between the BiPAP for the night and a 6 to 8 L O2 daytime seems to manage well. The other dilemma that patient on higher oxygen than 5 L nasal cannula and not quite sure if they are able to manage keeping patient on BiPAP for the whole time. Otherwise laboratory value with the sodium in normal with GFR down to 34, blood sugar has responded much better down to 229 and as of tomorrow patient is steroid will be cut down more is on methylprednisolone 40 mg every 8 hours will be changed to every 12 hours and as soon as he is discharged will be on 40 mg down to 30 mg down to 20 mg and then 10 mg as a tapering dose 3 days apart. 06/08/2024, the patient is being seen for a follow-up. The patient is calm and comfortable, obese with a BMI of 64.4, resting comfortably bed. Denies having any significant respite difficulties. He is a alf resident. He was hospitalized for an acute on top of chronic hypoxic and hypercapnic respiratory failure attributed to fluid overload and CHF. He was also covered with antibiotics including a combination of Zosyn and vancomycin regarding his suspected pneumonia. He also sustained acute kidney injury. Note that his renal function has somewhat improved and the creatinine was down to 1.9 and this morning is up to 2.2. Most recent hemoglobin is at 9.6 with a white cell count of 17.9. The blood cultures been negative. The chest x-ray that was done on 06/06/2024 showed suboptimal findings due to his body habitus and there is some infiltration of the right lung base. The patient is currently on 8 L of oxygen by nasal cannula. IV fluids are KVO. He remains on broad-spectrum antibiotics. He remains on IV Solu-Medrol 40 mg every 12 hours. Diuretics are currently on hold. He remains on anticoagulation with Eliquis 5 mg p.o. twice a day. Remains on bronchodilators. On 06/09/2024, the patient is being seen for a follow-up. The patient is morbidly obese and he is utilizing a BiPAP during sleep. While awake, the patient has been transitioned to 5 L of oxygen by nasal cannula. Less bronchosp astic and wheezy compared to yesterday the patient has been kept on Solu-Medrol 40 mg every 12 hours in addition to DuoNeb nebulizer treatments [id number]. Remains on anticoagulation with Eliquis. Remains on metoprolol 50 mg p.o. twice a day and Levemir insulin 40 units daily in the sliding scale coverage. The BUN is 120 with a creatinine of 1.6 and the patient is not receiving any diuretics. There is improved renal function compared to yesterday. Sodium levels at 147. Serum bicarb is at 38. The patient's white cell count is 17.2 with a hemoglobin of 8.7. Awake and alert and communicating and there is no signs of any CO2 narcosis at this point in time. On today's evaluation of 06/10/2024, the patient has been weaned out of 5 L of oxygen by nasal cannula. Doing well. Utilizing the BiPAP overnight. During the day, the patient remains on oxygen at 5 L. The patient will be discharged back to the alf on Lasix 80 mg and Zaroxolyn 2.5 mg p.o. daily. He will be kept on Symbicort as maintenance and DuoNeb updrafts [id number] and the patient will also complete a prednisone burst taper. The patient will be taken off the IV Solu-Medrol. No other new complaints otherwise for now. Awake and alert. No signs of any CO2 narcosis. Creatinine is down to 1.3 with a BUN of 96. Sodium levels of 141 with a potassium level of 5.5. The white cell count from yesterday was at 17.2 with a hemoglobin of 8.7. No fever. No altered mentation. No other complaints for today. Remains on long-acting insulin. Objective - Vital Signs Vital signs: Vital Signs Temp 98.0 F 06/10/24 10:40 Pulse 78 06/10/24 10:40 Resp 20 06/10/24 10:40 BP 108/59 06/10/24 10:40 Pulse Ox 96 06/10/24 10:40 FiO2 50 06/10/24 04:20 Intake & Output 06/09/24 06/10/24 06/10/24 18:59 06:59 18:59 Intake Total 1918 240 Output Total 1000 200 825 Balance 918 -200 -585 Weight 421.3 kg Intake: Oral 1917 240 Output: Urine 1000 200 825 Other: Voiding Method Indwelling Catheter Indwelling Catheter Indwelling Catheter - Exam GENERAL EXAM: Alert, morbidly obese 73-year-old male, on 5 L high flow nasal cannula, in no apparent distress. HEAD: Normocephalic. EYES: Normal reaction of pupils, equal size. NOSE: Clear with pink turbinates. THROAT: No erythema or exudates. NECK: No masses, no JVD. CHEST: No chest wall deformity. LUNGS: Equal air entry with few scattered rhonchi, wheeze. CVS: S1 and S2 normal with no audible murmur, regular rhythm. ABDOMEN: No hepatosplenomegaly, normal bowel sounds, no guarding or rigidity. SPINE: No scoliosis or deformity SKIN: No rashes CENTRAL NERVOUS SYSTEM: No focal deficits, tone is normal in all 4 extremities. EXTREMITIES: There is 1+ peripheral edema. No clubbing, no cyanosis. Peripheral pulses are intact. - Labs CBC & Chem 7: 06/09/24 08:26 06/10/24 10:02 Labs: Abnormal Lab Results - Last 24 Hours (Table) 06/09/24 06/09/24 06/10/24 Range/Units 16:34 19:45 02:10 Potassium (3.5-5.1) mmol/L Carbon Dioxide (22-30) mmol/L BUN (9-20) mg/dL Creatinine (0.66-1.25) mg/dL Glucose (74-99) mg/dL POC Glucose (mg/dL) 170 H 193 H 169 H (70-110) mg/dL 06/10/24 06/10/24 06/10/24 Range/Units 05:22 09:18 10:02 Potassium 5.5 H (3.5-5.1) mmol/L Carbon Dioxide 32 H (22-30) mmol/L BUN 96 H (9-20) mg/dL Creatinine 1.34 H (0.66-1.25) mg/dL Glucose 251 H (74-99) mg/dL POC Glucose (mg/dL) 215 H 262 H (70-110) mg/dL 06/10/24 Range/Units 11:11 Potassium (3.5-5.1) mmol/L Carbon Dioxide (22-30) mmol/L BUN (9-20) mg/dL Creatinine (0.66-1.25) mg/dL Glucose (74-99) mg/dL POC Glucose (mg/dL) 250 H (70-110) mg/dL Assessment and Plan Plan: Acute hypoxemic and hypercapnic respiratory failure, likely on the basis of fluid overload/CHF, remains on 5 L of O2 nasal cannula,, comfortable, no signs of any CO2 narcosis at this point in time, and the patient utilizing a BiPAP during sleep. Suspected pneumonia. Initial procalcitonin 0.66. Completed course of Zosyn and vancomycin Acute kidney injury, improving, creatinine and BUN are both on the decline and the patient will be discharged back to the alf on a combination of Lasix and Zaroxolyn. Outpatient monitoring of renal function to be done. Hyperchloremic hypernatremia, creatinine is improving Morbid obesity, with a history of obstructive sleep apnea syndrome Atrial fibrillation with rapid ventricular response. Anticoagulated with Eliquis non-ST segment elevation myocardial infarction History of CAD with previous bypass surgery, 2014 History of CVA History of diabetes mellitus History of gastroesophageal reflux disease History of essential hypertension History of anxiety Lifelong non-smoker Plan: Wean down the FiO2 as tolerated, currently on 5 L and the patient is typically on 5 L of O2 nasal cannula Utilized BiPAP during sleep Completed vancomycin and Zosyn Repeat a procalcitonin and the follow-up level is down to 0.2 Continue bronchodilators Prednisone burst taper at time of discharge Anticoagulated with Eliquis Monitor the renal function at the nursing, the patient was restarted on a combination of Lasix and Zaroxolyn on outpatient basis To be discharged to [facility] on the [place] today.
--- NOTE | 2024-06-10 21:52 | P.PN ---
Subjective patient is seen for follow-up for acute kidney injury and chronic kidney disease. No significant complaints today. Serum creatinine staying at about 1.9-2.2 mg/dL. Diuretics on hold. Patient has an indwelling Nelson catheter. Objective - Vital Signs Vital signs: Vital Signs Temp 98.0 F 06/10/24 10:40 Pulse 78 06/10/24 10:40 Resp 20 06/10/24 10:40 BP 108/59 06/10/24 10:40 Pulse Ox 96 06/10/24 10:40 FiO2 50 06/10/24 04:20 Intake & Output 06/10/24 06/10/24 06/11/24 06:59 18:59 06:59 Intake Total 240 Output Total 200 825 Balance -200 -585 Weight 421.3 kg Intake: Oral 240 Output: Urine 200 825 Other: Voiding Method Indwelling Catheter Indwelling Catheter - Exam patient is awake, comfortable, no acute distress. Examination of the heart S1 and S2 Examination of the lungs bilateral breath sounds are heard Abdomen is soft nontender Examination of lower extremities shows1+ edema - Labs CBC & Chem 7: 06/09/24 08:26 06/10/24 10:02 Labs: Abnormal Lab Results - Last 24 Hours (Table) 06/10/24 06/10/24 06/10/24 Range/Units 02:10 05:22 09:18 Potassium (3.5-5.1) mmol/L Carbon Dioxide (22-30) mmol/L BUN (9-20) mg/dL Creatinine (0.66-1.25) mg/dL Glucose (74-99) mg/dL POC Glucose (mg/dL) 169 H 215 H 262 H (70-110) mg/dL 06/10/24 06/10/24 Range/Units 10:02 11:11 Potassium 5.5 H (3.5-5.1) mmol/L Carbon Dioxide 32 H (22-30) mmol/L BUN 96 H (9-20) mg/dL Creatinine 1.34 H (0.66-1.25) mg/dL Glucose 251 H (74-99) mg/dL POC Glucose (mg/dL) 250 H (70-110) mg/dL Assessment and Plan Assessment: 1. Acute kidney injury secondary to ATN. Renal function has improved. Serum creatinine 1.6 today. Steroids contributing to disproportionately elevated BUN. UA benign. No hydronephrosis noted on kidney ultrasound. Left kidney was not properly visualized. 2. Chronic kidney disease stage IIIb with baseline creatinine 1.5-1.8 secondary to nephrosclerosis and cardiorenal syndrome. 3. Acute on chronic systolic CHF ejection fraction of 45 to 50% with moderate tricuspid regurgitation and pulmonary hypertension. 4. Volume overload. Improved with diuresis. 5. Coronary artery disease status post CABG. 6. Diabetes mellitus. 7. Acute hypoxic respiratory failure. Currently on 5 L nasal cannula. 8. Mild hypernatremia, started on D5W Plan: continue to hold diuretics. Continue D5W Volume status has improved. Repeat labs today.
== END 2024-06-10 13:01 | DRG 871 ==
LOC: EC 08:13 → 2SICU 10:52 → 3SCARD 06-05 11:48
PROVIDERS: ADMIT Internal Medicine Geriatric Medicine; ATTEND Internal Medicine Geriatric Medicine
PROC: 02HV33Z Insertion of Infusion Device into Superior Vena Cava, Percutaneous Approach (ICD-10-PCS; principal; 2024-06-01)
PROC: 5A09357 Assistance with Respiratory Ventilation, Less than 24 Consecutive Hours, Continuous Positive Airway Pressure (ICD-10-PCS; 2024-06-01)
DX: A41.50 Gram-negative sepsis, unspecified (principal); I21.A1 Myocardial infarction type 2; J69.0 Pneumonitis due to inhalation of food and vomit; J96.21 Acute and chronic respiratory failure with hypoxia; J96.22 Acute and chronic respiratory failure with hypercapnia; N17.0 Acute kidney failure with tubular necrosis; I50.43 Acute on chronic combined systolic (congestive) and diastolic (congestive) heart failure; J15.69 Pneumonia due to other Gram-negative bacteria; Z68.44 Body mass index [BMI] 60.0-69.9, adult; E87.20 Acidosis, unspecified; I13.0 Hypertensive heart and chronic kidney disease with heart failure and stage 1 through stage 4 chronic kidney disease, or unspecified chronic kidney disease; J44.1 Chronic obstructive pulmonary disease with (acute) exacerbation; J44.0 Chronic obstructive pulmonary disease with (acute) lower respiratory infection; N18.4 Chronic kidney disease, stage 4 (severe); E87.0 Hyperosmolality and hypernatremia; I27.20 Pulmonary hypertension, unspecified; J84.10 Pulmonary fibrosis, unspecified; E66.01 Morbid (severe) obesity due to excess calories; E78.5 Hyperlipidemia, unspecified; F41.9 Anxiety disorder, unspecified; I25.10 Atherosclerotic heart disease of native coronary artery without angina pectoris; I35.0 Nonrheumatic aortic (valve) stenosis; G47.33 Obstructive sleep apnea (adult) (pediatric); I45.4 Nonspecific intraventricular block; I48.91 Unspecified atrial fibrillation; E11.22 Type 2 diabetes mellitus with diabetic chronic kidney disease; K21.9 Gastro-esophageal reflux disease without esophagitis; I08.1 Rheumatic disorders of both mitral and tricuspid valves; Q23.81 Bicuspid aortic valve; Z79.01 Long term (current) use of anticoagulants; Z79.82 Long term (current) use of aspirin; Z79.4 Long term (current) use of insulin; Z79.51 Long term (current) use of inhaled steroids; Z79.84 Long term (current) use of oral hypoglycemic drugs; Z79.899 Other long term (current) drug therapy; Z86.73 Personal history of transient ischemic attack (TIA), and cerebral infarction without residual deficits; Z87.891 Personal history of nicotine dependence; Z95.1 Presence of aortocoronary bypass graft; Z79.85 Long-term (current) use of injectable non-insulin antidiabetic drugs
CPT/HCPCS: 36415; 36600; 71045; 76770; 80048; 80053; 80202; 81003; 82272; 82565; 82803; 82805; 83605; 83735; 83880; 84145; 84484; 85025; 85027; 85610; 85730; 87040; 87636; 93005; 93306; 94640; 94660; 94760; 96365; 96366; 96368; 96375; 99291

== ENCOUNTER 2024-07-04 23:02 | Inpatient (IN) | payer MEDICARE, OTHER ==
--- NOTE | 2024-07-04 23:30 | ED ---
SOB HPI - General Chief Complaint: Shortness of Breath Stated Complaint: GAIL Time Seen by Provider: 07/04/24 23:05 Source: patient, EMS Mode of arrival: EMS Limitations: physical limitation - History of Present Illness Initial Comments: Patient is a 73-year-old man who [facility] because he has reportedly been having lower oxygen saturation numbers than is usual. When I interviewed the patient, he states that he is not feeling particularly short of breath. He denies chest pain. Patient states that he is currently being treated for pneumonia but did not recall the name of the antibiotic he is taking. The patient arrives on a BiPAP mask by EMS. He states that he does not typically use oxygen while awake. He does use CPAP while sleeping. MD Complaint: shortness of breath Onset/Timin -: hour(s) Severity scale (1-10): 0 Consistency: constant Improves With: oxygen Worsens With: nothing Known History Of: COPD, congestive heart failure Associated Symptoms: denies other symptoms Treatments Prior to Arrival: oxygen, bronchodilator, NIPPV - Related Data Home Medications Medication Instructions Recorded Confirmed Ferrous Sulfate [Feosol] 325 mg PO BID@899,209901/03/15 07/05/24 Apixaban [Eliquis] 5 mg PO BID@899,209907/02/21 07/05/24 Aspirin EC [Ecotrin Low Dose] 81 mg PO DAILY@89907/02/21 07/05/24 Acetaminophen Tab [Tylenol] 1,000 mg PO Q6HR PRN 06/01/24 07/05/24 Acetaminophen [Tylenol Arthritis] 650 mg PO Q12HR@899,209906/01/24 07/05/24 Artificial Tears-Hypromellose 2 drops BOTH EYES Q4H PRN 06/01/24 07/05/24 [Artificial Tear Drops] Atorvastatin [Lipitor] 40 mg PO HS@209906/01/24 07/05/24 Budesonide/Formoterol Fumarate 2 puff INHALATION DIRECTED 06/01/24 07/05/24 [Symbicort 160-4.5 Mcg Inhaler] Dapagliflozin Propanediol [Farxiga] 10 mg PO HS@209906/01/24 07/05/24 Esomeprazole Magnesium [NexIUM] 20 mg PO DAILY@0600 06/01/24 07/05/24 Furosemide [Lasix] 80 mg PO DAILY@0600 06/01/24 07/05/24 Insulin Aspart [NovoLOG Flexpen] See Protocol SQ ACHS@,12,,06/01/24 07/05/24 Insulin Aspart [NovoLOG] 15 unit SQ AC-TID@,12,06/01/24 07/05/24 Insulin Glargine,Hum.rec.anlog 21 units SQ HS@209906/01/24 07/05/24 [Lantus Solostar Pen] Ipratropium-Albuterol Nebulize 3 ml INHALATION RT-Q6H PRN 06/01/24 07/05/24 [Duoneb 0.5 mg-3 mg/3 ml Soln] Lactulose 20 gm PO Q12HR@00,209906/01/24 07/05/24 Melatonin 5 mg PO HS@209906/01/24 07/05/24 Metoprolol Succinate (ER) [Toprol 25 mg PO DAILY@89906/01/24 07/05/24 XL] Potassium Chloride [Klor-Con M20] 20 meq PO Q8H 06/01/24 07/05/24 Psyllium Husk 100% [Metamucil 6 gm PO DAILY@89906/01/24 07/05/24 Packet] Sennosides/Docusate Sodium [Senna 2 tab PO DAILY@89906/01/24 07/05/24 Plus 8.6-50 mg Tablet] Tirzepatide [Mounjaro] 5 mg SQ TU@89906/01/24 07/05/24 allopurinoL 100 mg PO HS@209906/01/24 07/05/24 metOLazone 2.5 mg PO DAILY 06/01/24 07/05/24 Budesonide 1 mg INHALATION RT-Q12H 07/05/24 07/05/24 Ipratropium-Albuterol Nebulize 3 ml INHALATION RT-Q6H 07/05/24 07/05/24 [Duoneb 0.5 mg-3 mg/3 ml Soln] Midodrine [ProAmatine] 5 mg PO BID 07/05/24 07/05/24 acetaZOLAMIDE [Diamox] 250 mg PO DAILY 07/05/24 07/05/24 Previous Rx's Medication Instructions Recorded hydrALAZINE HCL [Apresoline] 25 mg PO QID PRN #60 tab 06/10/24 Albuterol Nebulized [Ventolin 2.5 mg INHALATION RT-Q6H PRN ml 07/08/24 Nebulized] Pregabalin [Lyrica] 75 mg PO Q12HR@0900,2100 #4 cap 07/08/24 Allergies Allergy/AdvReac Type Severity Reaction Status Date / Time No Known Allergies Allergy Verified 07/05/24 08:39 Review of Systems ROS Statement: Those systems with pertinent positive or pertinent negative responses have been documented in the HPI. ROS Other: All systems not noted in ROS Statement are negative. Constitutional: Denies: fever, chills, weakness Respiratory: Reports: cough. Denies: dyspnea, wheezes, hemoptysis Cardiovascular: Denies: chest pain, palpitations, edema, syncope Gastrointestinal: Denies: abdominal pain, vomiting, diarrhea Genitourinary: Denies: dysuria, hematuria Musculoskeletal: Denies: back pain Skin: Denies: rash Neurological: Denies: headache, weakness Past Medical History Past Medical History: Atrial Fibrillation, Coronary Artery Disease (CAD), CVA/TIA, Diabetes Mellitus, GERD/Reflux, Hypertension, Sleep Apnea/CPAP/BIPAP Additional Past Medical History / Comment(s): TIA (2008), C-PAP MACHINE, BLADDER INCONTINENCE, 6L NASAL CANNULA 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), CABG (2014) Past Anesthesia/Blood Transfusion Reactions: No Reported Reaction Past Psychological History: Anxiety Smoking Status: Former smoker Past Alcohol Use History: Occasional Past Drug Use History: None Reported - Past Family History Brother(s) Family Medical History: Cancer Additional Family Medical History / Comment(s): ORAL CANCER Mother Family Medical History: Diabetes Mellitus General Exam Limitations: physical limitation General appearance: alert, in no apparent distress Head exam: Present: atraumatic, normocephalic Eye exam: Present: normal appearance. Absent: scleral icterus, conjunctival injection Neck exam: Present: normal inspection Respiratory exam: Present: wheezes. Absent: respiratory distress, rales, rhonchi, stridor, accessory muscle use Cardiovascular Exam: Present: tachycardia, systolic murmur. Absent: diastolic murmur, rubs, gallop GI/Abdominal exam: Present: soft. Absent: distended, tenderness, guarding, rebound, rigid, mass Extremities exam: Present: normal inspection, normal capillary refill, pedal edema. Absent: calf tenderness Back exam: Present: normal inspection. Absent: CVA tenderness (R), CVA tenderness (L) Neurological exam: Present: alert Skin exam: Present: warm, dry, intact, normal color. Absent: rash Course Vital Signs 07/04/24 07/04/24 07/04/24 23:08 23:20 23:25 Pulse Rate 104 H Respiratory 22 Rate Blood Pressure 83/63 O2 Sat by Pulse 100 Oximetry Fraction of 70 70 Inspired Oxygen (FIO2) 07/05/24 07/05/24 07/05/24 00:00 00:30 03:41 Pulse Rate 90 93 79 Respiratory 24 18 22 Rate Blood Pressure 95/74 119/71 93/54 O2 Sat by Pulse 100 100 100 Oximetry Fraction of Inspired Oxygen (FIO2) 07/05/24 07/05/24 07/05/24 04:51 08:05 08:14 Pulse Rate 76 Respiratory Rate Blood Pressure O2 Sat by Pulse Oximetry Fraction of 50 50 Inspired Oxygen (FIO2) 07/05/24 07/05/24 07/05/24 08:15 08:22 09:00 Pulse Rate 82 70 Respiratory 20 Rate Blood Pressure 106/64 O2 Sat by Pulse 96 97 Oximetry Fraction of Inspired Oxygen (FIO2) 07/05/24 07/05/24 07/05/24 10:00 13:05 16:21 Pulse Rate 73 78 73 Respiratory 20 20 Rate Blood Pressure 92/62 113/74 O2 Sat by Pulse 97 94 L Oximetry Fraction of Inspired Oxygen (FIO2) 07/05/24 07/05/24 07/05/24 16:32 17:38 19:57 Pulse Rate 85 81 76 Respiratory 22 Rate Blood Pressure 92/63 O2 Sat by Pulse 94 L Oximetry Fraction of Inspired Oxygen (FIO2) 07/05/24 07/05/24 20:09 20:18 Pulse Rate 80 71 Respiratory 17 Rate Blood Pressure 113/59 O2 Sat by Pulse 96 Oximetry Fraction of Inspired Oxygen (FIO2) Medical Decision Making - Medical Decision Making The patient had chest x-ray that I interpreted as showing cardiomegaly and vascular congestion. There may be bilateral basilar infiltrates Bolus is limited as there is exam and study evidence pointing towards congestive heart failure Patient is a 73-year-old man who is here for dyspnea. There does appear to be multiple factors contributing to patient's dyspnea. The patient does appear to have degree of congestive heart failure. The x-ray does show possible bilateral lower lobe infiltrates and the patient is treated with antibiotics. Procalcitonin level is pending. Patient will be admitted for further treatment as well as consultations. Was pt. sent in by a medical professional or institution (, PA, TEEN COUNSELOR, urgent care, hospital, or [facility]...) When possible be specific @ -Patient sent from [facility] to have evaluation of dyspnea Did you speak to anyone other than the patient for history (EMS, parent, family, police, friend...)? What history was obtained from this source @ -[No] Did you review nursing and triage notes (agree or disagree)? Why? @ -[I reviewed and agree with nursing and triage notes] Were old charts reviewed (outside hosp., previous admission, EMS record, old EKG, old radiological studies, urgent care reports/EKG's, [facility] records)? Report findings @ -[Transfer paperwork was reviewed] Differential Diagnosis (chest pain, altered mental status, abdominal pain women, abdominal pain men, vaginal bleeding, weakness, fever, dyspnea, syncope, headache, dizziness, GI bleed, back pain, seizure, CVA, palpatations, mental health, musculoskeletal)? @ -[Differential Dyspnea: Coronary syndrome, arrhythmia, tamponade, asthma, COPD, pulmonary embolism, pneumonia, pneumothorax, pulmonary effusion, anaphylaxis, diabetic ketoacidosis, flailed chest, pulmonary contusion, diaphragmatic rupture, anemia, neuromuscular, this is not meant to be an all-inclusive list. EKG interpreted by me (3pts min.). @ -[As above] X-rays interpreted by me (1pt min.). @ -[I interpreted as above CT interpreted by me (1pt min.). @ -[None done] U/S interpreted by me (1pt. min.). @ -[None done] What testing was considered but not performed or refused? (CT, X-rays, U/S, labs)? Why? @ -[None] What meds were considered but not given or refused? Why? @ -[None] Did you discuss the management of the patient with other professionals (professionals i.e. , PA, TEEN COUNSELOR, lab, RT, psych nurse, social media senior associate, mangle roll operator, teacher, national service officer, nurse case management)? Give summary @ -[Discussed with admitting physician and treatment recommendations incorporated Was smoking cessation discussed for >3mins.? @ -[No] Was critical care preformed (if so, how long)? @ -[yes, 30 minutes Were there social determinants of health that impacted care today? How? (Homelessness, low income, unemployed, alcoholism, drug addiction, transportation, low edu. Level, literacy, decrease access to med. care, senior care, rehab)? @ -[No] Was there de-escalation of care discussed even if they declined (Discuss DNR or withdrawal of care, Hospice)? DNR status @ -[No] What co-morbidities impacted this encounter? (DM, HTN, Smoking, COPD, CAD, Cancer, CVA, ARF, Chemo, Hep., AIDS, mental health diagnosis, sleep apnea, morbid obesity)? @ -[Morbid obesity, hypertension, obstructive sleep apnea, diabetes Was patient admitted / discharged? Hospital course, mention meds given and route, prescriptions, significant lab abnormalities, going to OR and other pertinent info. @ -Patient is 73-year-old man [facility] for dyspnea worse than his baseline. Suspect that this is multifactorial. There is definitely component of congestive heart failure. There is probably restrictive lung disease and based on x-ray may be pneumonia, the patient will be treated pending procalcitonin level Undiagnosed new problem with uncertain prognosis? @ -[No] Drug Therapy requiring intensive monitoring for toxicity (Heparin, Nitro, Insulin, Cardizem)? @ -[No] Were any procedures done? @ -[No] Diagnosis/symptom? @ -[Acute dyspnea acute exacerbation of congestive heart failure Possible pneumonia Anemia Acute, or Chronic, or Acute on Chronic? @ -[Acute on chronic Uncomplicated (without systemic symptoms) or Complicated (systemic symptoms)? @ -[Complicated by dyspnea Side effects of treatment? @ -[No] Exacerbation, Progression, or Severe Exacerbation? @ -[No] Poses a threat to life or bodily function? How? (Chest pain, [place], [place], pneumonia, PE, COPD, DKA, ARF, appy, cholecystitis, CVA, Diverticulitis, Homicidal, Suicidal, threat to staff... and all critical care pts) @ -[yes - Lab Data Result diagrams: 07/08/24 07:42 07/08/24 07:42 Lab Results 07/04/24 07/04/24 07/04/24 Range/Units 23:33 23:33 23:33 WBC 7.6 (3.8-10.6) k/uL RBC 2.98 L (4.30-5.90) m/uL Hgb 8.6 L (13.0-17.5) gm/dL Hct 28.9 L (39.0-53.0) % MCV 97.0 (80.0-100.0) fL MCH 29.0 (25.0-35.0) pg MCHC 29.9 L (31.0-37.0) g/dL RDW 21.0 H (11.5-15.5) % Plt Count 255 (150-450) k/uL MPV 8.2 Neutrophils % 72 % Lymphocytes % 17 % Monocytes % 6 % Eosinophils % 2 % Basophils % 0 % Neutrophils # 5.4 (1.3-7.7) k/uL Lymphocytes # 1.3 (1.0-4.8) k/uL Monocytes # 0.5 (0-1.0) k/uL Eosinophils # 0.2 (0-0.7) k/uL Basophils # 0.0 (0-0.2) k/uL Hypochromasia Marked Anisocytosis Moderate Macrocytosis Moderate PT 12.3 (10.0-12.5) sec INR 1.1 (<1.2) APTT 30.1 H (22.0-30.0) sec D-Dimer 0.63 H (<0.60) mg/L FEU VBG pH (7.31-7.41) VBG pCO2 (37-51) mmHg VBG HCO3 (24-28) mmol/L Sodium (137-145) mmol/L Potassium (3.5-5.1) mmol/L Chloride (98-107) mmol/L Carbon Dioxide (22-30) mmol/L Anion Gap mmol/L BUN (9-20) mg/dL Creatinine (0.66-1.25) mg/dL Est GFR (CKD-EPI)AfAm (>60 ml/min/1.73 sqM) Est GFR (CKD-EPI)NonAf (>60 ml/min/1.73 sqM) Glucose (74-99) mg/dL Lactic Ac Sepsis Rflx Plasma Lactic Acid Rolf (0.7-2.0) mmol/L Calcium (8.4-10.2) mg/dL Total Bilirubin (0.2-1.3) mg/dL AST (17-59) U/L ALT (4-49) U/L Alkaline Phosphatase (38-126) U/L Troponin I (0.000-0.034) ng/mL NT-Pro-B Natriuret Pep pg/mL Total Protein (6.3-8.2) g/dL Albumin (3.5-5.0) g/dL Procalcitonin 0.28 (0.02-0.50) ng/mL 07/04/24 07/04/24 07/04/24 Range/Units 23:33 23:33 23:33 WBC (3.8-10.6) k/uL RBC (4.30-5.90) m/uL Hgb (13.0-17.5) gm/dL Hct (39.0-53.0) % MCV (80.0-100.0) fL MCH (25.0-35.0) pg MCHC (31.0-37.0) g/dL RDW (11.5-15.5) % Plt Count (150-450) k/uL MPV Neutrophils % % Lymphocytes % % Monocytes % % Eosinophils % % Basophils % % Neutrophils # (1.3-7.7) k/uL Lymphocytes # (1.0-4.8) k/uL Monocytes # (0-1.0) k/uL Eosinophils # (0-0.7) k/uL Basophils # (0-0.2) k/uL Hypochromasia Anisocytosis Macrocytosis PT (10.0-12.5) sec INR (<1.2) APTT (22.0-30.0) sec D-Dimer (<0.60) mg/L FEU VBG pH (7.31-7.41) VBG pCO2 (37-51) mmHg VBG HCO3 (24-28) mmol/L Sodium 139 (137-145) mmol/L Potassium 4.0 (3.5-5.1) mmol/L Chloride 92 L (98-107) mmol/L Carbon Dioxide 39 H (22-30) mmol/L Anion Gap 8 mmol/L BUN 74 H (9-20) mg/dL Creatinine 1.18 (0.66-1.25) mg/dL Est GFR (CKD-EPI)AfAm 71 (>60 ml/min/1.73 sqM) Est GFR (CKD-EPI)NonAf 61 (>60 ml/min/1.73 sqM) Glucose 209 H (74-99) mg/dL Lactic Ac Sepsis Rflx Plasma Lactic Acid Rolf 2.6 H* (0.7-2.0) mmol/L Calcium 8.7 (8.4-10.2) mg/dL Total Bilirubin 0.7 (0.2-1.3) mg/dL AST 49 (17-59) U/L ALT 20 (4-49) U/L Alkaline Phosphatase 37 L (38-126) U/L Troponin I 0.723 H* (0.000-0.034) ng/mL NT-Pro-B Natriuret Pep 2910 pg/mL Total Protein 6.9 (6.3-8.2) g/dL Albumin 3.4 L (3.5-5.0) g/dL Procalcitonin (0.02-0.50) ng/mL 07/04/24 07/05/24 Range/Units 23:36 00:11 WBC (3.8-10.6) k/uL RBC (4.30-5.90) m/uL Hgb (13.0-17.5) gm/dL Hct (39.0-53.0) % MCV (80.0-100.0) fL MCH (25.0-35.0) pg MCHC (31.0-37.0) g/dL RDW (11.5-15.5) % Plt Count (150-450) k/uL MPV Neutrophils % % Lymphocytes % % Monocytes % % Eosinophils % % Basophils % % Neutrophils # (1.3-7.7) k/uL Lymphocytes # (1.0-4.8) k/uL Monocytes # (0-1.0) k/uL Eosinophils # (0-0.7) k/uL Basophils # (0-0.2) k/uL Hypochromasia Anisocytosis Macrocytosis PT (10.0-12.5) sec INR (<1.2) APTT (22.0-30.0) sec D-Dimer (<0.60) mg/L FEU VBG pH 7.50 H (7.31-7.41) VBG pCO2 54 H (37-51) mmHg VBG HCO3 43 H (24-28) mmol/L Sodium (137-145) mmol/L Potassium (3.5-5.1) mmol/L Chloride (98-107) mmol/L Carbon Dioxide (22-30) mmol/L Anion Gap mmol/L BUN (9-20) mg/dL Creatinine (0.66-1.25) mg/dL Est GFR (CKD-EPI)AfAm (>60 ml/min/1.73 sqM) Est GFR (CKD-EPI)NonAf (>60 ml/min/1.73 sqM) Glucose (74-99) mg/dL Lactic Ac Sepsis Rflx Y Plasma Lactic Acid Rolf (0.7-2.0) mmol/L Calcium (8.4-10.2) mg/dL Total Bilirubin (0.2-1.3) mg/dL AST (17-59) U/L ALT (4-49) U/L Alkaline Phosphatase (38-126) U/L Troponin I (0.000-0.034) ng/mL NT-Pro-B Natriuret Pep pg/mL Total Protein (6.3-8.2) g/dL Albumin (3.5-5.0) g/dL Procalcitonin (0.02-0.50) ng/mL - EKG Data -: EKG Interpreted by Me EKG shows normal: intervals (Normal), QRS complexes Rate: normal (Rate 95 bpm) Interpretation: other (Underlying rhythm appears to be atrial fibrillation.) Disposition Clinical Impression: Pneumonia, Dyspnea, Elevated troponin, CHF (congestive heart failure), Anemia Disposition: ADMITTED IP TO THIS HOSP Condition: Poor Is patient prescribed a controlled substance at d/c from ED?: No
[2024-07-04 23:40] LABS: Anisocytosis Moderate; Basophils % (A) 0 %; Eosinophils # (A) 0.2 k/uL (0-0.7); Eosinophils % (A) 2 %; HCT 28.9 % (39.0-53.0); HGB 8.6 gm/dL (13.0-17.5); Hypochromasia Marked; Lymphocytes # (A) 1.3 k/uL (1.0-4.8); Lymphocytes % (A) 17 %; MCHC 29.9 g/dL (31.0-37.0); Macrocytosis Moderate; Mean Platelet Volume 8.2; Monocytes # (A) 0.5 k/uL (0-1.0); Monocytes % (A) 6 %; Neutrophils # (A) 5.4 k/uL (1.3-7.7); Neutrophils % (A) 72 %; Platelet Count 255 k/uL (150-450); RBC 2.98 m/uL (4.30-5.90); WBC 7.6 k/uL (3.8-10.6)
[2024-07-04 23:51] LABS: ALT 20 U/L (4-49); AST 49 U/L (17-59); African American GFR (CKD) 71 (>60 ml/min/1.73 sqM); Albumin 3.4 g/dL (3.5-5.0); Alkaline Phosphatase 37 U/L (38-126); Blood Urea Nitrogen 74 mg/dL (9-20); Calcium 8.7 mg/dL (8.4-10.2); Chloride 92 mmol/L (98-107); Glucose 209 mg/dL (74-99); Non-African American GFR(CKD) 61 (>60 ml/min/1.73 sqM); Sodium 139 mmol/L (137-145); Total Bilirubin 0.7 mg/dL (0.2-1.3); Total Protein 6.9 g/dL (6.3-8.2)
[2024-07-04 23:57] LABS: Anion Gap 8 mmol/L; Carbon Dioxide 39 mmol/L (22-30)
[2024-07-04 23:59] LABS: INR 1.1 (<1.2); Partial Thromboplastin Time 30.1 sec (22.0-30.0); Prothrombin Time 12.3 sec (10.0-12.5)
[2024-07-05] LABS: NT-Pro-B-Type Natriuretic Pept 2910 pg/mL
[2024-07-05 00:15] LABS: VBG PH 7.5 (7.31-7.41)
[2024-07-05] MEDS: SODIUM CHLORIDE 0.9% 500 ML 500 ML IV STA (00:48)
[2024-07-05] MEDS: AZITHROMYCIN 500 MG in SODIUM CHLORIDE 0.9% 250 ML IVPB STA (01:28)
[2024-07-05] MEDS: SODIUM CHLORIDE 0.9% 1,000 ML IV STA (01:30)
--- NOTE | 2024-07-05 01:48 | XR ---
EXAM: XR Chest, 1 View CLINICAL HISTORY: ITS.REASON XR Reason: dyspnea TECHNIQUE: Frontal view of the chest. COMPARISON: No relevant prior studies available. IMPRESSION: Cardiomegaly. Mild vascular congestion. Bibasilar opacities.
[2024-07-05] MEDS ORDERED: hydrALAZINE HCL 25 MG TAB PO PRN (03:04)
[2024-07-05] MEDS: SODIUM CHLORIDE 0.9% 1,000 ML IV SCH (03:20)
[2024-07-05] MEDS: ASPIRIN 325 MG TAB PO STA (04:36)
[2024-07-05] MEDS: PANTOPRAZOLE 40 MG TABLET PO SCH (06:49)
[2024-07-05] MEDS: FUROSEMIDE 80 MG TAB PO SCH (06:49)
[2024-07-05] MEDS: IPRATROPIUM-ALBUTEROL 3 ML NEB INHALATION PRN (08:08)
[2024-07-05] MEDS: SYMBICORT 160-4.5 MCG INHALER INHALATION SCH (08:13)
[2024-07-05] MEDS: METOPROLOL SUCCINATE (ER) 25 MG TAB.ER.24H PO SCH (09:07)
[2024-07-05] MEDS: HEPARIN SODIUM,PORCINE 5,000 UNIT/ML 1 ML VIAL SQ SCH (09:07)
[2024-07-05] MEDS: LOSARTAN 25 MG TAB PO SCH (09:08)
[2024-07-05] MEDS: FERROUS SULFATE 325 MG TAB PO SCH (09:08)
[2024-07-05] MEDS: POTASSIUM CHLORIDE ER 20 MEQ TAB.ER PO SCH (09:08)
[2024-07-05] MEDS: LACTULOSE 20 GM/30 ML CUP PO SCH (09:09)
[2024-07-05] MEDS: ASPIRIN 81 MG PO SCH (09:09)
[2024-07-05] MEDS: metOLazone 2.5 MG TAB PO SCH (09:09)
[2024-07-05] MEDS: APIXABAN 5 MG TAB PO SCH (09:09)
[2024-07-05] MEDS ORDERED: DEXTROSE 50% SYRINGE 50 ML IVP PRN ×2 (09:26)
[2024-07-05] MEDS: FUROSEMIDE 10 MG/ML 4 ML VIAL IV SCH (10:14)
[2024-07-05] MEDS: PREGABALIN 75 MG CAP PO SCH (10:14)
[2024-07-05 10:48] LABS: Appearance,Urine Clear (Clear); Bilirubin,Urine Negative (Negative); Blood,Urine Negative (Negative); Color,Urine Colorless; Glucose,Urine (UA) 2+ (Negative); Ketones,Urine Negative (Negative); Leukocyte Esterase,Urine Negative (Negative); Nitrite,Urine Negative (Negative); Protein,Urine Negative (Negative); Urobilinogen,Urine <2.0 mg/dL (<2.0)
[2024-07-05 12:43] LABS: Glucose,Whole Blood 211 mg/dL (70-110)
--- NOTE | 2024-07-05 12:45 | P.CNPUL ---
History of Present Illness Consult date: 07/05/24 Reason for consult: dyspnea History of present illness: 07/05/2024, the patient is being seen in consultation in the emergency department for shortness of breath. The patient is currently on 4 L of oxygen by nasal cannula. It was noted that the patient was running a lower pulse ox in the shelter where he resides and based on that, the patient was transferred to the hospital for further investigation. The patient himself denies having any specific complaints. He is morbidly obese and he carries a body mass index of 57.6. No chest pain. No cough no sputum production. No chest tightness. No wheezing. He does have some chronic edema lower extremities bilaterally. No altered mentation. He is chronically debilitated and is bedridden. He is also oxygen dependent. He has history of chronic A-fib, CAD, previous bypass surger y, previous CVA, diabetes mellitus, hypertension and he is a lifetime non- smoker. D-dimer is at 0.6. BUN 74 with a creatinine of 1.1. Lactic acid level initially was at 2.6 dropped down to 1.6. There is troponin leak with a troponin levels of 0.7 x 2 respectively and a proBNP level of 2910. Pro calcitonin level 0.28. UA is negative. The viral screen is negative. White cell count is 7.6 with a hemoglobin of 8.6. Chest x-ray was done in the ED and it showed cardiomegaly with mild pulmonary vascular congestion. The patient is chronically on anticoagulation with Eliquis 5 mg p.o. twice a day. The patient is currently on Lasix 40 mg every 12 hours and the patient is producing excellent urine output. Has echo from 06/01/2024 had shown left-ventricular ejection fraction of 45 to 50%, moderate LVH, severe RV dilatation and moderate pulmonary apprehension and moderate degree of tricuspid regurgitation. Review of Systems GENERAL EXAM: Alert, morbidly obese 73-year-old male, on 4 L high flow nasal cannula, in no apparent distress. HEAD: Normocephalic. EYES: Normal reaction of pupils, equal size. NOSE: Clear with pink turbinates. THROAT: No erythema or exudates. NECK: No masses, no JVD. CHEST: No chest wall deformity. LUNGS: Equal air entry with few scattered rhonchi, wheeze. CVS: S1 and S2 normal with no audible murmur, regular rhythm. ABDOMEN: No hepatosplenomegaly, normal bowel sounds, no guarding or rigidity. SPINE: No scoliosis or deformity SKIN: No rashes CENTRAL NERVOUS SYSTEM: No focal deficits, tone is normal in all 4 extremities. EXTREMITIES: There is 1+ peripheral edema. No clubbing, no cyanosis. Peripheral pulses are intact. Constitutional: Reports daytime sleepiness, Reports fatigue, Reports weakness, R eports weight gain Eyes: denies as per HPI, denies blurred vision, denies bulging eye, denies decreased vision, denies diplopia, denies discharge, denies dry eye, denies irritation, denies itching, denies pain, denies photophobia, denies loss of peripheral vision, denies loss of vision, denies tunnel vision/blind spots Ears: deny: decreased hearing, ear discharge, earache, tinnitus Ears, nose, mouth and throat: Reports as per HPI Cardiovascular: Reports decreased exercise tolerance, Reports dyspnea on exertion, Reports irregular heart beat, Reports leg edema, Reports orthopnea, Reports shortness of breath Respiratory: Reports dyspnea, Reports home oxygen, Reports sleep apnea, Reports snoring Gastrointestinal: Reports as per HPI Genitourinary: Reports as per HPI Musculoskeletal: Reports as per HPI Musculoskeletal: bilateral: ankle swelling, absent: ankle pain, ankle stiffness Integumentary: Reports as per HPI Neurological: Reports as per HPI, Reports gait dysfunction, Reports weakness Psychiatric: Reports as per HPI Endocrine: Reports as per HPI, Reports fatigue Hematologic/Lymphatic: Reports as per HPI Allergic/Immunologic: Reports as per HPI Past Medical History Past Medical History: Atrial Fibrillation, Coronary Artery Disease (CAD), CVA/TIA, Diabetes Mellitus, GERD/Reflux, Hypertension, Sleep Apnea/CPAP/BIPAP Additional Past Medical History / Comment(s): TIA (2008), C-PAP MACHINE, BLADDER INCONTINENCE, 6L NASAL CANNULA 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), CABG (2014) Past Anesthesia/Blood Transfusion Reactions: No Reported Reaction Past Psychological History: Anxiety Smoking Status: Former smoker Past Alcohol Use History: Occasional Past Drug Use History: None Reported - Past Family History Brother(s) Family Medical History: Cancer Additional Family Medical History / Comment(s): ORAL CANCER Mother Family Medical History: Diabetes Mellitus Medications and Allergies Home Medications Medication Instructions Recorded Confirmed Type Ferrous Sulfate [Feosol] 325 mg PO BID@0900,209901/03/15 07/05/24 History Apixaban [Eliquis] 5 mg PO BID@0900,209907/02/21 07/05/24 History Aspirin EC [Ecotrin Low Dose] 81 mg PO DAILY@0900 07/02/21 07/05/24 History Acetaminophen Tab [Tylenol] 1,000 mg PO Q6HR PRN 06/01/24 07/05/24 History Acetaminophen [Tylenol Arthritis] 650 mg PO Q12HR@00,209906/01/24 07/05/24 History Artificial Tears-Hypromellose 2 drops BOTH EYES Q4H PRN 06/01/24 07/05/24 History [Artificial Tear Drops] Atorvastatin [Lipitor] 40 mg PO HS@209906/01/24 07/05/24 History Budesonide/Formoterol Fumarate 2 puff INHALATION DIRECTED 06/01/24 07/05/24 History [Symbicort 160-4.5 Mcg Inhaler] Dapagliflozin Propanediol [Farxiga] 10 mg PO HS@209906/01/24 07/05/24 History Esomeprazole Magnesium [NexIUM] 20 mg PO DAILY@0606/01/24 07/05/24 History Furosemide [Lasix] 80 mg PO DAILY@0600 06/01/24 07/05/24 History Insulin Aspart [NovoLOG Flexpen] See Protocol SQ ACHS@,,,06/01/24 07/05/24 History Insulin Aspart [NovoLOG] 15 unit SQ AC-TID@,,06/01/24 07/05/24 History Insulin Glargine,Hum.rec.anlog 21 units SQ HS@209906/01/24 07/05/24 History [Lantus Solostar Pen] Ipratropium-Albuterol Nebulize 3 ml INHALATION RT-Q6H PRN 06/01/24 07/05/24 History [Duoneb 0.5 mg-3 mg/3 ml Soln] Lactulose 20 gm PO Q12HR@0900,209906/01/24 07/05/24 History Losartan [Cozaar] 12.5 mg PO DAILY@89906/01/24 07/05/24 History Melatonin 5 mg PO HS@209906/01/24 07/05/24 History Metoprolol Succinate (ER) [Toprol 25 mg PO DAILY@89906/01/24 07/05/24 History XL] Potassium Chloride [Klor-Con M20] 20 meq PO Q8H 06/01/24 07/05/24 History Pregabalin [Lyrica] 75 mg PO Q12HR@899,209906/01/24 07/05/24 History Psyllium Husk 100% [Metamucil 6 gm PO DAILY@89906/01/24 07/05/24 History Packet] Sennosides/Docusate Sodium [Senna 2 tab PO DAILY@89906/01/24 07/05/24 History Plus 8.6-50 mg Tablet] Tirzepatide [Mounjaro] 5 mg SQ TU@89906/01/24 07/05/24 History allopurinoL 100 mg PO HS@209906/01/24 07/05/24 History metOLazone 2.5 mg PO DAILY 06/01/24 07/05/24 History hydrALAZINE HCL [Apresoline] 25 mg PO QID PRN #60 tab 06/10/24 07/05/24 Rx Amoxic-Pot Clav 875-125Mg 1 tab PO Q12HR 07/05/24 07/05/24 History [Augmentin 875-125] Budesonide 1 mg INHALATION RT-Q12H 07/05/24 07/05/24 History Ipratropium-Albuterol Nebulize 3 ml INHALATION RT-Q6H 07/05/24 07/05/24 History [Duoneb 0.5 mg-3 mg/3 ml Soln] Midodrine [ProAmatine] 5 mg PO BID 07/05/24 07/05/24 History acetaZOLAMIDE [Diamox] 250 mg PO DAILY 07/05/24 07/05/24 History metOLazone [Zaroxolyn] 2.5 mg PO DAILY@0900 07/05/24 07/05/24 History Allergies Allergy/AdvReac Type Severity Reaction Status Date / Time No Known Allergies Allergy Verified 07/05/24 08:39 Physical Exam Vitals: Vital Signs Pulse Resp BP Pulse Ox FiO2 07/05/24 09:00 70 20 106/64 97 07/05/24 08:22 82 07/05/24 08:15 96 07/05/24 08:14 76 07/05/24 08:05 50 07/05/24 04:51 50 07/05/24 03:41 79 22 93/54 100 07/05/24 00:30 93 18 119/71 100 07/05/24 00:00 90 24 95/74 100 07/04/24 23:25 70 07/04/24 23:20 70 07/04/24 23:08 104 H 22 83/63 100 Intake and Output 07/04/24 07/05/24 07/05/24 22:59 06:59 14:59 Other: Weight 176.901 kg GENERAL EXAM: Alert, morbidly obese 73-year-old male, on 4 L of oxygen nasal cannula, in no apparent distress. The patient is morbidly obese with a body mass index of 57.6 HEAD: Normocephalic. EYES: Normal reaction of pupils, equal size. NOSE: Clear with pink turbinates. THROAT: No erythema or exudates. NECK: No masses, no JVD. Mallampati class IV with significant crowding of posterior pharynx CHEST: No chest wall deformity. LUNGS: Equal air entry with few scattered rhonchi, wheeze. Diminished breath sound lung base bilaterally. CVS: S1 and S2 normal with no audible murmur, irregular rhythm consistent with atrial fibrillation. ABDOMEN: No hepatosplenomegaly, normal bowel sounds, no guarding or rigidity. SPINE: No scoliosis or deformity SKIN: No rashes CENTRAL NERVOUS SYSTEM: No focal deficits, tone is normal in all 4 extremities. EXTREMITIES: There is 1+ peripheral edema. No clubbing, no cyanosis. Peripheral pulses are intact. Results - Laboratory Findings CBC and BMP: 07/04/24 23:33 07/04/24 23:33 PT/INR, D-dimer PT 12.3 sec (10.0-12.5) 07/04/24 23:33 INR 1.1 (<1.2) 07/04/24 23:33 D-Dimer 0.63 mg/L FEU (<0.60) H 07/04/24 23:33 Abnormal lab findings: Abnormal Labs 07/04/24 07/04/24 07/04/24 23:33 23:33 23:33 RBC 2.98 L Hgb 8.6 L Hct 28.9 L MCHC 29.9 L RDW 21.0 H APTT 30.1 H D-Dimer 0.63 H VBG pH VBG pCO2 VBG HCO3 Chloride 92 L Carbon Dioxide 39 H BUN 74 H Glucose 209 H Plasma Lactic Acid Rolf Alkaline Phosphatase 37 L Troponin I Albumin 3.4 L 07/04/24 07/04/24 07/04/24 23:33 23:33 23:36 RBC Hgb Hct MCHC RDW APTT D-Dimer VBG pH 7.50 H VBG pCO2 54 H VBG HCO3 43 H Chloride Carbon Dioxide BUN Glucose Plasma Lactic Acid Rolf 2.6 H* Alkaline Phosphatase Troponin I 0.723 H* Albumin 07/05/24 03:37 RBC Hgb Hct MCHC RDW APTT D-Dimer VBG pH VBG pCO2 VBG HCO3 Chloride Carbon Dioxide BUN Glucose Plasma Lactic Acid Rolf Alkaline Phosphatase Troponin I 0.750 H* Albumin - Diagnostic Findings Chest x-ray: image reviewed Assessment and Plan Plan: Acute on chronic hypoxemic and hypercapnic respiratory failure, secondary to a mild component of fluid overload/CHF, remains on 4 L of O2 nasal cannula,, comfortable, no signs of any CO2 narcosis Chronic hypoxic respiratory failure maintained on O2 between 2 to 4 L on outpatient basis Morbid obesity with a BMI of 57.6 Chronic debility and the patient is nonambulatory, morbidly obese, Nabeel resides at [facility] obstructive sleep apnea syndrome Atrial fibrillation with a controlled rate and the patient is on anticoagulant with Eliquis Acute on chronic anemia with a hemoglobin of 8.6, no evidence of any GI bleed Mild lactic acidosis, improved History of CAD with previous bypass surgery, 2014, abnormal troponins, EKG is consistent with A-fib and the patient is free of any chest pain CHF with mild LV impairment and ejection fraction of 45 to 50% and moderate t ricuspid regurgitation, moderate concentric LVH and moderate to severe pulmonary hypertension History of CVA History of diabetes mellitus History of gastroesophageal reflux disease History of essential hypertension History of anxiety Lifelong non-smoker Chronic urinary incontinence Plan Reviewed the chest x-ray Agree on diuretics Monitor urine output Oxygenation is stable No indication for pneumonia Utilize BiPAP overnight Continue Zaroxolyn 2.5 mg p.o. daily Continue aspirin Continue metoprolol 25 mg p.o. daily XL Continue Levemir insulin 21 units daily along with a sliding scale coverage IV fluids to KVO Cardiology consultation Will follow
--- NOTE | 2024-07-05 12:48 | P.HPIM ---
History of Present Illness H&P Date: 07/05/24 History of present illness; patient is a 73-year-old gentleman with past medical history significant for type 2 diabetes, CVA, coronary artery disease, hypertension, obstructive sleep apnea on CPAP BiPAP, previous history of A-fib with RVR who is currently resident of [facility] on [facility] presented to the ER because of shortness of breath. Patient was recently discharged from the hospital after being treated for CHF and pneumonia, currently is on antibiotics according the patient. Patient stated that for the last few days he became more short of breath. Patient oxygen saturation were low and the staff at the detention were concerned. Patient denied any chest pain. There was no complaint of fever or chills. There was no complaint of orthopnea or PND. There is no complaint of nausea, vomit abdominal pain. Because of the symptoms, patient was transferred to the ER Initial lab work done in the ER showed WBC 7.6, hemoglobin 8.6, platelet count 255, D-dimer 0.63, sodium 139, potassium 4, carbon is a 39, BUN 74, 31.18, lactate 2.6, troponin 0.723, proBNP 2910 Influenza A not detected Influenza B not detected RSV not detected COVID-19 not detected Chest x-ray done in the ER showed cardiomegaly with mild pulm vascular congestion Patient admitted to internal medicine service REVIEW OF SYSTEMS: CONSTITUTIONAL: No fever, no malaise, no fatigue. HEENT: No recent visual problems or hearing problems. Denied any sore throat. CARDIOVASCULAR: As mentioned above PULMONARY: As mentioned in GASTROINTESTINAL: No diarrhea, no nausea, no vomiting, no abdominal pain. NEUROLOGICAL: No headaches, no weakness, no numbness. HEMATOLOGICAL: Denies any bleeding or petechiae. GENITOURINARY: Denies any burning micturition, frequency, or urgency. MUSCULOSKELETAL/RHEUMATOLOGICAL: Denies any joint pain, swelling, or any muscle pain. ENDOCRINE: Denies any polyuria or polydipsia. The rest of the 14-point review of systems is negative. PHYSICAL EXAMINATION: GENERAL: The patient is alert and oriented x3, obese, chronically ill looking HEENT: Pupils are round and equally reacting to light. EOMI. No scleral icterus. No conjunctival pallor. Normocephalic, atraumatic. No pharyngeal erythema. No thyromegaly. CARDIOVASCULAR: S1 and S2 present. No murmurs, rubs, or gallops. PULMONARY: Diminished breath sounds at bases bilaterally, crackles audible ABDOMEN: Soft, nontender, nondistended, normoactive bowel sounds. No palpable organomegaly. MUSCULOSKELETAL: No joint swelling or deformity. EXTREMITIES: 3+ pitting edema lower extremities bilaterally NEUROLOGICAL: Gross neurological examination did not reveal any focal deficits. SKIN: No rashes. Assessment and plan Acute on chronic systolic and diastolic heart failure Elevated troponin Acute on chronic hypoxemic respiratory failure CAD status post CABG in 2015 History of CVA Type 2 diabetes Essential hypertension Morbid obesity Monitor vital signs Monitor CBC Monitor CMP Continue telemetry monitoring Trend troponins. Strict I's and O's, daily weights Started IV Lasix 40 mg every 12 Started breathing treatments Resume aspirin, Lipitor Resume Eliquis Consult cardiology Consult pulmonary Labs and medication were reviewed.. Continue same treatment. Continue with symptomatic treatment. Resume home medication. Monitor labs and vitals. DVT and GI prophylaxis. Further recommendations as per clinical course of the patient Dictation was produced using [employer] dictation software. please excuse any grammatical, word or spelling errors. Past Medical History Past Medical History: Atrial Fibrillation, Coronary Artery Disease (CAD), CVA/TIA, Diabetes Mellitus, GERD/Reflux, Hypertension, Sleep Apnea/CPAP/BIPAP Additional Past Medical History / Comment(s): TIA (2008), C-PAP MACHINE, BLADDER INCONTINENCE, 6L NASAL CANNULA 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), CABG (2014) Past Anesthesia/Blood Transfusion Reactions: No Reported Reaction Past Psychological History: Anxiety Smoking Status: Former smoker Past Alcohol Use History: Occasional Past Drug Use History: None Reported - Past Family History Brother(s) Family Medical History: Cancer Additional Family Medical History / Comment(s): ORAL CANCER Mother Family Medical History: Diabetes Mellitus Medications and Allergies Home Medications Medication Instructions Recorded Confirmed Type Ferrous Sulfate [Feosol] 325 mg PO BID@0900,2100 01/03/15 07/05/24 History Apixaban [Eliquis] 5 mg PO BID@0900,2100 07/02/21 07/05/24 History Aspirin EC [Ecotrin Low Dose] 81 mg PO DAILY@0900 07/02/21 07/05/24 History Acetaminophen Tab [Tylenol] 1,000 mg PO Q6HR PRN 06/01/24 07/05/24 History Acetaminophen [Tylenol Arthritis] 650 mg PO Q12HR@0900,209906/01/24 07/05/24 History Artificial Tears-Hypromellose 2 drops BOTH EYES Q4H PRN 06/01/24 07/05/24 History [Artificial Tear Drops] Atorvastatin [Lipitor] 40 mg PO HS@209906/01/24 07/05/24 History Budesonide/Formoterol Fumarate 2 puff INHALATION DIRECTED 06/01/24 07/05/24 History [Symbicort 160-4.5 Mcg Inhaler] Dapagliflozin Propanediol [Farxiga] 10 mg PO HS@209906/01/24 07/05/24 History Esomeprazole Magnesium [NexIUM] 20 mg PO DAILY@59906/01/24 07/05/24 History Furosemide [Lasix] 80 mg PO DAILY@59906/01/24 07/05/24 History Insulin Aspart [NovoLOG Flexpen] See Protocol SQ ACHS@,12,,06/01/24 07/05/24 History Insulin Aspart [NovoLOG] 15 unit SQ AC-TID@,,06/01/24 07/05/24 History Insulin Glargine,Hum.rec.anlog 21 units SQ HS@209906/01/24 07/05/24 History [Lantus Solostar Pen] Ipratropium-Albuterol Nebulize 3 ml INHALATION RT-Q6H PRN 06/01/24 07/05/24 History [Duoneb 0.5 mg-3 mg/3 ml Soln] Lactulose 20 gm PO Q12HR@0900,209906/01/24 07/05/24 History Losartan [Cozaar] 12.5 mg PO DAILY@0900 06/01/24 07/05/24 History Melatonin 5 mg PO HS@209906/01/24 07/05/24 History Metoprolol Succinate (ER) [Toprol 25 mg PO DAILY@00 06/01/24 07/05/24 History XL] Potassium Chloride [Klor-Con M20] 20 meq PO Q8H 06/01/24 07/05/24 History Pregabalin [Lyrica] 75 mg PO Q12HR@0900,2100 06/01/24 07/05/24 History Psyllium Husk 100% [Metamucil 6 gm PO DAILY@0900 06/01/24 07/05/24 History Packet] Sennosides/Docusate Sodium [Senna 2 tab PO DAILY@0900 06/01/24 07/05/24 History Plus 8.6-50 mg Tablet] Tirzepatide [Mounjaro] 5 mg SQ TU@0900 06/01/24 07/05/24 History allopurinoL 100 mg PO HS@2100 06/01/24 07/05/24 History metOLazone 2.5 mg PO DAILY 06/01/24 07/05/24 History hydrALAZINE HCL [Apresoline] 25 mg PO QID PRN #60 tab 06/10/24 07/05/24 Rx Amoxic-Pot Clav 875-125Mg 1 tab PO Q12HR 07/05/24 07/05/24 History [Augmentin 875-125] Budesonide 1 mg INHALATION RT-Q12H 07/05/24 07/05/24 History Ipratropium-Albuterol Nebulize 3 ml INHALATION RT-Q6H 07/05/24 07/05/24 History [Duoneb 0.5 mg-3 mg/3 ml Soln] Midodrine [ProAmatine] 5 mg PO BID 07/05/24 07/05/24 History acetaZOLAMIDE [Diamox] 250 mg PO DAILY 07/05/24 07/05/24 History metOLazone [Zaroxolyn] 2.5 mg PO DAILY@0900 07/05/24 07/05/24 History Allergies Allergy/AdvReac Type Severity Reaction Status Date / Time No Known Allergies Allergy Verified 07/05/24 08:39 Physical Exam Vitals: Vital Signs Pulse Resp BP Pulse Ox FiO2 07/05/24 09:00 70 20 106/64 97 07/05/24 08:22 82 07/05/24 08:15 96 07/05/24 08:14 76 07/05/24 08:05 50 07/05/24 04:51 50 07/05/24 03:41 79 22 93/54 100 07/05/24 00:30 93 18 119/71 100 07/05/24 00:00 90 24 95/74 100 07/04/24 23:25 70 07/04/24 23:20 70 07/04/24 23:08 104 H 22 83/63 100 Intake and Output 07/04/24 07/05/24 07/05/24 22:59 06:59 14:59 Other: Weight 176.901 kg Results CBC & Chem 7: 07/04/24 23:33 07/04/24 23:33 Labs: Abnormal Lab Results - Last 24 Hours (Table) 07/04/24 07/04/24 07/04/24 Range/Units 23:33 23:33 23:33 RBC 2.98 L (4.30-5.90) m/uL Hgb 8.6 L (13.0-17.5) gm/dL Hct 28.9 L (39.0-53.0) % MCHC 29.9 L (31.0-37.0) g/dL RDW 21.0 H (11.5-15.5) % APTT 30.1 H (22.0-30.0) sec D-Dimer 0.63 H (<0.60) mg/L FEU VBG pH (7.31-7.41) VBG pCO2 (37-51) mmHg VBG HCO3 (24-28) mmol/L Chloride 92 L (98-107) mmol/L Carbon Dioxide 39 H (22-30) mmol/L BUN 74 H (9-20) mg/dL Glucose 209 H (74-99) mg/dL Plasma Lactic Acid Rolf (0.7-2.0) mmol/L Alkaline Phosphatase 37 L (38-126) U/L Troponin I (0.000-0.034) ng/mL Albumin 3.4 L (3.5-5.0) g/dL 07/04/24 07/04/24 07/04/24 Range/Units 23:33 23:33 23:36 RBC (4.30-5.90) m/uL Hgb (13.0-17.5) gm/dL Hct (39.0-53.0) % MCHC (31.0-37.0) g/dL RDW (11.5-15.5) % APTT (22.0-30.0) sec D-Dimer (<0.60) mg/L FEU VBG pH 7.50 H (7.31-7.41) VBG pCO2 54 H (37-51) mmHg VBG HCO3 43 H (24-28) mmol/L Chloride (98-107) mmol/L Carbon Dioxide (22-30) mmol/L BUN (9-20) mg/dL Glucose (74-99) mg/dL Plasma Lactic Acid Rolf 2.6 H* (0.7-2.0) mmol/L Alkaline Phosphatase (38-126) U/L Troponin I 0.723 H* (0.000-0.034) ng/mL Albumin (3.5-5.0) g/dL 07/05/24 Range/Units 03:37 RBC (4.30-5.90) m/uL Hgb (13.0-17.5) gm/dL Hct (39.0-53.0) % MCHC (31.0-37.0) g/dL RDW (11.5-15.5) % APTT (22.0-30.0) sec D-Dimer (<0.60) mg/L FEU VBG pH (7.31-7.41) VBG pCO2 (37-51) mmHg VBG HCO3 (24-28) mmol/L Chloride (98-107) mmol/L Carbon Dioxide (22-30) mmol/L BUN (9-20) mg/dL Glucose (74-99) mg/dL Plasma Lactic Acid Rolf (0.7-2.0) mmol/L Alkaline Phosphatase (38-126) U/L Troponin I 0.750 H* (0.000-0.034) ng/mL Albumin (3.5-5.0) g/dL
[2024-07-05] MEDS: INSULIN ASPART (NovoLOG) 100 UNIT/ML VIAL SQ SCH (13:07)
[2024-07-05 17:10] LABS: Glucose,Whole Blood 210 mg/dL (70-110)
[2024-07-05] MEDS: ALBUTEROL NEBULIZED 2.5 MG/3 ML INHALATION PRN (19:56)
[2024-07-05 20:09] LABS: Glucose,Whole Blood 241 mg/dL (70-110)
[2024-07-05 23:18] LABS: Glucose,Whole Blood 210 mg/dL (70-110)
[2024-07-05] MEDS: INSULIN DETEMIR (LEVEMIR) 100 UNIT/ML SYR SQ SCH (23:22)
[2024-07-05] MEDS: MELATONIN 5 MG TABLET PO SCH (23:23)
[2024-07-05] MEDS: ATORVASTATIN 40 MG TAB PO SCH (23:23)
[2024-07-06 06:44] LABS: Anisocytosis Moderate; HCT 28.7 % (39.0-53.0); HGB 8.5 gm/dL (13.0-17.5); Hypochromasia Marked; MCH 28.7 pg (25.0-35.0); MCHC 29.6 g/dL (31.0-37.0); MCV 96.8 fL (80.0-100.0); Macrocytosis Moderate; Mean Platelet Volume 8.6; Platelet Count 235 k/uL (150-450); RBC 2.96 m/uL (4.30-5.90); RDW 20.9 % (11.5-15.5)
[2024-07-06 06:51] LABS: Glucose,Whole Blood 185 mg/dL (70-110)
[2024-07-06 06:51] LABS: ALT 16 U/L (4-49); AST 28 U/L (17-59); African American GFR (CKD) 59 (>60 ml/min/1.73 sqM); Albumin 3.3 g/dL (3.5-5.0); Alkaline Phosphatase 47 U/L (38-126); Blood Urea Nitrogen 68 mg/dL (9-20); Calcium 8.5 mg/dL (8.4-10.2); Chloride 86 mmol/L (98-107); Glucose 174 mg/dL (74-99); Non-African American GFR(CKD) 51 (>60 ml/min/1.73 sqM); Sodium 141 mmol/L (137-145); Total Bilirubin 0.4 mg/dL (0.2-1.3); Total Protein 6.5 g/dL (6.3-8.2)
[2024-07-06 07:03] LABS: Anion Gap 6 mmol/L
[2024-07-06 07:20] LABS: Carbon Dioxide 49 mmol/L (22-30)
--- NOTE | 2024-07-06 10:28 | P.CRDCN ---
History of Present Illness History of present illness: HISTORY OF PRESENT ILLNESS: This is a 73-year-old male with a past medical history significant for coronary artery disease with previous three-vessel CABG in 2015, CHF, persistent atrial fibrillation, CVA, debility with inability to ambulate, hyperlipidemia, hypertension, and former nicotine dependence. Patient follows in the office with Dr. Morelos. We have been asked to see the patient in consultation for CHF. Patient examined at the bedside. Apparently the patient was brought to the hospital from his long term due to shortness of breath. The patient states he had no complaints at all and was brought to the hospital due to the "nurses pride" at the [facility] where he resides. He denies any chest pain or pressure at the time of examination. He denies any shortness of breath. The patient does have pitting bilateral lower extremity edema which he states he usually does not duarte ve. Patient states he is bedbound and does not walk. The patient has no complaints at the time of examination. The patient does report that he quit smoking a few years ago. DIAGNOSTICS: - EKG not available at the time of this dictation - Chest xray cardiomegaly, mild pulmonary vascular congestion, bibasilar opacities - Laboratory data: WBC 7.0. Hemoglobin 8.5. Platelet count 235. Sodium 141. Potassium 3.0. BUN 68. Creatinine 1.38. proBNP 2910. Troponin 0.723. 0.750. - Current home cardiac medications include Eliquis 5 mg twice a day, metoprolol succinate 25 mg daily, Zaroxolyn 2.5 mg daily, hydralazine 25 mg 4 times a day as needed, Lasix 80 mg daily, Farxiga 10 mg at night, losartan 12.5 mg daily, Lipitor 40 mg at night, aspirin 81 mg daily, and Diamox 250 mg daily - Most recent echocardiogram obtained in May 2024 revealed ejection fraction 45 to 50%, moderate pulmonary hypertension, trace mitral regurgitation, mild aortic stenosis with probable bicuspid aortic valve, moderate tricuspid regurgitation, and trace pulmonic regurgitation. - Cardiac catheterization history: December 2014 revealing severe triple-vessel coronary artery disease REVIEW OF SYSTEMS: At the time of my exam: CONSTITUTIONAL: Denies fever or chills. HEENT: Denies blurred vision, vision changes, or eye pain. Denies hemoptysis CARDIOVASCULAR: Denies chest pain. Denies orthopnea. Denies PND. Denies palpitations RESPIRATORY: Denies shortness of breath. GASTROINTESTINAL: Denies abdominal pain. Denies nausea or vomiting. HEMATOLOGIC: Denies bleeding disorders. GENITOURINARY: Denies any blood in urine. SKIN: Denies pruitis. Denies rash. PHYSICAL EXAM: VITAL SIGNS: Reviewed. GENERAL: Well-developed in no acute distress. HEENT: Head is normocephalic. Pupils are equal, round. Sclerae anicteric. Mucous membranes of the mouth are moist. Neck supple. No JVD or thyromegaly LUNGS: Respirations even and unlabored. Lungs essentially clear to auscultation bilaterally. HEART: Irregular rate and rhythm. S1 and S2 heard. Systolic murmur noted. ABDOMEN: Soft. Nondistended. Nontender. EXTREMITIES: Normal range of motion-bedbound. No clubbing or cyanosis. Peripheral pulses intact. 2+ pitting bilateral lower extremity edema NEUROLOGIC: Awake and alert. Oriented x 3. ASSESSMENT: Acute on chronic heart failure with mildly reduced EF, 45 to 50% Acute hypoxic respiratory failure requiring supplemental oxygen Abnormal troponins, flat, type II PA secondary to oxygen supply/demand mismatch, no evidence of acute coronary syndrome Coronary artery disease with previous three-vessel CABG, 2015, PIÑA to LAD, SVG to OM, SVG to PDA Moderate pulmonary hypertension Valvular heart disease including trace MR, mild , and moderate TR Persistent atrial fibrillation History of CVA Hypertension Hyperlipidemia Chronic debility with inability to ambulate, bedbound at baseline Former nicotine dependence, patient quit smoking a few years ago PLAN: No need to obtain echocardiogram as this was performed in May 2024 Continue current cardiac medications Continue IV Lasix for an additional 24 hours Daily weights, accurate intake and output, and monitoring of kidney function Replace potassium with 40meq Kdur in addition to daily scheduled potassium supplement Continue telemetry monitoring Further recommendations pending patient course Nurse practitioner note has been reviewed by physician. Signing provider agrees with the documented findings, assessment, and plan of care documented by CORPSMAN as a scribe. 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 Smoking Status: Former smoker Past Alcohol Use History: Occasional Additional Past Alcohol Use History / Comment(s): QUIT SMOKING IN 2009, SMOKED 2 PPD APPROX 60 YEARS. Past Drug Use History: None Reported - Past Family History Brother(s) Family Medical History: Cancer Additional Family Medical History / Comment(s): ORAL CANCER Mother Family Medical History: Diabetes Mellitus Medications and Allergies Home Medications Medication Instructions Recorded Confirmed Type Ferrous Sulfate [Feosol] 325 mg PO BID@0900,209901/03/15 07/05/24 History Apixaban [Eliquis] 5 mg PO BID@0900,209907/02/21 07/05/24 History Aspirin EC [Ecotrin Low Dose] 81 mg PO DAILY@0907/02/21 07/05/24 History Acetaminophen Tab [Tylenol] 1,000 mg PO Q6HR PRN 06/01/24 07/05/24 History Acetaminophen [Tylenol Arthritis] 650 mg PO Q12HR@0900,209906/01/24 07/05/24 History Artificial Tears-Hypromellose 2 drops BOTH EYES Q4H PRN 06/01/24 07/05/24 History [Artificial Tear Drops] Atorvastatin [Lipitor] 40 mg PO HS@209906/01/24 07/05/24 History Budesonide/Formoterol Fumarate 2 puff INHALATION DIRECTED 06/01/24 07/05/24 History [Symbicort 160-4.5 Mcg Inhaler] Dapagliflozin Propanediol [Farxiga] 10 mg PO HS@209906/01/24 07/05/24 History Esomeprazole Magnesium [NexIUM] 20 mg PO DAILY@0600 06/01/24 07/05/24 History Furosemide [Lasix] 80 mg PO DAILY@0600 06/01/24 07/05/24 History Insulin Aspart [NovoLOG Flexpen] See Protocol SQ ACHS@08,12,17,06/01/24 07/05/24 History Insulin Aspart [NovoLOG] 15 unit SQ AC-TID@08,12,17 06/01/24 07/05/24 History Insulin Glargine,Hum.rec.anlog 21 units SQ HS@209906/01/24 07/05/24 History [Lantus Solostar Pen] Ipratropium-Albuterol Nebulize 3 ml INHALATION RT-Q6H PRN 06/01/24 07/05/24 History [Duoneb 0.5 mg-3 mg/3 ml Soln] Lactulose 20 gm PO Q12HR@0900,209906/01/24 07/05/24 History Losartan [Cozaar] 12.5 mg PO DAILY@89906/01/24 07/05/24 History Melatonin 5 mg PO HS@209906/01/24 07/05/24 History Metoprolol Succinate (ER) [Toprol 25 mg PO DAILY@00 06/01/24 07/05/24 History XL] Potassium Chloride [Klor-Con M20] 20 meq PO Q8H 06/01/24 07/05/24 History Pregabalin [Lyrica] 75 mg PO Q12HR@0900,209906/01/24 07/05/24 History Psyllium Husk 100% [Metamucil 6 gm PO DAILY@89906/01/24 07/05/24 History Packet] Sennosides/Docusate Sodium [Senna 2 tab PO DAILY@0900 06/01/24 07/05/24 History Plus 8.6-50 mg Tablet] Tirzepatide [Mounjaro] 5 mg SQ TU@89906/01/24 07/05/24 History allopurinoL 100 mg PO HS@209906/01/24 07/05/24 History metOLazone 2.5 mg PO DAILY 06/01/24 07/05/24 History hydrALAZINE HCL [Apresoline] 25 mg PO QID PRN #60 tab 06/10/24 07/05/24 Rx Amoxic-Pot Clav 875-125Mg 1 tab PO Q12HR 07/05/24 07/05/24 History [Augmentin 875-125] Budesonide 1 mg INHALATION RT-Q12H 07/05/24 07/05/24 History Ipratropium-Albuterol Nebulize 3 ml INHALATION RT-Q6H 07/05/24 07/05/24 History [Duoneb 0.5 mg-3 mg/3 ml Soln] Midodrine [ProAmatine] 5 mg PO BID 07/05/24 07/05/24 History acetaZOLAMIDE [Diamox] 250 mg PO DAILY 07/05/24 07/05/24 History metOLazone [Zaroxolyn] 2.5 mg PO DAILY@0900 07/05/24 07/05/24 History Allergies Allergy/AdvReac Type Severity Reaction Status Date / Time No Known Allergies Allergy Verified 07/05/24 08:39 Physical Exam Vitals: Vital Signs Temp Pulse Pulse Resp BP BP BP 07/06/24 09:27 88 07/06/24 09:23 07/06/24 09:19 86 07/06/24 08:00 97.7 F 81 20 112/71 07/06/24 05:24 07/06/24 05:00 68 22 127/79 07/06/24 02:00 68 18 07/06/24 00:06 07/06/24 00:00 22 07/05/24 23:02 97.7 F 68 18 103/61 07/05/24 21:00 97.8 F 84 20 98/62 07/05/24 20:50 22 07/05/24 20:18 71 17 113/59 07/05/24 20:09 80 07/05/24 19:57 76 07/05/24 17:38 81 22 92/63 07/05/24 16:32 85 07/05/24 16:21 73 07/05/24 13:05 78 20 113/74 Pulse Ox FiO2 07/06/24 09:27 07/06/24 09:23 95 07/06/24 09:19 07/06/24 08:00 94 L 07/06/24 05:24 50 07/06/24 05:00 98 50 07/06/24 02:00 07/06/24 00:06 50 07/06/24 00:00 50 07/05/24 23:02 97 07/05/24 21:00 90 L 07/05/24 20:50 86 L 07/05/24 20:18 96 07/05/24 20:09 07/05/24 19:57 07/05/24 17:38 94 L 07/05/24 16:32 07/05/24 16:21 07/05/24 13:05 94 L Intake and Output 07/05/24 07/06/24 07/06/24 22:59 06:59 14:59 Intake Total 180 Output Total 1200 800 Balance -1200 -800 180 Intake: Oral 180 Output: Urine 1200 800 Other: Voiding Method Diaper Diaper Incontinent Incontinent External Catheter External Catheter # Bowel Movements 1 Weight 138 kg Results 07/06/24 06:24 07/06/24 06:23 Cardiac Enzymes 07/06/24 Range/Units 06:23 AST 28 (17-59) U/L CBC 07/06/24 Range/Units 06:24 WBC 7.0 (3.8-10.6) k/uL RBC 2.96 L (4.30-5.90) m/uL Hgb 8.5 L (13.0-17.5) gm/dL Hct 28.7 L (39.0-53.0) % Plt Count 235 (150-450) k/uL Comprehensive Metabolic Panel 07/06/24 Range/Units 06:23 Sodium 141 (137-145) mmol/L Potassium 3.0 L (3.5-5.1) mmol/L Chloride 86 L (98-107) mmol/L Carbon Dioxide 49 H* (22-30) mmol/L BUN 68 H (9-20) mg/dL Creatinine 1.38 H (0.66-1.25) mg/dL Glucose 174 H (74-99) mg/dL Calcium 8.5 (8.4-10.2) mg/dL AST 28 (17-59) U/L ALT 16 (4-49) U/L Alkaline Phosphatase 47 (38-126) U/L Total Protein 6.5 (6.3-8.2) g/dL Albumin 3.3 L (3.5-5.0) g/dL Current Medications Generic Name Dose Route Start Last Admin Trade Name Freq PRN Reason Stop Dose Admin Albuterol Sulfate 2.5 mg 07/05/24 03:04 07/05/24 19:56 Albuterol Nebulized 2.5 Mg/3 Ml INHALATION 2.5 mg RT-Q6H PRN Administration Wheezing Albuterol/Ipratropium 3 ml 07/05/24 03:04 07/06/24 09:19 Ipratropium-Albuterol 3 Ml Neb INHALATION 3 ml RT-Q6H PRN Administration Shortness Of Breath Apixaban 5 mg 07/05/24 09:00 07/06/24 09:01 Apixaban 5 Mg Tab PO 5 mg BID@0900,2099 [facility] Administration Protocol Aspirin 81 mg 07/05/24 09:00 07/06/24 09:01 Aspirin 81 Mg PO 81 mg DAILY@0900 [facility] Administration Atorvastatin Calcium 40 mg 07/05/24 21:00 07/05/24 23:23 Atorvastatin 40 Mg Tab PO 40 mg HS@2099 [facility] Administration Budesonide/Formoterol Fumarate 2 puff 07/05/24 09:00 07/06/24 09:22 Symbicort 160-4.5 Mcg Inhaler INHALATION 2 puff RT-BID@899,2099 [facility] Administration Dextrose/Water 25 ml 07/05/24 09:26 Dextrose 50% Syringe 50 Ml IVP PER PROTOCOL PRN Hypoglycemia Protocol Dextrose/Water 50 ml 07/05/24 09:26 Dextrose 50% Syringe 50 Ml IVP PER PROTOCOL PRN Hypoglycemia Protocol Ferrous Sulfate 325 mg 07/05/24 09:00 07/06/24 09:01 Ferrous Sulfate 325 Mg Tab PO 325 mg BID@899,2099 [facility] Administration Furosemide 40 mg 07/05/24 09:30 07/06/24 09:01 Furosemide 10 Mg/Ml 4 Ml Vial IV 40 mg Q12HR [facility] Administration Heparin Sodium (Porcine) 5,000 unit 07/05/24 08:00 07/06/24 08:56 Heparin Sodium,Porcine 5,000 Unit/Ml 1 Ml Vial SQ Not Given Q8HR [facility] Hydralazine HCl 25 mg 07/05/24 03:04 Hydralazine Hcl 25 Mg Tab PO QID PRN Blood Pressure - High Sodium Chloride 1,000 mls @ 20 mls/hr 07/05/24 03:15 07/06/24 06:46 Saline 0.9% IV 20 mls/hr .Q24H [facility] Administration Insulin Aspart 0 unit 07/05/24 12:30 07/06/24 06:53 Insulin Aspart (Novolog) 100 Unit/Ml Vial SQ 3 unit ACHS [facility] Administration Protocol Insulin Detemir 21 unit 07/05/24 21:00 07/05/24 23:22 Insulin Detemir (Levemir) 100 Unit/Ml Syr SQ 21 unit HS@2099 [facility] Administration Lactulose 20 gm 07/05/24 09:00 07/06/24 08:57 Lactulose 20 Gm/30 Ml Cup PO Not Given Q12HR@899,2099 [facility] Losartan Potassium 12.5 mg 07/05/24 09:00 07/05/24 09:08 Losartan 25 Mg Tab PO 12.5 mg DAILY@899 [facility] Administration Melatonin 5 mg 07/05/24 21:00 07/05/24 23:23 Melatonin 5 Mg Tablet PO 5 mg HS@2099 [facility] Administration Metolazone 2.5 mg 07/05/24 09:00 07/06/24 09:01 Metolazone 2.5 Mg Tab PO 2.5 mg DAILY@899 [facility] Administration Metoprolol Succinate 25 mg 07/05/24 09:00 07/06/24 09:01 Metoprolol Succinate (Er) 25 Mg Tab.Er.24h PO 25 mg DAILY@899 [facility] Administration Pantoprazole Sodium 40 mg 07/05/24 06:00 07/06/24 06:50 Pantoprazole 40 Mg Tablet PO 40 mg DAILY@06 [facility] Administration Potassium Chloride 20 meq 07/05/24 09:00 07/06/24 09:01 Potassium Chloride Er 20 Meq Tab.Er PO 20 meq Q12HR@ [facility] Administration Pregabalin 75 mg 07/05/24 09:00 07/06/24 09:01 Pregabalin 75 Mg Cap PO 75 mg Q12HR@ [facility] Administration Psyllium Hydrophilic Mucilloid 6 gm 07/06/24 09:00 Psyllium Husk 100% 6 Gm Packet PO DAILY@09 [facility] Intake and Output 07/05/24 07/06/24 07/06/24 22:59 06:59 14:59 Intake Total 180 Output Total 1200 800 Balance -1200 -800 180 Intake: Oral 180 Output: Urine 1200 800 Other: Voiding Method Diaper Diaper Incontinent Incontinent External Catheter External Catheter # Bowel Movements 1 Weight 138 kg 07/06/24 06:24 07/06/24 06:23
[2024-07-06] MEDS: POTASSIUM CHLORIDE ER 20 MEQ TAB.ER PO STA (10:42)
[2024-07-06 11:32] LABS: Glucose,Whole Blood 252 mg/dL (70-110)
[2024-07-06] MEDS: PSYLLIUM HUSK 100% 6 GM PACKET PO SCH (12:47)
--- NOTE | 2024-07-06 14:10 | P.PN ---
Subjective Progress Note Date: 07/06/24 07/05/2024, the patient is being seen in consultation in the emergency department for shortness of breath. The patient is currently on 4 L of oxygen by nasal cannula. It was noted that the patient was running a lower pulse ox in the group home where he resides and based on that, the patient was transferred to the hospital for further investigation. The patient himself denies having any specific complaints. He is morbidly obese and he carries a body mass index of 57.6. No chest pain. No cough no sputum production. No chest tightness. No wheezing. He does have some chronic edema lower extremities bilaterally. No altered mentation. He is chronically debilitated and is bedridden. He is also oxygen dependent. He has history of chronic A-fib, CAD, previous bypass surgery, previous CVA, diabetes mellitus, hypertension and he is a lifetime non- smoker. D-dimer is at 0.6. BUN 74 with a creatinine of 1.1. Lactic acid level initially was at 2.6 dropped down to 1.6. There is troponin leak with a troponin levels of 0.7 x 2 respectively and a proBNP level of 2910. Procalcitonin level 0.28. UA is negative. The viral screen is negative. White cell count is 7.6 with a hemoglobin of 8.6. Chest x-ray was done in the ED and it showed cardiomegaly with mild pulmonary vascular congestion. The patient is chronically on anticoagulation with Eliquis 5 mg p.o. twice a day. The patient is currently on Lasix 40 mg every 12 hours and the patient is producing excellent urine output. Has echo from 06/01/2024 had shown left-ventricular ejection fraction of 45 to 50%, moderate LVH, severe RV dilatation and moderate pulmonary apprehension and moderate degree of tricuspid regurgitation. The patient is seen today July 06, 2024 in follow-up on the selective care unit. He is currently resting in bed. Awake and alert in no acute distress. Maintaining O2 saturations in the 90s on 4 L/min per nasal cannula. He does utilize BiPAP at night 14/6 and 50% FiO2. He has normal staying at KVO. EKG reveals atrial fibrillation. White count 7.0. Hemoglobin 8.5. Platelets 235. Sodium 141. Potassium 3.0. Bicarb 49. BUN 68. Creatinine 1.38. Glucose 174. He remains on DuoNeb inhalations, Symbicort. Remains on IV diuretics. Anticoagulated with Eliquis. Objective - Vital Signs Vital signs: Vital Signs Temp 98 F 07/06/24 11:27 Pulse 82 07/06/24 11:27 Resp 20 07/06/24 11:27 BP 103/67 07/06/24 11:27 Pulse Ox 93 L 07/06/24 11:27 FiO2 50 07/06/24 05:24 Intake & Output 07/05/24 07/06/24 07/06/24 18:59 06:59 18:59 Intake Total 180 Output Total 1999 1350 Balance -1999 -117 Weight 138 kg Intake: Oral 180 Output: Urine 1999 1350 Other: Voiding Method Diaper Diaper Incontinent Incontinent External Catheter External Catheter # Bowel Movements 1 - Exam GENERAL EXAM: Alert, 73-year-old male, on 4 L nasal cannula, comfortable in no apparent distress. HEAD: Normocephalic. EYES: Normal reaction of pupils, equal size. NOSE: Clear with pink turbinates. THROAT: No erythema or exudates. NECK: No masses, no JVD. CHEST: No chest wall deformity. LUNGS: Equal air entry with faint crackles in the bilateral bases. CVS: S1 and S2 normal with no audible murmur, regular rhythm. ABDOMEN: No hepatosplenomegaly, normal bowel sounds, no guarding or rigidity. SPINE: No scoliosis or deformity SKIN: No rashes CENTRAL NERVOUS SYSTEM: No focal deficits, tone is normal in all 4 extremities. EXTREMITIES: There is no peripheral edema. No clubbing, no cyanosis. Peripheral pulses are intact. - Labs CBC & Chem 7: 07/06/24 06:24 07/06/24 06:23 Labs: Abnormal Lab Results - Last 24 Hours (Table) 07/05/24 07/05/24 07/05/24 Range/Units 17:08 20:08 23:17 RBC (4.30-5.90) m/uL Hgb (13.0-17.5) gm/dL Hct (39.0-53.0) % MCHC (31.0-37.0) g/dL RDW (11.5-15.5) % Potassium (3.5-5.1) mmol/L Chloride (98-107) mmol/L Carbon Dioxide (22-30) mmol/L BUN (9-20) mg/dL Creatinine (0.66-1.25) mg/dL Glucose (74-99) mg/dL POC Glucose (mg/dL) 210 H 241 H 210 H (70-110) mg/dL Hemoglobin A1c (<=6.0) % Albumin (3.5-5.0) g/dL 07/06/24 07/06/24 07/06/24 Range/Units 06:19 06:23 06:24 RBC 2.96 L (4.30-5.90) m/uL Hgb 8.5 L (13.0-17.5) gm/dL Hct 28.7 L (39.0-53.0) % MCHC 29.6 L (31.0-37.0) g/dL RDW 20.9 H (11.5-15.5) % Potassium 3.0 L (3.5-5.1) mmol/L Chloride 86 L (98-107) mmol/L Carbon Dioxide 49 H* (22-30) mmol/L BUN 68 H (9-20) mg/dL Creatinine 1.38 H (0.66-1.25) mg/dL Glucose 174 H (74-99) mg/dL POC Glucose (mg/dL) (70-110) mg/dL Hemoglobin A1c 6.8 H (<=6.0) % Albumin 3.3 L (3.5-5.0) g/dL 07/06/24 07/06/24 Range/Units 06:50 11:30 RBC (4.30-5.90) m/uL Hgb (13.0-17.5) gm/dL Hct (39.0-53.0) % MCHC (31.0-37.0) g/dL RDW (11.5-15.5) % Potassium (3.5-5.1) mmol/L Chloride (98-107) mmol/L Carbon Dioxide (22-30) mmol/L BUN (9-20) mg/dL Creatinine (0.66-1.25) mg/dL Glucose (74-99) mg/dL POC Glucose (mg/dL) 185 H 252 H (70-110) mg/dL Hemoglobin A1c (<=6.0) % Albumin (3.5-5.0) g/dL Assessment and Plan Assessment: Acute on chronic hypoxemic and hypercapnic respiratory failure, secondary to a mild component of fluid overload/CHF, remains on 4 L of O2 nasal cannula, no signs of any CO2 narcosis Chronic hypoxic respiratory failure maintained on O2 between 2 to 4 L on outpatient basis Morbid obesity with a BMI of 45 Chronic debility and the patient is nonambulatory, morbidly obese, resides at [facility] Obstructive sleep apnea syndrome Atrial fibrillation with a controlled rate and the patient is on anticoagulant with Eliquis Acute on chronic anemia with a hemoglobin of 8.5, no evidence of any GI bleed Acute on chronic kidney disease History of CAD with previous bypass surgery, 2014, abnormal troponins, EKG is consistent with A-fib and the patient is free of any chest pain CHF with mild LV impairment and ejection fraction of 45 to 50% and moderate tricuspid regurgitation, moderate concentric LVH and moderate to severe pulmonary hypertension History of CVA History of diabetes mellitus History of gastroesophageal reflux disease History of essential hypertension History of anxiety Lifelong non-smoker Chronic urinary incontinence Poor overall functional performance based on the above-mentioned multiple comorbidities. Requires a Sandy lift Plan: The patient was seen and evaluated Labs and medications reviewed Continue diuretics Continue bronchodilators Anticoagulated with Eliquis Plan is to return to [facility] at discharge I have personally seen and examined the patient, performed the documentation and the assessment and plan as written. Number of minutes spent on the visit: 10 Dictation was produced using [employer] dictation software. Please excuse any grammatical, word or spelling errors.
[2024-07-06] MEDS ORDERED: ACETAMINOPHEN TAB 500 MG TAB PO PRN (14:15)
[2024-07-06] MEDS ORDERED: ARTIFICIAL TEARS-HYPROMELLOSE DROPS 15 ML BTL BOTH EYES PRN (14:15)
[2024-07-06] MEDS ORDERED: Magnesium Replacement Protocol 1 EACH MISC MISCELLANE PRN (14:17)
[2024-07-06] MEDS ORDERED: Potassium Replacement Protocol 1 EACH MISC MISCELLANE PRN (14:17)
[2024-07-06 16:46] LABS: Glucose,Whole Blood 249 mg/dL (70-110)
[2024-07-06] MEDS: acetaZOLAMIDE 250 MG TAB PO SCH (17:22)
[2024-07-06] MEDS: INSULIN ASPART (NovoLOG) 100 UNIT/ML VIAL SQ SCH (17:22)
[2024-07-06] MEDS: POTASSIUM CHLORIDE ER 20 MEQ TAB.ER PO SCH (17:22)
[2024-07-06 20:12] LABS: Glucose,Whole Blood 245 mg/dL (70-110)
[2024-07-06] MEDS: BUDESONIDE 1 MG/2 ML NEBU INHALATION SCH (21:21)
[2024-07-06] MEDS: IPRATROPIUM-ALBUTEROL 3 ML NEB INHALATION SCH (21:21)
[2024-07-06] MEDS: MIDODRINE 5 MG TAB PO SCH (21:53)
[2024-07-06] MEDS: allopurinoL 100 MG TAB PO SCH (21:53)
[2024-07-06] MEDS: ACETAMINOPHEN TAB 325 MG TAB PO SCH (21:53)
--- NOTE | 2024-07-07 00:18 | PN ---
PROGRESS NOTE DATE OF SERVICE: 07/06/2024 SUBJECTIVE: This is a 73-year-old gentleman who was admitted with CHF acute exacerbation. He is on IV Lasix. No chest pain. No palpitations. No fever. OBJECTIVE: VITAL SIGNS: Pulse is 82, blood pressure 103/64, respirations 20. CHEST: A few scattered rhonchi and crackles. ABDOMEN: Soft. NERVOUS SYSTEM: Nonfocal. LABORATORY DATA: Reviewed. ASSESSMENT: 1. Congestive heart failure acute exacerbation with acute on chronic systolic and diastolic congestive heart failure. 2. Elevated troponin. 3. Coronary artery disease, status post coronary artery bypass grafting. 4. History of cerebrovascular accident. 5. Multiple complex medical issues. RECOMMENDATIONS: Recommend to continue current management and continue symptomatic treatment. Otherwise, I would recommend continue with diuretics. Potassium supplementation. Resume the home medications. Further recommendations to follow. HARRY / ARINAN: [id number] /
[2024-07-07 06:03] LABS: Glucose,Whole Blood 208 mg/dL (70-110)
[2024-07-07 07:52] LABS: African American GFR (CKD) 55 (>60 ml/min/1.73 sqM); Blood Urea Nitrogen 68 mg/dL (9-20); Calcium 8.8 mg/dL (8.4-10.2); Chloride 88 mmol/L (98-107); Glucose 196 mg/dL (74-99); Magnesium 1.9 mg/dL (1.6-2.3); Non-African American GFR(CKD) 48 (>60 ml/min/1.73 sqM); Potassium 3.5 mmol/L (3.5-5.1); Sodium 140 mmol/L (137-145)
[2024-07-07 07:59] LABS: Anion Gap 10 mmol/L
[2024-07-07 08:19] LABS: Carbon Dioxide 42 mmol/L (22-30)
[2024-07-07] MEDS: SENNOSIDES-DOCUSATE SODIUM 1 EACH TAB PO SCH (08:53)
[2024-07-07 11:25] LABS: Glucose,Whole Blood 202 mg/dL (70-110)
--- NOTE | 2024-07-07 12:12 | P.PN ---
Subjective HISTORY OF PRESENT ILLNESS: This is a 73-year-old male with a past medical history significant for coronary artery disease with previous three-vessel CABG in 2015, CHF, persistent atrial fibrillation, CVA, debility with inability to ambulate, hyperlipidemia, hypertension, and former nicotine dependence. Patient follows in the office with Dr. Morelos. We have been asked to see the patient in consultation for CHF. Patient examined at the bedside. Apparently the patient was brought to the hospital from his shelter due to shortness of breath. The patient states he had no complaints at all and was brought to the hospital due to the "nurses pride" at the [facility] where he resides. He denies any chest pain or pressure at the time of examination. He denies any shortness of breath. The patient does have pitting bilateral lower extremity edema which he states he usually does not have. Patient states he is bedbound and does not walk. The patient has no complaints at the time of examination. The patient does report that he quit smoking a few years ago. DIAGNOSTICS: - EKG not available at the time of this dictation - Chest xray cardiomegaly, mild pulmonary vascular congestion, bibasilar opacities - Laboratory data: WBC 7.0. Hemoglobin 8.5. Platelet count 235. Sodium 141. Potassium 3.0. BUN 68. Creatinine 1.38. proBNP 2910. Troponin 0.723. 0.750. - Current home cardiac medications include Eliquis 5 mg twice a day, metoprolol succinate 25 mg daily, Zaroxolyn 2.5 mg daily, hydralazine 25 mg 4 times a day as needed, Lasix 80 mg daily, Farxiga 10 mg at night, losartan 12.5 mg daily, Lipitor 40 mg at night, aspirin 81 mg daily, and Diamox 250 mg daily - Most recent echocardiogram obtained in May 2024 revealed ejection fraction 45 to 50%, moderate pulmonary hypertension, trace mitral regurgitation, mild aortic stenosis with probable bicuspid aortic valve, moderate tricuspid regurgitation, and trace pulmonic regurgitation. - Cardiac catheterization history: December 2014 revealing severe triple-vessel coronary artery disease 07/07/2024 Patient examined this morning at the bedside. Patient is resting comfortably in bed. He denies chest pain or pressure. Denies shortness of breath. He remains on IV diuretics. Creatinine stable today at 1.45. Vital signs are stable. PHYSICAL EXAM: VITAL SIGNS: Reviewed. GENERAL: Well-developed in no acute distress. HEENT: Head is normocephalic. Pupils are equal, round. Sclerae anicteric. Mucous membranes of the mouth are moist. Neck supple. No JVD or thyromegaly LUNGS: Respirations even and unlabored. Lungs essentially clear to auscultation bilaterally. HEART: Irregular rate and rhythm. S1 and S2 heard. Systolic murmur noted. ABDOMEN: Soft. Nondistended. Nontender. EXTREMITIES: Normal range of motion-bedbound. No clubbing or cyanosis. Peripheral pulses intact. 2+ pitting bilateral lower extremity edema NEUROLOGIC: Awake and alert. Oriented x 3. ASSESSMENT: Acute on chronic heart failure with mildly reduced EF, 45 to 50% Acute hypoxic respiratory failure requiring supplemental oxygen Abnormal troponins, flat, type II [place] secondary to oxygen supply/demand mismatch, no evidence of acute coronary syndrome Coronary artery disease with previous three-vessel CABG, 2015, PIÑA to LAD, SVG to OM, SVG to PDA Moderate pulmonary hypertension Valvular heart disease including trace MR, mild , and moderate TR Persistent atrial fibrillation History of CVA Hypertension Hyperlipidemia Chronic debility with inability to ambulate, bedbound at baseline Former nicotine dependence, patient quit smoking a few years ago PLAN: No need to obtain echocardiogram as this was performed in May 2024 Continue current cardiac medications Discontinue IV Lasix. Resume home dose of oral Lasix 80 mg daily Daily weights, accurate intake and output, and monitoring of kidney function Continue telemetry monitoring Patient is currently stable from a cardiac standpoint Further recommendations pending patient course Nurse practitioner note has been reviewed by physician. Signing provider agrees with the documented findings, assessment, and plan of care documented by OFFICE INSPECTOR as a scribe. Objective - Vital Signs Vital signs: Vital Signs Temp 97.6 F 07/07/24 08:40 Pulse 74 07/07/24 11:15 Resp 20 07/07/24 11:15 BP 119/71 07/07/24 11:15 Pulse Ox 98 07/07/24 11:15 FiO2 50 07/07/24 04:25 Intake & Output 07/06/24 07/07/24 07/07/24 18:59 06:59 18:59 Intake Total 1020 560 240 Output Total 2550 550 650 Balance -1530 10 -410 Weight 140 kg Intake: IV 20 Invasive Line 1 20 Intake, IV Titration 240 Amount Sodium Chloride 0.9% 1, 240 000 ml @ 20 mls/hr IV . Q24H [facility] Rx#:[id number] Oral 780 540 240 Output: Urine 2550 550 650 Other: Voiding Method Diaper Diaper Incontinent Incontinent Incontinent External Catheter External Catheter External Catheter # Bowel Movements 1 - Labs CBC & Chem 7: 07/06/24 06:24 07/07/24 07:13 Labs: Abnormal Lab Results - Last 24 Hours (Table) 07/06/24 07/06/24 07/07/24 Range/Units 16:45 20:11 06:02 Chloride (98-107) mmol/L Carbon Dioxide (22-30) mmol/L BUN (9-20) mg/dL Creatinine (0.66-1.25) mg/dL Glucose (74-99) mg/dL POC Glucose (mg/dL) 249 H 245 H 208 H (70-110) mg/dL 07/07/24 07/07/24 Range/Units 07:13 11:23 Chloride 88 L (98-107) mmol/L Carbon Dioxide 42 H* (22-30) mmol/L BUN 68 H (9-20) mg/dL Creatinine 1.45 H (0.66-1.25) mg/dL Glucose 196 H (74-99) mg/dL POC Glucose (mg/dL) 202 H (70-110) mg/dL
[2024-07-07 12:49] VITALS: BMI 45.6
--- NOTE | 2024-07-07 13:20 | P.PN ---
Subjective Progress Note Date: 07/07/24 07/05/2024, the patient is being seen in consultation in the emergency department for shortness of breath. The patient is currently on 4 L of oxygen by nasal cannula. It was noted that the patient was running a lower pulse ox in [facility] and based on that, the patient was transferred to the hospital for further investigation. The patient himself denies having any specific complaints. He is morbidly obese and he carries a body mass index of 57.6. No chest pain. No cough no sputum production. No chest tightness. No wheezing. He does have some chronic edema lower extremities bilaterally. No altered mentation. He is chronically debilitated and is bedridden. He is also oxygen dependent. He has history of chronic A-fib, CAD, previous bypass surgery, previous CVA, diabetes mellitus, hypertension and he is a lifetime non- smoker. D-dimer is at 0.6. BUN 74 with a creatinine of 1.1. Lactic acid level initially was at 2.6 dropped down to 1.6. There is troponin leak with a troponin levels of 0.7 x 2 respectively and a proBNP level of 2910. Procalcitonin level 0.28. UA is negative. The viral screen is negative. White cell count is 7.6 with a hemoglobin of 8.6. Chest x-ray was done in the ED and it showed cardiomegaly with mild pulmonary vascular congestion. The patient is chronically on anticoagulation with Eliquis 5 mg p.o. twice a day. The patient is currently on Lasix 40 mg every 12 hours and the patient is producing excellent urine output. Has echo from 06/01/2024 had shown left-ventricular ejection fraction of 45 to 50%, moderate LVH, severe RV dilatation and moderate pulmonary apprehension and moderate degree of tricuspid regurgitation. The patient is seen today July 06, 2024 in follow-up on the selective care unit. He is currently resting in bed. Awake and alert in no acute distress. Maintaining O2 saturations in the 90s on 4 L/min per nasal cannula. He does utilize BiPAP at night 14/6 and 50% FiO2. He has normal staying at KVO. EKG reveals atrial fibrillation. White count 7.0. Hemoglobin 8.5. Platelets 235. Sodium 141. Potassium 3.0. Bicarb 49. BUN 68. Creatinine 1.38. Glucose 174. He remains on DuoNeb inhalations, Symbicort. Remains on IV diuretics. Anticoagulated with Eliquis. The patient is seen today July 07, 2024 in follow-up on the selective care unit. He is awake and alert in no acute distress. Resting fairly comfortably in bed. Maintaining O2 saturations in the 90s on 4 L/min per nasal cannula. Sodium 140. Potassium 3.5. Bicarb 42. BUN 68. Creatinine 1.45. Glucose 196. He is anticoagulated with Eliquis. Continued on bronchodilators. Received IV diuretics. Currently in a -1.5 L balance. Objective - Vital Signs Vital signs: Vital Signs Temp 97.6 F 07/07/24 08:40 Pulse 80 07/07/24 13:01 Resp 20 07/07/24 11:15 BP 119/71 07/07/24 11:15 Pulse Ox 98 07/07/24 11:15 FiO2 50 07/07/24 04:25 Intake & Output 07/06/24 07/07/24 07/07/24 18:59 06:59 18:59 Intake Total 1020 560 240 Output Total 2550 550 1050 Balance -1530 10 -810 Weight 140 kg 140 kg Intake: IV 20 Invasive Line 1 20 Intake, IV Titration 240 Amount Sodium Chloride 0.9% 1, 240 000 ml @ 20 mls/hr IV . Q24H [facility] Rx#:[id number] Oral 780 540 240 Output: Urine 2550 550 1050 Other: Voiding Method Diaper Diaper Incontinent Incontinent Incontinent External Catheter External Catheter External Catheter # Bowel Movements 1 - Exam GENERAL EXAM: Alert, 73-year-old male, resting in bed, on 4 L nasal cannula, in no apparent distress. HEAD: Normocephalic. EYES: Normal reaction of pupils, equal size. NOSE: Clear with pink turbinates. THROAT: No erythema or exudates. NECK: No masses, no JVD. CHEST: No chest wall deformity. LUNGS: Equal air entry with faint crackles in the bilateral bases. CVS: S1 and S2 normal with no audible murmur, regular rhythm. ABDOMEN: No hepatosplenomegaly, normal bowel sounds, no guarding or rigidity. SPINE: No scoliosis or deformity SKIN: No rashes CENTRAL NERVOUS SYSTEM: No focal deficits, tone is normal in all 4 extremities. EXTREMITIES: There is no peripheral edema. No clubbing, no cyanosis. Peripheral pulses are intact. - Labs CBC & Chem 7: 07/06/24 06:24 07/07/24 07:13 Labs: Abnormal Lab Results - Last 24 Hours (Table) 07/06/24 07/06/24 07/07/24 Range/Units 16:45 20:11 06:02 Chloride (98-107) mmol/L Carbon Dioxide (22-30) mmol/L BUN (9-20) mg/dL Creatinine (0.66-1.25) mg/dL Glucose (74-99) mg/dL POC Glucose (mg/dL) 249 H 245 H 208 H (70-110) mg/dL 07/07/24 07/07/24 Range/Units 07:13 11:23 Chloride 88 L (98-107) mmol/L Carbon Dioxide 42 H* (22-30) mmol/L BUN 68 H (9-20) mg/dL Creatinine 1.45 H (0.66-1.25) mg/dL Glucose 196 H (74-99) mg/dL POC Glucose (mg/dL) 202 H (70-110) mg/dL Assessment and Plan Assessment: Acute on chronic hypoxemic and hypercapnic respiratory failure, secondary to a mild component of fluid overload/CHF, remains on 4 L of O2 nasal cannula, no signs of any CO2 narcosis Chronic hypoxic respiratory failure maintained on O2 between 2 to 4 L on outpatient basis Morbid obesity with a BMI of 45 Chronic debility and the patient is nonambulatory, morbidly obese, resides at [facility] Obstructive sleep apnea syndrome Atrial fibrillation with a controlled rate and the patient is on anticoagulant with Eliquis Acute on chronic anemia with a hemoglobin of 8.5, no evidence of any GI bleed Acute on chronic kidney disease History of CAD with previous bypass surgery, 2014, abnormal troponins, EKG is consistent with A-fib and the patient is free of any chest pain CHF with mild LV impairment and ejection fraction of 45 to 50% and moderate tricuspid regurgitation, moderate concentric LVH and moderate to severe pulmonary hypertension History of CVA History of diabetes mellitus History of gastroesophageal reflux disease History of essential hypertension History of anxiety Lifelong non-smoker Chronic urinary incontinence Poor overall functional performance based on the above-mentioned multiple comorbidities. Requires a Sandy lift Plan: The patient was seen and evaluated Labs and medications reviewed Continue the current treatment plan Plan is to return to [facility] at discharge I have personally seen and examined the patient, performed the documentation and the assessment and plan as written. Number of minutes spent on the visit: 10 Dictation was produced using [employer] dictation software. Please excuse any grammatical, word or spelling errors.
[2024-07-07 15:19] VITALS: RESP 18
[2024-07-07 17:00] LABS: Glucose,Whole Blood 215 mg/dL (70-110)
[2024-07-07 20:27] LABS: Glucose,Whole Blood 196 mg/dL (70-110)
--- NOTE | 2024-07-08 03:26 | PN ---
PROGRESS NOTE DATE OF SERVICE: 07/07/2024 SUBJECTIVE: This is a 73-year-old gentleman admitted with CHF acute exacerbation, also had elevated troponin. No chest pain. No palpitations. No fever. The patient is on BiPAP also. OBJECTIVE: VITAL SIGNS: Pulse is 74, blood pressure 119/70, respirations 20. HEENT: Conjunctivae normal. NECK: No JVD. CARDIOVASCULAR: S1, S2. RESPIRATIONS: Breath sounds diminished at the bases. A few scattered rhonchi. ABDOMEN: Soft. NERVOUS SYSTEM: No focal deficits. ASSESSMENT: 1. Congestive heart failure acute exacerbation, acute on chronic systolic and diastolic congestive heart failure. 2. Elevated troponin. 3. Coronary artery disease, coronary artery bypass graft, on BiPAP. 4. History of cerebrovascular accident. 5. Multiple complex medical issues. RECOMMENDATIONS AND DISCUSSION: Recommend to continue current medications and continue symptomatic treatment. Continue with bronchodilators. Continue with rest of medications. Repeat labs. PT/OT evaluation, possible ECF rehab versus home with home care. MMODL / IJN: [id number] /
[2024-07-08 06:31] LABS: Glucose,Whole Blood 225 mg/dL (70-110)
[2024-07-08 07:53] LABS: Anisocytosis Moderate; Basophils % (A) 0 %; Eosinophils # (A) 0.1 k/uL (0-0.7); Eosinophils % (A) 1 %; HCT 29.8 % (39.0-53.0); HGB 8.4 gm/dL (13.0-17.5); Hypochromasia Marked; Lymphocytes # (A) 1.1 k/uL (1.0-4.8); Lymphocytes % (A) 13 %; MCH 28.5 pg (25.0-35.0); MCHC 28.2 g/dL (31.0-37.0); MCV 101.1 fL (80.0-100.0); Macrocytosis Moderate; Mean Platelet Volume 8.4; Monocytes # (A) 0.5 k/uL (0-1.0); Monocytes % (A) 6 %; Neutrophils % (A) 78 %; Platelet Count 282 k/uL (150-450); RBC 2.95 m/uL (4.30-5.90)
[2024-07-08 08:06] LABS: African American GFR (CKD) 46 (>60 ml/min/1.73 sqM); Blood Urea Nitrogen 62 mg/dL (9-20); Calcium 8.7 mg/dL (8.4-10.2); Chloride 89 mmol/L (98-107); Glucose 222 mg/dL (74-99); Non-African American GFR(CKD) 40 (>60 ml/min/1.73 sqM); Potassium 3.4 mmol/L (3.5-5.1); Sodium 139 mmol/L (137-145)
[2024-07-08 08:12] LABS: Anion Gap 9 mmol/L
[2024-07-08] MEDS: FUROSEMIDE 80 MG TAB PO SCH (08:12)
[2024-07-08 08:17] LABS: Carbon Dioxide 41 mmol/L (22-30)
[2024-07-08] MEDS: IPRATROPIUM-ALBUTEROL 3 ML NEB INHALATION SCH (08:37)
[2024-07-08 11:14] LABS: Glucose,Whole Blood 211 mg/dL (70-110)
--- NOTE | 2024-07-08 12:49 | P.PN ---
Subjective HISTORY OF PRESENT ILLNESS: This is a 73-year-old male with a past medical history significant for coronary artery disease with previous three-vessel CABG in 2015, CHF, persistent atrial fibrillation, CVA, debility with inability to ambulate, hyperlipidemia, hypertension, and former nicotine dependence. Patient follows in the office with Dr. Morelos. We have been asked to see the patient in consultation for CHF. Patient examined at the bedside. Apparently the patient was brought to the hospital from his residential due to shortness of breath. The patient states he had no complaints at all and was brought to the hospital due to the "nurses pride" at the [facility] where he resides. He denies any chest pain or pressure at the time of examination. He denies any shortness of breath. The patient does have pitting bilateral lower extremity edema which he states he usually does not have. Patient states he is bedbound and does not walk. The patient has no complaints at the time of examination. The patient does report that he quit smoking a few years ago. DIAGNOSTICS: - EKG not available at the time of this dictation - Chest xray cardiomegaly, mild pulmonary vascular congestion, bibasilar opacities - Laboratory data: WBC 7.0. Hemoglobin 8.5. Platelet count 235. Sodium 141. Potassium 3.0. BUN 68. Creatinine 1.38. proBNP 2910. Troponin 0.723. 0.750. - Current home cardiac medications include Eliquis 5 mg twice a day, metoprolol succinate 25 mg daily, Zaroxolyn 2.5 mg daily, hydralazine 25 mg 4 times a day as needed, Lasix 80 mg daily, Farxiga 10 mg at night, losartan 12.5 mg daily, Lipitor 40 mg at night, aspirin 81 mg daily, and Diamox 250 mg daily - Most recent echocardiogram obtained in May 2024 revealed ejection fraction 45 to 50%, moderate pulmonary hypertension, trace mitral regurgitation, mild aortic stenosis with probable bicuspid aortic valve, moderate tricuspid regurgitation, and trace pulmonic regurgitation. - Cardiac catheterization history: December 2014 revealing severe triple-vessel coronary artery disease 07/07/2024 Patient examined this morning at the bedside. Patient is resting comfortably in bed. He denies chest pain or pressure. Denies shortness of breath. He remains on IV diuretics. Creatinine stable today at 1.45. Vital signs are stable. 07/08/2024 Patient examined this morning the bedside. Patient currently denies chest pain or pressure. He denies shortness of breath. Patient has been transition to oral diuretics. Creatinine today 1.69, up from 1.45 yesterday. BUN 62. PHYSICAL EXAM: VITAL SIGNS: Reviewed. GENERAL: Well-developed in no acute distress. HEENT: Head is normocephalic. Pupils are equal, round. Sclerae anicteric. Mucous membranes of the mouth are moist. Neck supple. No JVD or thyromegaly LUNGS: Respirations even and unlabored. Lungs essentially clear to auscultation bilaterally. HEART: Irregular rate and rhythm. S1 and S2 heard. Systolic murmur noted. ABDOMEN: Soft. Nondistended. Nontender. EXTREMITIES: Normal range of motion-bedbound. No clubbing or cyanosis. Peripheral pulses intact. 2+ pitting bilateral lower extremity edema NEUROLOGIC: Awake and alert. Oriented x 3. ASSESSMENT: Acute on chronic heart failure with mildly reduced EF, 45 to 50% Acute hypoxic respiratory failure requiring supplemental oxygen Abnormal troponins, flat, type II [place] secondary to oxygen supply/demand mismatch, no evidence of acute coronary syndrome Coronary artery disease with previous three-vessel CABG, 2015, PIÑA to LAD, SVG to OM, SVG to PDA Moderate pulmonary hypertension Valvular heart disease including trace MR, mild , and moderate TR Persistent atrial fibrillation History of CVA Hypertension Hyperlipidemia Chronic debility with inability to ambulate, bedbound at baseline Former nicotine dependence, patient quit smoking a few years ago Acute kidney injury PLAN: No need to obtain echocardiogram as this was performed in May 2024 Discontinue losartan Continue current dose of oral Lasix Repeat BMP in a.m. Further recommendations pending patient course Nurse practitioner note has been reviewed by physician. Signing provider agrees with the documented findings, assessment, and plan of care documented by ELECTROMEDICAL EQUIPMENT REPAIRER as a scribe. Objective - Vital Signs Vital signs: Vital Signs Temp 98 F 07/08/24 08:00 Pulse 79 07/08/24 12:29 Resp 18 07/08/24 12:29 BP 108/67 07/08/24 08:00 Pulse Ox 96 07/08/24 08:00 FiO2 50 07/08/24 03:59 Intake & Output 07/07/24 07/08/24 07/08/24 18:59 06:59 18:59 Intake Total 716 720 120 Output Total 1350 1000 1050 Balance -532 -980 -120 Weight 140 kg Intake: Oral 716 720 120 Output: Urine 1350 1000 1050 Other: Voiding Method Incontinent Diaper Diaper External Catheter Incontinent Incontinent External Catheter External Catheter - Labs CBC & Chem 7: 07/08/24 07:42 07/08/24 07:42 Labs: Abnormal Lab Results - Last 24 Hours (Table) 07/07/24 07/07/24 07/08/24 Range/Units 16:58 20:25 06:31 RBC (4.30-5.90) m/uL Hgb (13.0-17.5) gm/dL Hct (39.0-53.0) % MCV (80.0-100.0) fL MCHC (31.0-37.0) g/dL RDW (11.5-15.5) % Potassium (3.5-5.1) mmol/L Chloride (98-107) mmol/L Carbon Dioxide (22-30) mmol/L BUN (9-20) mg/dL Creatinine (0.66-1.25) mg/dL Glucose (74-99) mg/dL POC Glucose (mg/dL) 215 H 196 H 225 H (70-110) mg/dL 07/08/24 07/08/24 07/08/24 Range/Units 07:42 07:42 11:12 RBC 2.95 L (4.30-5.90) m/uL Hgb 8.4 L (13.0-17.5) gm/dL Hct 29.8 L (39.0-53.0) % MCV 101.1 H (80.0-100.0) fL MCHC 28.2 L (31.0-37.0) g/dL RDW 21.0 H (11.5-15.5) % Potassium 3.4 L (3.5-5.1) mmol/L Chloride 89 L (98-107) mmol/L Carbon Dioxide 41 H* (22-30) mmol/L BUN 62 H (9-20) mg/dL Creatinine 1.69 H (0.66-1.25) mg/dL Glucose 222 H (74-99) mg/dL POC Glucose (mg/dL) 211 H (70-110) mg/dL
--- NOTE | 2024-07-08 13:00 | P.PN ---
Subjective Progress Note Date: 07/08/24 07/05/2024, the patient is being seen in consultation in the emergency department for shortness of breath. The patient is currently on 4 L of oxygen by nasal cannula. It was noted that the patient was running a lower pulse ox in the long-term where he resides and based on that, the patient was transferred to the hospital for further investigation. The patient himself denies having any specific complaints. He is morbidly obese and he carries a body mass index of 57.6. No chest pain. No cough no sputum production. No chest tightness. No wheezing. He does have some chronic edema lower extremities bilaterally. No altered mentation. He is chronically debilitated and is bedridden. He is also oxygen dependent. He has history of chronic A-fib, CAD, previous bypass surgery, previous CVA, diabetes mellitus, hypertension and he is a lifetime non- smoker. D-dimer is at 0.6. BUN 74 with a creatinine of 1.1. Lactic acid level initially was at 2.6 dropped down to 1.6. There is troponin leak with a troponin levels of 0.7 x 2 respectively and a proBNP level of 2910. Procalcitonin level 0.28. UA is negative. The viral screen is negative. White cell count is 7.6 with a hemoglobin of 8.6. Chest x-ray was done in the ED and it showed cardiomegaly with mild pulmonary vascular congestion. The patient is chronically on anticoagulation with Eliquis 5 mg p.o. twice a day. The patient is currently on Lasix 40 mg every 12 hours and the patient is producing excellent urine output. Has echo from 06/01/2024 had shown left-ventricular ejection fraction of 45 to 50%, moderate LVH, severe RV dilatation and moderate pulmonary apprehension and moderate degree of tricuspid regurgitation. The patient is seen today July 06, 2024 in follow-up on the selective care unit. He is currently resting in bed. Awake and alert in no acute distress. Maintaining O2 saturations in the 90s on 4 L/min per nasal cannula. He does utilize BiPAP at night 14/6 and 50% FiO2. He has normal staying at KVO. EKG reveals atrial fibrillation. White count 7.0. Hemoglobin 8.5. Platelets 235. Sodium 141. Potassium 3.0. Bicarb 49. BUN 68. Creatinine 1.38. Glucose 174. He remains on DuoNeb inhalations, Symbicort. Remains on IV diuretics. Anticoagulated with Eliquis. The patient is seen today July 07, 2024 in follow-up on the [facility] care unit. He is awake and alert in no acute distress. Resting fairly comfortably in bed. Maintaining O2 saturations in the 90s on 4 L/min per nasal cannula. Sodium 140. Potassium 3.5. Bicarb 42. BUN 68. Creatinine 1.45. Glucose 196. He is anticoagulated with Eliquis. Continued on bronchodilators. Received IV diuretics. Currently in a -1.5 L balance. The patient is seen today July 08, 2024 in follow-up on the selective care u nit. He is sitting up in bed. More awake and alert. No acute distress. Continue O2 saturations in the 90s on 4 L/min per nasal cannula. He did utilize BiPAP last night 14/6 and 50% FiO2. White count 9.0. Hemoglobin 8.4. Platelets 282. Sodium 139. Potassium 3.4. Bicarb 41. BUN 62. Creatinine 1.69. Glucose 222. He remains on DuoNeb inhalations, Symbicort. Anticoagulated with Eliquis. On oral diuretics now. Currently in a -900 mL balance. Objective - Vital Signs Vital signs: Vital Signs Temp 98 F 07/08/24 08:00 Pulse 79 07/08/24 12:29 Resp 18 07/08/24 12:29 BP 108/67 07/08/24 08:00 Pulse Ox 96 07/08/24 08:00 FiO2 50 07/08/24 03:59 Intake & Output 07/07/24 07/08/24 07/08/24 18:59 06:59 18:59 Intake Total 716 720 120 Output Total 1350 1000 1050 Balance -634 -280 -930 Weight 140 kg Intake: Oral 716 720 120 Output: Urine 1350 1000 1050 Other: Voiding Method Incontinent Diaper Diaper External Catheter Incontinent Incontinent External Catheter External Catheter - Exam GENERAL EXAM: Alert, oriented 73-year-old male, resting in bed, on 4 L nasal cannula, in no apparent distress. HEAD: Normocephalic. EYES: Normal reaction of pupils, equal size. NOSE: Clear with pink turbinates. THROAT: No erythema or exudates. NECK: No masses, no JVD. CHEST: No chest wall deformity. LUNGS: Equal air entry with faint crackles in the bilateral bases. CVS: S1 and S2 normal with no audible murmur, regular rhythm. ABDOMEN: No hepatosplenomegaly, normal bowel sounds, no guarding or rigidity. SPINE: No scoliosis or deformity SKIN: No rashes CENTRAL NERVOUS SYSTEM: No focal deficits, tone is normal in all 4 extremities. EXTREMITIES: There is no peripheral edema. No clubbing, no cyanosis. Peripheral pulses are intact. - Labs CBC & Chem 7: 07/08/24 07:42 07/08/24 07:42 Labs: Abnormal Lab Results - Last 24 Hours (Table) 07/07/24 07/07/24 07/08/24 Range/Units 16:58 20:25 06:31 RBC (4.30-5.90) m/uL Hgb (13.0-17.5) gm/dL Hct (39.0-53.0) % MCV (80.0-100.0) fL MCHC (31.0-37.0) g/dL RDW (11.5-15.5) % Potassium (3.5-5.1) mmol/L Chloride (98-107) mmol/L Carbon Dioxide (22-30) mmol/L BUN (9-20) mg/dL Creatinine (0.66-1.25) mg/dL Glucose (74-99) mg/dL POC Glucose (mg/dL) 215 H 196 H 225 H (70-110) mg/dL 07/08/24 07/08/24 07/08/24 Range/Units 07:42 07:42 11:12 RBC 2.95 L (4.30-5.90) m/uL Hgb 8.4 L (13.0-17.5) gm/dL Hct 29.8 L (39.0-53.0) % MCV 101.1 H (80.0-100.0) fL MCHC 28.2 L (31.0-37.0) g/dL RDW 21.0 H (11.5-15.5) % Potassium 3.4 L (3.5-5.1) mmol/L Chloride 89 L (98-107) mmol/L Carbon Dioxide 41 H* (22-30) mmol/L BUN 62 H (9-20) mg/dL Creatinine 1.69 H (0.66-1.25) mg/dL Glucose 222 H (74-99) mg/dL POC Glucose (mg/dL) 211 H (70-110) mg/dL Assessment and Plan Assessment: Acute on chronic hypoxemic and hypercapnic respiratory failure, secondary to a mild component of fluid overload/CHF, remains on 4 L of O2 nasal cannula, no signs of any CO2 narcosis Chronic hypoxic respiratory failure maintained on O2 between 2 to 4 L on outpatient basis Morbid obesity with a BMI of 45 Chronic debility and the patient is nonambulatory, morbidly obese, resides at [facility] Obstructive sleep apnea syndrome Atrial fibrillation with a controlled rate and the patient is on anticoagulant with Eliquis Acute on chronic anemia with a hemoglobin of 8.5, no evidence of any GI bleed Acute on chronic kidney disease History of CAD with previous bypass surgery, 2014, abnormal troponins, EKG is consistent with A-fib and the patient is free of any chest pain CHF with mild LV impairment and ejection fraction of 45 to 50% and moderate tricuspid regurgitation, moderate concentric LVH and moderate to severe pulmonary hypertension History of CVA History of diabetes mellitus History of gastroesophageal reflux disease History of essential hypertension History of anxiety Lifelong non-smoker Chronic urinary incontinence Poor overall functional performance based on the above-mentioned multiple comorbidities. Requires a Sandy lift Plan: The patient was seen and evaluated Labs and medications reviewed Continue the current treatment plan Transitioned to oral diuretics Cleared for discharge from the pulmonary standpoint Plan is to return to [facility] at discharge I have personally seen and examined the patient, performed the documentation and the assessment and plan as written. Number of minutes spent on the visit: 10 Dictation was produced using [employer] dictation software. Please excuse any grammatical, word or spelling errors.
--- NOTE | 2024-07-08 15:21 | P.DS ---
Providers Date of admission: 07/05/24 03:01 Expected date of discharge: 07/08/24 Attending physician: Moises Bridges Consults: 07/05/24 03:03 Consult Physician Routine Consulting Provider: Valente Landry Consult Reason/Comments: Dyspnea. CHF with possible pneumonia Do you want consulting provider notified?: Yes 07/05/24 03:04 Consult Physician Routine Consulting Provider: Tae Bean Consult Reason/Comments: CHF exacerbation Do you want consulting provider notified?: Yes Primary care physician: Fanta Mcnulty Hospital Course: Final diagnosis Congestive heart failure, acute exacerbation, acute on chronic systolic and diastolic congestive heart failure Elevated troponin, likely type II secondary to CHF exacerbation Chronic hypoxic respiratory failure secondary to COPD as well as CHF, wears 4 to 6 L nasal cannula outpatient Coronary artery disease history with CABG History of CVA in 2008 Morbid obesity with a BMI of 45.6 Obstructive sleep apnea with a CPAP machine History of atrial fibrillation Diabetes mellitus, type II, insulin-dependent, uncontrolled with hyperglycemia History of GERD History of hypertension GI prophylaxis DVT prophylaxis Full code Discharge disposition Patient is being discharged in a stable condition with guarded prognosis to [facility]. Patient will follow-up with Dr. Mcnulty in the outpatient setting upon discharge. Patient is to continue with current medications and outpatient follow-up with pulmonary and cardiology as scheduled. Recommend repeat CBC, CMP to monitor kidney functions and electrolytes in 2 to 3 days. Total time taken is greater than 35 minutes. Hospital course This is a 73-year-old male who was recently admitted with CHF exacerbation also elevated troponins requiring BiPAP. Patient does apparently use a BiPAP at night and resides at [facility]. Pulmonary and cardiology following making adjustments to medications as patient is also mildly hypotensive/normotensive although on a number of blood pressure medications. Those medications currently being held recommending outpatient follow-up. Patient was on IV diuresis showing some improvements and will transition to oral Lasix he chronically takes. Monitor kidney functions and recommend repeat labs in 2 to 3 days. Patient is medically stable and cleared for discharge by consultations. CODE STATUS to be addressed and given significant comorbidities, overall prognosis is poor and extremely guarded. Please refer to other consultation notes for further HPI. Currently no reports of chest pain, shortness of breath, or palpitations. Patient is afebrile. No reports of nausea or vomiting and patient is tolerating diet. Patient will be going to [facility] on the [place] today. Again overall guarded prognosis and high risk for readmissions given patient's significant comorbidities Physical exam: Gen: This is a 73-year-old male who is awake, alert and oriented x 2-3, elderly appearing, well-developed, morbidly obese, ill-appearing HEENT: Head is atraumatic, normocephalic. Pupils equal, round. Sclerae is anicteric. NECK: Supple. No JVD. No lymphadenopathy. No thyromegaly. LUNGS: Diminished breath sounds bilaterally with some coarse scattered rhonchi. No intercostal retractions. HEART: S1, S2 are muffled ABDOMEN: Soft. Morbidly obese bowel sounds are present. No masses. No tenderness. EXTREMITIES: No pedal edema. No calf tenderness. Chronic lower extremity swelling noted NEUROLOGICAL: Patient is awake, alert and oriented x3. Cranial nerves 2 through 12 are grossly intact. Diffusely weak Please refer to medication reconciliation sheet for a list of medications. The impression and plan of care has been dictated by Bernice Luna, Nurse Practitioner as directed. Dr. Cyrus MD I have performed a history and examination and MDM of this patient, discussed the same with the dictator, and agree with the dictator's assessment and plan as written ,documented as a scribe. Based on total visit time, I have performed more than 50% of the visit. Patient Condition at Discharge: Poor Plan - Discharge Summary Discharge Rx Participant: Yes New Discharge Prescriptions: New Albuterol Nebulized [Ventolin Nebulized] 2.5 mg INHALATION RT-Q6H PRN ml PRN Reason: Wheezing Continue Ferrous Sulfate [Feosol] 325 mg PO BID@0900,2100 Aspirin EC [Ecotrin Low Dose] 81 mg PO DAILY@0900 Acetaminophen Tab [Tylenol] 1,000 mg PO Q6HR PRN PRN Reason: Fever And/ Or Pain Artificial Tears-Hypromellose [Artificial Tear Drops] 2 drops BOTH EYES Q4H PRN PRN Reason: dry irritated eyes Metoprolol Succinate (ER) [Toprol XL] 25 mg PO DAILY@0900 Insulin Aspart [NovoLOG Flexpen] See Protocol SQ ACHS@08,12,17,21 Ipratropium-Albuterol Nebulize [Duoneb 0.5 mg-3 mg/3 ml Soln] 3 ml INHALATION RT-Q6H PRN PRN Reason: Shortness Of Breath Potassium Chloride [Klor-Con M20] 20 meq PO Q8H Acetaminophen [Tylenol Arthritis] 650 mg PO Q12HR@0900,2100 metOLazone 2.5 mg PO DAILY Insulin Glargine,Hum.rec.anlog [Lantus Solostar Pen] 21 units SQ HS@2100 Dapagliflozin Propanediol [Farxiga] 10 mg PO HS@2100 hydrALAZINE HCL [Apresoline] 25 mg PO QID PRN #60 tab PRN Reason: Blood Pressure - High acetaZOLAMIDE [Diamox] 250 mg PO DAILY Apixaban [Eliquis] 5 mg PO BID@0900,2099 Insulin Aspart [NovoLOG] 15 unit SQ AC-TID@,, Budesonide/Formoterol Fumarate [Symbicort 160-4.5 Mcg Inhaler] 2 puff INHALATION DIRECTED Lactulose 20 gm PO Q12HR@0900,2099 Sennosides/Docusate Sodium [Senna Plus 8.6-50 mg Tablet] 2 tab PO DAILY@0900 Tirzepatide [Mounjaro] 5 mg SQ TU@0900 Psyllium Husk 100% [Metamucil Packet] 6 gm PO DAILY@0900 Melatonin 5 mg PO HS@2100 Furosemide [Lasix] 80 mg PO DAILY@0600 Esomeprazole Magnesium [NexIUM] 20 mg PO DAILY@0600 allopurinoL 100 mg PO HS@2100 Atorvastatin [Lipitor] 40 mg PO HS@2100 Budesonide 1 mg INHALATION RT-Q12H Ipratropium-Albuterol Nebulize [Duoneb 0.5 mg-3 mg/3 ml Soln] 3 ml INHALATION RT-Q6H Midodrine [ProAmatine] 5 mg PO BID Pregabalin [Lyrica] 75 mg PO Q12HR@0900,2100 #4 cap Discontinued Losartan [Cozaar] 12.5 mg PO DAILY@0900 metOLazone [Zaroxolyn] 2.5 mg PO DAILY@0900 Amoxic-Pot Clav 875-125Mg [Augmentin 875-125] 1 tab PO Q12HR Discharge Medication List Ferrous Sulfate [Feosol] 325 mg PO BID@0900,2100 01/03/15 [History] Apixaban [Eliquis] 5 mg PO BID@0900,209907/02/21 [History] Aspirin EC [Ecotrin Low Dose] 81 mg PO DAILY@89907/02/21 [History] Acetaminophen Tab [Tylenol] 1,000 mg PO Q6HR PRN 06/01/24 [History] Acetaminophen [Tylenol Arthritis] 650 mg PO Q12HR@0900,209906/01/24 [History] Artificial Tears-Hypromellose [Artificial Tear Drops] 2 drops BOTH EYES Q4H PRN 06/01/24 [History] Atorvastatin [Lipitor] 40 mg PO HS@209906/01/24 [History] Budesonide/Formoterol Fumarate [Symbicort 160-4.5 Mcg Inhaler] 2 puff INHALATION DIRECTED 06/01/24 [History] Dapagliflozin Propanediol [Farxiga] 10 mg PO HS@209906/01/24 [History] Esomeprazole Magnesium [NexIUM] 20 mg PO DAILY@0606/01/24 [History] Furosemide [Lasix] 80 mg PO DAILY@0606/01/24 [History] Insulin Aspart [NovoLOG Flexpen] See Protocol SQ ACHS@,12,,06/01/24 [History] Insulin Aspart [NovoLOG] 15 unit SQ AC-TID@,,06/01/24 [History] Insulin Glargine,Hum.rec.anlog [Lantus Solostar Pen] 21 units SQ HS@209906/01/24 [History] Ipratropium-Albuterol Nebulize [Duoneb 0.5 mg-3 mg/3 ml Soln] 3 ml INHALATION RT-Q6H PRN 06/01/24 [History] Lactulose 20 gm PO Q12HR@0900,209906/01/24 [History] Melatonin 5 mg PO HS@209906/01/24 [History] Metoprolol Succinate (ER) [Toprol XL] 25 mg PO DAILY@0900 06/01/24 [History] Potassium Chloride [Klor-Con M20] 20 meq PO Q8H 06/01/24 [History] Psyllium Husk 100% [Metamucil Packet] 6 gm PO DAILY@89906/01/24 [History] Sennosides/Docusate Sodium [Senna Plus 8.6-50 mg Tablet] 2 tab PO DAILY@0900 06/01/24 [History] Tirzepatide [Mounjaro] 5 mg SQ TU@0900 06/01/24 [History] allopurinoL 100 mg PO HS@2100 06/01/24 [History] metOLazone 2.5 mg PO DAILY 06/01/24 [History] hydrALAZINE HCL [Apresoline] 25 mg PO QID PRN #60 tab 06/10/24 [Rx] Budesonide 1 mg INHALATION RT-Q12H 07/05/24 [History] Ipratropium-Albuterol Nebulize [Duoneb 0.5 mg-3 mg/3 ml Soln] 3 ml INHALATION RT-Q6H 07/05/24 [History] Midodrine [ProAmatine] 5 mg PO BID 07/05/24 [History] acetaZOLAMIDE [Diamox] 250 mg PO DAILY 07/05/24 [History] Albuterol Nebulized [Ventolin Nebulized] 2.5 mg INHALATION RT-Q6H PRN ml 07/08/24 [Rx] Pregabalin [Lyrica] 75 mg PO Q12HR@0900,2100 #4 cap 07/08/24 [Rx] Follow up Appointment(s)/Referral(s): Fanta Mcnulty MD [Primary Care Provider] - 1-2 days Activity/Diet/Wound Care/Special Instructions: Patient is returning to [facility] Activity as tolerated Continue taking medications as prescribed Monitor blood pressure as blood pressure medications are being held currently as patient is normotensive with softer blood pressures Continue monitoring Accu-Cheks before meals and at bedtime and continue with heart healthy/diabetic diet NovoLog sliding scale 0-150 equals 0 units 151-200 equals 2 units 201-250 equals 4 units 251-300 equals 6 units 301-350 equals 8 units 351-400 equals 10 units Please notify provider if blood sugar is 400 or above Address CODE STATUS Discharge Disposition: TRANSFER TO SNF/ECF
[2024-07-08 16:14] LABS: Glucose,Whole Blood 223 mg/dL (70-110)
[2024-07-08 16:30] VITALS: PULSE 80
[2024-07-08 17:04] VITALS: BP 111/67; TEMP 98.1
--- NOTE | 2024-07-12 19:01 | CDI ---
Documentation Clarification Form Date: 07/12/2024 06:42:25 PM From: Georgina Jones Phone: Admit Date: 07/05/2024 03:01:00 AM Patient Name: Kevin Real Visit Number: [id number] Discharge Date: 07/08/2024 05:39:00 PM ATTENTION: The Clinical Documentation Specialists (CDI) and [facility] Coding Staff appreciate your assistance in clarifying documentation. Please respond to the clarification below the line at the bottom and electronically sign. The CDI & [facility] Coding staff will review the response and follow-up if needed. Please note: Queries are made part of the Legal Health Record. If you have any questions, please contact the author of this message via ITS. Doctor/Provider: Moises Bridges Unspecified CKD is documented per Progress Note. Additional clarification regarding the stage of CKD is requested. History/Risk Factors: 73yo M, ACCHF, NSTEMI II, ACH/HRF, CAD w CABG, Hx CVA, Morbid obesity, ERROL, DMII w hyperglycemia, HTN, A Fib, GERD, BRUNO on CKD, bedbound, former smoker Clinical Indicators: BUN: 07/04 74 07/06 68 07/08 62 CR: 07/04 1.18 07/05 1.1 07/06 1.38 07/07 1.45 07/08 1.69 AfAm 71 NonAf 61 Treatment: monitored Please clarify the stage of the CKD, if known: [ ] CKD Stage 2 [ ] CKD Stage 3a [ ] Other, please specify [ ] Unable to determine Reference: [employer] Stage 1 eGFR = 90 and kidney damage for =3 months Stage 2 eGFR 60-89 and kidney damage for =3 months Stage 3a eGFR 45-59 and kidney damage for =3 months Stage 3b eGFR 30-44 and kidney damage for =3 months Stage 4 eGFR 15-29 r and kidney damage for =3 months Stage 5 eGFR <15 and kidney damage for =3 months (Template Last revised: August 2023) CKD Stage 2 MTDD
== END 2024-07-08 17:39 | DRG 280 ==
LOC: EC 23:02 → 3SCARD 07-05 03:01
PROVIDERS: ADMIT Hospitalist; ATTEND Hospitalist
PROC: 5A09357 Assistance with Respiratory Ventilation, Less than 24 Consecutive Hours, Continuous Positive Airway Pressure (ICD-10-PCS; principal; 2024-07-04)
DX: I13.0 Hypertensive heart and chronic kidney disease with heart failure and stage 1 through stage 4 chronic kidney disease, or unspecified chronic kidney disease (principal); I50.43 Acute on chronic combined systolic (congestive) and diastolic (congestive) heart failure; I21.A1 Myocardial infarction type 2; J96.22 Acute and chronic respiratory failure with hypercapnia; J18.9 Pneumonia, unspecified organism; J96.21 Acute and chronic respiratory failure with hypoxia; J44.0 Chronic obstructive pulmonary disease with (acute) lower respiratory infection; I48.19 Other persistent atrial fibrillation; N17.9 Acute kidney failure, unspecified; Z68.43 Body mass index [BMI] 50.0-59.9, adult; Z99.81 Dependence on supplemental oxygen; Z95.1 Presence of aortocoronary bypass graft; Z79.01 Long term (current) use of anticoagulants; E11.65 Type 2 diabetes mellitus with hyperglycemia; E66.01 Morbid (severe) obesity due to excess calories; Z79.4 Long term (current) use of insulin; I27.20 Pulmonary hypertension, unspecified; E11.22 Type 2 diabetes mellitus with diabetic chronic kidney disease; D63.1 Anemia in chronic kidney disease; I95.9 Hypotension, unspecified; I08.3 Combined rheumatic disorders of mitral, aortic and tricuspid valves; N18.2 Chronic kidney disease, stage 2 (mild); E78.5 Hyperlipidemia, unspecified; I25.10 Atherosclerotic heart disease of native coronary artery without angina pectoris; F41.9 Anxiety disorder, unspecified; K21.9 Gastro-esophageal reflux disease without esophagitis; G47.33 Obstructive sleep apnea (adult) (pediatric); R53.81 Other malaise; R32 Unspecified urinary incontinence; Z96.653 Presence of artificial knee joint, bilateral; Z79.899 Other long term (current) drug therapy; Z86.73 Personal history of transient ischemic attack (TIA), and cerebral infarction without residual deficits; Z87.891 Personal history of nicotine dependence; Z79.51 Long term (current) use of inhaled steroids; Z79.82 Long term (current) use of aspirin; Z11.52 Encounter for screening for COVID-19; Z74.01 Bed confinement status
CPT/HCPCS: 36415; 71045; 80048; 80053; 81003; 82803; 83036; 83605; 83735; 83880; 84145; 84484; 85025; 85027; 85379; 85610; 85730; 87636; 93005; 94640; 94660; 94760; 96361; 96365; 96367; 96372; 96375; 99291